=== PATIENT | female | born 1955 | race Caucasian/White ===

== ENCOUNTER → 2018-12-25 15:12 | Outpatient (CLI) | payer OTHER, SELFPAY ==
--- NOTE | 2018-12-25 15:15 | BI_ITS ---
MAMMOGRAPHY - BILATERAL SCREENING REASON FOR EXAM: Female, 63 years old. Routine annual screening examination. PERTINENT HISTORY: Non-contributory. Remote left excisional breast biopsy and left stereotactic breast biopsy. TECHNIQUE: Digital bilateral breast elton (3D mammographic acquisition) in the CC and MLO projections. 2-D mediolateral oblique (MLO) and craniocaudad (CC) views of both breasts were obtained. CAD: Full Field Digital Mammography with Computer Added Detection was performed. COMPARISON: Comparison is made with prior study dated November 23, 2017 and November 15, 2016. FINDINGS: Breast Composition: The breasts are almost entirely fatty. There are no dominant masses or suspicious calcifications. Stable benign-appearing bilateral axillary lymph nodes. No other significant abnormalities are identified. There has been no significant change since the prior study. BI/SCREENING MAMM (CAD), BILAT IMPRESSION: Stable bilateral screening mammogram. Yearly follow-up mammogram recommended. (A) ASSESSMENT CATEGORY: BIRADS Category 2: Benign. A letter regarding these results will be sent to the patient by the facility within 30 days. Approximately 10% of breast cancers are not detected by mammography. A normal mammogram should not delay biopsy of a clinically suspicious abnormality. [id number] Electronically Signed: Cal West MD at 8:51 EST , Service support ,
== END ==
PROVIDERS: Family Provider Family Medicine; PCP Family Medicine; Referring Provider Obstetrics & Gynecology; Visit Provider Obstetrics & Gynecology
DX: Z12.31 Encounter for screening mammogram for malignant neoplasm of breast (principal)
CPT/HCPCS: 77063; 77067

== ENCOUNTER → 2019-08-29 12:14 | Outpatient (CLI) | payer OTHER, SELFPAY ==
--- NOTE | 2019-08-29 12:18 | US_ITS ---
STUDY: SUPERFICIAL ULTRASOUND - RIGHT POSTERIOR THIGH REASON FOR EXAM: Female, 64 years old. Lump TECHNIQUE: A superficial ultrasound was performed with real-time and static rodriguez-scale imaging. COMPARISON: None. FINDINGS: Ultrasound evaluation of the right posterior thigh, in the area of concern, shows a complex mass measuring 1.6 x 2.3 x 1.1 cm with some vascularity suggesting this is likely inflammatory or post traumatic process. No organized abscess or adenopathy noted. Follow-up recommended to ensure resolution US/Ext Non Vasc Limited/Soft Tiss IMPRESSION: Likely post inflammatory or post traumatic collection in the posterior thigh corresponding to the palpable lump. Follow-up recommended to assure resolution Electronically Signed: Peterson Valdez MD at 17:34 EDT , Service support ,
== END ==
PROVIDERS: Family Provider Family Medicine; PCP Family Medicine; Referring Provider Family Medicine; Visit Provider Family Medicine
DX: R22.41 Localized swelling, mass and lump, right lower limb (principal)
CPT/HCPCS: 76882

== ENCOUNTER → 2020-01-06 07:47 | Outpatient (CLI) | payer OTHER, SELFPAY ==
[2017-04-17 14:23] VITALS: BMI 31.6
--- NOTE | 2020-01-06 07:49 | BI_ITS ---
MAMMOGRAPHY - BILATERAL SCREENING REASON FOR EXAM: Female, 64 years old. Routine annual screening examination. PERTINENT HISTORY: Current yesterday while since 2012 left breast biopsy in 2010 with diagnosis of intraductal hyperplasia BILATERAL DIGITAL MAMMOGRAM WITH TOMOSYNTHESIS: Mediolateraloblique and craniocaudal views demonstrate no evidence of dominant parenchymal masses. No cluster of microcalcifications or architectural distortion is seen. No evidence of skin thickening is identified. There has been no significant change since 12/25/2018. Breast Density: The breast tissue is almost entirely fatty. CAD was used to assist in final assessment. IMPRESSION: NORMAL MAMMOGRAM BILATERALLY. FINAL ASSESSMENT: BIRAD 1 (NEGATIVE) YEARLY MAMMOGRAM RECOMMENDED Electronically Signed: Yayo Schwarz, at 17:03 EST Tel , Service support , BI/SCREEN MAMM (CAD) W/DILIA SEE
== END ==
PROVIDERS: Family Provider Family Medicine; PCP Family Medicine; Referring Provider Obstetrics & Gynecology; Visit Provider Obstetrics & Gynecology
DX: Z12.31 Encounter for screening mammogram for malignant neoplasm of breast (principal)
CPT/HCPCS: 77063; 77067

== ENCOUNTER 2020-11-14 20:24 | Inpatient (IN) | payer OTHER, MEDICARE, SELFPAY ==
[2020-11-14 20:25] VITALS: BP 189/96; PULSE 79; RESP 16; TEMP 36.1; O2SAT 91; BMI 34.4
[2020-11-14 21:06] VITALS: O2SAT 90
--- NOTE | 2020-11-14 21:06 | EKG12_ITS ---
Test Reason : SOB Blood Pressure : / mmHG Vent. Rate : 074 BPM Atrial Rate : 074 BPM P-R Int : 186 ms QRS Dur : 090 ms QT Int : 424 ms P-R-T Axes : 037 -04 035 degrees QTc Int : 470 ms Normal sinus rhythm Minimal voltage criteria for LVH, may be normal variant Borderline ECG Confirmed by VELIA ROME, RADHA ([id number]), deputy editor in chief GREGORY PULIDO ([id number]) on 11/16/2020 8:49:06 AM Referred By: Carmencita Nunez Confirmed By:RADHA GUNN MD
--- NOTE | 2020-11-14 21:08 | ED.VIS.GEN ---
History of Present Illness Chief Complaint: Shortness of Breath Informant: Patient Narrative: 65-year-old female tested positive for Covid on November 09. She states her symptoms began on the . She states that she was doing reasonably well today she has been experience significant cough and now having blood streaks with her sputum. She states she feels more short of breath today. She called the nurses line I told her to come to emergency. Patient states she has a history of hypertension and takes atenolol. Other medications she tells me are in the computer for my perusal. Patient states she does not use an inhaler or has ever used one in the past. She states she cannot take a deep breath without having to cough. Her fevers have persisted though they come and go. Past Medical History - Allergies and Home Meds Allergies/Adverse Reactions: Allergies No Known Allergies Allergy (Verified 11/14/20 20:27) Primary Care Physician: Yayo Alaniz MD [Primary Care Provider] - Past Medical History: - - Hypertension, hypercholesterolemia, hypothyroidism. Surgical History: noncontributory Smoking Status: Former smoker Drugs: None Review of Systems General: Reports: Chills, Fever, Malaise. Denies: Sweats Eyes: Denies: Visual changes - bilaterally, Diplopia ENT: Denies: Rhinorrhea, Sore throat Cardiovascular: Denies: Chest pain, Palpitations Respiratory: Reports: Dyspnea, Cough, Sputum, Dyspnea on exertion, - - Hemoptysis Gastrointestinal: Reports: Nausea, Diarrhea. Denies: Abdominal pain, Vomiting, Melena, Hematochezia Genitourinary: Denies: Dysuria, Hematuria, Frequency Musculoskeletal: Reports: Myalgias. Denies: Back pain, Extremity Pain Skin: Denies: Rash, Wounds Neurological: Reports: Headache. Denies: Weakness, Numbness Physical Exam Vital Signs/Narrative: Vital Signs Temp Pulse Resp BP Pulse Ox 11/14/20 20:25 96.9 F L 79 16 189/96 H 91 Inital Vital Signs reviewed: Yes General: Well nourished, Well developed, Obese, No Acute Distress Head: Normocephalic, Atraumatic Eyes: Perrl, EOMI ENT: Moist mucous membranes, No rhinorrhea Neck: Supple, Nontender Cardiovascular: Regular rate, Regular rhythm, No murmurs Respiratory: No distress, Chest nontender, Diminished, - - And unable to take a deep breath without coughing which very much limits my lung auscultation skills. I do hear the occasional faint expiratory wheeze Abdomen: Soft, Nontender, Nondistended, Normal bowel sounds Back: Nontender, Normal Inspection Extremities: Nontender, No edema Skin: Normal color, No rash Neurological: Alert, Oriented x3, Cranial nerves II-XII grossly intact, Normal Strength, Normal Sensation Psychological: Normal affect, Normal Mood Diagnostic/Tx/Re-eval Laboratory Last Values WBC 4.0 K/mm3 (4.4-11.0) L 11/14/20 21:40 RBC 4.93 M/mm3 (4.2-5.4) 11/14/20 21:40 Hgb 14.8 g/dL (12.0-15.0) 11/14/20 21:40 Hct 43.7 % (37-47) 11/14/20 21:40 MCV 88.6 fL (81-99) 11/14/20 21:40 MCH 30.0 pg (27.0-32.0) 11/14/20 21:40 MCHC 33.9 g/dL (32-36) 11/14/20 21:40 RDW Std Deviation 41.7 fl (35.1-43.9) 11/14/20 21:40 RDW Coeff of Karyn 12.9 % (11.6-14.6) 11/14/20 21:40 Plt Count 200 K/mm3 (150-450) 11/14/20 21:40 MPV 10.9 fl (6.2-12.0) 11/14/20 21:40 Immature Gran % (Auto) 0.300 % (0.0-0.9) 11/14/20 21:40 Neut % (Auto) 44.4 % (47-70) L 11/14/20 21:40 Lymph % (Auto) 41.2 % (19-41) H 11/14/20 21:40 [place] % (Auto) 13.3 % (0-10) H 11/14/20 21:40 Eos % (Auto) 0.3 % (0-5) 11/14/20 21:40 Baso % (Auto) 0.5 % (0-1) 11/14/20 21:40 Absolute Neuts (auto) 1.8 X10^3/uL (2.0-7.7) L 11/14/20 21:40 Absolute Lymphs (auto) 1.64 X10^3/uL (0.83-4.51) 11/14/20 21:40 Nucleated RBC % 0 % (0-5) 11/14/20 21:40 Sodium 136 mmol/L (136-145) 11/14/20 21:40 Potassium 3.2 mmol/L (3.5-5.1) L 11/14/20 21:40 Chloride 97 mmol/L (98-107) L 11/14/20 21:40 Carbon Dioxide 32.0 mmol/L (21.0-32.0) 11/14/20 21:40 Anion Gap 7 (5-15) 11/14/20 21:40 BUN 14 mg/dL (7-18) 11/14/20 21:40 Creatinine 0.57 mg/dL (0.55-1.02) 11/14/20 21:40 Estim Creat Clear Calc 47.79 ml/min 11/14/20 21:40 Est GFR (MDRD) Af Amer 137 mL/min (>60) 11/14/20 21:40 Est GFR (MDRD) Non-Af 113 mL/min (>60) 11/14/20 21:40 BUN/Creatinine Ratio 24.6 RATIO (10-20) H 11/14/20 21:40 Glucose 138 mg/dL (74-106) H 11/14/20 21:40 Calcium 9.3 mg/dL (8.5-10.1) 11/14/20 21:40 Total Bilirubin 0.30 mg/dL (0.20-1.00) 11/14/20 21:40 AST 42 U/L (15-37) H 11/14/20 21:40 ALT 36 U/L (13-56) 11/14/20 21:40 Alkaline Phosphatase 114 U/L (45-117) 11/14/20 21:40 Troponin I < 0.015 ng/mL (<0.045) 11/14/20 21:40 Total Protein 7.8 g/dL (6.4-8.2) 11/14/20 21:40 Albumin 3.3 g/dL (3.2-5.0) 11/14/20 21:40 Globulin 4.5 g/dL (2.2-4.2) H 11/14/20 21:40 Albumin/Globulin Ratio 0.7 RATIO (0.9-2.4) L 11/14/20 21:40 - EKG Initial EKG Interpretation: Sinus Rhythm - EKG demonstrates a normal sinus rhythm at a rate of 74. No concerning features of ACS or ectopy. No significant changes compared to prior - Medical Decision Making She received dexamethasone Toradol and albuterol MDI. Her saturations have varied. I seen her down at 87% on room air. Slightly leukopenic. Potassium 3.2. Patient received 40 mg of potassium p.o. x1. Her CTA demonstrates no pulmonary embolism but diffuse groundglass infiltrates. Given that it is November 14Monday at 11:30 at night I am unable to get her home oxygen. Think is reasonable that we admit her for further care. ED Disposition - Plan for ED Patient: Diagnosis: COVID-19, Hypoxia, Hypokalemia Referrals: Yayo Alaniz MD [Primary Care Provider] -
[2020-11-14] MEDS: dexAMETHasone 4 MG Tablet 6 MG PO (21:31)
[2020-11-14] MEDS: Ketorolac 15 MG/ML Vial IV (21:33)
[2020-11-14] MEDS: 0.9% Normal Saline 1,000 ML 1000 ML IV (21:35)
[2020-11-14] MEDS: INHALER, ASSIST DEVICES 1 EACH SPACER INHALATION (21:36)
[2020-11-14 21:51] LABS: Absolute Lymphocyte Count 1.64 X10^3/uL (0.83-4.51); Absolute Neutrophil Count 1.8 X10^3/uL (2.0-7.7); Basophil# 0.02 X10^3/uL; Basophil% 0.5 % (0-1); Eosinophil# 0.01 X10^3/uL; Eosinophils% 0.3 % (0-5); Hematocrit 43.7 % (37-47); Hemoglobin 14.8 g/dL (12.0-15.0); Lymphocyte # 1.64 X10^3/ul (4.0); Lymphocyte % 41.2 % (19-41); Mean Corp Hgb Conc 33.9 g/dL (32-36); Mean Corpuscular Volume 88.6 fL (81-99); Mean Platelet Vol. 10.9 fl (6.2-12.0); Monocyte# 0.53 X10^3/uL; Monocyte% 13.3 % (0-10); NRBC Flagged by Analyzer 0 % (0-5); Neutrophil # 1.77 X10^3/uL (2.7-7.7); Neutrophil % 44.4 % (47-70); Platelet Count 200 K/mm3 (150-450); RBC Distribution Width CV 12.9 % (11.6-14.6); RBC Distribution Width SD 41.7 fl (35.1-43.9); Red Blood Count 4.93 M/mm3 (4.2-5.4)
[2020-11-14 22:20] LABS: ALB/GLOB Ratio 0.7 RATIO (0.9-2.4); AST(SGOT) 42 U/L (15-37); Alanine Aminotransfer ALT/SGPT 36 U/L (13-56); Albumin, Serum 3.3 g/dL (3.2-5.0); Alkaline Phosphatase 114 U/L (45-117); Anion Gap 7 (5-15); BUN 14 mg/dL (7-18); BUN/Creat Ratio 24.6 RATIO (10-20); Calcium,Total 9.3 mg/dL (8.5-10.1); Chloride 97 mmol/L (98-107); Creatinine, Serum 0.57 mg/dL (0.55-1.02); EST Glomerular Filtration Rate 113 mL/min (>60); Est Glom Filt Rate - Afr Amer 137 mL/min (>60); Estimated Creatinine Clearance 47.79 ml/min; Globulin 4.5 g/dL (2.2-4.2); Glucose 138 mg/dL (74-106); Potassium 3.2 mmol/L (3.5-5.1); Protein, Total 7.8 g/dL (6.4-8.2); Sodium Level 136 mmol/L (136-145)
[2020-11-14 22:24] VITALS: BP 153/80; PULSE 77; RESP 15; O2SAT 88
--- NOTE | 2020-11-14 22:35 | CT_ITS ---
HISTORY: +COVID. INCREASE SOB. HX OF THYROID AND LEFT BREAST CA. HTN TECHNIQUE: Helically acquired images were obtained of the chest following the intravenous administration of 100 ML of Isovue-370 Iodinated contrast. as per pulmonary angiogram protocol with 2D MIP reconstructions. A radiation dose optimization technique was used for this scan. COMPARISON: A CT scan of the abdomen and pelvis is from April 17, 2017. That study began at the level of the aortic valve FINDINGS: # of images incl. paperwork: 1221 Multifocal rounded groundglass opacities are present throughout all 5 lobes of lungs. These are peripheral greater than central. The basilar greater than apical. . No effusions. Within the thoracic spinebony alignment is normal. Vertebral body height is normal. Facets are well aligned. No rib lesions are perceived. Heart is not enlarged. Thoracic aorta is normal. No aneurysms, stenoses, dissections, nor occlusions. Mediastinal adenopathy is present No pulmonary emboli. Visualized portions of the upper abdomen are without identified acute pathology. CT/CTA Chest W/WO Contrast IMPRESSION: No pulmonary embolism, aortic aneurysm, or aortic dissection. Multifocal bilateral airspace disease consistent with Covid 19 pneumonia. Individualized dose optimization techniques were used for this CT. at 2307 Reported and signed by: Jasper Manzano MD Electronically Signed: Jasper Manzano MD at 23:06 EST Tel , Service support ,
[2020-11-14 22:59] VITALS: BP 146/82; PULSE 77; RESP 17; RESP 19; O2SAT 86; O2SAT 92
--- NOTE | 2020-11-14 23:21 | HP.PCM_ITS ---
Problem List (1) Pneumonia due to 2019 novel coronavirus Status: Acute (2) Hypoxia Status: Acute (3) Hypokalemia Status: Acute (4) HTN (hypertension) Status: Chronic Qualifiers: Hypertension type: essential hypertension Qualified Code(s): I10 - Essential (primary) hypertension (5) HLD (hyperlipidemia) Status: Chronic Qualifiers: Hyperlipidemia type: unspecified Qualified Code(s): E78.5 - Hyperlipidemia, unspecified (6) Hypothyroidism Status: Chronic Qualifiers: Hypothyroidism type: unspecified Qualified Code(s): E03.9 - Hypothyroidism, unspecified (7) History of left breast cancer Status: Chronic (8) History of thyroid cancer Status: Chronic (9) GERD (gastroesophageal reflux disease) Status: Chronic Qualifiers: Esophagitis presence: esophagitis presence not specified Qualified Code(s): K21.9 - Gastro-esophageal reflux disease without esophagitis History of Present Illness Date of Admission: 11/14/20 Chief Complaint: Increasing dyspnea, cough, worsening. The patient is a 65 y/o F w/ PMHx: HTN, HLD, GERD, Chronic back pain, Obesity, Hx L breast CA, Hx Thyroid CA who presents to the [facility] ED on 11/14/20 with history of being recently diagnosed 11/09/20 COVID positive status with history of fever, chills, severe body aches, headache, nausea gout emesis, alteration to sense of taste/smell with cough and dyspnea which primarily has worsened over the last several days prompting ED evaluation. Patient noted her dyspnea is significantly worse whenever she exerts herself. She denies any emesis or abdominal pain/diarrhea. Work-up in the ED included T 96.9, heart rate 79, BP 189/96, oxygenation per ED physician discussion decreased to as low as 87% on room air with improvement to 92% on 2 L nasal cannula, respiratory rate 16 CBC with WC four, hemoglobin 14.8, platelet 200 with leukopenia with ANC 1.8, CMP with potassium 3.2, chloride 97, glucose 138, AST/ALT 42/36, alk phos 114, troponin less than 0.015, CTPA with no evidence of pulmonary emboli, aortic aneurysm or dissection with noted multifocal bilateral L space disease consistent with Covid pneumonia, pending LDH, TCK, CRP, procalcitonin evaluation. Past Medical History Past Medical History (Chronic Problems): Chronic Problems HTN (hypertension) (Chronic) HLD (hyperlipidemia) (Chronic) Hypothyroidism (Chronic) History of left breast cancer (Chronic) History of thyroid cancer (Chronic) GERD (gastroesophageal reflux disease) (Chronic) Allergies No Known Allergies Allergy (Verified 11/14/20 20:27) Home Medications: Ambulatory Orders Medication Instructions Recorded Aspirin 81 mg PO DAILY 04/17/17 Atenolol 50 mg PO DAILY 04/17/17 Esomeprazole Mag Trihydrate 40 mg PO DAILY 04/17/17 [Nexium] Estradiol 1 mg PO DAILY 04/17/17 Hydrochlorothiazide [Hctz] 25 mg PO DAILY 04/17/17 Levothyroxine [Synthroid] 125 mcg PO DAILY 04/17/17 Simvastatin 40 mg PO DAILY 04/17/17 Surgical History: - - Left breast lumpectomy, total thyroidectomy, hysterectomy, left lower extremity vein surgery. Psychiatric History: No pertinent psych hx [employer] History: No pertinent [employer]SEM[employer]ER history Lives: Alone Smoking Status: Former smoker - Patient quit cigarette tobacco usage after smoking approximately 10 years in her 20s less than 1 pack/day. Tobacco Use: Non-smoker Alcohol: Occasional - Patient does state social drinking, sometimes up to 5 drinks was discussed and encouraged decreased consumption. Drugs: None - *Family History Maternal History Items: Cancer - Uterine cancer as well as lung cancer., Diabetes, Hypertension Paternal History Items: COPD, Diabetes, Hypertension Review of Systems Constitutional: Reports: Anorexia, Chills, Fever, Malaise, Weakness, Fatigue. Denies: Weight Change HEENT: Reports: Head Aches, - - Absent sense of taste and smell.. Denies: Sinus Congestion, Sinus Drainage Cardiovascular: Denies: Chest Pain, Chest Pressure, Chest Tightness, Palpitations Respiratory: Reports: Cough, Shortness of Breath, Shortness of breath at rest, Shortness of breath upon exertion. Denies: Sputum production Gastrointestinal: Reports: Nausea. Denies: Abdominal Pain, Diarrhea, Vomiting Genitourinary: Denies: Dysuria Musculoskeletal: Reports: Back Pain, Joint Pain, Muscle pain. Denies: Joint Tenderness Skin: Denies: Rash, Wounds Neurological: Denies: Numbness, Tingling, Focal weakness Psychiatric: Denies: Anxiety, Depression, Homicidal Ideations, Suicidal Ideations Hematologic/ Lymphatic: Denies: Easy Bruising, Easy Bleeding VTE Information - Inpt Only VTE Present on Admission: No VTE Mechan Device Prophylaxis: SCD's VTE Pharm Prophylaxis ordered?: Yes Patient Problems: Active and Suspected Problems COVID-19 (Acute) Hypoxia (Acute) Hypokalemia (Acute) Subjective: Laying in the ED bed, fatigued, notes feeling improved with oxygen supplementation, no obvious respiratory distress currently. Objective: Physical Examination: General: awake, alert, oriented x 3 and cooperative, seated upright in the ED bed, fatigued appearing otherwise no acute distress. Skin: normal color, turgor, no icterus, cyanosis. HEENT: AT/NC, EOMI, PERRLA, mildly dry MM, no carotid bruits or JVD noted. Lungs: Diminished breath sounds, greater bases, no evidence of distress, moderate effort, no rales, ronchi or wheezing. Heart: Regular rate and rhythm; no gallop, rub audible. Abdomen: soft, obese, NTTP, ND, normal BS, no HSM. Extremities: no cyanosis, clubbing, or edema. Neurological: patient awake, alert, oriented as noted; cognitive function intact; pupils equally reactive to light and accomodation; cranial nerves II-XII grossly normal, moving all 4 extremities, no focal deficits, strength moderately globally decreased secondary to acute presentation. Psychiatric: affect appears fatigued otherwise normal, no acute evidence of depressive or anxiety feelings. - Physical Exam Vitals/I&O's: Vital Signs Temp Pulse Resp BP Pulse Ox 96.9 F L 77 17 146/82 H 92 11/14/20 20:25 11/14/20 22:59 11/14/20 22:59 11/14/20 22:59 11/14/20 22:59 Oxygen Flow Rate (L/min) 2 Oxygen Delivery Method Nasal Cannula Weight: 201 lb 0.985 oz Body Mass Index (BMI) 34.4 Intake and Output for Last 24 Hours 11/12/20 11/13/20 11/14/20 23:59 23:59 23:59 Intake Total 1000 / 1000 Balance 1000 / 1000 Laboratory Results 11/14/20 21:40: WBC 4.0 L, RBC 4.93, Hgb 14.8, Hct 43.7, MCV 88.6, MCH 30.0, MCHC 33.9, RDW Std Deviation 41.7, RDW Coeff of Karyn 12.9, Plt Count 200, MPV 10.9, Immature Gran % (Auto) 0.300, Neut % (Auto) 44.4 L, Lymph % (Auto) 41.2 H, [place] % (Auto) 13.3 H, Eos % (Auto) 0.3, Baso % (Auto) 0.5, Absolute Neuts (auto) 1.8 L, Absolute Lymphs (auto) 1.64, Nucleated RBC % 0 11/14/20 21:40: Sodium 136, Potassium 3.2 L, Chloride 97 L, Carbon Dioxide 32.0, Anion Gap 7, BUN 14, Creatinine 0.57, Estim Creat Clear Calc 47.79, Est GFR (MDRD) Af Amer 137, Est GFR (MDRD) Non-Af 113, BUN/Creatinine Ratio 24.6 H, Glucose 138 H, Calcium 9.3, Total Bilirubin 0.30, AST 42 H, ALT 36, Alkaline Phosphatase 114, Troponin I < 0.015, Total Protein 7.8, Albumin 3.3, Globulin 4.5 H, Albumin/Globulin Ratio 0.7 L 11/14/20 21:40: Lactate Dehydrogenase Pending, Total Creatine Kinase Pending, C- React Prot Ext Range Pending 11/14/20 21:40: Procalcitonin Pending Assessment/Plan All Active Problems COVID-19 (Acute) Hypoxia (Acute) Hypokalemia (Acute) Pneumonia due to 2019 novel coronavirus (Acute) The patient is a 65 y/o F w/ PMHx: HTN, HLD, GERD, Chronic back pain, Obesity, Hx L breast CA, Hx Thyroid CA who presents to the [facility] ED on 11/14/20 with history of being recently diagnosed 11/09/20 COVID positive status with history of fever, chills, severe body aches, headache, nausea gout emesis, alteration to sense of taste/smell with cough and dyspnea which primarily has worsened over the last several days prompting ED evaluation. 1. Acute Hypoxia secondary to Acute Bilateral Pneumonia secondary to Acute Viral Syndrome, COVID-19: Will admit to the COVID unit, will maintain on oxygen with wean as tolerated to room air, PRN albuterol, HOB, IS parameters w/ pending sputum cultures, respiratory viral panel and urine antigens, pending procalcitonin, CRP, CPK, Ferritin, LDH, continue supportive care including q 2 hour turning including prone given no prone bed availability and judicious hydration, closely monitor for worsening status for ARDS and multiorgan failure, will initiate decadron therapy 6 mg IV daily, will initiate remdesivir and will consult Infectious disease for evaluation, T+S pending. 2. Hypokalemia: Admission K+ 3.2, magnesium level requested, supplementation given, repeat level in AM. 3. Hypertension: We will continue patient home hydrochlorothiazide and atenolol with hold parameters, as needed hydralazine. 4. Hyperlipidemia: Continue home statin regimen. 5. Hypothyroidism: Continue home synthroid regimen. 6. GERD: We will continue patient home PPI. 7. History of left breast cancer: Status post left breast lumpectomy, in remission, encourage continued outpatient follow-up with her oncologist as previously arranged. 8. History of thyroid cancer: History of total thyroidectomy, on supplementation with hypothyroidism as noted #5. 9. Obesity: Weight loss and lifestyle changes encouraged. 10. DVT prophylaxis: SCDs, Lovenox. 11. CODE status: Patient REMIGIO is her granddaughter Noemy Corley and living will is currently in place. Discussed CODE status at length including difference between FULL code, DNR-CCA and DNR-CC status. Following discussions about the differences in these status, requested Full Code. Advanced Care Planning Face to Face Time: 16 minutes. Inpatient E&M: 76205 Init Hosp L3 Procedures: 86827 Advncd Care Plan 30 Min
[2020-11-14 23:30] LABS: CPK Total, Creatine Kinase 70 U/L (26-192); LDH 301 U/L (84-246)
[2020-11-14 23:37] LABS: Procalcitonin 0.06 ng/mL (0.00-0.09)
[2020-11-14 23:59] LABS: Fibrinogen 520 mg/dl (203-444)
[2020-11-15] VITALS (9 sets, daily range): BP systolic 132–164; BP diastolic 60–91; PULSE 67–86; RESP 15–20; TEMP 36.1–38.3; O2SAT 93–97; BMI 34.6
[2020-11-15 00:02] LABS: D-Dimer Quantitative (DVT/PE) 0.51 FEU/ug/m (0.27-0.49)
--- NOTE | 2020-11-15 00:19 | PCS.PANDOC ---
PANDEMIC DOCUMENTATION INITIATED: Date: 11/15/20 Time: 0019
[2020-11-15 00:53] LABS: Magnesium 1.5 mg/dL (1.6-2.6)
[2020-11-15] MEDS: Acetaminophen 325 MG Tablet 650 MG PO ×2 (00:58→21:09)
[2020-11-15] MEDS: 0.9% Saline Lock 10 ML Syringe IV ×2 (01:04→22:25)
[2020-11-15 01:05] LABS: BNP,B-Type NATRIURETIC PEPTIDE 29.8 pg/mL (0-100)
[2020-11-15] MEDS: MELATONIN 3 MG TABLET PO ×2 (01:05→21:09)
[2020-11-15 07:47] LABS: Absolute Lymphocyte Count 0.91 X10^3/uL (0.83-4.51); Absolute Neutrophil Count 1.6 X10^3/uL (2.0-7.7); Basophil# 0.01 X10^3/uL; Basophil% 0.4 % (0-1); Hemoglobin 13.5 g/dL (12.0-15.0); Lymphocyte # 0.91 X10^3/ul (4.0); Lymphocyte % 33.6 % (19-41); Mean Corp Hgb Conc 32.9 g/dL (32-36); Mean Platelet Vol. 10.5 fl (6.2-12.0); Monocyte# 0.21 X10^3/uL; Monocyte% 7.7 % (0-10); NRBC Flagged by Analyzer 0 % (0-5); Neutrophil # 1.56 X10^3/uL (2.7-7.7); Neutrophil % 57.6 % (47-70); Platelet Count 201 K/mm3 (150-450); RBC Distribution Width CV 12.8 % (11.6-14.6); RBC Distribution Width SD 41.2 fl (35.1-43.9); Red Blood Count 4.66 M/mm3 (4.2-5.4); White Blood Count 2.7 K/mm3 (4.4-11.0)
[2020-11-15 08:09] LABS: ALB/GLOB Ratio 0.7 RATIO (0.9-2.4); AST(SGOT) 27 U/L (15-37); Alanine Aminotransfer ALT/SGPT 28 U/L (13-56); Albumin, Serum 2.9 g/dL (3.2-5.0); Alkaline Phosphatase 109 U/L (45-117); Anion Gap 7 (5-15); BUN 8 mg/dL (7-18); BUN/Creat Ratio 15.2 RATIO (10-20); Calcium,Total 8.7 mg/dL (8.5-10.1); Chloride 103 mmol/L (98-107); Creatinine, Serum 0.52 mg/dL (0.55-1.02); EST Glomerular Filtration Rate 124 mL/min (>60); Est Glom Filt Rate - Afr Amer 150 mL/min (>60); Estimated Creatinine Clearance 47.79 ml/min; Globulin 4.1 g/dL (2.2-4.2); Glucose 201 mg/dL (74-106); Magnesium 2.2 mg/dL (1.6-2.6); Potassium 3.7 mmol/L (3.5-5.1); Sodium Level 136 mmol/L (136-145)
[2020-11-15] MEDS: Pantoprazole Sodium 40 MG Tablet PO (08:51)
[2020-11-15] MEDS: Enoxaparin 30 MG/0.3 ML Syringe SC ×2 (08:51→21:10)
[2020-11-15] MEDS: Atenolol 50 MG Tablet PO (08:51)
[2020-11-15] MEDS: Aspirin E.C. 81 MG Tablet PO (08:52)
[2020-11-15] MEDS: hydroCHLOROthiazide 25 MG Tablet PO (08:52)
[2020-11-15] MEDS: dexAMETHasone 10 MG/ML Vial 6 MG IV (08:52)
--- NOTE | 2020-11-15 09:35 | PCM.PN.HOSP ---
Patient Problems: Active and Suspected Problems COVID-19 (Acute) Hypoxia (Acute) Hypokalemia (Acute) Pneumonia due to 2019 novel coronavirus (Acute) Subjective: Doing well, no issues. Still coughing, but maintaining sats at 2 L nasal cannula Vitals/I&O's: Vital Signs Temp Pulse Resp BP Pulse Ox 97.6 F L 71 18 144/86 H 95 11/15/20 08:44 11/15/20 08:44 11/15/20 08:44 11/15/20 08:44 11/15/20 08:44 Oxygen Flow Rate (L/min) 2 Oxygen Delivery Method Nasal Cannula Weight: 205 lb 4.8 oz Body Mass Index (BMI) 34.6 Intake and Output for Last 24 Hours 11/13/20 11/14/20 11/15/20 23:59 23:59 23:59 Intake Total 1000 / 1000 354 / 354 Balance 1000 / 1000 354 / 354 General: Alert, Oriented x3, Cooperative, No apparent distress HEENT: Atraumatic, PERRLA, EOMI, Normocephalic Oral: Moist Mucosa Neck: Supple, No JVD Lungs: Normal air movement, No rhonchi, No wheeze, No rales, Diminished Cardiovascular: Regular rate, Regular Rhythm, Normal S1, Normal S2, Murmur - 2/6 KADI Abdomen: Soft, Non Tender, Non-Distended, No Hepato-splenomegaly Extremities: No edema, Capillary Refill Less than 3 Seconds Skin: No rashes, No breakdown Neurological: Neuro grossly intact, Sensory exam intact to light touch and pain Psych/Mental Status: Normal Affect, Appropriate Microbiology Past 72 Hours 11/15/20 01:05 Mucosa - Nasopharyngeal Respiratory Panel (PCR) - Final 11/15/20 01:20 Urine, Clean Catch Legionella Antigen - Final 11/15/20 01:20 Urine, Clean Catch Streptococcus pneumoniae Antigen (M - Final Laboratory Results 11/14/20 21:40: WBC 4.0 L, RBC 4.93, Hgb 14.8, Hct 43.7, MCV 88.6, MCH 30.0, MCHC 33.9, RDW Std Deviation 41.7, RDW Coeff of Karyn 12.9, Plt Count 200, MPV 10.9, Immature Gran % (Auto) 0.300, Neut % (Auto) 44.4 L, Lymph % (Auto) 41.2 H, Maries % (Auto) 13.3 H, Eos % (Auto) 0.3, Baso % (Auto) 0.5, Absolute Neuts (auto) 1.8 L, Absolute Lymphs (auto) 1.64, Nucleated RBC % 0 11/14/20 21:40: Sodium 136, Potassium 3.2 L, Chloride 97 L, Carbon Dioxide 32.0, Anion Gap 7, BUN 14, Creatinine 0.57, Estim Creat Clear Calc 47.79, Est GFR (MDRD) Af Amer 137, Est GFR (MDRD) Non-Af 113, BUN/Creatinine Ratio 24.6 H, Glucose 138 H, Calcium 9.3, Total Bilirubin 0.30, AST 42 H, ALT 36, Alkaline Phosphatase 114, Troponin I < 0.015, Total Protein 7.8, Albumin 3.3, Globulin 4.5 H, Albumin/Globulin Ratio 0.7 L 11/14/20 21:40: Lactate Dehydrogenase 301 H, Total Creatine Kinase 70, C-React Prot Ext Range 92.90 H 11/14/20 21:40: Procalcitonin 0.06 11/14/20 21:40: Magnesium 1.5 L 11/14/20 21:40: B-Natriuretic Peptide 29.8 11/14/20 23:20: Fibrinogen 520 H, D-Dimer Quant (PE/DVT) 0.51 H* 11/15/20 06:50: Blood Type A POSITIVE, Antibody Screen NEGATIVE 11/15/20 06:50: WBC 2.7 L, RBC 4.66, Hgb 13.5, Hct 41.0, MCV 88.0, MCH 29.0, MCHC 32.9, RDW Std Deviation 41.2, RDW Coeff of Karyn 12.8, Plt Count 201, MPV 10.5, Immature Gran % (Auto) 0.700, Neut % (Auto) 57.6, Lymph % (Auto) 33.6, Maries % (Auto) 7.7, Eos % (Auto) 0.0, Baso % (Auto) 0.4, Absolute Neuts (auto) 1.6 L, Absolute Lymphs (auto) 0.91, Nucleated RBC % 0 11/15/20 06:50: Sodium 136, Potassium 3.7, Chloride 103, Carbon Dioxide 26.0, Anion Gap 7, BUN 8, Creatinine 0.52 L, Estim Creat Clear Calc 47.79, Est GFR (MDRD) Af Amer 150, Est GFR (MDRD) Non-Af 124, BUN/Creatinine Ratio 15.2, Glucose 201 H, Calcium 8.7, Magnesium 2.2, Total Bilirubin 0.30, AST 27, ALT 28, Alkaline Phosphatase 109, Total Protein 7.0, Albumin 2.9 L, Globulin 4.1, Albumin/Globulin Ratio 0.7 L Current Medications Acetaminophen (Acetaminophen 325 Mg Tablet) 650 mg PO Q6H PRN PRN PRN Reason: Pain Score 1-10/Temp > 100.7 F Last Admin: 11/15/20 00:58 Dose: 650 mg Documented by: Al Hydroxide/Mg Hydroxide (Mag Hydrox/Al Hydrox/Simeth 30 Ml Udc) 30 ml PO Q6H PRN PRN PRN Reason: Gastric Burning Albuterol Sulfate (Albuterol Ih 8.5 Gm (Proair) Inhaler (200 Puffs)) 4 - 8 puff INHALATION Q4H PRN PRN PRN Reason: Dyspnea, wheezing Aspirin (Aspirin E.C. 81 Mg Tablet) 81 mg PO DAILY [facility] Last Admin: 11/15/20 08:52 Dose: 81 mg Documented by: Atenolol (Atenolol 50 Mg Tablet) 50 mg PO DAILY [facility] Last Admin: 11/15/20 08:51 Dose: 50 mg Documented by: Atorvastatin Calcium (Atorvastatin Calcium 20 Mg Tablet) 20 mg PO QHS [facility] Dexamethasone Sodium Phosphate (Dexamethasone 10 Mg/Ml Vial) 6 mg IV DAILY [facility] Last Admin: 11/15/20 08:52 Dose: 6 mg Documented by: Enoxaparin Sodium (Enoxaparin 30 Mg/0.3 Ml Syringe) 30 mg SC BID [facility] Last Admin: 11/15/20 08:51 Dose: 30 mg Documented by: Guaifenesin (Guaifenesin 10 Ml Udc (200mg/10ml)) 20 ml PO Q4H PRN PRN PRN Reason: COUGH Hydralazine HCl (Hydralazine 20 Mg/Ml Vial) 10 mg IV Q4H PRN PRN PRN Reason: SBP > 160 Hydrochlorothiazide (Hydrochlorothiazide 25 Mg Tablet) 25 mg PO DAILY [facility] Last Admin: 11/15/20 08:52 Dose: 25 mg Documented by: Remdesivir 100 mg/ Sodium (Chloride) 250 mls @ 125 mls/hr IV Q24H [facility] Stop: 11/18/20 23:59 Sodium Chloride () 250 mls @ 15 mls/hr IV .[id number] PRN PRN Reason: Saline Flush Last Admin: 11/15/20 01:00 Dose: 15 mls/hr Documented by: Levothyroxine Sodium (Levothyroxine 125 Mcg Tablet) 125 mcg PO DAILY [facility] Last Admin: 11/15/20 08:51 Dose: Not Given Documented by: Magnesium Hydroxide (Magnesium Hydroxide 30 Ml Udc) 30 ml PO DAILY PRN PRN PRN Reason: Constipation Melatonin (Melatonin 3 Mg Tablet) 3 mg PO QHS PRN PRN PRN Reason: INSOMNIA Last Admin: 11/15/20 01:05 Dose: 3 mg Documented by: Ondansetron HCl (Ondansetron 4 Mg/2 Ml Vial) 4 mg IV Q8H PRN PRN PRN Reason: NAUSEA/VOMITING Oxycodone HCl (Oxycodone 5 Mg Tablet) 5 mg PO Q4H PRN PRN PRN Reason: Pain Score 4-5 Pantoprazole Sodium (Pantoprazole Sodium 40 Mg Tablet) 40 mg PO DAILY [facility] Last Admin: 11/15/20 08:51 Dose: 40 mg Documented by: Prochlorperazine Edisylate (Prochlorperazine 10 Mg/2 Ml Vial) 5 mg IV Q4H PRN PRN PRN Reason: Breakthrough nausea/vomiting Psyllium Hydrophilic Mucilloid (Psyllium 1 Packet) 1 packet PO DAILY PRN PRN PRN Reason: Constipation Senna/Docusate Sodium (Senna/Docusate Sodium 1 Tablet) 2 tablet PO BID PRN PRN PRN Reason: Constipation Sodium Chloride (0.9% Saline Lock 10 Ml Syringe) 10 - 40 ml IV UD PRN PRN Reason: SALINE FLUSH Last Admin: 11/15/20 01:04 Dose: 10 ml Documented by: Throat Lozenges (Benzocaine/Menthol 1 Lozenge) 1 lozenge MUCOUS MEM Q2H PRN PRN PRN Reason: SORE THROAT STROKE Vital Signs/Narrative: Vital Signs Temp Pulse Resp BP Pulse Ox 11/15/20 08:44 97.6 F L 71 18 144/86 H 95 Medical Necessity - Tobacco Use Smoking Status: Former smoker Tobacco Use: Non-smoker Assessment/Plan All Active Problems COVID-19 (Acute) Hypoxia (Acute) Hypokalemia (Acute) Pneumonia due to 2019 novel coronavirus (Acute) 1. Acute hypoxic respiratory insufficiency secondary to COVID-19 pneumonia -She tested positive for Covid on 11/09/2020, symptoms slowly got worse which is why she presented to the hospital -He with remdesivir and Decadron -Continue CBC and CMP monitor LFTs -Be very cautious with IV fluids cannot overload, will transition IV Decadron to p.o. Decadron 2. HTN/HLD -Blood pressure currently stable, will closely monitor given the Decadron -Continue with her home blood pressure medications -Continue with statins 3. Hypothyroidism -Stable -Continue with Synthroid 4. GERD -Stable -Continue PPI DVT: Lovenox Inpatient E&M: [id number] Subs Hosp L2
[2020-11-15] MEDS: Atorvastatin Calcium 20 MG Tablet PO (21:09)
[2020-11-15] MEDS: NYSTATIN 500,000 UNIT/5 ML UDC 500000 UNIT PO (21:09)
[2020-11-15] MEDS: Estradiol 0.5 MG Tablet PO (22:24)
[2020-11-15] MEDS: DiphenhydrAMINE 25 MG Capsule PO (22:24)
[2020-11-16] VITALS (8 sets, daily range): BP systolic 127–156; BP diastolic 68–93; PULSE 59–63; RESP 18–20; TEMP 35.9–36.5; O2SAT 86–97
[2020-11-16 06:17] LABS: Absolute Lymphocyte Count 1.53 X10^3/uL (0.83-4.51); Absolute Neutrophil Count 4.4 X10^3/uL (2.0-7.7); Basophil# 0.01 X10^3/uL; Basophil% 0.1 % (0-1); Eosinophil# 0.01 X10^3/uL; Eosinophils% 0.1 % (0-5); Hematocrit 40.9 % (37-47); Hemoglobin 13.4 g/dL (12.0-15.0); Lymphocyte # 1.53 X10^3/ul (4.0); Lymphocyte % 22.1 % (19-41); Mean Corp Hgb Conc 32.8 g/dL (32-36); Mean Corpuscular Hgb 28.9 pg (27.0-32.0); Mean Corpuscular Volume 88.3 fL (81-99); Mean Platelet Vol. 10.7 fl (6.2-12.0); Monocyte# 0.97 X10^3/uL; NRBC Flagged by Analyzer 0 % (0-5); Neutrophil # 4.38 X10^3/uL (2.7-7.7); Neutrophil % 63.3 % (47-70); Platelet Count 250 K/mm3 (150-450); RBC Distribution Width CV 12.8 % (11.6-14.6); RBC Distribution Width SD 41.6 fl (35.1-43.9); Red Blood Count 4.63 M/mm3 (4.2-5.4); White Blood Count 6.9 K/mm3 (4.4-11.0)
[2020-11-16 06:50] LABS: ALB/GLOB Ratio 0.8 RATIO (0.9-2.4); AST(SGOT) 23 U/L (15-37); Alanine Aminotransfer ALT/SGPT 27 U/L (13-56); Albumin, Serum 2.8 g/dL (3.2-5.0); Alkaline Phosphatase 98 U/L (45-117); Anion Gap 6 (5-15); BUN 15 mg/dL (7-18); BUN/Creat Ratio 29.6 RATIO (10-20); Calcium,Total 9.2 mg/dL (8.5-10.1); Chloride 103 mmol/L (98-107); Creatinine, Serum 0.51 mg/dL (0.55-1.02); EST Glomerular Filtration Rate 129 mL/min (>60); Est Glom Filt Rate - Afr Amer 157 mL/min (>60); Estimated Creatinine Clearance 47.79 ml/min; Globulin 3.4 g/dL (2.2-4.2); Glucose 148 mg/dL (74-106); Potassium 3.7 mmol/L (3.5-5.1); Protein, Total 6.2 g/dL (6.4-8.2); Sodium Level 138 mmol/L (136-145)
[2020-11-16] MEDS: NYSTATIN 500,000 UNIT/5 ML UDC 500000 UNIT PO ×4 (08:29→21:07)
[2020-11-16] MEDS: Enoxaparin 30 MG/0.3 ML Syringe SC ×2 (08:29→21:06)
[2020-11-16] MEDS: Aspirin E.C. 81 MG Tablet PO (08:30)
[2020-11-16] MEDS: hydroCHLOROthiazide 25 MG Tablet PO (08:30)
[2020-11-16] MEDS: Atenolol 50 MG Tablet PO (08:30)
[2020-11-16] MEDS: Pantoprazole Sodium 40 MG Tablet PO (08:30)
[2020-11-16] MEDS: dexAMETHasone 4 MG Tablet 6 MG PO (08:30)
[2020-11-16] MEDS: Levothyroxine 125 MCG Tablet PO (08:31)
--- NOTE | 2020-11-16 12:55 | CASEMGMT ---
RN CM called patient in room for initial transition planning/care coordination assessment. RN CATHY introduced self and role at [facility]. Patient lying in bed, alert and oriented. Patient willing to participate in assessment and is able to answer all questions appropriately. Care providers, pharmacy, and demographics verified. Patient wishes to discharge home, denies need for home health at this time. Patient states she has no further needs or concerns at this time. CM to follow for discharge planning needs that may arise. PCP: Katty Specialists: none Preferred Pharmacy: [facility] Insurance: JAN [employer]ch Prescription Benefit: yes Living Will/HPOA: yes, granddaughter Noemy Corley LNOK: granddaughter Living Arrangements: Patient lives alone in a 2nd floor apartment and is independent in the home. Patient is able to ambulate stairs. Transportation: self/ granddaughter DME/HHC: Patient denies DME or previous HHC. Will monitor for need for HHC. Disposition Plan: Patient to discharge home with family support and follow-up plans in place. Alyssa GARCIA, RN, CM
--- NOTE | 2020-11-16 14:35 | NURSING ---
po 93% at rest on ra
--- NOTE | 2020-11-16 15:17 | CON.PCM_ITS ---
Problem List (1) COVID-19 Status: Acute Reason for Consult: covid Consulted by: Dr. Locke History of Present Illness: The patient is a 65 year old F presented with sx since 11/07 with fever, chills, cough, SOB, nausea, headache, sore throat, myalgias. No change in taste/smell. Lives alone, works at [employer]. Came to ED 1/, given dex, remdesiivr, feeling better. Off O2 today. Full ROS performed and neg except as noted above. - Medical History Past Medical History (Chronic Problems): Chronic Problems HTN (hypertension) (Chronic) HLD (hyperlipidemia) (Chronic) Hypothyroidism (Chronic) History of left breast cancer (Chronic) History of thyroid cancer (Chronic) GERD (gastroesophageal reflux disease) (Chronic) Allergies/Adverse Reactions: Allergies No Known Allergies Allergy (Verified 11/14/20 20:27) Home Medications: Ambulatory Orders Medication Instructions Recorded Aspirin 81 mg PO DAILY 04/17/17 Atenolol 50 mg PO DAILY 04/17/17 Esomeprazole Mag Trihydrate 40 mg PO DAILY 04/17/17 [Nexium] Estradiol 0.5 mg PO QHS 04/17/17 Hydrochlorothiazide [Hctz] 25 mg PO DAILY 04/17/17 Levothyroxine [Synthroid] 125 mcg PO DAILY 04/17/17 Simvastatin 40 mg PO DAILY 04/17/17 DiphenhydrAMINE [Benadryl] 25 mg PO QHS PRN PRN 11/15/20 - Social History SMOKING STATUS:: Former smoker Vital Signs Temp Pulse Resp BP Pulse Ox 97.3 F L 59 L 20 H 127/68 H 86 11/16/20 14:20 11/16/20 14:20 11/16/20 14:20 11/16/20 14:20 11/16/20 14:32 Oxygen Flow Rate (L/min) 1 Oxygen Delivery Method Room Air Weight: 92.561 kg Body Mass Index (BMI) 34.6 Microbiology Past 72 Hours 11/15/20 22:03 Gram Stain - Final Interface Orders Respiratory Culture - Preliminary Appears to be normal respiratory david. Further studies to follow. 11/15/20 01:05 Respiratory Panel (PCR) - Final Mucosa - Nasopharyngeal 11/15/20 01:20 Legionella Antigen - Final Urine, Clean Catch Streptococcus pneumoniae Antigen (M - Final Laboratory Tests Past 24 Hrs 11/16/20 11/16/20 05:45 05:45 WBC 6.9 RBC 4.63 Hgb 13.4 Hct 40.9 MCV 88.3 MCH 28.9 MCHC 32.8 RDW Std Deviation 41.6 RDW Coeff of Karyn 12.8 Plt Count 250 MPV 10.7 Immature Gran % (Auto) 0.400 Neut % (Auto) 63.3 Lymph % (Auto) 22.1 [place] % (Auto) 14.0 H Eos % (Auto) 0.1 Baso % (Auto) 0.1 Absolute Neuts (auto) 4.4 Absolute Lymphs (auto) 1.53 Nucleated RBC % 0 Sodium 138 Potassium 3.7 Chloride 103 Carbon Dioxide 29.0 Anion Gap 6 BUN 15 Creatinine 0.51 L Estim Creat Clear Calc 47.79 Est GFR (MDRD) Af Amer 157 Est GFR (MDRD) Non-Af 129 BUN/Creatinine Ratio 29.6 H Glucose 148 H Calcium 9.2 Total Bilirubin 0.20 AST 23 ALT 27 Alkaline Phosphatase 98 Total Protein 6.2 L Albumin 2.8 L Globulin 3.4 Albumin/Globulin Ratio 0.8 L - Other Studies Radiology: [] reviewed Other Studies: [] Route of nutrition/ use of supplements: [] Nutritional Intake: [] IV Site: [] Noel Catheter: [] - Physical Exam General: Alert, Oriented x3, Cooperative, No apparent distress HEENT: Atraumatic, PERRLA, EOMI Neck: Supple, No Nodes Lungs: Clear to auscultation, Diminished Cardiovascular: Regular rate, Regular Rhythm Abdomen: Soft, Non Tender, Non-Distended Extremities: No edema Skin: No rashes IV Site: Peripheral, without redness Musculoskeletal: No Tenderness to Palpation of Joints or Extremities Neurological: Cranial nerves II-XII grossly intact - Assessment/Plan Antibiotics: [] Assessment/Plan: [] Active and Suspected Problems COVID-19 (Acute) Hypoxia (Acute) Hypokalemia (Acute) Pneumonia due to 2019 novel coronavirus (Acute) covid with hypoxia - feeling better, sx started 11/07, on dex, remdesivir, and lovenox 30mg bid. D-dimer just barely above normal range. Plan on quarantine for 20 days from start of symptoms. Complete 10 days total of dex. Ok for discharge home today or tomorrow, probably ok to not leave on any extra anticoagulation; is on ASA. will follow, thank you
--- NOTE | 2020-11-16 17:58 | PN_ITS ---
Patient Problems: Active and Suspected Problems COVID-19 (Acute) Hypoxia (Acute) Hypokalemia (Acute) Pneumonia due to 2019 novel coronavirus (Acute) Subjective: Patient was seen and examined today, I attempted to wean her oxygen down today but she still required oxygen on room air. Patient is getting remdesivir and dexamethasone presently, she does not complain of any fever or chills, she does not complain of any increased shortness of breath. - Physical Exam Vitals/I&O's: Vital Signs Temp Pulse Resp BP Pulse Ox 97.3 F L 59 L 20 H 127/68 H 86 11/16/20 14:20 11/16/20 14:20 11/16/20 14:20 11/16/20 14:20 11/16/20 14:32 Oxygen Flow Rate (L/min) 1 Oxygen Delivery Method Room Air Weight: 92.561 kg Body Mass Index (BMI) 34.6 Intake and Output for Last 24 Hours 11/14/20 11/15/20 11/16/20 23:59 23:59 23:59 Intake Total 1000 / 1000 1167.5 / 1167.5 550 / 550 Balance 1000 / 1000 1167.5 / 1167.5 550 / 550 General: Alert, Oriented x3, Cooperative, No apparent distress, Well developed HEENT: Atraumatic, PERRLA, EOMI, Normocephalic Oral: Moist Mucosa Neck: Supple, No JVD, Trachea Midline, Thyroid Normal Size and Texture Lungs: Clear to auscultation, Normal air movement, No rhonchi, No wheeze, No rales Cardiovascular: Regular rate, Regular Rhythm, Normal S1, Normal S2, No murmurs, PMI Normal, No rub noted, No Gallop Abdomen: Bowel Sounds Present, Soft, Non Tender, Non-Distended Extremities: No clubbing, No cyanosis, No edema, Capillary Refill Less than 3 Seconds Skin: No rashes, No breakdown Musculoskeletal: No Tenderness to Palpation of Joints or Extremities Neurological: Cranial nerves II-XII grossly intact, Neuro grossly intact, Sensory exam intact to light touch and pain Psych/Mental Status: Normal Affect, Appropriate, Alert and oriented to time, place, person, mood and affect Microbiology Past 72 Hours 11/15/20 22:03 Interface Orders Gram Stain - Final 11/15/20 22:03 Interface Orders Respiratory Culture - Preliminary Appears to be normal respiratory david. Further studies to follow. 11/15/20 01:05 Mucosa - Nasopharyngeal Respiratory Panel (PCR) - Final 11/15/20 01:20 Urine, Clean Catch Legionella Antigen - Final 11/15/20 01:20 Urine, Clean Catch Streptococcus pneumoniae Antigen (M - Final Laboratory Results 11/16/20 05:45: WBC 6.9, RBC 4.63, Hgb 13.4, Hct 40.9, MCV 88.3, MCH 28.9, MCHC 32.8, RDW Std Deviation 41.6, RDW Coeff of Karyn 12.8, Plt Count 250, MPV 10.7, Immature Gran % (Auto) 0.400, Neut % (Auto) 63.3, Lymph % (Auto) 22.1, [place] % (Auto) 14.0 H, Eos % (Auto) 0.1, Baso % (Auto) 0.1, Absolute Neuts (auto) 4.4, Absolute Lymphs (auto) 1.53, Nucleated RBC % 0 11/16/20 05:45: Sodium 138, Potassium 3.7, Chloride 103, Carbon Dioxide 29.0, Anion Gap 6, BUN 15, Creatinine 0.51 L, Estim Creat Clear Calc 47.79, Est GFR (MDRD) Af Amer 157, Est GFR (MDRD) Non-Af 129, BUN/Creatinine Ratio 29.6 H, Glucose 148 H, Calcium 9.2, Total Bilirubin 0.20, AST 23, ALT 27, Alkaline Phosphatase 98, Total Protein 6.2 L, Albumin 2.8 L, Globulin 3.4, Albumin/Globulin Ratio 0.8 L Current Medications Acetaminophen (Acetaminophen 325 Mg Tablet) 650 mg PO Q6H PRN PRN PRN Reason: Pain Score 1-10/Temp > 100.7 F Last Admin: 11/15/20 21:09 Dose: 650 mg Documented by: Al Hydroxide/Mg Hydroxide (Mag Hydrox/Al Hydrox/Simeth 30 Ml Udc) 30 ml PO Q6H PRN PRN PRN Reason: Gastric Burning Albuterol Sulfate (Albuterol Ih 8.5 Gm (Proair) Inhaler (200 Puffs)) 4 - 8 puff INHALATION Q4H PRN PRN PRN Reason: Dyspnea, wheezing Aspirin (Aspirin E.C. 81 Mg Tablet) 81 mg PO DAILY [facility] Last Admin: 11/16/20 08:30 Dose: 81 mg Documented by: Atenolol (Atenolol 50 Mg Tablet) 50 mg PO DAILY [facility] BEDS AT [facility] Last Admin: 11/16/20 08:30 Dose: 50 mg Documented by: Atorvastatin Calcium (Atorvastatin Calcium 20 Mg Tablet) 20 mg PO QHS [facility] 234 BEDS AT [facility] Last Admin: 11/15/20 21:09 Dose: 20 mg Documented by: Dexamethasone (Dexamethasone 4 Mg Tablet) 6 mg PO DAILY [facility] 234 BEDS AT THE [facility] Stop: 11/23/20 10:01 Last Admin: 11/16/20 08:30 Dose: 6 mg Documented by: Diphenhydramine HCl (Diphenhydramine 25 Mg Capsule) 25 mg PO QHS PRN PRN PRN Reason: SLEEP Last Admin: 11/15/20 22:24 Dose: 25 mg Documented by: Enoxaparin Sodium (Enoxaparin 30 Mg/0.3 Ml Syringe) 30 mg SC BID [facility]S [facility]CLUDE 234 BEDS AT [facility] Last Admin: 11/16/20 08:29 Dose: 30 mg Documented by: Estradiol (Estradiol 0.5 Mg Tablet) 0.5 mg PO QHS [facility]S [facility]CLUDE 234 BEDS AT [facility] Last Admin: 11/15/20 22:24 Dose: 0.5 mg Documented by: Guaifenesin (Guaifenesin 10 Ml Udc (200mg/10ml)) 20 ml PO Q4H PRN PRN PRN Reason: COUGH Hydralazine HCl (Hydralazine 20 Mg/Ml Vial) 10 mg IV Q4H PRN PRN PRN Reason: SBP > 160 Hydrochlorothiazide (Hydrochlorothiazide 25 Mg Tablet) 25 mg PO DAILY [facility] 234 BEDS AT [facility] Last Admin: 11/16/20 08:30 Dose: 25 mg Documented by: Remdesivir 100 mg/ Sodium (Chloride) 250 mls @ 125 mls/hr IV Q24H COUNTS INCLUDE 234 BEDS AT THE [facility] Stop: 11/18/20 23:59 Last Infusion: 11/16/20 00:24 Dose: Infused Documented by: Sodium Chloride () 250 mls @ 15 mls/hr IV .[id number] PRN PRN Reason: Saline Flush Last Infusion: 11/15/20 23:46 Dose: Infused Documented by: Levothyroxine Sodium (Levothyroxine 125 Mcg Tablet) 125 mcg PO DAILY [facility]CLUDE 234 BEDS AT [facility] Last Admin: 11/16/20 08:31 Dose: 125 mcg Documented by: Magnesium Hydroxide (Magnesium Hydroxide 30 Ml Udc) 30 ml PO DAILY PRN PRN PRN Reason: Constipation Melatonin (Melatonin 3 Mg Tablet) 3 mg PO QHS PRN PRN PRN Reason: INSOMNIA Last Admin: 11/15/20 21:09 Dose: 3 mg Documented by: Nystatin (Nystatin 500,000 Unit/5 Ml Udc) 500,000 unit PO 4X/DAY COUNTS INCLUDE 234 BEDS AT THE [facility] Last Admin: 11/16/20 17:49 Dose: 500,000 unit Documented by: Ondansetron HCl (Ondansetron 4 Mg/2 Ml Vial) 4 mg IV Q8H PRN PRN PRN Reason: NAUSEA/VOMITING Oxycodone HCl (Oxycodone 5 Mg Tablet) 5 mg PO Q4H PRN PRN PRN Reason: Pain Score 4-5 Pantoprazole Sodium (Pantoprazole Sodium 40 Mg Tablet) 40 mg PO DAILY [facility]S [facility]CLUDE 234 BEDS AT [facility] Last Admin: 11/16/20 08:30 Dose: 40 mg Documented by: Prochlorperazine Edisylate (Prochlorperazine 10 Mg/2 Ml Vial) 5 mg IV Q4H PRN PRN PRN Reason: Breakthrough nausea/vomiting Psyllium Hydrophilic Mucilloid (Psyllium 1 Packet) 1 packet PO DAILY PRN PRN PRN Reason: Constipation Senna/Docusate Sodium (Senna/Docusate Sodium 1 Tablet) 2 tablet PO BID PRN PRN PRN Reason: Constipation Sodium Chloride (0.9% Saline Lock 10 Ml Syringe) 10 - 40 ml IV UD PRN PRN Reason: SALINE FLUSH Last Admin: 11/15/20 22:25 Dose: 10 ml Documented by: Throat Lozenges (Benzocaine/Menthol 1 Lozenge) 1 lozenge MUCOUS MEM Q2H PRN PRN PRN Reason: SORE THROAT Medical Necessity - Tobacco Use Smoking Status: Former smoker Tobacco Use: Non-smoker Assessment/Plan All Active Problems COVID-19 (Acute) Hypoxia (Acute) Hypokalemia (Acute) Pneumonia due to 2019 novel coronavirus (Acute) #1 COVID-19 pneumonia-continue present treatment, ID is seeing patient #2 hypoxia secondary to #1-oxygen will be weaned if possible #3 essential hypertension #4 hypothyroidism #5 hypokalemia-corrected at this time Inpatient E&M: [id number] [facility] Hosp L2
[2020-11-16] MEDS: 0.9% Saline Lock 10 ML Syringe IV (21:01)
[2020-11-16] MEDS: Atorvastatin Calcium 20 MG Tablet PO (21:05)
[2020-11-16] MEDS: Estradiol 0.5 MG Tablet PO (21:05)
[2020-11-17 01:42] VITALS: BP 160/81; PULSE 56; RESP 16; TEMP 36.5; O2SAT 95
[2020-11-17 05:30] VITALS: BP 159/93; PULSE 57; RESP 18; TEMP 36.3; O2SAT 93
[2020-11-17 10:38] VITALS: O2SAT 92; O2SAT 95
[2020-11-17 10:39] VITALS: BP 150/96; PULSE 67; RESP 18; TEMP 36.2; O2SAT 95
[2020-11-17] MEDS: Pantoprazole Sodium 40 MG Tablet PO (10:50)
[2020-11-17] MEDS: NYSTATIN 500,000 UNIT/5 ML UDC 500000 UNIT PO (10:50)
[2020-11-17] MEDS: Atenolol 50 MG Tablet PO (10:50)
[2020-11-17] MEDS: Levothyroxine 125 MCG Tablet PO (10:50)
[2020-11-17] MEDS: Aspirin E.C. 81 MG Tablet PO (10:51)
[2020-11-17] MEDS: Enoxaparin 30 MG/0.3 ML Syringe SC (10:51)
[2020-11-17] MEDS: hydroCHLOROthiazide 25 MG Tablet PO (10:51)
[2020-11-17] MEDS: dexAMETHasone 4 MG Tablet 6 MG PO (10:51)
--- NOTE | 2020-11-17 12:14 | PCM.DC ---
- Discharge Diagnoses Current Active Problems: Current Active and Chronic Problems COVID-19 (Acute) Hypoxia (Acute) Hypokalemia (Acute) Pneumonia due to 2019 novel coronavirus (Acute) HTN (hypertension) (Chronic) HLD (hyperlipidemia) (Chronic) Hypothyroidism (Chronic) History of left breast cancer (Chronic) History of thyroid cancer (Chronic) GERD (gastroesophageal reflux disease) (Chronic) You will use the following diet at home:: No restrictions Your food should be the consistency of: Regular Your liquids should be the consistency of: Regular/Thin Discharge Activity: Return to Normal Activity Return to work on:: 11/27/20 Weight Bearing Status: Full weight bearing Additional Instructions: quarantine until 11/27/20 Allergies/Adverse Reactions: Allergies No Known Allergies Allergy (Verified 11/14/20 20:27) Medications to take at Discharge Aspirin 81 mg PO DAILY 04/17/17 Atenolol 50 mg PO DAILY 04/17/17 Esomeprazole Mag Trihydrate [Nexium] 40 mg PO DAILY 04/17/17 Estradiol 0.5 mg PO QHS 04/17/17 Hydrochlorothiazide [Hctz] 25 mg PO DAILY 04/17/17 Levothyroxine [Synthroid] 125 mcg PO DAILY 04/17/17 Simvastatin 40 mg PO DAILY 04/17/17 DiphenhydrAMINE [Benadryl] 25 mg PO QHS PRN PRN 11/15/20 dexAMETHasone [Dexamethasone] 6 mg PO DAILY #18 tab 11/17/20 The following prescriptions were given: dexAMETHasone [Dexamethasone] 6 mg PO DAILY #18 tab Transmission Status: Pending to [id number] Primary Care Physician: Yayo Alaniz MD [Primary Care Provider] - Please follow up with your Primary Care Physician in: in 3 weeks Test Results: Test results from this visit will be discussed in further detail at your follow-up appointment, if applicable.
--- NOTE | 2020-11-18 07:48 | PCM.DC.SUM ---
Discharge Date and Diagnosis - Problem List Patient Problems: Active and Suspected Problems COVID-19 (Acute) Hypoxia (Acute) Hypokalemia (Acute) Pneumonia due to 2019 novel coronavirus (Acute) Date of Admission: 11/14/20 Date of Discharge: 11/17/20 - Primary Discharge Diagnosis Acute Problems: Active Problems COVID-19 (Acute) Hypoxia (Acute) Hypokalemia (Acute) Pneumonia due to 2019 novel coronavirus (Acute) Essential hypertension Hypothyroidism - Secondary Discharge Diagnosis Chronic Problems: Chronic Problems HTN (hypertension) (Chronic) HLD (hyperlipidemia) (Chronic) Hypothyroidism (Chronic) History of left breast cancer (Chronic) History of thyroid cancer (Chronic) GERD (gastroesophageal reflux disease) (Chronic) Hospital Course and Treatment Operations: None Procedures: None Summary of Care Provided: The patient is a 65 year old F was seen in the emergency room at [facility] with a chief complaint shortness of breath. Patient tested positive for COVID-19 on November 09, 2020. Patient states her symptoms began on November 07, 2020. Work-up in the emergency room included a CTA of the chest with demonstrates no pulmonary embolism but diffuse groundglass infiltrates, her pulse ox on room air was 87%, her potassium was 3.2. Patient was admitted to [place] [address], she received potassium replacement, remdesivir, and dexamethasone and was seen by infectious diseases. Patient improved during her hospital stay. There were no complications. On 11/17/2020, patient was seen and examined: On examination she appeared in good health and spirits, she does not appear to be in any distress. Vital signs as documented. Skin warm and dry and without overt rashes. Neck without JVD, thyroid appears normal, trachea is midline, neck is supple. Lungs clear, normal air movement was noted. Heart exam notable for regular rhythm, normal sounds and absence of murmurs, rubs or gallops. Abdomen unremarkable and without evidence of organomegaly, masses, or abdominal aortic enlargement, bowel sounds are present in all 4 quadrants, no abdominal tenderness was noted. Extremities nonedematous, no cyanosis was noted, no clubbing was noted. Neuro: Cranial nerves II through XII are grossly intact, no focal motor deficits were noted, sensation to light touch and pinprick is intact, motor exam 5/5 throughout. Psych: Patient is alert and oriented x3, she does not appear anxious or depressed, she does not appear agitated. On 11/17/2020, patient was seen and examined and felt in stable condition for discharge home, she required no supplemental oxygen on discharge. Patient Problems: Active and Suspected Problems COVID-19 (Acute) Hypoxia (Acute) Hypokalemia (Acute) Pneumonia due to 2019 novel coronavirus (Acute) - Physical Exam Vitals/I&O's: Vital Signs Temp Pulse Resp BP Pulse Ox 97.1 F L 67 18 150/96 H 95 11/17/20 10:39 11/17/20 10:39 11/17/20 10:39 11/17/20 10:39 11/17/20 10:39 Oxygen Flow Rate (L/min) 95 Oxygen Delivery Method Room Air Weight: 92 kg Body Mass Index (BMI) 34.6 Intake and Output for Last 24 Hours 11/16/20 11/17/20 11/18/20 23:59 23:59 23:59 Intake Total 1000 / 1000 200 / 200 Balance 1000 / 1000 200 / 200 Microbiology Past 72 Hours 11/14/20 23:20 Blood Culture (Wb) - Anticubital Left Blood Culture - Preliminary No growth in 48 hours. 11/14/20 23:20 Blood Culture (Wb) - Left Hand Blood Culture - Preliminary No growth in 48 hours. 11/15/20 22:03 Interface Orders Gram Stain - Final 11/15/20 22:03 Interface Orders Respiratory Culture - Preliminary Appears to be normal respiratory david. Further studies to follow. 11/15/20 01:05 Mucosa - Nasopharyngeal Respiratory Panel (PCR) - Final Discharge Activity: Return to Normal Activity Return to work on:: 11/27/20 Weight Bearing Status: Full weight bearing Home Medications: Medications to take at Discharge Aspirin 81 mg PO DAILY 04/17/17 Atenolol 50 mg PO DAILY 04/17/17 Esomeprazole Mag Trihydrate [Nexium] 40 mg PO DAILY 04/17/17 Estradiol 0.5 mg PO QHS 04/17/17 Hydrochlorothiazide [Hctz] 25 mg PO DAILY 04/17/17 Levothyroxine [Synthroid] 125 mcg PO DAILY 04/17/17 Simvastatin 40 mg PO DAILY 04/17/17 DiphenhydrAMINE [Benadryl] 25 mg PO QHS PRN PRN 11/15/20 dexAMETHasone [Dexamethasone] 6 mg PO DAILY #18 tab 11/17/20 Following Prescriptions Were Given to Patient: dexAMETHasone [Dexamethasone] 6 mg PO DAILY #18 tab Transmission Status: Received by [id number] Primary Care Physician: Yayo Alaniz MD [Primary Care Provider] - Please follow up with your Primary Care Physician in: in 3 weeks Disposition: Home Minutes spent on discharge:: 31 Patient Condition:: Stable Medical Necessity - Tobacco Use Smoking Status: Former smoker Tobacco Use: Non-smoker Meaningful Use Info Meaningful Use Diagnoses (Choose all that apply): None applicable Inpatient E&M: 28158 Disch Hosp
--- NOTE | 2020-11-18 14:47 | CASEMGMT ---
MAU MORGAN Discharge Follow-Up Phone Call. Discharge Date: 11/17/20 Adm Dx: COVID PNA, Hypoxia Call to pt to inquire about how she has been doing since being discharged from the hospital. Pt states she is doing pretty good. She states she is still coughing a lot and has a little SOB, but she has been trying to rest a lot and has been using the I.S, which she feels is helping a lot. She states she was able to shrimp picker the new prescription, Decadron, via curb-side pick-up, and denies having any questions about that or her other prescriptions. She has not made an appt with her PCP yet, but plans to do so. She denies having any questions or needs. Mela GARCIA RN, CM
== END 2020-11-17 13:26 | disposition home or self-care (01) | DRG 177 ==
LOC: ED 22:14 → MS2 23:48
PROVIDERS: Family Medicine; Admitting Provider Family Medicine; Emergency Provider Emergency Medicine; PCP Family Medicine; Referring Provider Family Medicine; Visit Provider Internal Medicine
DX: U07.1 COVID-19 (principal); J12.82 Pneumonia due to coronavirus disease 2019; R06.89 Other abnormalities of breathing; R09.02 Hypoxemia; E78.5 Hyperlipidemia, unspecified; K21.9 Gastro-esophageal reflux disease without esophagitis; I10 Essential (primary) hypertension; E66.9 Obesity, unspecified; E78.00 Pure hypercholesterolemia, unspecified; E87.6 Hypokalemia; E89.0 Postprocedural hypothyroidism; M54.9 Dorsalgia, unspecified; G89.29 Other chronic pain; Z85.3 Personal history of malignant neoplasm of breast; Z68.34 Body mass index [BMI] 34.0-34.9, adult; Z85.850 Personal history of malignant neoplasm of thyroid; Z79.899 Other long term (current) drug therapy; Z87.891 Personal history of nicotine dependence; Z79.82 Long term (current) use of aspirin
CPT/HCPCS: 71275; 80053; 82550; 83615; 83735; 83880; 84145; 84484; 85025; 85379; 85384; 86140; 86850; 86900; 86901; 87040; 87070; 87205; 87449; 87633; 93005; 99251; 99283; J7030; J7050; Q9967; A4216; G0463

== ENCOUNTER → 2020-11-30 14:11 | Outpatient (CLI) | payer OTHER, SELFPAY ==
[2020-11-15 00:16] VITALS: BMI 34.6
--- NOTE | 2020-11-30 14:18 | RAD_ITS ---
STUDY: X-RAY - PELVIS AND RIGHT HIP REASON FOR EXAM: Female, 65 years old. right hip pain x 2 years. nki TECHNIQUE: 3 views of the pelvis and hip. COMPARISON: None. FINDINGS: No acute fracture, dislocation or osseous destruction. Mild joint space narrowing at the hips. Normal pubic symphysis arthrosis. Normal sacroiliac joints. Mild lumbar spine arthrosis. No significant soft tissue swelling. Pelvic phlebolith. RAD/HIP, UNI W/ Pelvis 2-3 Views IMPRESSION: Right hip and pelvis intact Mild osteoarthritic features, as above Electronically Signed: Enrrique Doshi DO at 8:06 EST Tel , Service support ,
== END ==
PROVIDERS: PCP Family Medicine; Referring Provider Family Medicine; Visit Provider Family Medicine
DX: M25.551 Pain in right hip (principal)
CPT/HCPCS: 73502

== ENCOUNTER → 2021-01-08 12:42 | Outpatient (CLI) | payer OTHER, SELFPAY ==
[2020-11-15 00:16] VITALS: BMI 34.6
--- NOTE | 2021-01-08 12:43 | BI_ITS ---
MAMMOGRAPHY - BILATERAL SCREENING REASON FOR EXAM: Female, 65 years old. Routine annual screening examination. PERTINENT HISTORY: Non-contributory. TECHNIQUE: Digital bilateral breast dilia (3D mammographic acquisition) in the CC and MLO projections. 2-D mediolateral oblique (MLO) and craniocaudad (CC) views of both breasts were obtained. CAD: Full Field Digital Mammography with Computer Added Detection was performed. COMPARISON: Comparison is made with prior examination dated 01/06/2020 and 12/25/2018. FINDINGS: Breast Composition: The breasts are almost entirely fatty. There are no dominant masses or suspicious calcifications. Stable small benign-appearing bilateral axillary No other significant abnormalities are identified. There has been no significant change since the prior study. BI/SCRN MAMM (CAD)W/DILIA BILAT IMPRESSION: Stable bilateral screening mammogram. Yearly follow-up mammogram recommended. (A) ASSESSMENT CATEGORY: BIRADS Category 2: Benign. A letter regarding these results will be sent to the patient by the facility within 30 days. Approximately 10% of breast cancers are not detected by mammography. A normal mammogram should not delay biopsy of a clinically suspicious abnormality. [id number] Electronically Signed: Cal West MD at 14:15 EST , Service support ,
== END ==
PROVIDERS: PCP Family Medicine; Referring Provider Obstetrics & Gynecology; Visit Provider Obstetrics & Gynecology
DX: Z12.31 Encounter for screening mammogram for malignant neoplasm of breast (principal)
CPT/HCPCS: 77063; 77067

== ENCOUNTER 2021-01-19 09:00 | Outpatient (RCR) | payer OTHER, SELFPAY ==
[2020-11-15 00:16] VITALS: BMI 34.6
--- NOTE | 2020-12-08 12:28 | HP.PTEVAL_ITS ---
Patient's Visit Information AILEEN NAVA is a 65 year old F referred to Physical Therapy by Dr. Yayo Alaniz MD with a diagnosis of RIGHT HIP PAIN. Date of Evaluation: 12/08/20 Physical Therapist: Kacie Garces PT, Cert MDT - Visit Plan Frequency: 2x /Week Duration: 4-6 Weeks Plan: US, E-STIM WITH , (CONSIDER AQUATIC THERAPY), POSTURE CORRECTION/STRENGTHENING, INSTRUCTION IN APPROPRIATE BODY MECHANICS AND ACTIVITY MODIFICATIONS. DLS STARTING WITH A NEUTRAL SPINE PROGRESSING ROM TOLERATED. KAYLA LE ROM, STRETCHING AND STRENGTHENING. HEP INSTRUCTION. 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 BACK TO WORK MonNOV 30 2020 BUT ONLY ABLE TO WORK 3 DAYS. WORKED YESTERDAY AND WORKING 2ND SHIFT TODAY. LIVES ALONE. Present symptoms: RIGHT LOW BACK PAIN. RIGHT LATERAL HIP PAIN AND INTO RIGHT LOWER ABDOMEN. RIGHT THIGH AND KNEE PAIN. Present since: ABOUT A YEAR AGO. Pain Scale: WORST 8/10, LEAST 5/10. Currently: 5/10. Commenced as a result of: NO APPARENT REASON. Symptoms at onset: RIGHT HIP PAIN. Worse: TRYING TO EXERCISE, WALKING, SITTING TOO LONG, GETTING IN AND OUT OF BED, GETTING DRESSED, GETTING IN AND OUT OF SHOWER, HOUSEWORK, GETTING IN AND OUT OF CAR, UP AND DOWN STEPS - KILLER (LIVES UP STAIRS IN [place]). Better: LYING ON A HEATING PAD, PILLOW BETWEEN KNEES. Disturbed sleep: YES. Previous history/Previous treatme nt: NO PRIOR RIGHT HIP HISTORY BEFORE THIS ONSET A YEAR AGO. PATIENT REPORTS SHE THINKS SHE TWEAKED HER BACK AT WORK ABOUT 5 YEARS AGO AND WENT TO THE CHIROPRACTOR A FEW VISITS AND THAT SEEMED TO TAKE CARE OF IT. NO BACK OR HIP SX. NO BACK OR HIP INJECTIONS. Treatment this episode: PIKE CHIROPRACTIC X ABOUT 5 TIMES - SELF REFERRED - NO EFFECT. PRESCRIPTION ANTI-INFLAMMATORY, ONE VISIT WITH DR. VERDUZCO. PT CONSULT. Coughing/sneezing/straining: NEGATIVE. Gait: PATIENT REPORTS IT IS PAINFREE WITH EVERY STEP. PATIENT REPROTS SHE HAS BEEN HAVING TROUBLE WALKING SINCE APRIL 2020 DUE TO DX OF PLANTAR FASCITIS DX'D BY DR. ELLER. DR. ELLER GAVE HER AN INJECTION IN THE FOOT - NO EFFECT. STATES DR. ELLER SENT HER TO THE [facility] FOR PHYSICAL THERAPY FOR HER PLANTAR FASCITIS ABOUT 8 VISITS FOR US, TOOL MASSAGE, EXERCISES AND IT HELPED SOMEWHAT. PATIENT REPORTS HER FOOT HURT FROM LAST SUMMER UNTIL NOV 07 2020 WHEN SHE WAS HOSPITALIZED FOR COVID. STATES HER FOOT PAIN WENT AWAY WHILE IN THE HOSPITAL ON STEROIDS FOR COVID AND HASN'T COME BACK. HAD HIP PAIN PRIOR TO HOSPITALIZATION FOR COVID BUT HIP PAIN GOT WORSE IN THE HOSPITAL AND HAS BEEN REALLY BAD EVER SINCE. Difficulty initiating urinatin: NO. Accidents: NO. Unexplained weight loss: NO. Imaging: RECENT PELVIC X-RAY [facility]: FINDINGS: No acute fracture, dislocation or osseous destruction. Mild joint space narrowing at the hips. Normal pubic symphysis arthrosis. Normal sacroiliac joints. Mild lumbar spine arthrosis. No significant soft tissue swelling. Pelvic phlebolith. RAD/HIP, UNI W/ Pelvis 2-3 Views. IMPRESSION: Right hip and pelvis intact. Mild osteoarthritic features, as above. PMH: H/O THYROID CA AND THYROID REMOVAL. HTN. - Objective Sitting/Standing Posture: POOR. Lordosis: NORMAL. Lateral shift: NO. Relevant shift: N/A. Active Correction of posture: Other Observations: THIS PATIENT AMBULATES INTO PT WITH GREATLY DECREASED CADANCE, VERY SHORT KAYLA STRIDE LENGTH AND LIMPING ON RIGHT LE. SHE IS NOT USING ANY ASSISTIVE DEVICES BUT WALKS VERY SLOW. Motor deficit: RIGHT LE: HIP 3-/5, KNEE EXT 4/5, KNEE FLEX 4/5, ANKLE DORSIFLEX 5/5. LEFT LE: HIP 3+/5 (PROVOKES RIGHT HIP PAIN, KNEE EXT 5/5, KNEE FLEX 5/5, ANKLE DORSIFLEX 5/5. Sensory deficit: KAYLA LE LIGHT TOUCH SENSATION INTACT AND SYMMETRICAL. ROM deficit: MILD KAYLA HS AND GASTROC SOLEUS TIGHTNESS. MODERATE RIGHT HIP IR AND ER TIGHTNESS AND INCREASED RIGHT LB/HIP PAIN WITH TESTING. Reflexes: 2/3 KAYLA LE'S. Dural Signs: POSITIVE RIGHT LE. Lumbar mvmt loss: flex - MOD - PRODUCES INCREASED RIGHT LOW BACK AND BUTTOCK PAIN. ext - MOD - C/O A LOT OF RIGHT LOW BACK INCRASED TIGHTNESS. R SG - MOD - INCREASE RIGHT LBP. L SG - MOD - INCREASES RIGHT LBP. Core strength: POOR. Palpation: TENDER WITH PALPATION OF THE RIGHT LOW BACK AND BUTTOCK REGIONS. OTHER: POSITIVE RIGHT LEONA TEST. TREATMENT: NEUROMUSCULAR REEDUCATION - RETRAINING OF MVMT AND POSTURE FOR SITTING, LYING AND STANDING ACTIVITIES. - Goals Goal 1:: DECREASE C/O LOW BACK AND RIGHT HIP/THIGH PAIN Goal Time Frame: 4-6 Weeks Goal 2:: IMPROVE PERSONAL CARE, LIFTING, WALKING, SITTING, STANDING, SLEEP, SOCIAL LIFE, TRAVEL AND WORK AND HOMEMAKING FUNCTION. Goal Time Frame: 4-6 Weeks Goal 3:: INSTRUCT IN PROPHYLAXIS Goal Time Frame: 4-6 Weeks - Anticipated Interventions Patient/Client Instruction: Educate patient on: Condition, Plan of Care, Risk Factors, Benefits of Fitness Program For the Purpose of:: To improve self management Therapeutic Exercise to Include: Strength training, Body mechanics, Postural training, Flexibilty training, Gait and locomotor training, Neuromotor development, In an aquatic setting, Dynamic Lumbar Stabilization For the Purpose of:: To decrease pain, To increase ROM, To improve muscle performance and motor function, To increase tolerance to activity/condition/position, To improve ability of physical actions for home/community/work/leisure, To improve gait and locomotor functions TENS: Yes IF ES: Yes Cryotherapy (ice pack, ice massage): Yes Thermo therapy (hot pack): Yes Ultrasound (thermal/non thermal): Yes For the Purpose of:: To decrease pain, To decrease swelling/inflammation, To improve nutrient delivery to tissue Thank you for the opportunity to evaluate your patient. For Medicare and Medicare HMO plans, please review the plan of care and approve it. It will need to be FAXED BACK to us at [phone] for Medicare purposes. For Medicare only, by signing this I certify the plan of care. Please let me know if there are questions or concerns regarding this plan of care. Physician Signature: Date:
--- NOTE | 2021-01-19 09:34 | HP.PTDCSUM ---
It has been my pleasure to treat AILEEN NAVA referred by Dr. Yayo Alaniz MD, with the diagnosis of RIGHT HIP PAIN for a total of 12 visit(s). Discharge Date: Please see the following information for a summary of their discharge status. Subjective: PATIENT REPORTS SHE IS 98% BETTER. STILL HAS SOME PAIN IN THE R FOOT IN THE MORNINGS THAT LASTS FOR ABOUT 10 MINUTES AND THEN IS GONE THE REST OF THE DAY. LOW BACK Pain Intensity (Out of 10): 2 R HIP/THIGH Pain Intensity (Out of 10): 2 R LEG Pain Intensity (Out of 10): 0 R FOOT Pain Intensity (Out of 10): 5 % Improvement: 98 Objective/Function: PATIENT WAS SEEN TODAY FOR RE-ASSESSMENT OF PROGRESS TOWARD THE SET PT GOALS AND THE NEED FOR FURTHER PHYSICAL THERAPY VS READINESS FOR DISCHARGE. UPON EXAM TODAY: ALL PT GOALS HAVE BEEN MET. SHE IS INDEP WITH A HEP AND HAPPY WITH HER PROGRESS. GAIT IS NOW WFL. TRUNK AND KAYLA LE ROM AND STRNGTH IS WFL BUT SHE STILL HAS SOME CORE WEAKNESS AND RIGHT HIP ER TIGHTNESS AND WEAKNESS BUT THESE ARE BEING ADDRESSED IN HER HEP. REPETATIVE CALF STRETCHING ADDED TO HEP TODAY. CORRECTED PIRIFORMIS STRETCHING TECHNIQUE. Goal 1:: DECREASE C/O LOW BACK AND RIGHT HIP/THIGH PAIN Goal Progress: Goal Met Goal 2:: IMPROVE PERSONAL CARE, LIFTING, WALKING, SITTING, STANDING, SLEEP, SOCIAL LIFE, TRAVEL AND WORK AND HOMEMAKING FUNCTION. Goal Progress: Goal Met Goal 3:: INSTRUCT IN PROPHYLAXIS Goal Progress: Goal Met Plan: D/C TO HEP. PATIENT AGREEABLE. If there are questions or concerns regarding this patient's physical therapy, please feel free to call me at [phone]. Thank you for the referral of this patient. Sincerely, Kacie Garces, PT, Cert MDT
== END 2021-01-19 19:00 | disposition home or self-care (01) ==
LOC: PT 09:00
PROVIDERS: PCP Family Medicine; Referring Provider Family Medicine; Visit Provider Family Medicine
DX: M25.551 Pain in right hip (principal)
CPT/HCPCS: 97014; 97035; 97110; 97112; 97162; 97164; 97530; G0283

== ENCOUNTER → 2021-04-06 11:04 | Outpatient (CLI) | payer OTHER, SELFPAY ==
[2020-11-15 00:16] VITALS: BMI 34.6
--- NOTE | 2021-04-06 11:05 | RAD_ITS ---
STUDY: X-RAY - LUMBAR SPINE REASON FOR EXAM: Female, 65 years old. Lower back pain with right leg pain. TECHNIQUE: 5 view(s) of the lumbar spine were obtained. COMPARISON: None FINDINGS: Normal lumbar lordosis. There is no substantial scoliosis. There is a normal alignment of the vertebrae. There is multilevel endplate spondylosis of the lumbar vertebrae. There is multi-level degenerative disc disease with multi-level disc space narrowing. There is no evidence of acute fracture or loss of vertebral axial height. There is no demonstrated spondylolysis of the pars interarticulares. There is atherosclerotic calcification of the abdominal aorta without a demonstrated aneurysm. RAD/L/S Spine Min 4 Views IMPRESSION: Degenerative changes of the spine, as detailed above. Electronically Signed: Adi Ferrer DO at 17:00 EDT Tel [phone], Service support ,
== END ==
PROVIDERS: PCP Family Medicine; Referring Provider Family Medicine; Visit Provider Family Medicine
DX: M54.5 Low back pain (principal)
CPT/HCPCS: 72110

== ENCOUNTER → 2021-04-08 08:18 | Outpatient (CLI) | payer OTHER, SELFPAY ==
[2020-11-15 00:16] VITALS: BMI 34.6
[2021-04-08 10:50] LABS: ALB/GLOB Ratio 1.1 RATIO (0.9-2.4); AST(SGOT) 16 U/L (15-37); Alanine Aminotransfer ALT/SGPT 20 U/L (13-56); Albumin, Serum 3.6 g/dL (3.2-5.0); Alkaline Phosphatase 61 U/L (45-117); Anion Gap 6 (5-15); BUN 17 mg/dL (7-18); BUN/Creat Ratio 30.7 RATIO (10-20); Calcium,Total 9.7 mg/dL (8.5-10.1); Chloride 108 mmol/L (98-107); Cholesterol 181 mg/dL (200); Creatinine, Serum 0.55 mg/dL (0.55-1.02); EST Glomerular Filtration Rate 116 mL/min (>60); Est Glom Filt Rate - Afr Amer 141 mL/min (>60); Globulin 3.4 g/dL (2.2-4.2); Glucose 108 mg/dL (74-106); High Density Lipoprotein 36 mg/dL; Potassium 3.7 mmol/L (3.5-5.1); Sodium Level 141 mmol/L (136-145); Triglycerides 219 mg/dL; Very Low Density Lipoprotein 44 mg/dL (5-40)
== END ==
PROVIDERS: PCP Family Medicine; Referring Provider Family Medicine; Visit Provider Family Medicine
DX: E78.00 Pure hypercholesterolemia, unspecified (principal)
CPT/HCPCS: 36415; 80053; 80061

== ENCOUNTER → 2021-04-15 12:39 | Outpatient (CLI) | payer OTHER, SELFPAY ==
[2020-11-15 00:16] VITALS: BMI 34.6
--- NOTE | 2021-04-15 12:41 | ECHOD_ITS ---
Reason For Study: Murmur Procedure This was a 2D Doppler, Color Flow transthoracic echocardiogram. Exam performed in department. Left Ventricle Normal LV size. The estimated ejection fraction is 65 %. No evidence for diastolic dysfunction. No regional wall motion abnormalities noted. Right Ventricle Normal RV size. Normal systolic function. Atria Normal left atrium. Normal right atrium. No doppler evidence for ASD. Mitral Valve There is no mitral valve stenosis. Trivial mitral valve insufficiency. Tricuspid Valve There is no tricuspid stenosis. Unable to estimate RV systolic pressure due to inadequate jet, pulmonary artery pressure probably normal. Aortic Valve possible bicuspid aortic valve. Mild aortic stenosis. No aortic valve insufficiency. Pulmonic Valve There is no pulmonic valvular stenosis. No pulmonic valve insufficiency. Great Vessels Normal aortic root. Pericardium/Pleural No pericardial effusion. MMode/2D Measurements & Calculations LVIDd: 5.0 cm IVSd: 1.1 cm LVOT diam: 2.0 cm LVIDs: 3.0 cm LVPWd: 0.97 cm LVOT area: 3.1 cm2 RVDd: 3.2 cm FS: 39.7 % Ao root diam: 3.7 cm LAV(MOD-bp): 54.5 ml LVAd ap4: 29.6 cm2 LAV(MOD-bp) Indexed: 28.5 ml/m2 LVLd ap4: 7.9 cm LAV(MOD-sp2): 57.4 ml EDV(MOD-sp4): 89.8 ml LAV(MOD-sp4): 50.5 ml EDV(sp4-el): 94.7 ml LVAs ap4: 16.2 cm2 LVLs ap4: 6.9 cm ESV(MOD-sp4): 31.8 ml ESV(sp4-el): 32.5 ml EF(MOD-sp4): 64.6 % EF(sp4-el): 65.7 % SV(MOD-sp4): 58.0 ml SV(sp4-el): 62.2 ml LA A4 area: 17.9 cm2 LA dimension(2D): 3.9 cm RA A4 area: 14.6 cm2 Doppler Measurements & Calculations MV E max bernard: 59.7 cm/sec Lat Peak E' Bernard: 6.7 cm/sec Med Peak E' Bernard: 5.0 cm/sec MV A max bernard: 89.2 cm/sec E/E' lat: 9.0 E/E' med: 12.0 MV E/A: 0.67 Ao V2 max: 239.7 cm/sec LV V1 max: 114.6 cm/sec SV(LVOT): 80.2 ml Ao max P.1 mmHg LV V1 max P.3 mmHg Ao V2 mean: 167.2 cm/sec LV V1 mean P.8 mmHg Ao mean P.6 mmHg LV V1 mean: 78.6 cm/sec Ao V2 VTI: 52.2 cm LV V1 VTI: 25.6 cm CHRISTIAN(I,D): 1.5 cm2 CHRISTIAN(V,D): 1.5 cm2 PA V2 max: 84.4 cm/sec ECHO/Echo Complete Interpretation Summary The estimated ejection fraction is 65 %. No evidence for diastolic dysfunction. Trivial mitral valve insufficiency. possible bicuspid aortic valve Mild aortic stenosis. Ordering Physician: Yayo Alaniz Referring Physician: Yayo Alaniz Performed By: Hailey Gil RDCS
== END ==
PROVIDERS: PCP Family Medicine; Referring Provider Family Medicine; Visit Provider Family Medicine
DX: R01.1 Cardiac murmur, unspecified (principal)
CPT/HCPCS: 93306

== ENCOUNTER → 2021-04-23 17:17 | Outpatient (CLI) | payer OTHER, SELFPAY ==
[2020-11-15 00:16] VITALS: BMI 34.6
--- NOTE | 2021-04-23 17:20 | MRI_ITS ---
STUDY: MRI LUMBAR SPINE WITHOUT CONTRAST REASON FOR EXAM: Female, 65 years old. DDD TECHNIQUE: Standardized fat and water weighted pulse sequences were obtained in the sagittal and axial planes. COMPARISON: X-ray 04/06/2021 FINDINGS: T12-L1: Normal endplates. Normal disc height, hydration and morphology. Normal bilateral facet joints. Normal central canal and bilateral lateral recesses. Normal bilateral intervertebral neural foramina. There is straightening of the normal lumbar lordosis. There is no substantial scoliosis. Normal conus medullaris that terminates at the L1. L1-2: Normal endplates. Normal disc height, hydration and morphology. Normal bilateral facet joints. Normal central canal and bilateral lateral recesses. Normal bilateral intervertebral neural foramina. L2-3: Disc desiccation but no disc protrusion, spinal stenosis, or neural foraminal stenosis per L3-4: Disc desiccation but no disc protrusion, spinal stenosis, or neural foraminal stenosis. L4-5: Mild bilateral facet hypertrophy and moderate ligament flavum hypertrophy. Mild broad disc protrusion and right foraminal protrusion produces mild spinal stenosis and moderate right neural foraminal stenosis with abutment of the right L4 nerve root laterally. L5-S1: Normal endplates. Normal disc height, hydration and morphology. Normal bilateral facet joints. Normal central canal and bilateral lateral recesses. Normal bilateral intervertebral neural foramina. Normal visualized sacral ala. Mild friction related edema of the posterior subcutaneous fat. MRI/Spine Lumbar (Routine) IMPRESSION: Focal degenerative disc disease at L4/L5 as described above. Electronically Signed: Zaki Calvin MD at 13:32 EDT Tel , Service support ,
== END ==
PROVIDERS: PCP Family Medicine; Referring Provider Family Medicine; Visit Provider Family Medicine
DX: M51.36 Other intervertebral disc degeneration, lumbar region (principal)
CPT/HCPCS: 72148

== ENCOUNTER → 2021-05-03 07:21 | Outpatient (CLI) | payer OTHER, SELFPAY ==
[2020-11-15 00:16] VITALS: BMI 34.6
[2021-05-03 10:48] LABS: Creatinine, Serum 0.65 mg/dL (0.55-1.02); EST Glomerular Filtration Rate 96 mL/min (>60); Est Glom Filt Rate - Afr Amer 116 mL/min (>60)
== END ==
PROVIDERS: PCP Family Medicine; Referring Provider Orthopaedic Surgery; Visit Provider Orthopaedic Surgery
DX: M48.061 Spinal stenosis, lumbar region without neurogenic claudication (principal); R22.2 Localized swelling, mass and lump, trunk
CPT/HCPCS: 36415; 82565

== ENCOUNTER 2021-07-11 18:53 | Emergency (ER) | payer OTHER, SELFPAY ==
[2021-07-11 18:54] VITALS: BP 100/68; PULSE 111; RESP 16; TEMP 37.3; O2SAT 95; BMI 32.5
--- NOTE | 2021-07-11 19:34 | EDS_ITS ---
HPI History of Present Illness Chief Complaint: Other, Pain/Inj Narrative Narrative: 65-year-old female presenting with several hours of chills and body aches. She states it started earlier today. She denies a fever. She does not have a cough or shortness of breath. She denies chest pain. Patient states she gets waves of body aches since earlier today. She is previously had COVID-19 in October and also had a Covid vaccine as well. Patient does admit to some nausea and diarrhea earlier today. She has no known sick contacts but does work at the [employer]. [facility] Medical History Breast cancer Former smoker Hyperlipidemia Hypothyroidism Thyroid cancer Home Medications aspirin 81 mg PO DAILY 04/17/17 [History Last Taken Unknown] atenolol 50 mg PO DAILY 04/17/17 [History Last Taken Unknown] esomeprazole magnesium [Nexium] 40 mg PO DAILY 04/17/17 [History Last Taken Unknown] estradiol 0.5 mg PO QHS 04/17/17 [History Last Taken Unknown] hydrochlorothiazide 25 mg PO DAILY 04/17/17 [History Last Taken Unknown] levothyroxine 125 mcg PO DAILY 04/17/17 [History Last Taken Unknown] simvastatin 40 mg PO DAILY 04/17/17 [History Last Taken Unknown] diphenhydramine HCl 25 mg PO QHS PRN PRN 11/15/20 [History Last Taken Unknown] dexamethasone 6 mg PO DAILY #18 tab 11/17/20 [Rx Last Taken Unknown] Allergy/AdvReac Type Severity Reaction Status Date / Time No Known Allergies Allergy Verified 11/14/20 20:27 Surgical History History of appendectomy History of hysterectomy Social History Smoking Status: Former smoker ROS ROS ED Constitutional Constitutional ED: Reports chills and sweats Eyes Eyes: Denies blurry vision or diplopia ENT ENT ED: Denies rhinorrhea or sore throat Cardiovascular Cardiovascular: Denies chest pain, palpitations or racing heartbeat Respiratory/Chest Respiratory/Chest: Denies cough, dyspnea or sputum Gastrointestinal Gastrointestinal: Reports diarrhea and nausea; Denies abdominal pain, con stipation or vomiting Genitourinary Genitourinary ED: Denies dysuria, hematuria or urinary frequency Musculoskeletal Musculoskeletal: Reports myalgias; Denies arthralgias or neck pain Integumentary Denies Abrasions or rash Neurologic Neurologic: Denies headache(s) or paresthesias EXAM Physical Exam Const Vital Signs: 07/11/21 18:54 07/11/21 19:02 07/11/21 20:49 Temperature 99.2 F H Temperature Source Oral Pulse Rate 111 H 105 H Respiratory Rate 16 16 Respiratory Pattern Normal Blood Pressure 100/68 112/62 Blood Pressure Mean 78 78 Pulse Ox 95 98 Oxygen Delivery Method Room Air Room Air Positive well nourished General Appearance ED: NAD HEENT Reports moist mucous membranes Negative for trauma Eyes PERRL and EOMs intact bilaterally Neck no lymphadenopathy and supple Resp normal respiratory effort and clear to auscultation bilaterally Cardio regular rhythm Rate: tachycardic GI normal to inspection, nondistended, normoactive bowel sounds Extremity normal to inspection General Extremety ED: Negative for edema or tenderness General Extremity: Negative for edema Neuro oriented x3 and CN's II-XII intact bilaterally Sensorium / Orientation: alert Psych mental status grossly normal Skin no rashes or lesions noted and no wounds MDM MDM MDM Narrative Medical decision making narrative: Patient presenting with chills and myalgias. She is already had COVID-19 and been vaccinated. She wishes to be tested again and testing today is negative. I did check lab work and she has a slight leukocytosis of 15.2. H&H are stable. Platelets are normal. Renal function is also normal. Potassium slightly low at 3.2 but I do not think this is the cause of her symptoms and given her nausea I will hold off on treating her and she is counseled to eat potassium rich foods at home. Chest x-ray on my interpretation shows no acute cardiopulmonary process and the radiologist does agree. Given patient's slight white blood cell count I did attempt to check a urine however this inadvertently was spilled. On reevaluation I did asked the patient if she wanted to wait check urinalysis and she states she has no urinary symptoms and did not want to wait. She feels better after IV fluids, Zofran, Toradol. She feels comfortable to be discharged home at this time. She can return precautions. Impression: 1. Myalgias 2. Leukocytosis Lab Data Labs: Laboratory Results - last 24 hr 07/11/21 07/11/21 19:48 19:48 WBC 15.2 H RBC 4.63 Hgb 14.2 Hct 42.5 MCV 91.8 MCH 30.7 MCHC 33.4 RDW Std Deviation 47.8 H RDW Coeff of Karyn 14.0 Plt Count 232 MPV 10.7 Immature Gran % (Auto) 0.500 Neut % (Auto) 84.3 H Lymph % (Auto) 6.4 L Richardson % (Auto) 8.5 Eos % (Auto) 0.1 Baso % (Auto) 0.2 Absolute Neuts (auto) 12.8 H Absolute Lymphs (auto) 0.98 Nucleated RBC % 0 Sodium 137 Potassium 3.2 L Chloride 104 Carbon Dioxide 26.0 Anion Gap 7 BUN 19 H Creatinine 0.86 Estim Creat Clear Calc 55.57 Est GFR (MDRD) Af Amer 84 Est GFR (MDRD) Non-Af 70 BUN/Creatinine Ratio 22.0 H Glucose 121 H Calcium 9.8 Total Bilirubin 0.90 AST 16 ALT 22 Alkaline Phosphatase 63 Total Protein 7.2 Albumin 3.8 Globulin 3.4 Albumin/Globulin Ratio 1.1 Radiography Diagnostic Testing: Radiology Impression Chest X-Ray 07/11/21 20:20 IMPRESSION: No radiographic evidence of acute cardiopulmonary disease. Electronically Signed: Jorge Bates DO at 21:33 EDT Tel , Service support , Discharge Plan Triage Chief Complaint: Other, Pain/Inj ED Provider: Ernie Fisher Dx/Rx/DC Orders Instructions: ED Myalgias Prescriptions: No Action atenolol 50 MG tablet 50 mg PO DAILY RF: 0 simvastatin 40 MG tablet 40 mg PO DAILY RF: 0 esomeprazole magnesium [Nexium] 40 MG capsule 40 mg PO DAILY RF: 0 levothyroxine 137 MCG tablet 125 mcg PO DAILY RF: 0 estradiol 1 MG tablet 0.5 mg PO QHS RF: 0 aspirin 81 MG Tab.Chew 81 mg PO DAILY RF: 0 hydrochlorothiazide 25 MG tablet 25 mg PO DAILY RF: 0 diphenhydramine HCl 25 MG capsule 25 mg PO QHS PRN PRN (Reason: Sleep) RF: 0 dexamethasone 2 MG tablet 6 mg PO DAILY Qty: 18 RF: 0 Primary Care Provider: Yayo Alaniz Referrals: aYyo Alaniz MD [Primary Care Provider] - Disposition Disposition: Home, Self Care
[2021-07-11] MEDS: Ketorolac 15 MG/ML Vial IV (19:45)
[2021-07-11] MEDS: Ondansetron 4 MG/2 ML Vial IV (19:45)
[2021-07-11 20:13] LABS: Absolute Lymphocyte Count 0.98 X10^3/uL (0.83-4.51); Absolute Neutrophil Count 12.8 X10^3/uL (2.0-7.7); Basophil# 0.03 X10^3/uL; Basophil% 0.2 % (0-1); Eosinophil# 0.01 X10^3/uL; Eosinophils% 0.1 % (0-5); Hematocrit 42.5 % (37-47); Hemoglobin 14.2 g/dL (12.0-15.0); Lymphocyte # 0.98 X10^3/ul (0.83-4.51); Lymphocyte % 6.4 % (19-41); Mean Corp Hgb Conc 33.4 g/dL (32-36); Mean Corpuscular Hgb 30.7 pg (27.0-32.0); Mean Corpuscular Volume 91.8 fL (81-99); Mean Platelet Vol. 10.7 fl (6.2-12.0); Monocyte% 8.5 % (0-10); NRBC Flagged by Analyzer 0 % (0-5); Neutrophil # 12.82 X10^3/uL (2.7-7.7); Neutrophil % 84.3 % (47-70); Platelet Count 232 K/mm3 (150-450); RBC Distribution Width SD 47.8 fl (35.1-43.9); Red Blood Count 4.63 M/mm3 (4.2-5.4); White Blood Count 15.2 K/mm3 (4.4-11.0)
--- NOTE | 2021-07-11 20:20 | RAD_ITS ---
INDICATION: weakness EXAMINATION/TECHNIQUE: X-RAY - XR Chest 1 View COMPARISON: No prior chest imaging. FINDINGS: LINES/DEVICES: None. LUNGS: No consolidation, edema or effusion. No pneumothorax. MEDIASTINUM AND CARDIOVASCULAR STRUCTURES: Cardiac silhouette not enlarged. Central airways and mediastinal contour are unremarkable. BONES AND SOFT TISSUES: Degenerative facet arthropathy visualized cervical spine. RAD/Chest 1 View (Portable) IMPRESSION: No radiographic evidence of acute cardiopulmonary disease. Electronically Signed: Jorge Bates DO at 21:33 EDT Tel , Service support ,
[2021-07-11 20:40] LABS: ALB/GLOB Ratio 1.1 RATIO (0.9-2.4); AST(SGOT) 16 U/L (15-37); Alanine Aminotransfer ALT/SGPT 22 U/L (13-56); Albumin, Serum 3.8 g/dL (3.2-5.0); Alkaline Phosphatase 63 U/L (45-117); Anion Gap 7 (5-15); BUN 19 mg/dL (7-18); Calcium,Total 9.8 mg/dL (8.5-10.1); Chloride 104 mmol/L (98-107); Creatinine, Serum 0.86 mg/dL (0.55-1.02); EST Glomerular Filtration Rate 70 mL/min (>60); Est Glom Filt Rate - Afr Amer 84 mL/min (>60); Estimated Creatinine Clearance 55.57 ml/min; Globulin 3.4 g/dL (2.2-4.2); Glucose 121 mg/dL (74-106); Potassium 3.2 mmol/L (3.5-5.1); Protein, Total 7.2 g/dL (6.4-8.2); Sodium Level 137 mmol/L (136-145)
[2021-07-11 20:49] VITALS: BP 112/62; PULSE 105; RESP 16; O2SAT 98
[2021-07-11 22:16] VITALS: BP 136/64; PULSE 101; RESP 15; O2SAT 99
== END 2021-07-11 22:23 | disposition home or self-care (01) ==
PROVIDERS: Emergency Provider Student in an Organized Health Care Education/Training Program; PCP Family Medicine
DX: D72.829 Elevated white blood cell count, unspecified (principal); M79.10 Myalgia, unspecified site; R11.0 Nausea; R19.7 Diarrhea, unspecified; R68.83 Chills (without fever); E03.9 Hypothyroidism, unspecified; E78.5 Hyperlipidemia, unspecified; Z85.3 Personal history of malignant neoplasm of breast; Z85.850 Personal history of malignant neoplasm of thyroid; Z86.16 Personal history of COVID-19; Z79.82 Long term (current) use of aspirin; Z79.899 Other long term (current) drug therapy; Z87.891 Personal history of nicotine dependence
CPT/HCPCS: 71045; 80053; 85025; 87426; 96361; 96374; 96375; 99283; J7040; J2405

== ENCOUNTER → 2021-07-14 | Outpatient (CLI) | payer OTHER, SELFPAY | END | disposition home or self-care (01) | LOC: LABSPEC 15:24 | PROVIDERS: PCP Family Medicine; Visit Provider Family Medicine | DX: L02.419 Cutaneous abscess of limb, unspecified (principal) | CPT/HCPCS: 87070; 87075; 87077; 87186; 87205 ==

== ENCOUNTER 2021-08-08 03:40 | Emergency (ER) | payer OTHER, SELFPAY ==
[2021-08-08 03:41] VITALS: BP 141/70; PULSE 105; RESP 17; TEMP 36.3; O2SAT 96; BMI 34.0
[2021-08-08 03:44] VITALS: BP 141/70; PULSE 105; RESP 17; TEMP 36.3; O2SAT 96
--- NOTE | 2021-08-08 03:57 | EX.ED.DYSGE1 ---
HPI History of Present Illness Chief Complaint: Abscess Informant: patient Narrative Narrative: 66-year-old female states that she had a cancer removed from her posterior right thigh in June by Dr. Jayro Hwang in [place]. She states that she developed an infection and had surgery again to clean it out and was on antibiotics (Augmentin) until last week. She states now the site is swollen red and painful and is starting to drain fluid. She has an appointment Monday in [place]. She denies any fevers. She states her whole body hurts. 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 She was taken back to the operating room on 07/21/2021. At that time she had 2 sinus tracts removed as well as some tissue. [facility] Medical History Breast cancer Former smoker Hyperlipidemia Hypothyroidism Thyroid cancer Home Medications aspirin 81 mg PO DAILY 04/17/17 [History Last Taken Unknown] atenolol 50 mg PO DAILY 04/17/17 [History Last Taken Unknown] esomeprazole magnesium [Nexium] 40 mg PO DAILY 04/17/17 [History Last Taken Unknown] estradiol 0.5 mg PO QHS 04/17/17 [History Last Taken Unknown] hydrochlorothiazide 25 mg PO DAILY 04/17/17 [History Last Taken Unknown] levothyroxine 125 mcg PO DAILY 04/17/17 [History Last Taken Unknown] simvastatin 40 mg PO DAILY 04/17/17 [History Last Taken Unknown] meloxicam 15 mg PO DAILY 08/08/21 [History Last Taken Unknown] Allergy/AdvReac Type Severity Reaction Status Date / Time No Known Allergies Allergy Verified 11/14/20 20:27 Surgical History History of appendectomy History of hysterectomy Social History (Updated 08/08/21 @ 03:[address] Terrence Clements DO) Smoking Status: Former smoker substance use type: does not use ROS ROS ED Constitutional Constitutional ED: Denies chills or weight loss Eyes Eyes: Denies change in vision or diplopia ENT ENT ED: Denies ear pain, rhinorrhea or sore throat Cardiovascular Cardiovascular: Denies chest pain, orthopnea, palpitations or racing heartbeat Respiratory/Chest Respiratory/Chest: Denies cough, dyspnea or orthopnea Gastrointestinal Gastrointestinal: Denies abdominal pain, diarrhea, nausea or vomiting Genitourinary Genitourinary ED: Denies dysuria, hematuria or urinary frequency Musculoskeletal Musculoskeletal: Reports myalgias and other Details: See HPI ; Denies arthralgias Integumentary Denies abscess or rash Neurologic Neurologic: Denies headache(s) or weakness Psychiatric Psychiatric: Denies anxiety, depression, suicidal ideation or suicidal thoughts Endocrine Endocrinology: Denies polydipsia, polyphagia or polyuria Allergic/Immunologic Allergic/Immunologic ED: Denies mouth swelling, tongue swelling or urticaria EXAM Physical Exam Const Vital Signs: 08/08/21 03:41 08/08/21 03:44 08/08/21 06:21 Temperature 97.3 F L 97.3 F L 98.4 F Temperature Source Temporal Temporal Oral Pulse Rate 105 H 105 H 92 Respiratory Rate 17 17 19 H Blood Pressure 141/70 H 141/70 H 128/74 H Blood Pressure Mean 93 93 92 Pulse Ox 96 96 95 Oxygen Delivery Method Room Air Room Air Room Air Positive well nourished and well developed General Appearance ED: well developed HEENT Reports normocephalic, head/scalp atraumatic and moist mucous membranes Eyes PERRL and EOMs intact bilaterally Neck no lymphadenopathy, supple and no JVD Resp normal respiratory effort and clear to auscultation bilaterally Cardio regular rate, regular rhythm and no murmurs GI normal to inspection, nondistended, normoactive bowel sounds and non-tender Palpation: soft Back/Spine no CVA tenderness and normal ROM Extremity Extremity Narrative: Posterior right thigh demonstrates a surgical incision with some mild surrounding erythema. The dressing that is in place has minimal drainage on it. Not able to express any drainage. There is no fluctuance. General Extremety ED: Negative for edema General Extremity: Negative for edema Neuro oriented x3 and CN's II-XII intact bilaterally Sensorium / Orientation: alert Motor Exam: strength 5/5 throughout Psych mental status grossly normal Mood & Affect: Negative for depressed or tearful Skin no rashes or lesions noted and no wounds MDM MDM MDM Narrative Medical decision making narrative: Patient's white count 12.5. Lactic acid normal. Coags normal. CT of the thigh with contrast was obtained. This demonstrates a approximately 4 x 4 x 5 cm abscess. Patient had blood cultures obtained and I gave her Zosyn. I contacted [facility] as this is where she had her surgery. I did speak with orthopedics and they have accepted the patient as an ED to ED transfer. Lab Data Attestation: I reviewed the patient's lab results. Labs: Laboratory Results - last 24 hr 08/08/21 08/08/21 08/08/21 04:05 04:05 04:05 WBC 12.5 H RBC 4.35 Hgb 13.4 Hct 39.6 MCV 91.0 MCH 30.8 MCHC 33.8 RDW Std Deviation 46.5 H RDW Coeff of Karyn 13.7 Plt Count 294 MPV 10.8 Immature Gran % (Auto) 0.200 Neut % (Auto) 66.9 Lymph % (Auto) 20.6 Graves % (Auto) 11.6 H Eos % (Auto) 0.4 Baso % (Auto) 0.3 Absolute Neuts (auto) 8.3 H Absolute Lymphs (auto) 2.56 Nucleated RBC % 0 PT 13.5 INR 1.1 APTT 33.9 Sodium 139 Potassium 3.5 Chloride 105 Carbon Dioxide 26.0 Anion Gap 8 BUN 17 Creatinine 0.58 Estim Creat Clear Calc 47.14 Est GFR (MDRD) Af Amer 133 Est GFR (MDRD) Non-Af 110 BUN/Creatinine Ratio 29.2 H Glucose 135 H Lactic Acid Calcium 9.5 Total Bilirubin 0.40 AST 11 L ALT 17 Alkaline Phosphatase 69 Total Protein 6.8 Albumin 3.2 Globulin 3.6 Albumin/Globulin Ratio 0.9 08/08/21 04:05 WBC RBC Hgb Hct MCV MCH MCHC RDW Std Deviation RDW Coeff of Krayn Plt Count MPV Immature Gran % (Auto) Neut % (Auto) Lymph % (Auto) Graves % (Auto) Eos % (Auto) Baso % (Auto) Absolute Neuts (auto) Absolute Lymphs (auto) Nucleated RBC % PT INR APTT Sodium Potassium Chloride Carbon Dioxide Anion Gap BUN Creatinine Estim Creat Clear Calc Est GFR (MDRD) Af Amer Est GFR (MDRD) Non-Af BUN/Creatinine Ratio Glucose Lactic Acid 1.5 Calcium Total Bilirubin AST ALT Alkaline Phosphatase Total Protein Albumin Globulin Albumin/Globulin Ratio Radiography Diagnostic Testing: Radiology Impression Lower Extremity CT 08/08/21 04:55 IMPRESSION: 4.8 cm subcutaneous abscess of the posterior thigh, contiguous with the skin surface. Electronically Signed: Bayron Franklin MD at 6:04 EDT , Service support , Discharge Plan Triage Chief Complaint: Abscess ED Provider: Terrence Clements Dx/Rx/DC Orders Clinical Impression: Postoperative abscess Prescriptions: No Action atenolol 50 MG tablet 50 mg PO DAILY RF: 0 simvastatin 40 MG tablet 40 mg PO DAILY RF: 0 esomeprazole magnesium [Nexium] 40 MG capsule 40 mg PO DAILY RF: 0 levothyroxine 137 MCG tablet 125 mcg PO DAILY RF: 0 estradiol 1 MG tablet 0.5 mg PO QHS RF: 0 aspirin 81 MG tablet,chewable 81 mg PO DAILY RF: 0 hydrochlorothiazide 25 MG tablet 25 mg PO DAILY RF: 0 meloxicam 15 mg Tablet 15 mg PO DAILY RF: 0 Primary Care Provider: Brandy Corado Referrals: Brandy Corado MD [Primary Care Provider] - Disposition Disposition: Acute Care Hospital Discharge Location: [facility]
[2021-08-08 04:39] LABS: International Normalized Ratio 1.1; Prothrombin Time (Protime)PT. 13.5 SECONDS (11.7-14.9)
[2021-08-08 04:41] LABS: Partial Thromboplast Time 33.9 Seconds (24.1-36.2)
[2021-08-08 04:42] LABS: Lactic Acid 1.5 mmol/L (0.4-1.9)
[2021-08-08 04:45] LABS: Absolute Lymphocyte Count 2.56 X10^3/uL (0.83-4.51); Absolute Neutrophil Count 8.3 X10^3/uL (2.0-7.7); Basophil# 0.04 X10^3/uL; Basophil% 0.3 % (0-1); Eosinophil# 0.05 X10^3/uL; Eosinophils% 0.4 % (0-5); Hematocrit 39.6 % (37-47); Hemoglobin 13.4 g/dL (12.0-15.0); Lymphocyte # 2.56 X10^3/ul (0.83-4.51); Lymphocyte % 20.6 % (19-41); Mean Corp Hgb Conc 33.8 g/dL (32-36); Mean Corpuscular Hgb 30.8 pg (27.0-32.0); Mean Platelet Vol. 10.8 fl (6.2-12.0); Monocyte# 1.45 X10^3/uL; Monocyte% 11.6 % (0-10); NRBC Flagged by Analyzer 0 % (0-5); Neutrophil # 8.32 X10^3/uL (2.7-7.7); Neutrophil % 66.9 % (47-70); Platelet Count 294 K/mm3 (150-450); RBC Distribution Width CV 13.7 % (11.6-14.6); RBC Distribution Width SD 46.5 fl (35.1-43.9); Red Blood Count 4.35 M/mm3 (4.2-5.4); White Blood Count 12.5 K/mm3 (4.4-11.0)
--- NOTE | 2021-08-08 04:55 | CT_ITS ---
STUDY: CT RIGHT FEMUR WITH CONTRAST REASON FOR EXAM: Female, 66 years old. post operative infection RADIATION DOSAGE (If Supplied By Facility): CTDIvol = ( 16.66 ) mGy, DLP = ( 1070.89 ) mGycm TECHNIQUE: Transaxial CT imaging of the femur was performed post contrast administration. The examination was performed with intravenous administration of IV 100mL Isovue-370. Sagittal and coronal images were reconstructed. Individualized dose optimization techniques were used for this CT. COMPARISON: None. FINDINGS: Normal visualized femur. There is a 3.9 x 4.2 x 4.8 cm fluid collection in subcutaneous fat of the posterior thigh, consistent with an abscess, comprising approximately 40 mL of material.. Superficial portion of the abscess is contiguous with the skin. The posterolateral portion of the abscess is contiguous with the lateral portion of the biceps femoris muscle but does not appear to extend into the muscle sheath. CT/Extremity Lower WITH Contrast IMPRESSION: 4.8 cm subcutaneous abscess of the posterior thigh, contiguous with the skin surface. Electronically Signed: Bayron Franklin MD at 6:04 EDT , Service support ,
[2021-08-08 05:00] LABS: ALB/GLOB Ratio 0.9 RATIO (0.9-2.4); AST(SGOT) 11 U/L (15-37); Alanine Aminotransfer ALT/SGPT 17 U/L (13-56); Albumin, Serum 3.2 g/dL (3.2-5.0); Alkaline Phosphatase 69 U/L (45-117); Anion Gap 8 (5-15); BUN 17 mg/dL (7-18); BUN/Creat Ratio 29.2 RATIO (10-20); Calcium,Total 9.5 mg/dL (8.5-10.1); Chloride 105 mmol/L (98-107); Creatinine, Serum 0.58 mg/dL (0.55-1.02); EST Glomerular Filtration Rate 110 mL/min (>60); Est Glom Filt Rate - Afr Amer 133 mL/min (>60); Estimated Creatinine Clearance 47.14 ml/min; Globulin 3.6 g/dL (2.2-4.2); Glucose 135 mg/dL (74-106); Potassium 3.5 mmol/L (3.5-5.1); Protein, Total 6.8 g/dL (6.4-8.2); Sodium Level 139 mmol/L (136-145)
[2021-08-08 06:21] VITALS: BP 128/74; PULSE 92; RESP 19; TEMP 36.9; O2SAT 95
[2021-08-08 07:41] VITALS: BP 129/76; PULSE 80; RESP 16; TEMP 37.1; O2SAT 95
[2021-08-08 08:32] VITALS: BP 129/76; PULSE 80; RESP 16; TEMP 37.1; O2SAT 95
[2021-08-08] MEDS: Ondansetron 4 MG/2 ML Vial IV (08:32)
[2021-08-08] MEDS: Morphine 4 MG/ML Syringe IV (08:32)
== END 2021-08-08 08:37 | disposition short-term general hospital (02) ==
PROVIDERS: Emergency Provider Emergency Medicine; PCP Family Medicine
DX: T81.41XA Infection following a procedure, superficial incisional surgical site, initial encounter (principal); E03.9 Hypothyroidism, unspecified; E78.5 Hyperlipidemia, unspecified; Z85.3 Personal history of malignant neoplasm of breast; Z85.850 Personal history of malignant neoplasm of thyroid; Z79.82 Long term (current) use of aspirin; Z79.899 Other long term (current) drug therapy; Z87.891 Personal history of nicotine dependence
CPT/HCPCS: 73701; 80053; 83605; 85025; 85610; 85730; 87040; 96365; 96374; 96375; 99285; J7050; Q9967; J2405

== ENCOUNTER 2022-01-10 10:15 | Outpatient (CLI) | payer BC, SELFPAY ==
--- NOTE | 2022-01-10 10:17 | BI_ITS ---
MAMMOGRAPHY - BILATERAL SCREENING REASON FOR EXAM: Female, 66 years old. Routine annual screening examination. PERTINENT HISTORY: Non-contributory. TECHNIQUE: Digital bilateral breast dilia (3D mammographic acquisition) in the CC and MLO projections. 2-D mediolateral oblique (MLO) and craniocaudad (CC) views of both breasts were obtained. CAD: Full Field Digital Mammography with Computer Added Detection was performed. COMPARISON: Comparison is made with prior study of 01/08/2021 and 01/06/2020. FINDINGS: Breast Composition: The breasts are almost entirely fatty. There are no dominant masses or suspicious calcifications. Stable small benign-appearing bilateral axillary lymph nodes. No other significant abnormalities are identified. There has been no significant change since the prior study. BI/SCRN MAMM (CAD)W/DILIA BILAT IMPRESSION: Stable bilateral screening mammogram. Yearly follow-up mammogram recommended. (A) ASSESSMENT CATEGORY: BIRADS Category 2: Benign. A letter regarding these results will be sent to the patient by the facility within 30 days. Approximately 10% of breast cancers are not detected by mammography. A normal mammogram should not delay biopsy of a clinically suspicious abnormality. [id number] Electronically Signed: Cal West MD at 13:27 EST ,
== END 2022-01-10 23:59 | disposition home or self-care (01) ==
LOC: OPBI 10:16
PROVIDERS: PCP Family Medicine; Visit Provider Obstetrics & Gynecology
DX: Z12.31 Encounter for screening mammogram for malignant neoplasm of breast (principal)
CPT/HCPCS: 77063; 77067

== ENCOUNTER → 2023-06-09 | Outpatient (CLI) | payer OTHER, SELFPAY | END | disposition home or self-care (01) | LOC: MFPLAB 16:44 | PROVIDERS: PCP Family Medicine; Visit Provider Family Medicine | DX: Z00.00 Encounter for general adult medical examination without abnormal findings (principal) ==

== ENCOUNTER → 2023-06-10 | Outpatient (CLI) | payer OTHER, SELFPAY ==
[2023-06-10 07:26] LABS: Bacteria 0 SEEN /hpf (None Seen); Mucous, Urine 0 SEEN /hpf (<or=2+); Red Blood Cells-Urine 0 SEEN /hpf (0-5)
[2023-06-10 07:56] LABS: Color, Urine Yellow (Yellow); Glucose, Dipstick Normal (Normal); Ketone-Dipstick 5 mg/dl (Negative); Leukocyte Esterase-Dipstick 25 /ul (Negative); Nitrite-Dipstick Negative (Negative); Occult Blood-Urine 10 /ul (Negative); Protein-Dipstick 15 mg/dl (Negative); Specific Gravity, Urine 1.025 (1.002-1.030); Urine Bilirubin Dipstick Negative (Negative); Urine Clarity Sl. Cloudy (Clear); Urine Urobilinogen 1 mg/dl (Normal)
[2023-06-10 07:56] LABS: Basophil# 0.04 X10^3/uL; Basophil% 0.7 % (0-1); Eosinophils% 1.7 % (0-5); Hematocrit 40.5 % (37-47); Hemoglobin 13.9 g/dL (12.0-15.0); Lymphocyte % 38.7 % (19-41); Mean Corp Hgb Conc 34.3 g/dL (32-36); Mean Corpuscular Hgb 30.8 pg (27.0-32.0); Mean Corpuscular Volume 89.6 fL (81-99); Mean Platelet Vol. 10.8 fl (6.2-12.0); Monocyte# 0.51 X10^3/uL; Monocyte% 8.6 % (0-10); NRBC Flagged by Analyzer 0 % (0-5); Neutrophil # 2.99 X10^3/uL (2.7-7.7); Neutrophil % 50.1 % (47-70); Platelet Count 233 K/mm3 (150-450); RBC Distribution Width CV 13.2 % (11.6-14.6); RBC Distribution Width SD 43.6 fl (35.1-43.9); Red Blood Count 4.52 M/mm3 (4.2-5.4)
[2023-06-10 08:01] LABS: Squamous Epithelial Cells - UA 5-10 SEEN /hpf (5-10)
[2023-06-10 08:02] LABS: White Blood Cells 0-5 SEEN /hpf (0-5)
[2023-06-10 08:22] LABS: ALB/GLOB Ratio 1.1 RATIO (0.9-2.4); AST(SGOT) 15 U/L (15-37); Alanine Aminotransfer ALT/SGPT 17 U/L (13-56); Albumin, Serum 3.5 g/dL (3.2-5.0); Alkaline Phosphatase 65 U/L (45-117); Anion Gap 5 (5-15); BUN 18 mg/dL (7-18); BUN/Creat Ratio 32.3 RATIO (10-20); Calcium,Total 9.3 mg/dL (8.5-10.1); Chloride 111 mmol/L (98-107); Cholesterol 183 mg/dL (200); Creatinine, Serum 0.56 mg/dL (0.55-1.02); EST Glomerular Filtration Rate 115 mL/min (>60); Est Glom Filt Rate - Afr Amer 139 mL/min (>60); Globulin 3.3 g/dL (2.2-4.2); Glucose 104 mg/dL (74-106); High Density Lipoprotein 43 mg/dL; Phosphorus 2.6 mg/dL (2.5-4.9); Potassium 3.6 mmol/L (3.5-5.1); Protein, Total 6.8 g/dL (6.4-8.2); Sodium Level 141 mmol/L (136-145); T4 Free Direct 1.02 ng/dL (0.76-1.46); Thyroid Stim Hormone (TSH) 2.33 uIU/mL (0.358-3.74); Triglycerides 123 mg/dL; Very Low Density Lipoprotein 25 mg/dL (5-40)
[2023-06-12 08:36] LABS: Vitamin B12 1049 pg/mL (211-911); Vitamin D,25 Hydroxy 42.8 ng/mL
== END | disposition home or self-care (01) ==
LOC: LAB 07:17
PROVIDERS: PCP Family Medicine; Referring Provider Family Medicine; Visit Provider Family Medicine
DX: E55.9 Vitamin D deficiency, unspecified (principal); E53.9 Vitamin B deficiency, unspecified; I10 Essential (primary) hypertension; E03.9 Hypothyroidism, unspecified; Z85.850 Personal history of malignant neoplasm of thyroid
CPT/HCPCS: 36415; 80053; 80061; 81001; 82306; 82607; 83036; 84100; 84425; 84432; 84439; 84443; 85025; 86800

== ENCOUNTER → 2023-06-15 | Outpatient (CLI) | payer OTHER, SELFPAY ==
--- NOTE | 2023-06-15 14:41 | ECHOD_ITS ---
Reason For Study: Murmur Procedure This was a 2D Doppler, Color Flow transthoracic echocardiogram. The study was technically difficult. Exam performed in department. Left Ventricle Normal LV size. Left ventricular systolic function is normal. The estimated ejection fraction is 55 %. Stage 1 diastolic dysfunction. No regional wall motion abnormalities noted. Right Ventricle Normal RV size. Normal systolic function. Atria Normal left atrium. Normal right atrium. Mitral Valve Normal mitral valve. Tricuspid Valve Normal tricuspid valve. Aortic Valve Peak aortic valve gradient 23 mmHg. Mean aortic valve gradient 12 mmHg. Mild aortic stenosis. Pulmonic Valve Normal pulmonic valve. Great Vessels Normal aortic root. The pulmonary artery is normal size. Normal inferior vena cava. Pericardium/Pleural No pericardial effusion. MMode/2D Measurements & Calculations LVIDd: 4.7 cm IVSd: 1.3 cm LVOT diam: 2.0 cm LVIDs: 3.2 cm LVPWd: 0.97 cm LVOT area: 3.3 cm2 RVDd: 3.6 cm FS: 32.1 % Ao root diam: 3.4 cm LAV(MOD-bp): 69.2 ml LA A4 area: 21.1 cm2 LA dimension: 3.9 cm LAV(MOD-bp) Indexed: 35.9 ml/m2 LAV(MOD-sp2): 79.6 ml LAV(MOD-sp4): 61.0 ml RA A4 area: 16.3 cm2 Time Measurements MV dec time: 0.18 sec Doppler Measurements & Calculations MV E max bernard: 66.7 cm/sec Lat Peak E' Bernard: 8.9 cm/sec Med Peak E' Bernard: 7.8 cm/sec MV A max bernard: 90.2 cm/sec E/E' lat: 7.5 E/E' med: 8.6 MV E/A: 0.74 MV V2 max: 91.8 cm/sec MV P1/2t max bernard: 84.2 cm/sec Ao V2 max: 239.5 cm/sec MV max P.4 mmHg MV P1/2t: 68.1 msec Ao max P.0 mmHg MV V2 mean: 49.3 cm/sec MV dec slope: 362.0 cm/sec2 Ao V2 mean: 156.0 cm/sec MV mean P.2 mmHg Ao mean P.5 mmHg MV V2 VTI: 29.7 cm MVA(P1/2t): 3.2 cm2 Ao V2 VTI: 57.9 cm MVA(VTI): 3.2 cm2 AV (velocity ratio): 0.49 CHRISTIAN(I,D): 1.6 cm2 CHRISTIAN(V,D): 1.5 cm2 LV V1 max: 108.9 cm/sec MR max bernard: 492.8 cm/sec SV(LVOT): 93.6 ml LV V1 max P.8 mmHg MR max P.1 mmHg LV V1 mean P.9 mmHg LV V1 mean: 80.7 cm/sec LV V1 VTI: 28.4 cm PA V2 max: 69.8 cm/sec PA V2 mean: 52.2 cm/sec ECHO/Echo Complete Interpretation Summary Normal LV size. Left ventricular systolic function is normal. The estimated ejection fraction is 55 %. Stage 1 diastolic dysfunction. Mean aortic valve gradient 12 mmHg. Mild aortic stenosis. Ordering Physician: Yayo Soria Referring Physician: Yayo Soria Performed By: Jah Wasserman RCS
== END | disposition home or self-care (01) ==
LOC: CVS 14:40
PROVIDERS: PCP Family Medicine; Referring Provider Family Medicine; Visit Provider Family Medicine
DX: R01.1 Cardiac murmur, unspecified (principal)
CPT/HCPCS: 93306

== ENCOUNTER 2023-10-06 12:04 | Emergency (ER) | payer OTHER, SELFPAY ==
[2023-10-06 12:05] VITALS: BP 168/88; PULSE 70; RESP 18; TEMP 36.6; O2SAT 98; BMI 33.6
--- NOTE | 2023-10-06 12:32 | RAD_ITS ---
STUDY: X-RAY - LEFT KNEE REASON FOR EXAM: Female, 68 years old. Injury. Pain. TECHNIQUE: 4 view(s) of the knee. COMPARISON: None. FINDINGS: Normal visualized distal femur. Normal visualized proximal tibia and fibula. Normal proximal tibiofibular articulation. Normal medial femorotibial compartment. Normal lateral femorotibial compartment. Normal patellofemoral articulation. Small joint effusion with diffuse soft tissue swelling. RAD/Knee 4 or More Views IMPRESSION: Small joint effusion with diffuse soft tissue swelling. No acute osseous abnormality. Electronically Signed: Ronal Mcclain MD at 13:03 EST ,
--- NOTE | 2023-10-06 12:33 | EX.ED.GENINJ ---
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 Able to walk afterwards without difficulty, she states the pain is not severe but it is swollen a little and her employer wanted her to have it reevaluated. She states she also fell onto her left outstretched hand, she states her palm is a little sore at the base of it, but she has no pain in her wrist, elbow, shoulder. [facility] Medical History Breast cancer Former smoker Hyperlipidemia Hypothyroidism Physical exam, pre-employment Thyroid cancer Home Medications aspirin 81 mg chewable tablet 81 mg PO DAILY 04/17/17 [History Last Taken Unknown] atenolol 50 mg tablet 50 mg PO DAILY 04/17/17 [History Last Taken Unknown] esomeprazole magnesium 40 mg capsule,delayed release (Nexium) 40 mg PO DAILY 04/17/17 [History Last Taken Unknown] estradiol 1 mg tablet 0.5 mg PO QHS SWEATS 04/17/17 [History Last Taken Unknown] hydrochlorothiazide 25 mg tablet 25 mg PO DAILY 04/17/17 [History Last Taken Unknown] levothyroxine 137 mcg tablet 125 mcg PO DAILY 04/17/17 [History Last Taken Unknown] simvastatin 40 mg tablet 40 mg PO DAILY 04/17/17 [History Last Taken Unknown] meloxicam 15 mg tablet 15 mg PO DAILY 08/08/21 [History Last Taken Unknown] Allergy/AdvReac Type Severity Reaction Status Date / Time No Known Allergies Allergy Verified 10/06/23 12:06 Surgical History History of appendectomy History of hysterectomy Social History Smoking Status: Former smoker substance use type: does not use ROS ROS ED Constitutional Constitutional ED: Denies chills or fever(s) Musculoskeletal Musculoskeletal: Reports extremity pain; Denies neck pain Integumentary Denies Abrasions, rash or wounds Neurologic Neurologic: Denies paresthesias or weakness EXAM Physical Exam Const Vital Signs: 10/06/23 12:05 10/06/23 12:13 Temperature 97.8 F Temperature Source Temporal Pulse Rate 70 Respiratory Rate 18 Respiratory Effort Normal Respiratory Depth Normal Respiratory Pattern Normal Blood Pressure 168/88 H Blood Pressure Mean 114 Pulse Ox 98 Oxygen Delivery Method Room Air Room Air Positive well nourished and well developed General Appearance ED: well developed and NAD Neck full ROM and supple Back/Spine normal ROM and normal to inspection Extremity normal to inspection and full ROM Extremity Narrative: Abrasion with some localized swelling and tenderness left anterior patella, no other bony prominence tenderness with regards to the left knee. All ligaments stable without pain on stressing, short endpoints including negative anterior and posterior drawer signs. Extensor mechanism intact. With regards to the left upper extremity there is no bony tenderness about the hand, wrist, elbow, shoulder and her range of motion is equal. The area where she is having pain is in the thenar and hyperthenar eminences without any swelling or purpura/ecchymosis. Neuro oriented x3, no focal motor deficits and no sensory deficits noted Sensorium / Orientation: alert Psych mental status grossly normal and thought process normal Skin no wounds Rashes: no rashes MDM MDM MDM Narrative Medical decision making narrative: 4 view x-ray series of the left knee were obtained and are negative for fracture or dislocation on my interpretation. Patient is reassured. She likely has a prepatellar traumatic bursitis/contusion. Given an Ishmael wrap, ibuprofen, instructions for supportive care, she agrees that she does not require any work restrictions for this injury at this time. Follow-up as needed. Radiography Diagnostic Testing: Clinical Impression(s) from Imaging Studies Knee X-Ray 10/06/23 12:32 IMPRESSION: Small joint effusion with diffuse soft tissue swelling. No acute osseous abnormality. Electronically Signed: Ronal Mcclain MD at 13:03 EST , Discharge Plan Triage Chief Complaint: Fall ED Provider: Karl Mccann Dx/Rx/DC Orders Clinical Impression: Contusion of knee, left Instructions: ED Contusion, Lower Extremity Prescriptions: No Action atenolol 50 MG tablet 50 mg PO DAILY simvastatin 40 MG tablet 40 mg PO DAILY esomeprazole magnesium [Nexium] 40 MG capsule 40 mg PO DAILY levothyroxine 137 MCG tablet 125 mcg PO DAILY estradiol 1 MG tablet 0.5 mg PO QHS aspirin 81 MG tablet,chewable 81 mg PO DAILY hydrochlorothiazide 25 MG tablet 25 mg PO DAILY meloxicam 15 mg Tablet 15 mg PO DAILY Stand Alone Forms: Work Status Form Primary Care Provider: Yayo Soria Referrals: [facility] [Group of Physicians] - As Needed Yayo Soria MD [Primary Care Provider] - Disposition Disposition: Home, Self Care
[2023-10-06] MEDS: Ibuprofen 200 MG Tablet 400 MG PO (12:45)
== END 2023-10-06 13:57 | disposition home or self-care (01) ==
PROVIDERS: Emergency Provider Emergency Medicine; PCP Family Medicine; Visit Provider Emergency Medicine
DX: S80.02XA Contusion of left knee, initial encounter (principal); Z87.891 Personal history of nicotine dependence; E78.5 Hyperlipidemia, unspecified; W01.10XA Fall on same level from slipping, tripping and stumbling with subsequent striking against unspecified object, initial encounter; Y93.89 Activity, other specified; Y99.0 Civilian activity done for income or pay; Y92.89 Other specified places as the place of occurrence of the external cause; Z85.3 Personal history of malignant neoplasm of breast; Z85.850 Personal history of malignant neoplasm of thyroid; Z79.899 Other long term (current) drug therapy; Z79.82 Long term (current) use of aspirin; E03.9 Hypothyroidism, unspecified; Z90.49 Acquired absence of other specified parts of digestive tract; Z90.710 Acquired absence of both cervix and uterus
CPT/HCPCS: 73564; 99282

== ENCOUNTER → 2023-11-08 | Outpatient (CLI) | payer OTHER, SELFPAY ==
[2023-11-08 12:32] LABS: Absolute Lymphocyte Count 2.82 X10^3/uL (0.83-4.51); Absolute Neutrophil Count 3.4 X10^3/uL (2.0-7.7); Basophil# 0.04 X10^3/uL; Basophil% 0.6 % (0-1); Eosinophil# 0.08 X10^3/uL; Eosinophils% 1.2 % (0-5); Hematocrit 41.4 % (37-47); Hemoglobin 13.7 g/dL (12.0-15.0); Lymphocyte # 2.82 X10^3/ul (0.83-4.51); Lymphocyte % 41.3 % (19-41); Mean Corp Hgb Conc 33.1 g/dL (32-36); Mean Corpuscular Hgb 30.1 pg (27.0-32.0); Monocyte# 0.46 X10^3/uL; Monocyte% 6.7 % (0-10); NRBC Flagged by Analyzer 0 % (0-5); Neutrophil # 3.41 X10^3/uL (2.7-7.7); Neutrophil % 49.9 % (47-70); Platelet Count 281 K/mm3 (150-450); RBC Distribution Width CV 13.3 % (11.6-14.6); RBC Distribution Width SD 44.7 fl (35.1-43.9); Red Blood Count 4.55 M/mm3 (4.2-5.4); White Blood Count 6.8 K/mm3 (4.4-11.0)
[2023-11-08 12:41] LABS: Vitamin B12 882 pg/mL (211-911); Vitamin D,25 Hydroxy 45.4 ng/mL
[2023-11-08 12:46] LABS: ALB/GLOB Ratio 1.2 RATIO (0.9-2.4); AST(SGOT) 17 U/L (15-37); Alanine Aminotransfer ALT/SGPT 27 U/L (13-56); Albumin, Serum 3.7 g/dL (3.2-5.0); Alkaline Phosphatase 71 U/L (45-117); Anion Gap 5 (5-15); BUN 23 mg/dL (7-18); BUN/Creat Ratio 37.1 RATIO (10-20); Calcium,Total 10.6 mg/dL (8.5-10.1); Chloride 108 mmol/L (98-107); Cholesterol 207 mg/dL (200); Creatinine, Serum 0.62 mg/dL (0.55-1.02); EST Glomerular Filtration Rate 101 mL/min (>60); Est Glom Filt Rate - Afr Amer 123 mL/min (>60); Globulin 3.2 g/dL (2.2-4.2); Glucose 107 mg/dL (74-106); High Density Lipoprotein 50 mg/dL; Potassium 3.6 mmol/L (3.5-5.1); Protein, Total 6.9 g/dL (6.4-8.2); Sodium Level 140 mmol/L (136-145); T4 Free Direct 1.12 ng/dL (0.76-1.46); Thyroid Stim Hormone (TSH) 0.65 uIU/mL (0.358-3.74); Triglycerides 172 mg/dL; Very Low Density Lipoprotein 34 mg/dL (5-40)
[2023-11-08 12:47] LABS: Color, Urine Yellow (Yellow); Glucose, Dipstick Normal (Normal); Ketone-Dipstick Negative (Negative); Leukocyte Esterase-Dipstick Negative /ul (Negative); Nitrite-Dipstick Negative (Negative); Occult Blood-Urine Negative /ul (Negative); Protein-Dipstick Negative (Negative); Urine Bilirubin Dipstick Negative (Negative); Urine Clarity Sl. Cloudy (Clear); Urine Urobilinogen Normal (Normal)
[2023-11-08 13:18] LABS: Bacteria 1+ /hpf (None Seen); Mucous, Urine RARE /hpf (<or=2+); Red Blood Cells-Urine 0-5 SEEN /hpf (0-5); Squamous Epithelial Cells - UA 5-10 SEEN /hpf (5-10); White Blood Cells 0-5 SEEN /hpf (0-5)
== END | disposition home or self-care (01) ==
LOC: MFPLAB 10:01
PROVIDERS: PCP Family Medicine; Visit Provider Family Medicine
DX: R73.09 Other abnormal glucose (principal); I10 Essential (primary) hypertension; E03.9 Hypothyroidism, unspecified; E53.9 Vitamin B deficiency, unspecified; E55.9 Vitamin D deficiency, unspecified
CPT/HCPCS: 36415; 80053; 80061; 81001; 82306; 82607; 83036; 84439; 84443; 85025

== ENCOUNTER → 2023-12-21 | Outpatient (CLI) | payer MEDICARE, SELFPAY ==
--- NOTE | 2023-12-21 15:20 | RAD_ITS ---
INDICATION: pain EXAMINATION/TECHNIQUE: X-RAY - XR Hips Bilateral with Pelvis when performed; 2 Views COMPARISON: Prior study dated: 11/30/2020 FINDINGS: PELVIC BONES: No displaced fracture, destructive or sclerotic lesions. Note that overlapping bowel shadows may however obscure fine detail. Sacroiliac joints are unremarkable. No widening of the pubic symphysis. Degenerative changes of the visualized lower lumbar spine. HIPS: The articular structures are unremarkable. No displaced fracture seen in this frontal view. SOFT TISSUES: No soft tissue swelling or gas. RAD/Hips B/L min 2 views w/ Pelvis IMPRESSION: No evidence of displaced pelvic or hip fracture. Electronically Signed: Marques Larsen MD at 8:59 EST ,
--- OUTSIDE RECORDS SUMMARY | 2023-12-21 17:43 | XMS RPT_ITS | CCD ---
Author Name Unknown Address [address] [place] [address] Organization [facility] Care Team Providers Care Manager Spring Name Role Phone Unavailable Primary Care Provider Yayo Elaine DO Primary Care Provider Yayo Alaniz DO Primary Care Provider Allergies Allergy Classification Reported Allergen(s) Allergy Type Date of Onset Reaction(s) Facility (4 sources) Amoxicillin Drug Allergy 09-23-2014 Other (See Comments), Other: See Comments [facility] (4 sources) lansoprazole Drug Allergy 02-21-2007 Diarrhea [facility] Medications Current Medications Medication Drug Class(es) Dates Sig (Normalized) Sig (Original) acetaminophen 325 mg / HYDROcodone bitartrate 5 mg oral tablet (1 source) Opioid Agonist Start: 07-21-2021 End: 07-24-2021 HYDROcodone-acet aminophen (NORCO) 5-325 MG per tablet Indications: Wound dehiscence Take 1 tablet by mouth every 6 hours as needed for Pain for up to 3 days. Intended supply: 3 days. Take lowest dose possible to manage pain 12 tablet 0 07/21/2021 07/24/2021 Active acetaminophen 325 mg / oxyCODONE hydrochloride 5 mg oral tablet (1 source) Opioid Agonist Start: 09-10-2021 End: 09-17-2021 oxyCODONE-acetam inophen (PERCOCET) 5-325 MG per tablet Indications: Wound dehiscence Take 1 tablet by mouth every 6 hours as needed for Pain for up to 7 days. Intended supply: 3 days. Take lowest dose possible to manage pain 28 tablet 0 09/10/2021 09/17/2021 Active ALPRAZolam 0.25 mg disintegrating oral tablet (1 source) Benzodiazepine Start: 07-21-2021 ALPRAZolam (NIRAVAM) dissolvable tablet 0.25 mg amoxicillin 875 mg / clavulanate 125 mg oral tablet (1 source) Penicillin-class Antibacterial Start: 07-21-2021 End: 07-26-2021 take 1 tablet by mouth twice daily amoxicillin-clav ulanate (AUGMENTIN) 875-125 MG per tablet Take 1 tablet by mouth 2 times daily for 5 days 20 tablet 0 07/21/2021 07/26/2021 Active Ascorbic Acid (1 source) Vitamin C Ascorbic Acid (VITAMIN C PO) Take by mouth daily 0 Active biotin 10 mg oral capsule (5 sources) Biotin 10 MG CAPS Take by mouth daily 0 Active bisacodyl 10 mg rectal suppository (1 source) Stimulant Laxative Start: 08-11-2021 bisacodyl (DULCOLAX) suppository 10 mg calcium chloride 0.0014 meq/ml / potassium chloride 0.004 meq/ml / sodium chloride 0.103 meq/ml / sodium lactate 0.028 meq/ml injectable solution (2 sources) Start: 09-10-2021 lactated ringers infusion Completed/Discontinued Medications Medication Drug Class(es) Dates Sig (Normalized) Sig (Original) acetaminophen 500 mg oral tablet (3 sources) Start: 09-10-2021 End: 09-10-2021 acetaminophen (TYLENOL) tablet 1,000 mg Problems Active Problems Problem Classification Problem Date Documented Date Episodic/Chronic Cancer of thyroid (11 sources) Follicular thyroid carcinoma; Translations: [Malignant neoplasm of thyroid gland] Onset: 06-10-2010 Chronic Complications of surgical procedures or medical care (5 sources) Postoperative hypothyroidism; Translations: [Postprocedural hypothyroidism] Onset: 05-13-2016 Chronic Complications of surgical procedures or medical care (6 sources) Wound dehiscence; Translations: [Disruption of wound, unspecified, initial encounter] Episodic Disorders of lipid metabolism (3 sources) Mixed hyperlipidemia; Translations: [Mixed hyperlipidemia] Onset: 08-11-2016 08-11-2016 Chronic Essential hypertension (4 sources) Essential hypertension; Translations: [Essential (primary) hypertension] Onset: 08-11-2016 08-11-2016 Chronic Malaise and fatigue (1 source) Fatigue; Translations: [Other fatigue] Episodic Nutritional deficiencies (3 sources) Vitamin D deficiency; Translations: [Vitamin D deficiency, unspecified] Onset: 05-13-2016 05-13-2016 Chronic Other aftercare (4 sources) Long-term current use of antibiotic; Translations: [[facility] (current) use of antibiotics] Episodic Other nutritional; endocrine; and metabolic disorders (3 sources) Hypocalcemia; Translations: [Hypocalcemia] Onset: 06-24-2010 06-24-2010 Chronic Other skin disorders (4 sources) Mass of lower limb; Translations: [Localized swelling, mass and lump, right lower limb] 06-07-2021 Episodic Residual codes; unclassified (1 source) Intolerant of cold; Translations: [Other general symptoms and signs] Episodic Skin and subcutaneous tissue infections (4 sources) Abscess; Translations: [Cutaneous abscess, unspecified] Onset: 2021 Episodic Past or Other Problems Problem Classification Problem Date Documented Da te Episodic/Chronic Esophageal disorders (3 sources) Esophagitis; Translations: [Esophagitis, unspecified] Onset: 04-16-2007 04-16-2007 Episodic Gastritis and duodenitis (3 sources) Duodenitis; Translations: [Duodenitis without bleeding] Onset: 04-16-2007 04-16-2007 Episodic Other connective tissue disease (3 sources) Plantar fasciitis; Translations: [Plantar fascial fibromatosis] Onset: 04-29-2020 04-29-2020 Episodic Residual codes; unclassified (3 sources) Menopause present; Translations: [Asymptomatic menopausal state] Onset: 08-11-2016 08-11-2016 Episodic Results Test Name Value Interpretation Reference Range Facil ity Vital Signs Date Time Vital Sign Value Performing Clinician Facility 02-24-2022 10:58-0400 Diastolic blood pressure 83 mm[Hg] Beatriz Hickman MD Work Phone: [facility] 02-24-2022 10:58-0400 Systolic blood pressure 134 mm[Hg] Beatriz Hickman MD Work Phone: [facility] 02-24-2022 10:30-0400 Body weight 89.36 kg Beatriz Hickman MD Work Phone: [facility] 02-24-2022 10:30-0400 Heart rate 62 /min Beatriz Hickman MD Work Phone: [facility] 02-24-2022 10:30-0400 Respiratory rate 18 /min Beatriz Hickman MD Work Phone: [facility] 02-24-2022 10:30-0400 SaO2% (BldA) [Mass fraction] 98 % Beatriz Hickman MD Work Phone: [facility] 09-10-2021 13:15-0400 Body temperature 97.39 [degF] Luis Felipe Barnard MD Work Phone: [facility] Work Phone: 09-10-2021 13:15-0400 Diastolic blood pressure 60 mm[Hg] Luis Felipe Barnard MD Work Phone: [facility] Work Phone: 09-10-2021 13:15-0400 Heart rate 65 /min Luis Felipe Barnard MD Work Phone: [facility] Work Phone: 09-10-2021 13:15-0400 Respiratory rate 13 /min Luis Felipe Barnard MD Work Phone: [facility] Work Phone: 09-10-2021 13:15-0400 SaO2% (BldA) [Mass fraction] 94 % Luis Felipe Barnard MD Work Phone: [facility] Work Phone: 09-10-2021 13:15-0400 Systolic blood pressure 112 mm[Hg] Luis Felipe Barnard MD Work Phone: [facility] Work Phone: 09-10-2021 07:43-0400 Body height 162.6 cm Luis Felipe Barnard MD Work Phone: [facility] Work Phone: 09-10-2021 07:43-0400 Body mass index (BMI) [Ratio] 32.61 kg/m2 Luis Felipe Barnard MD Work Phone: [facility] Work Phone: 09-10-2021 07:43-0400 Body weight 86.18 kg Luis Felipe Barnard MD Work Phone: [facility] Work Phone: 08-31-2021 08:16-0400 Diastolic blood pressure 96 mm[Hg] Luis Felipe Barnard MD Work Phone: [facility] Work Phone: 08-31-2021 08:16-0400 Heart rate 73 /min Luis Felipe Barnard MD Work Phone: [facility] Work Phone: 08-31-2021 08:16-0400 Systolic blood pressure 163 mm[Hg] Luis Felipe Barnard MD Work Phone: [facility] Work Phone: 08-31-2021 08:13-0400 SaO2% (BldA) [Mass fraction] 96 % Luis Felipe Barnard MD Work Phone: [facility] Work Phone: 08-31-2021 08:01-0400 Body temperature 98.1 [degF] Luis Felipe Barnard MD Work Phone: [facility] Work Phone: 08-31-2021 07:53-0400 Body height 162.6 cm Luis Felipe Barnard MD Work Phone: [facility] Work Phone: 08-31-2021 07:53-0400 Body mass index (BMI) [Ratio] 33.13 kg/m2 Luis Felpie Barnard MD Work Phone: [facility] Work Phone: 08-31-2021 07:53-0400 Body weight 87.54 kg Luis Felipe Barnard MD Work Phone: [facility] Work Phone: 08-31-2021 07:53-0400 Respiratory rate 16 /min [facility] 08-12-2021 05:24-0400 Body temperature 98.01 [degF] Julio César Shankar DO Work Phone: [facility] Work Phone: 08-12-2021 05:24-0400 Diastolic blood pressure 66 mm[Hg] Julio César Shankar DO Work Phone: [facility] Work Phone: 08-12-2021 05:24-0400 Heart rate 61 /min Julio César Shankar DO Work Phone: [facility] Work Phone: 08-12-2021 05:24-0400 Respiratory rate 16 /min Julio César Shankar DO Work Phone: [facility] Work Phone: 08-12-2021 05:24-0400 SaO2% (BldA) [Mass fraction] 95 % Julio César Shankar DO Work Phone: [facility] Work Phone: 08-12-2021 05:24-0400 Systolic blood pressure 117 mm[Hg] Julio César Shankar DO Work Phone: [facility] Work Phone: 08-11-2021 09:16-0400 Body height 162.6 cm Julio César Shankar DO Work Phone: [facility] Work Phone: 2021 09:48-0400 Body mass index (BMI) [Ratio] 32.6 kg/m2 Julio César Shankar DO Work Phone: [facility] Work Phone: 2021 09:48-0400 Body weight 86.18 kg Julio César Shankar DO Work Phone: [facility] Work Phone: 07-21-2021 09:45-0400 Diastolic blood pressure 78 mm[Hg] Jayro Hwang MD Work Phone: [facility] Work Phone: 07-21-2021 09:45-0400 Heart rate 60 /min Jayro Hwang MD Work Phone: [facility] Work Phone: 07-21-2021 09:45-0400 Respiratory rate 16 /min Jayro Hwang MD Work Phone: [facility] Work Phone: 07-21-2021 09:45-0400 SaO2% (BldA) [Mass fraction] 96 % Jayro Hwang MD Work Phone: [facility] Work Phone: 07-21-2021 09:45-0400 Systolic blood pressure 138 mm[Hg] Jayro Hwang MD Work Phone: [facility] Work Phone: 07-21-2021 09:16-0400 Body temperature 97 [degF] [facility] Hwang [facility] Work Phone: 07-21-2021 06:16-0400 Body height 162.6 cm Jayro Hwang MD Work Phone: [facility] Work Phone: 07-21-2021 06:16-0400 Body mass index (BMI) [Ratio] 32.61 kg/m2 Jayro Hwang MD Work Phone: [facility] Work Phone: 07-21-2021 06:16-0400 Body weight 86.18 kg Jayro Hwang MD Work Phone: [facility] Work Phone: 06-03-2021 13:09-0400 Body height 162.6 cm Jayro Hwang MD [facility] Work Phone: 06-03-2021 13:09-0400 Body mass index (BMI) [Ratio] 32.61 kg/m2 Jayro Hwang MD [facility] Phone[facility] Work Phone: 06-03-2021 13:09-0400 Body temperature 97 [degF] Jayro Hwang MD [facility] Phone[facility] Work Phone: 06-03-2021 13:09-0400 Body weight 86.18 kg Jayro Hwang MD [facility] Phone[facility] Work Phone: 06-03-2021 13:09-0400 Diastolic blood pressure 88 mm[Hg] Jayro Hwang MD Work Phone: [facility] Work Phone: 06-03-2021 13:09-0400 Heart rate 66 /min Jayro Hwang MD Work Phone: [facility] Work Phone: 06-03-2021 13:09-0400 Respiratory rate 16 /min Jayro Hwang MD [facility] Work Phone: 06-03-2021 13:09-0400 SaO2% (BldA) [Mass fraction] 97 % Jayro Hwang MD [facility] Phone[facility] Work Phone: 06-03-2021 13:09-0400 Systolic blood pressure 162 mm[Hg] Jayro Hwang MD [facility] Phone: [facility] Work Phone: Encounters Encounter Date Encounter Type Care Provider Facility Start: 04-02-2022 Refill Beatriz Hickman MD Work Phone: Endocrinology Procedures Date Procedure Procedure Detail Performing Clinician Start: 09-10-2021 OPERATIVE REPORT 3m Sca nning Start: 08-12-2021 Basic metabolic pane l calcium total Yazid R Bg DO Start: 08-11-2021 Radiologic exam ches t single view Mari Bashir MD Work Phone: Start: 08-11-2021 Drug screen quantita tive vancomycin Mag Candelaria MD Work Phone: Start: 08-11-2021 Basic metabolic pane l calcium total Yazid R Bg DO Start: 08-10-2021 Basic metabolic pane l calcium total Yazid R Bg DO Start: 08-10-2021 Drug screen quantita tive vancomycin Jacques Nicolás Storm MD Work Phone: Start: 08-09-2021 OPERATIVE REPORT 3m Sca nning Start: 08-09-2021 Assay of magnesium Milan Duggan MD Work Phone: Start: 08-09-2021 BASIC METABOLIC PANE L W/ REFLEX TO MG FOR LOW K Jerman Duggan MD Work Phone: Start: 2021 Antibody screen Julio César Shankar DO Work Phone: Start: 2021 Chest x-ray 1 view frontal Fritz Mazariegos MD Work Phone: Start: 2021 Radex hip unilateral with pelvis 2-3 views Fritz Mazariegos MD Work Phone: Start: 2021 Ecg routine ecg w/le ast 12 lds w/i&r Fritz Mazariegos MD Work Phone: Start: 2021 Basic metabolic pane l calcium total Julio César Shankar DO Work Phone: Start: 2021 End: 2021 C-reactive protein Julio César Shankar DO Work Phone: Start: 2021 PROTIME/INR & PTT Thero n Shankar DO Work Phone: Start: 07-21-2021 OPERATIVE REPORT 3m Sca nning Start: 06-03-2021 Basic metabolic pane l calcium total Alyssajovanny Jason MICROBIOLOGY TEACHER - SERVICE TECH/WELDER Work Phone: Start: 06-03-2021 Ecg routine ecg w/le ast 12 lds w/i&r Alyssa Jason APRN - SERVICE TECH/WELDER Work Phone: Start: 04-13-2015 Colonoscopy Beatriz Hickman MD Work Phone: Start: 06-01-2012 Mammography Beatriz Hickman MD Work Phone: Plan of Treatment Date Care Activity Detail Author Start: 04-13-2025 Colonoscopy COLONOSCOPY [facility] Start: 04-13-2025 COLORECTAL CANCER SCREENING COLORECTAL CANCER SCREENING [facility] Start: 08-12-2022 Creatinine measurement Creatinine mo nitoring [facility] Work Phone: Start: 08-12-2022 Potassium monitoring Potassium monit oring [facility] Work Phone: Start: 07-14-2022 Influenza vaccination INFLUENZ A (Season Ended) [facility] Start: 06-03-2022 Creatinine measurement Creatinine mo nitoring [facility] Work Phone: Start: 06-03-2022 Potassium monitoring Potassium monit oring [facility] Work Phone: Start: 02-24-2022 End: 04-26-2022 IRON + TIBC [facility] Work Phone: Payers Date Payer Category Payer Medicare MMO MEDICARE MMO [employer] O [id number] 2022-Present [phone] [address] [place] [address] [facility] [id number] 2020 Private Health Insurance ALISON SERNA [id number] 2020-Present [phone] [address] [place] [address] [id number] Social History Date Type Detail Facility Start: 06-03-2021 End: 09-10-2021 Tobacco smoking status NHIS Former smoker [facility] End: 11-13-2000 History of tobacco use Current smoker [facility] End: 11-13-2000 History of tobacco use Cigarette Smoker [facility] Start: 06-03-2021 End: 09-10-2021 Cigarettes smoked current (pack per day) - Reported [facility] Work Phone: Start: 06-03-2021 End: 09-10-2021 Tobacco use and exposure Never used [facility] Start: 06-03-2021 End: 02-24-2022 Alcohol intake Current drinker of alcohol (finding) [facility] Work Phone: Start: 06-01-2021 Tobacco Comment quit 20 years ago [facility] Work Phone: Start: 06-03-2021 Alcohol Comment approx once / week [facility] Work Phone: Start: 1955 Sex Assigned At Female S [facility] Work Phone: Exposure to SARS-CoV -2 (event) Not sure [facility] Start: 06-24-2010 History SDOH Alcohol Comment socially [facility] Start: 1955 Sex Assigned At Not on file [facility] Clinical Notes 04-08-2010 to 04-04-2022 Telephone Encounter - Thelma Paz LPN - 04/04/2022 8:46 AM EDTTelephone Encounter - Melody Velazco RN - 03/01/2022 8:13 AM EDTPatient Anita Hickman MD - 02/24/2022 10:40 AM EDTInstructions Note Date & Type Note Facility 04-04-2022 Miscellaneous Notes Requester: Patient Last Visit in Endocrinology: Provider name: Beatriz Hickman DO , Date 02/24/2022 Next Scheduled Appt in Endo: Visit date not found Last Refill: 01/03/22 Number of Refills given: 3 Pending Prescriptions Disp Refills LEVOTHYROXINE 125 MCG TABLET 90 tablet 3 Sig: Take 1 tablet by mouth six times a week. [facility]: No HYDROCHLOROTHIAZIDE 25 MG TABLET 90 tablet 3 Sig: Take 1 tablet by mouth once daily. [facility]: No Please review and advise. Thelma Paz LPN documented in this encounter [facility] 03-01-2022 Miscellaneous Notes Please review. Patient will need to contact her insurance to discuss the possible providers that she can see in that area. documented in this encounter [facility] 02-24-2022 Note HNO ID: [id number] Author: Beatriz Hickman MD Service: ? Author Type: Physician Type: Progress Notes Filed: 02/24/2022 11:31 AM Note Text: SUBJECTIVE: Xiao Nava is a 66 year old female who returns today for follow up of thyroid cancer and post-surgical hypothyroidism. 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 Thyroid cancer history: * Surgery (06/03/10): total thyroidectomy. Surgery was done by Dr. Omega Woods at [facility] * Path (06/03/10): follicular CA, 2.5cm down to 0.15cm, multifocal (L AND R lobe and isthmus), capsular and vascular invasion present, margins free of CA. One node resected, negative for CA. T2 N0 Mx * [facility] (08/18/10): treatment with 101.2 mCi 131-Iodine, Thyrogen stim * Scan (08/27/10): post treatment scan, uptake in neck only, no evidence of distant mets, Thyrogen stim (10/12/11): negative 123-I scan, Thyrogen stim * mRNA (04/08/10): TSH-R mRNA=1.0 ng/ug * Thyroglobulin (06/24/10): TG=2.3 ng/ml, Ab <1.0 IU/ml (08/18/10): TG=4.1 ng/ml, Ab <1.0 IU/ml, Thyrogen stim (12/20/10): TG <0.2 ngml, Ab <1.0 IU/ml (10/14/11): TG <0.5 ng/ml, Ab <20 IU/ml, Thyrogen stim (04/16/13): TG <0.5 ng/ml, Ab <20 IU/ml Post surgical hypothyroidism Currently on levothyroxine 125 mcg 6 days a week Previous treatment: Levothyroxine 125 mcg 6 days a week and half tablet on sundays Current Symptoms: Increased fatigue She only sleeps for 4-5 years She has trouble falling asleep and staying asleep Currently on mediterranean diet Also doing intermittent fasting She reports constipation + cold Intolerance She also reports intermittent palpitation This occurs when she is laying down REVIEW OF SYSTEMS: GENERAL:No weight loss, malaise or fevers NECK:Negative for lumps, goiter, pain and significant neck swelling RESPIRATORY: Negative for cough, hemoptysis, wheezing or shortness of breath CARDIOVASCULAR: Negative for chest pain, leg swelling or palpitations GASTROINTESTINAL: No nausea, vomiting, or persistent diarrhea GENITOURINARY: no dysuria, Polyuria, no changes in urinary frequency NEUROLOGIC: no numbness, tingling, no Paresthesias, no headaches SKIN:Negative for lesions, rash, and itching ENDOCRINE: Negative for heat intolerance or goiter Current Outpatient Medications on File Prior to Visit Medication Sig - levothyroxine (SYNTHROID) 125 mcg tablet TAKE ONE-HALF TABLET BY MOUTH ON SUNDAYS AND ONE TABLET ONCE DAILY ON ALL OTHER DAYS - hydroCHLOROthiazide (HYDRODIURIL, ESIDRIX) 25 mg tablet Take 1 tablet by mouth once daily. - cholecalciferol (VITAMIN D-3) 5,000 unit tab Take 5,000 Units by mouth once daily. - TURMERIC ORAL Take 1 tablet by mouth once daily. - cholecalciferol (VITAMIN D-3) 2,000 unit tablet Take 2,000 Units by mouth once daily. - simvastatin (ZOCOR) 40 mg tablet Take 40 mg by mouth daily at bedtime. - aspirin, enteric coated (ECOTRIN LOW STRENGTH) 81 mg EC tablet Take 1 tablet by mouth once daily. - omega-3 fatty acids(FISH OIL 500 MG CAP) Take one(1) tablet two(2) times daily. - estradiol(ESTRACE 1 MG TAB) Take 0.5 mg by mouth once daily. - Multivitamin (DAILY MULTIPLE) ORAL Tab Take 1 tablet by mouth once daily. Without Calcium. - Calcium-Cholecalciferol (D3) (CALCIUM 600 + D) 600-400 mg-unit ORAL Tab Take one(1) tablet two(2) times daily. - atenolol 50 mg ORAL Tab Take one(1) tablet daily. - esomeprazole (NEXIUM) 40 mg ORAL CpDR Take one(1) tablet daily. No current facility-administered medications on file prior to visit. 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 General:alert and oriented X 3, no acute distress Eyes: anicteric sclera, Extraocular motions intact Neck exam - supple, no significant adenopathy. No palpable thyroid tissue appreciated, well healed thyroidectomy scar, nontender to palpation Chest: Breathing unlabored, Lungs clear to auscultation. No wheezing CV:normal, Regular rate and rhythm, no murmurs, clicks, or gallops. Abdomen: Normal abdominal sounds, non tender to palpation Neuro: Gait normal. Sensation grossly intact. No focal findings Musculoskeletal: Muscular strength intact, No joint swelling Extremities without edema, no deformities Skin: no rashes/ erythema LABORATORY (more content not included)... [facility] 02-24-2022 Instructions Beatriz Hickman MD - 02/24/2022 10:53 AM EDT Get labs drawn I will send you a message in my chart once the lab results become available documented in this encounter [facility] 02-24-2022 History of Present illness Narrative SUBJECTIVE: Xiao Nava is a 66 year old female who returns today for follow up of thyroid cancer and post-surgical hypothyroidism. 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 Thyroid cancer history: * Surgery (06/03/10): total thyroidectomy. Surgery was done by Dr. Omega Woods at [facility] * Path (06/03/10): follicular CA, 2.5cm down to 0.15cm, multifocal (L & R lobe and isthmus), capsular and vascular invasion present, margins free of CA. One node resected, negative for CA. T2 N0 Mx * [facility] (08/18/10): treatment with 101.2 mCi 131-Iodine, Thyrogen stim * Scan (08/27/10): post treatment scan, uptake in neck only, no evidence of distant mets, Thyrogen stim (10/12/11): negative 123-I scan, Thyrogen stim * mRNA (04/08/10): TSH-R mRNA=1.0 ng/ug * Thyroglobulin (06/24/10): TG=2.3 ng/ml, Ab <1.0 IU/ml (08/18/10): TG=4.1 ng/ml, Ab <1.0 IU/ml, Thyrogen stim (12/20/10): TG <0.2 ngml, Ab <1.0 IU/ml (10/14/11): TG <0.5 ng/ml, Ab <20 IU/ml, Thyrogen stim (04/16/13): TG <0.5 ng/ml, Ab <20 IU/ml Post surgical hypothyroidism Currently on levothyroxine 125 mcg 6 days a week Previous treatment: Levothyroxine 125 mcg 6 days a week and half tablet on sundays Current Symptoms: Increased fatigue She only sleeps for 4-5 years She has trouble falling asleep and staying asleep Currently on mediterranean diet Also doing intermittent fasting She reports constipation + cold Intolerance She also reports intermittent palpitation This occurs when she is laying down REVIEW OF SYSTEMS: GENERAL:No weight loss, malaise or fevers NECK:Negative for lumps, goiter, pain and significant neck swelling RESPIRATORY: Negative for cough, hemoptysis, wheezing or shortness of breath CARDIOVASCULAR: Negative for chest pain, leg swelling or palpitations GASTROINTESTINAL: No nausea, vomiting, or persistent diarrhea GENITOURINARY: no dysuria, Polyuria, no changes in urinary frequency NEUROLOGIC: no numbness, tingling, no Paresthesias, no headaches SKIN:Negative for lesions, rash, and itching ENDOCRINE: Negative for heat intolerance or goiter Current Outpatient Medications on File Prior to Visit Medication Sig levothyroxine (SYNTHROID) 125 mcg tablet TAKE ONE-HALF TABLET BY MOUTH ON SUNDAYS AND ONE TABLET ONCE DAILY ON ALL OTHER DAYS hydroCHLOROthiazide (HYDRODIURIL, ESIDRIX) 25 mg tablet Take 1 tablet by mouth once daily. cholecalciferol (VITAMIN D-3) 5,000 unit tab Take 5,000 Units by mouth once daily. TURMERIC ORAL Take 1 tablet by mouth once daily. cholecalciferol (VITAMIN D-3) 2,000 unit tablet Take 2,000 Units by mouth once daily. simvastatin (ZOCOR) 40 mg tablet Take 40 mg by mouth daily at bedtime. aspirin, enteric coated (ECOTRIN LOW STRENGTH) 81 mg EC tablet Take 1 tablet by mouth once daily. omega-3 fatty acids(FISH OIL 500 MG CAP) Take one(1) tablet two(2) times daily. estradiol(ESTRACE 1 MG TAB) Take 0.5 mg by mouth once daily. Multivitamin (DAILY MULTIPLE) ORAL Tab Take 1 tablet by mouth once daily. Without Calcium. Calcium-Cholecalciferol (D3) (CALCIUM 600 + D) 600-400 mg-unit ORAL Tab Take one(1) tablet two(2) times daily. atenolol 50 mg ORAL Tab Take one(1) tablet daily. esomeprazole (NEXIUM) 40 mg ORAL CpDR Take one(1) tablet daily. No current facility-administered medications on file prior to visit. 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 No palpable thyroid tissue appreciated, well healed thyroidectomy scar, nontender to palpation Chest: Breathing unlabored, Lungs clear to auscultation. No wheezing CV:normal, Regular rate and rhythm, no murmurs, clicks, or gallops. Abdomen: Normal abdominal sounds, non tender to palpation Neuro: Gait normal. Sensation grossly intact. No focal findings Musculoskeletal: Muscular strength intact, No joint swelling Extremities without edema, no deformities Skin: no rashes/ erythema LABORATORY INVESTIGATION: Ref. Range 06/12/2020 09:08 11/10/2021 09:05 Thyroglobulin Latest Ref Range: 1.6 - 59.9 ng/mL <0.2 (L) <0.2 (L) TG Antibody Screen Latest Ref Range: <14.4 IU/mL <1.0 <1.0 Free T4 Latest Ref Range: 0.9 - 1.7 ng/dL 1.8 (H) 1.4 TSH Latest Ref Range: 0.270 - 4.200 uU/mL 0.251 (L) 3.200 Thyroglobulin Ab Latest Ref Range: <14.4 IU/mL <1.0 <1.0 ASSESSMENT AND PLAN: 1. Follicular Thyroid Cancer 2. Post-surgical Hypothyroidism 3. Fatigue 4. Cold intolerance S/p total thyroidectomy and GARCIA remnant ablation in 2009 No evidence of disease recurrence, last Tg level was undetectable Recent Tg level was undetectable Clinically she appears hypothyroid Update thyroid function test Then will adjust levothyroxine dose if needed Check an iron panel I will send patient a message in my chart once the lab results become available. She is moving to [place] in April 2022, I suggested her to get established with endocrinology there. Beatriz Hickman MD 02/24/22 documented in this encounter [facility] 09-10-2021 Hospital Discharge instructions Luis Felipe Barnard MD - 09/10/[address] and monitor daily outputs Ok to take down gauze in 24 hours for hygiene but need to replace and keep compression Encourage ambulation Take pain meds as prescribed Take Anitbiotics as prescribed F/u on Call with any questions or concerns documented in this encounter [facility] Work Phone: 09-10-2021 History of Present illness Narrative Phase II indicated, pt awake and talking, VS stable, pt dressed and ambulated to wheelchair without difficulty, home going instructions reviewed with patient, verbal understanding demonstrated and opportunity given for questions documented in this encounter [facility] Work Phone: 08-31-2021 Hospital Discharge instructions Nereida Pack RN - 08/31/2021 HOLD FISH OIL (OMEGA 3) FOR 5 DAYS BEFORE SURGERY HOLD HYDROCHLOROTHIAZIDE THE MORNING OF SURGERY MAY TAKE ALL OTHER MEDICATIONS PRESCRIBED ARRIVE 2 HOURS PRIOR TO SURGERY BE AT THE HOSPITAL AT 7:15 am Use door number 2 Check in at registration using photo ID and insurance card Have a responsible adult that will be able to take you home and will be able to stay with you when you are home. NO FOOD AFTER MIDNIGHT THE NIGHT BEFORE SURGERY This includes candy, gum, and mints MAY have CLEAR LIQUIDS (WATER, APPLE JUICE, CRANBERRY JUICE, BLACK COFFEE, TEA, CARBONATED POP GATORADE) To drink until arrival time for surgery *(NOTE: IF YOU ARE A DIABETIC AVOID HIGH SUGAR BEVERAGES)* Wear loose comfortable clean clothing that you can go home in Leave all jewelry, contact lenses and valuables at home ONLY ONE visitor is permitted at this time Bring printed medication list with you Write the date and times of last dose DO NOT USE alcohol, recreational drugs or tobacco products for 24 hours before surgery Please write down any questions that you may have for your surgeon, anesthesiologist, Etc. documented in this encounter [facility] Work Phone: 08-12-2021 History of Present illness Narrative Discharge instructions reviewed with the patient, picc line educations done. 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 [facility] to do home infusion of IV ATB Images from the original note were not included. . [facility] - Infectious Diseases Attending Progress Note Patient seen and examined Chart reviewed Following for right buttock abscess s/p I and D Patient overall doing ok No cultures were sent Ready to go home today Vitals: Patient Vitals for the past 24 hrs: BP Temp Temp src Pulse Resp SpO2 08/12/21 0524 117/66 98 F (36.7 C) Temporal 61 16 95 % 08/11/21 1700 (!) 157/89 99 F (37.2 C) Temporal 73 16 94 % Physical Exam: Patient lying in bed NAD, EOMI PERRLA CV - RRR Lungs clear Right buttock wound: Labs: Component Value Date/Time NA 137 08/12/2021 0516 K 3.5 08/12/2021 0516 CL 103 08/12/2021 0516 CO2 30 08/12/2021 0516 BUN 11 08/12/2021 0516 CREATININE 0.46 (L) 08/12/2021 0516 GLUCOSE 104 (H) 08/12/2021 0516 CALCIUM 9.3 08/12/2021 0516 Component Value Date/Time WBC 6.1 08/12/2021 0516 HGB 12.0 08/12/2021 0516 HCT 35.3 08/12/2021 0516 PLT 271 08/12/2021 0516 GRANULOCYTES 51.0 08/12/2021 0516 LYMPHOPCT 34.0 08/12/2021 0516 MONOPCT 10.9 (H) 08/12/2021 0516 LABEOS 3.5 08/12/2021 0516 BASOPCT 0.6 08/12/2021 0516 NEUTROABS 3.1 08/12/2021 0516 Micro: None Lines: Peripheral line Radiography/Echo/Other: Chest xray negative Antimicrobials,Start/End Dates: Zosyn IV Oral linezolid Impression: 1. Right gluteal abscess POD #0 I and D 2. Previous Irrigation and Debridement of right gluteal area 3. 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 Once home antibiotics and home care are set up, pt can be discharged home. Tomas Pederson DO [facility] Medicine IMS Comprehensive Nutrition Assessment Type and Reason for Visit: Initial (referral from DT for wound infection) Nutrition Recommendations/Plan: 1. Continue Regular diet. At this time, declined ONS. Encourage patient to participate in room-service and select HBV protein sources (eggs, meat, poultry, fish) with meals daily. 2. Please record % meals consumed in flow-sheet for most accurate assessment of intakes 3. Obtain standing scale weight when able for most accurate anthropometric data 4. RD to continue to monitor weekly- changes in fluid accumulation, weight, skin integrity, lab values, intakes and changes in clinical status and/or goals of care Nutrition Assessment: 66 year old female admitted with right gluteal wound pain. Per H+P: originally had open Bx, marginal excision of right posterior thigh mass 06/07. Subsequently I&D right gluteal surgical wound with excision of the sinus tracts and primary closure 07/[address] Hwang. She was treated with PO augmentin and completed course last week . PMHx: HTN, Hypercholesterolemia, COVID-19 (10/2020), breast and thyroid cancer. Patient to OR with orthopedics on 08/09: Excisional debridement down to fascia 5x4cm. ID following for antibiotic management. Patient walking around room at time of visit, did not eat breakfast this morning as she is severely constipated and very uncomfortable. Endorses passing flatus, but has not moved bowels in four days. +Bowel regimen and it feels like I m impacted . Prior to admission, eating 1-2 meals daily at home. Denies weight loss or changes in appetite or weight prior to admit. No food allergies or intolerances. Estimates usual body weight to be around 190#. Declined oral nutrition supplements at this time, discussed importance of HBV protein sources with meals and snacks and increased protein and caloric needs during post-op period. Patient verbalized understanding. Deferred NFPE, no changes in intake or weight prior to admission, appears to be well-nourished Malnutrition Assessment: Malnutrition Status: At risk for malnutrition (Comment) (d/t increased nutrient needs during acute post-op period) Context: Acute Illness Findings of the 6 clinical characteristics of malnutrition: Energy Intake: No significant decrease in energy intake Weight Loss: No significant weight loss Body Fat Loss: Unable to assess Muscle Mass Loss: Unable to assess Fluid Accumulation: No significant fluid accumulation Undertaker Helper Strength: Not Performed Estimated Daily Nutrient Needs: Energy (kcal): 1183-0325 (27-32 kcal/kg IBW); Weight Used for Energy Requirements: [place] (54.45 kg) Protein (g): 65-82 (1.2-1.5 g protein/kg IBW); Weight Used for Protein Requirements: [place] (54.45 kg) Fluid (ml/day): per MD; Method Used for Fluid Requirements: Other (Comment) Nutrition Related Findings: + surgical I+D on right gluteal area. jose score=20. +I/O balance. Medications reviewed: +zosyn and vancocin, and synthroid. Elevated CRP on admit (78.4), low creatinine (0.44) Wounds: Surgical Incision Current Nutrition Therapies: ADULT DIET; Regular Anthropometric Measures: Height: 5' 4.02 (162.6 cm) Current Body Weight: 190 lb (86.2 kg) (08/08/21) Admission Body Weight: 190 lb (86.2 kg) (stated 08/08/21) Usual Body Weight: 190 lb 0.6 oz (86.2 kg) (06/01/21 office visit) [place] Body Weight: 120 lbs; % [place] Body Weight 158.3 % BMI: 32.6 BMI Categories: Obese Class 1 (BMI 30.0-34.9) Nutrition Diagnosis: Increased nutrient needs related to acute injury/trauma as evidenced by wounds (+infection) Nutrition Interventions: Food and/or Nutrient Delivery: Continue Current Diet Nutrition Education/Counseling: Education not indicated Coordination of Nutrition Care: Continue to monitor while inpatient Goals: Patient to meet > 75% estimated needs during admission Nutrition Monitoring and Evaluation: Behavioral-Environmental Outcomes: None Identified Food/Nutrient Intake Outcomes: Food and Nutrient Intake, Diet Advancement/Tolerance, Supplement Intake Physical Signs/Symptoms Outcomes: Biochemical Data, Constipation, GI Status, Nausea or Vomiting, Weight, Skin, Chewing or Swallowing, Meal Time Behavior, Hemodynamic Status, Fluid Status or Edema, Nutrition Focused Physical Findings Discharge Planning: No discharge needs at this time Contact: [phone] [facility] hospitalist Physician Progress Note 08/11/2021 1:45 PM Name: Xiao Nava IP Day: 3 Admit Date: 2021 9:25 AM PCP: Yayo Alaniz, Code Status: Full Code Assessment and Plan: Active Problems/ diagnosis: Recurrent right gluteal surgical wound infection abscess---failed outpatient abx. xray no bone involvement. resume antibiotic as per infectious disease. Status post I&D by orthopedics 08/09/2021. Doing well. Plan for PICC line and home antibiotic infusion. GERD ---PPI Hypothyroid ---synthroid Hypertension---continue atenolol and HCTZ with parameter -PT/OT eval/increase activity -Protonix/Lovenox SQ/SCDs while in bed -am labs, -vitals per routine -home meds reconciled Dispo-DC home today if home antibiotics and wound care are arranged and okay by Ortho. ID is okay with discharge. Communicated with Dr. Candelaria. After 7 PM, please contact [facility] hospitalist guest relations executive if needed Subjective: No new symptoms. Pain is controlled. Physical Examination: Vitals: BP (!) 141/78 Pulse 55 Temp 97.4 F (36.3 C) (Temporal) Resp 19 Ht 5' 4.02 (1.626 m) Wt 190 lb (86.2 kg) SpO2 96% BMI 32.60 kg/m Temp (24hrs), Av.3 F (36.3 C), Min:97.2 F (36.2 C), Max:97.4 F (36.3 C) General appearance: alert, cooperative and no distress Mental Status: oriented to person, place and time and normal affect Lungs: clear to auscultation bilaterally, normal effort Heart: regular rate and rhythm, no murmur Abdomen: soft, nontender, nondistended, bowel sounds present, no masses Extremities: no edema, redness, tenderness in the calves Skin: No new skin rashes. Data: Labs: Recent Labs 08/10/21 0851 08/11/21 0144 WBC 12.1* 7.2 HGB 12.2 11.2* PLT 268 245 Recent Labs 08/10/21 0851 08/11/21 0144 NA 135 139 K 3.9 3.8 CL 107 109* CO2 23 26 BUN 13 16 CREATININE 0.40* 0.44* GLUCOSE 109* 119* No results for input(s): AST, ALT, ALB, BILITOT, ALKPHOS in the last 72 hours. Current Facility-Administered Medications Medication Dose Route Frequency Provider Last Rate Last Admin bisacodyl (DULCOLAX) suppository 10 mg 10 mg Rectal Daily PRN [facility] R Bg, DO 10 mg at 08/11/21 1215 linezolid (ZYVOX) tablet 600 mg 600 mg Oral 2 times per day Mag Candelaria MD lidocaine 1 % injection 5 mL 5 mL IntraDERmal Once Yazid R Bg, DO sodium chloride flush 0.9 % injection 10 mL 10 mL IntraVENous 2 times per day Yazid R Bg, DO sodium chloride flush 0.9 % injection 10 mL 10 mL IntraVENous 2 times per day Yazid R Bg, DO sodium chloride flush 0.9 % injection 10 mL 10 mL IntraVENous PRN Yazid R Bg, DO heparin flush 100 UNIT/ML injection 250 Units 250 Units IntraVENous 2 times per day Yazid R Bg, DO heparin flush 100 UNIT/ML injection 250 Units 250 Units IntraVENous PRN Yazid R Bg, DO docusate sodium (COLACE) capsule 100 mg 100 mg Oral Daily Yazid R Bg, DO 100 mg at 08/11/21 0751 atenolol (TENORMIN) tablet 50 mg 50 mg Oral Daily Jerman Duggan MD 50 mg at 08/11/21 0751 pantoprazole (PROTONIX) tablet 40 mg 40 mg Oral QAM AC Jacques Storm JD, MD 40 mg at 08/11/21 0543 hydroCHLOROthiazide (HYDRODIURIL) tablet 25 mg 25 mg Oral Daily Jacques Storm JD, MD 25 mg at 08/11/21 0751 levothyroxine (SYNTHROID) tablet 125 mcg 125 mcg Oral Daily Jacques Storm JD, MD 125 mcg at 08/11/21 0543 sodium chloride flush 0.9 % injection 5-40 mL 5-40 mL IntraVENous 2 times per day Jacques Storm JD, MD 5 mL at 08/11/21 1035 sodium chloride flush 0.9 % injection 5-40 mL 5-40 mL IntraVENous PRN Jacques Storm JD, MD 0.9 % sodium chloride infusion 25 mL IntraVENous PRN Jacques Storm JD, MD ondansetron (ZOFRAN-ODT) disintegrating tablet 4 mg 4 mg Oral Q8H PRN Jacques Storm JD, MD Or ondansetron (ZOFRAN) injection 4 mg 4 mg IntraVENous Q6H PRN Jacques Storm JD, MD polyethylene glycol (GLYCOLAX) packet 17 g 17 g Oral Daily PRN Jacques Storm JD, MD 17 g at 08/11/21 0751 acetaminophen (TYLENOL) tablet 650 mg 650 mg Oral Q6H PRN Jacques Storm JD, MD Or acetaminophen (TYLENOL) suppository 650 mg 650 mg Rectal Q6H PRN Jacques Storm JD, MD oxyCODONE (ROXICODONE) immediate release tablet 5 mg 5 mg Oral Q4H PRN Jacques Storm JD, MD 5 mg at 08/11/21 0953 morphine sulfate (PF) injection 2 mg 2 mg IntraVENous Q4H PRN Jacques Storm JD, MD 2 mg at 08/11/21 0137 piperacillin-tazobactam (ZOSYN) 3375 mg in dextrose 50 mL IVPB extended infusion (premix) 3,375 mg IntraVENous Q8H Jacques Storm JD, MD Stopped at 08/11/21 0943 Additional work up or/and treatment plan may be added today or then after based on clinical progression. I am managing a portion of pt care. Some medical issues are handled by other specialists. Additional work up and treatment should be done in out pt setting by pt PCP and other out pt providers. In addition to examining and evaluating pt, I spent additional time explaining care, normaland abnormal findings, and treatment plan. All of pt questions were answered. Counseling, diet and education were provided. Case will be discussed with nursing staff when appropriate. Family will be updated if and when appropriate. Images from the original note were not included. . [facility] - Infectious Diseases Attending Progress Note Patient seen and examined Chart reviewed Following for right buttock abscess s/p I and D Patient overall doing ok No cultures were sent Vitals: Patient Vitals for the past 24 hrs: BP Temp Temp src Pulse Resp SpO2 Height 08/11/21 1022 (!) 141/78 97.4 F (36.3 C) Temporal 55 19 96 % 08/11/21 0916 5' 4.02 (1.626 m) 08/11/21 0555 138/85 97.4 F (36.3 C) Temporal 63 20 95 % 08/10/21 1719 124/78 97.2 F (36.2 C) Temporal 78 16 96 % Physical Exam: Deferred Labs: Component Value Date/Time NA 139 08/11/2021 0144 K 3.8 08/11/2021 0144 CL 109 (H) 08/11/2021 0144 CO2 26 08/11/2021 0144 BUN 16 08/11/2021 0144 CREATININE 0.44 (L) 08/11/2021 0144 GLUCOSE 119 (H) 08/11/2021 0144 CALCIUM 9.4 08/11/2021 0144 Component Value Date/Time WBC 7.2 08/11/2021 0144 HGB 11.2 (L) 08/11/2021 0144 HCT 34.1 (L) 08/11/2021 0144 PLT 245 08/11/2021 0144 GRANULOCYTES 49.9 08/11/2021 0144 LYMPHOPCT 39.6 08/11/2021 0144 MONOPCT 8.3 08/11/2021 0144 LABEOS 1.4 08/11/2021 0144 BASOPCT 0.8 08/11/2021 0144 NEUTROABS 3.6 08/11/2021 0144 Micro: None Lines: Peripheral line Radiography/Echo/Other: Chest xray negative Antimicrobials,Start/End Dates: Zosyn IV Vancomycin IV Impression: 1. Right gluteal abscess POD #0 I and D 2. Previous Irrigation and Debridement of right gluteal area 3. 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 Hwang More that 51% total time 25 Minutes counseling (or coordinating care) and providing discussion regarding plan of care. [facility] hospitalist Physician Progress Note 08/10/2021 2:08 PM Name: Xiao Nava IP Day: 2 Admit Date: 2021 9:25 AM PCP: Yayo Alaniz DO Code Status: Full Code Assessment and Plan: Active Problems/ diagnosis: Recurrent right gluteal surgical wound infection abscess---failed outpatient abx. xray no bone involvement. resume antibiotic as per infectious disease. Status post I&D by orthopedics 08/09/2021. Doing well. GERD ---PPI Hypothyroid ---synthroid Hypertension---continue atenolol and HCTZ with parameter -PT/OT eval/increase activity -Protonix/Lovenox SQ/SCDs while in bed -am labs, -vitals per routine -home meds reconciled Dispo-TBD After 7 PM, please contact [place] hospitalist guest relations executive if needed Subjective: No new symptoms. Pain is controlled. Physical Examination: Vitals: BP 128/86 Pulse 73 Temp 97.5 F (36.4 C) (Temporal) Resp 16 Ht 5' 4 (1.626 m) Wt 190 lb (86.2 kg) SpO2 96% BMI 32.61 kg/m Temp (24hrs), Av.3 F (36.3 C), Min:97.1 F (36.2 C), Max:97.5 F (36.4 C) General appearance: alert, cooperative and no distress Mental Status: oriented to person, place and time and normal affect Lungs: clear to auscultation bilaterally, normal effort Heart: regular rate and rhythm, no murmur Abdomen: soft, nontender, nondistended, bowel sounds present, no masses Extremities: no edema, redness, tenderness in the calves Skin: No new skin rashes. Data: Labs: Recent Labs 08/09/21 0011 08/10/21 0851 WBC 9.0 12.1* HGB 12.2 12.2 PLT 236 268 Recent Labs 08/09/21 0011 08/10/21 0851 NA 136 135 K 3.5 3.9 CL 104 107 CO2 29 23 BUN 13 13 CREATININE 0.43* 0.40* GLUCOSE 98 109* No results for input(s): AST, ALT, ALB, BILITOT, ALKPHOS in the last 72 hours. Current Facility-Administered Medications Medication Dose Route Frequency Provider Last Rate Last Admin docusate sodium (COLACE) capsule 100 mg 100 mg Oral Daily Tomas Higuerasein, DO 100 mg at 08/10/21 0849 vancomycin (VANCOCIN) 1,250 mg in dextrose 5 % 250 mL IVPB 1,250 mg IntraVENous Q12H Jacques Storm JD, MD 125 mL/hr at 08/10/21 1147 1,250 mg at 08/10/21 1147 atenolol (TENORMIN) tablet 50 mg 50 mg Oral Daily Jerman Duggan MD 50 mg at 08/10/21 0848 pantoprazole (PROTONIX) tablet 40 mg 40 mg Oral QAM AC Jacques Storm JD, MD 40 mg at 08/10/21 0534 hydroCHLOROthiazide (HYDRODIURIL) tablet 25 mg 25 mg Oral Daily Jacques Storm JD, MD 25 mg at 08/10/21 0849 levothyroxine (SYNTHROID) tablet 125 mcg 125 mcg Oral Daily Jacques Storm JD, MD 125 mcg at 08/10/21 0534 sodium chloride flush 0.9 % injection 5-40 mL 5-40 mL IntraVENous 2 times per day Jacques Storm JD, MD 5 mL at 08/10/21 0834 sodium chloride flush 0.9 % injection 5-40 mL 5-40 mL IntraVENous PRN Jacques Storm JD, MD 0.9 % sodium chloride infusion 25 mL IntraVENous PRN Jacques Storm JD, MD ondansetron (ZOFRAN-ODT) disintegrating tablet 4 mg 4 mg Oral Q8H PRN Jacques Storm JD, MD Or ondansetron (ZOFRAN) injection 4 mg 4 mg IntraVENous Q6H PRN Jacques Storm JD, MD polyethylene glycol (GLYCOLAX) packet 17 g 17 g Oral Daily PRN Jacques Storm JD, MD acetaminophen (TYLENOL) tablet 650 mg 650 mg Oral Q6H PRN Jacques Storm JD, MD Or acetaminophen (TYLENOL) suppository 650 mg 650 mg Rectal Q6H PRN Jacques Storm JD, MD oxyCODONE (ROXICODONE) immediate release tablet 5 mg 5 mg Oral Q4H PRN Jacques Storm JD, MD 5 mg at 08/10/21 0031 morphine sulfate (PF) injection 2 mg 2 mg IntraVENous Q4H PRN Jacques Storm JD, MD 2 mg at 08/10/21 0608 piperacillin-tazobactam (ZOSYN) 3375 mg in dextrose 50 mL IVPB extended infusion (premix) 3,375 mg IntraVENous Q8H Jacques Storm JD, MD Stopped at 08/10/21 0934 Additional work up or/and treatment plan may be added today or then after based on clinical progression. I am managing a portion of pt care. Some medical issues are handled by other specialists. Additional work up and treatment should be done in out pt setting by pt PCP and other out pt providers. In addition to examining and evaluating pt, I spent additional time explaining care, normaland abnormal findings, and treatment plan. All of pt questions were answered. Counseling, diet and education were provided. Case will be discussed with nursing staff when appropriate. Family will be updated if and when appropriate. Nutrition rescreen completed. Patient referred to the Dietitian. Physical Therapy Facility/Department: [facility] Initial Assessment NAME: Xiao Nava : 1955 Date of Service: 08/10/2021 Discharge Recommendations: Home with assist PRN PT Equipment Recommendations Equipment Needed: No Assessment Assessment: PT eval completed and the pt is at her functional baseline for transfers, ambulation, balance, and bed mobility. No skilled therapy needs at this time. Recommended home with assist and PT is also disch Prognosis: Good Decision Making: Low Complexity REQUIRES PT FOLLOW UP: No Activity Tolerance Activity Tolerance: Patient Tolerated treatment well Patient Diagnosis(es): The encounter diagnosis was Abscess. has a past medical history of Acid reflux, Cancer (HCC), COVID-19, Heart murmur, Heartburn, History of hormone therapy, Hypercholesterolemia, Hypertension, and Thyroid disease. has a past surgical history that includes Hysterectomy, total abdominal; Thyroidectomy (2013); Varicose vein surgery; Breast lumpectomy (Right); Leg Mass Excision (06/07/2021); other surgical history (07/21/2021); and other surgical history (Right, 08/09/2021). Restrictions Restrictions/Precautions Restrictions/Precautions: Weight Bearing, Up as Tolerated (general diet) Required Braces or Orthoses?: No Lower Extremity Weight Bearing Restrictions Right Lower Extremity Weight Bearing: Weight Bearing As Tolerated Left Lower Extremity Weight Bearing: Weight Bearing As Tolerated Position Activity Restriction Other position/activity restrictions: offload R buttock while seated Vision/Hearing Vision: Impaired Vision Exceptions: Wears glasses at all times Hearing: Within functional limits Subjective General Chart Reviewed: Yes Patient assessed for rehabilitation services?: Yes Family / Caregiver Present: No Diagnosis: POD #1 R gluteal infection with I&D 08/09 Follows Commands: Within Functional Limits Subjective Subjective: Pt observed standing in doorway of room. Pleasant and agreeable to therapy Pain Screening Patient Currently in Pain: Yes Vital Signs Patient Currently in Pain: Yes Pre Treatment Pain Screening Comments / Details: c/o RLE and gluteal pain, but did not provide number Orientation Orientation Overall Orientation Status: Within Normal Limits Social/Functional History Social/Functional History Lives With: Alone Type of Home: Apartment (2nd floor) Home Layout: One level Home Access: Stairs to enter with rails Entrance Stairs - Number of Steps: 12 Entrance Stairs - Rails: Right Bathroom Accessibility: Accessible Home Equipment: (no DME at home) Receives Help From: Friend(s) ADL Assistance: Independent Homemaking Assistance: Independent Homemaking Responsibilities: Yes Ambulation Assistance: Independent Transfer Assistance: Independent Active Senior Medical Transcriptionist: Yes Mode of Transportation: Car 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 in May, which later became infected, prompting current I&D Objective Observation/Palpation Posture: Fair Observation: on RA upon arrival, +IV AROM RLE (degrees) RLE AROM: WFL AROM LLE (degrees) LLE AROM : WFL Strength RLE Strength RLE: (grossly 4/5 throughout) Strength LLE Strength LLE: (grossly 4/5 throughout) Tone RLE RLE Tone: Normotonic Tone LLE LLE Tone: Normotonic Sensation Overall Sensation Status: WNL Bed mobility Supine to Sit: Modified independent Sit to Supine: Modified independent Transfers Sit to Stand: Independent Stand to sit: Independent Ambulation Ambulation?: Yes WB Status: WBAT More Ambulation?: No Ambulation 1 Surface: level tile Device: (pushing IV pole) Assistance: Modified Independent Gait Deviations: Slow Rose Distance: 400' Comments: able to walk and hold conversation without issue Stairs/Curb Stairs?: No Balance Posture: Fair Sitting - Static: Good Sitting - Dynamic: Good Standing - Static: Good Standing - Dynamic: Fair;+ Plan Plan Plan Comment: PT Disch Safety Devices Type of devices: All fall risk precautions in place, Call light within reach, Left in bed, Nurse notified Restraints Initially in place: No AM-PAC Score AM-PAC Inpatient Mobility Raw Score : 22 (08/10/211003) AM-PAC Inpatient T-Scale Score : 53.28 (08/10/211003) Mobility Inpatient CMS 0-100% Score: 20.91 (08/10/211003) Mobility Inpatient CMS G-Code Modifier : CJ (08/10/211003) Goals Patient Goals Patient goals : go home Therapy Time Individual Concurrent Group Co-treatment Time In 0920 Time Out 0930 Minutes 10 Patient s Physical Therapy Plan of Care supervision is transferred to [facility] Rehab Department Physical Therapist. Jacquie Childress, PT N-95, goggles, and gloves worn Images from the original note were not included. Department of Orthopedic Surgery Progress Note SUBJECTIVE: No acute events overnight, starting sitz bath this morning. Some paresthesias over lateral aspect of thigh OBJECTIVE: General: alert and oriented to person, place and time, well-developed and well-nourished, in no acute distress VITALS: BP 128/86 Pulse 73 Temp 97.5 F (36.4 C) (Temporal) Resp 16 Ht 5' 4 (1.626 m) Wt 190 lb (86.2 kg) SpO2 96% BMI 32.61 kg/m MSK exam: RLE: Gluteal wound c/d/i, minimal erythema about the edges of the wound No expressible purulence, packing pulled SILT s/s/sp/dp/t +motor KE/DF/PF/EHL. Palp DP pulse Labs: CBC: Lab Results Component Value Date WBC 9.0 08/09/2021 RBC 3.99 08/09/2021 HGB 12.2 08/09/2021 HCT 36.1 08/09/2021 MCV 90.4 08/09/2021 MCH 30.6 08/09/2021 MCHC 33.8 08/09/2021 RDW 13.7 08/09/2021 PLT 236 08/09/2021 MPV 9.1 08/09/2021 Type and Screen: Lab Results Component Value Date LABABO A 2021 RH POS 2021 LABANTI NEG 2021 INR: Lab Results Component Value Date INR 1.0 2021 CRP: Lab Results Component Value Date CRP 78.4 2021 ESR: Lab Results Component Value Date SEDRATE 22 2021 ASSESSMENT AND PLAN: This is a 66 y.o. female with right gluteal surgical site infection s/p I+D 08/09 WBAT Off load right buttock with bump in bed No plans to return to OR Packing pulled this AM, no need to repack wounds Activity as tolerated PT/OT Antibiotics per ID/primary team HgB 12.1 this AM Dressing: dry dressing, change PRN for saturation Neurovascular and skin checks DVT ppx per primary Pain, medical management per primary F/u with Dr. Barnard in 2 weeks, d/w Dr. Barnard Ok for d/c from ortho standpoint Ortho to sign off, please page guest relations executive resident with questions/concerns Kisha Garza MD PGY-2, Orthopaedic Surgery [phone] 08/10/2021 .6:18 AM [facility] hospitalist Physician Progress Note 08/09/2021 11:52 AM Name: Xiao Nava IP Day: 1 Admit Date: 2021 9:25 AM PCP: Yayo Alaniz DO Code Status: Full Code Assessment and Plan: Active Problems/ diagnosis: Recurrent right gluteal surgical wound infection abscess---failed outpatient abx. xray no bone involvement. Admit to F, start IV zosyn and vancomycin. Consult ID. Ortho evaluated in ED, status post I&D this morning, hold lovenox and asa until okay by orthopedic surgery. GERD ---PPI Hypothyroid ---synthroid Hypertension---continue atenolol and HCTZ with parameter -PT/OT eval/increase activity -Protonix/Lovenox SQ/SCDs while in bed -am labs, -vitals per routine -home meds reconciled Dispo-TBD After 7 PM, please contact [place] hospitalist guest relations executive if needed Subjective: No new symptoms. Pain is controlled. Physical Examination: Vitals: BP 118/77 Pulse 70 Temp 97.8 F (36.6 C) (Temporal) Resp 14 Ht 5' 4 (1.626 m) Wt 190 lb (86.2 kg) SpO2 96% BMI 32.61 kg/m Temp (24hrs), Av.2 F (36.2 C), Min:96.8 F (36 C), Max:97.8 F (36.6 C) General appearance: alert, cooperative and no distress Mental Status: oriented to person, place and time and normal affect Lungs: clear to auscultation bilaterally, normal effort Heart: regular rate and rhythm, no murmur Abdomen: soft, nontender, nondistended, bowel sounds present, no masses Extremities: no edema, redness, tenderness in the calves Skin: no gross lesions, rashes Data: Labs: Recent Labs 08/08/21 1001 08/09/21 0011 WBC 11.9* 9.0 HGB 13.0 12.2 PLT 249 236 Recent Labs 08/08/21 1001 08/09/21 0011 NA 136 136 K 3.6 3.5 CL 105 104 CO2 23 29 BUN 15 13 CREATININE 0.42* 0.43* GLUCOSE 115* 98 No results for input(s): AST, ALT, ALB, BILITOT, ALKPHOS in the last 72 hours. Current Facility-Administered Medications Medication Dose Route Frequency Provider Last Rate Last Admin atenolol (TENORMIN) tablet 50 mg 50 mg Oral Daily Jacques Storm JD, MD pantoprazole (PROTONIX) tablet 40 mg 40 mg Oral QAM AC Jacques Storm JD, MD 40 mg at 08/09/21 0457 hydroCHLOROthiazide (HYDRODIURIL) tablet 25 mg 25 mg Oral Daily Jacques Storm JD, MD levothyroxine (SYNTHROID) tablet 125 mcg 125 mcg Oral Daily Jacques Storm JD, MD 125 mcg at 08/09/21 0457 sodium chloride flush 0.9 % injection 5-40 mL 5-40 mL IntraVENous 2 times per day Jacques Storm JD, MD 5 mL at 08/08/21 204 sodium chloride flush 0.9 % injection 5-40 mL 5-40 mL IntraVENous PRN Jacques Storm JD, MD 0.9 % sodium chloride infusion 25 mL IntraVENous PRN Jacques Storm JD, MD ondansetron (ZOFRAN-ODT) disintegrating tablet 4 mg 4 mg Oral Q8H PRN Jacques Storm JD, MD Or ondansetron (ZOFRAN) injection 4 mg 4 mg IntraVENous Q6H PRN Jacques Storm JD, MD polyethylene glycol (GLYCOLAX) packet 17 g 17 g Oral Daily PRN Jacques Storm JD, MD acetaminophen (TYLENOL) tablet 650 mg 650 mg Oral Q6H PRN Jacques Storm JD, MD Or acetaminophen (TYLENOL) suppository 650 mg 650 mg Rectal Q6H PRN Jacques Storm JD, MD oxyCODONE (ROXICODONE) immediate release tablet 5 mg 5 mg Oral Q4H PRN Jacques Storm JD, MD 5 mg at 08/09/21 1030 morphine sulfate (PF) injection 2 mg 2 mg IntraVENous Q4H PRN Jacques Storm JD, MD 2 mg at 08/09/21 1142 vancomycin (VANCOCIN) 1,250 mg in dextrose 5 % 250 mL IVPB 1,250 mg IntraVENous Q12H Jacques Storm JD, MD Stopped at 08/08/21 2327 piperacillin-tazobactam (ZOSYN) 3375 mg in dextrose 50 mL IVPB extended infusion (premix) 3,375 mg IntraVENous Q8H Jacques Storm JD, MD Stopped at 08/09/21 0856 Additional work up or/and treatment plan may be added today or then after based on clinical progression. I am managing a portion of pt care. Some medical issues are handled by other specialists. Additional work up and treatment should be done in out pt setting by pt PCP and other out pt providers. In addition to examining and evaluating pt, I spent additional time explaining care, normaland abnormal findings, and treatment plan. All of pt questions were answered. Counseling, diet and education were provided. Case will be discussed with nursing staff when appropriate. Family will be updated if and when appropriate. Pt pain tolerable, free from nausea. Report called to MAU Salguero Images from the original note were not included. [facility] TELEMET[facility] [address] [facility] [address] Dept: [phone] Loc: [phone] Orthopedic Progress Note Name: Xiao Nava Date:08/09/2021 Attending:Jerman Duggan MD Subjective No events o/n. Pain improving on antibiotics Objective Vitals: Vitals: 08/08/21 1223 08/08/21 1315 08/08/21 1728 08/09/21 0437 BP: 108/60 110/62 111/63 (!) 114/59 Pulse: 67 67 73 71 Resp: 18 18 15 16 Temp: 97.3 F (36.3 C) 96.9 F (36.1 C) 96.8 F (36 C) TempSrc: Temporal Temporal Temporal SpO2: 97% 95% 94% 96% Weight: Height: Physical Exam: General: NAD RLE Skin: Purulent drainage from gluteal incision site. TTP with erythema around surgical site SILT: Saphenous/Superficial Peroneal/Deep Peroneal/Tibial/Sural distributions Motor: +Dorsiflexion/Plantarflexion/Great toe extension Pulses: Palpable DP LABS: Recent Labs 08/08/21 1001 08/09/21 0011 WBC 11.9* 9.0 HGB 13.0 12.2 HCT 39.5 36.1 PLT 249 236 Recent Labs 08/08/21 1001 08/09/21 0011 NA 136 136 K 3.6 3.5 CL 105 104 CO2 23 29 BUN 15 13 CREATININE 0.42* 0.43* CALCIUM 9.8 9.1 Recent Labs 08/08/21 1001 INR 1.0 Recent Labs 08/08/21 1001 SEDRATE 22* CRP 78.4* No results for input(s): HCG in the last 72 hours. Assessment Xaio is a 66 y.o.female with right gluteal SSI Plan -Plan for OR 08/09 for R gluteal I&D with wound vac placement -NPO at midnight - ABx per primary/ID; currently on vanc and zosyn - change dressings PRN when soaked. -Cleared per medicine -Consented -added -Labs ordered -Ice to the affected region -WBAT in right lower -Admit to medicine -Pain control and medical management per medicine -Please hold DVT prophylaxis in anticipation of OR documented in this encounter [facility] Work Phone: 08-12-2021 Note [facility] Summary Xiao Nava : 1955 Admit date: 2021 Discharge date: 08/11/2021 Admitting Physician: Jerman Duggan MD Primary Care Physician: Yayo Alaniz, DO Discharge Diagnoses: Recurrent right gluteal surgical wound infection abscess---failed outpatient disease. Status post I&D by orthopedics 08/09/2021. GERD Hypothyroid Hypertension Chief Complaint Patient presents with ? Abscess pt arrived by car. pt had a tumor removed on the back of her R leg about a month ago. incision ended up getting infected. pt is now here for pain. Hospital Course: Recurrent right gluteal surgical wound infection abscess---failed outpatient abx. xray no bone involvement. resume antibiotic as per infectious disease. Status post I&D by orthopedics 08/09/2021. Improved with IV antibiotic.. Plan for PICC line and home antibiotic infusion. Discharge on antibiotic as per infectious disease. See medication list below. Will follow up with orthopedic and PCP as outpatient. Home care was ordered on discharge for IV infusion. Exam on discharge: BP (!) 141/78 Pulse 55 Temp 97.4 ?F (36.3 ?C) (Temporal) Resp 19 Ht 5' 4.02 (1.626 m) Wt 190 lb (86.2 kg) SpO2 96% BMI 32.60 kg/m? General appearance: No apparent distress, appears stated age and cooperative. HEENT: Pupils equal, round, and reactive to light. Conjunctivae/corneas clear. Neck: Supple, with full range of motion. No jugular venous distention. Trachea midline. Respiratory: Normal respiratory effort. Clear to auscultation, bilaterally without Rales/Wheezes/Rhonchi. Cardiovascular: Regular rate and rhythm with normal S1/S2 without murmurs, rubs or gallops. Abdomen: Soft, non-tender, non-distended with normal bowel sounds. Musculoskeletal: No clubbing, cyanosis or edema bilaterally. Full range of motion without deformity. Skin: Right gluteal wound covered with dry clean and intact dressing Neuro: Non Focal. Symetrical motor and tone. Nl Comprehension, Alert,awake and oriented. NL CN. Symetrical tone and reflexes. Psychiatric: Alert and oriented, thought content appropriate, normal insight Capillary Refill: Brisk,< 3 seconds Peripheral Pulses: +2 palpable, equal bilaterally Patient was seen by the following consultants while admitted Consults: IP CONSULT TO ORTHOPEDIC SURGERY IP CONSULT TO INFECTIOUS DISEASES IP CONSULT TO INFECTIOUS DISEASES IP CONSULT TO INFECTIOUS DISEASES IP WOUND CARE NURSE CONSULT TO EVAL IP CONSULT TO PROCEDURAL TEAM IP CONSULT TO HOME CARE NEEDS Significant Diagnostic Studies: Refer to chart Please refer to chart if no studies are shown here XR HIP RIGHT (2-3 VIEWS) Result Date: 2021 Patient Name: XIAO NAVA Diagnostic Radiology ACCESSION EXAM DATE/TIME PROCEDURE ORDERING PROVIDER [id number] 2021 11:23 EDT CR Hip w/ Pelvis 2 or 3 [id number] FRITZ BIRD Views Right n CPT code 04631 Reason For Exam (CR Hip w/ Pelvis 2 or 3 Views Right n) R gluteal wound Report PELVIS AND RIGHT HIP: CLINICAL INDICATION: Right gluteal wound. TECHNIQUE: AP pelvis plus AP and lateral views of the right hip COMPARISON: None. FINDINGS: There is no evidence for fracture or dislocation. The hips joints are unremarkable. The sacroiliac joints are normal. No bone lesion is identified. There is no soft tissue abnormality. No radiopaque foreign body. Contrast noted within the urinary bladder. IMPRESSION: No fracture or dislocation. No radiopaque foreign body. Report Dictated on --- Final --- Dictated: 2021 11:32 am Dictating Physician: MD SENA KEVIN Signed Date and Time: 2021 11:32 am Signed by: MD SENA KEVIN Transcribed Date and Time: 2021 11:32 XR Chest 1 VW Result Date: 2021 Patient Name: XIAO NAVA Diagnostic Radiology ACCESSION EXAM DATE/TIME PROCEDURE ORDERING PROVIDER [id number] 2021 11:23 EDT CR Chest 1 View Frontal [id number] FRITZ BIRD CPT code 16872 Reason For Exam (CR Chest 1 View Frontal) pre-op Report PORTABLE CHEST CLINICAL INDICATION: Preoperative evaluation TECHNIQUE: Portable AP COMPARISON: None FINDINGS: No focal consolidation or pulmonary edema. No pleural effusions or pneumothorax. Top normal heart size. The osseous structures are unremarkable. IMPRESSION: No focal consolidation or pulmonary edema. Report Dictated on --- Final --- Dictated: 2021 11:31 am Dictating Physician: MD SENA KEVIN Signed Date and Time: 2021 11:31 am Signed by: MD SENA KEVIN Transcribed Date and Time: 2021 11:31 Discharge Medications: Xiao Nava E Home Medication Instructions BINTA:[id number] Printed on:08/11/21 1641 Medication Information aspirin 81 MG EC tablet Take 81 mg by mouth daily atenolol (TENORMIN) 50 MG tablet Take 50 mg by (more content not included)... [facility] 08-12-2021 Hospital Discharge instructions Sanjuana Pardo RN - 08/12/2021 10:59 AM EDT Your physician has ordered skilled home care services for you. Your home care will be provided by: [facility] [phone] [facility] [employer] [phone] Merline Duff RN - 08/09/2021 General Orthopedic Discharge Instructions The following instructions have been prepared to help you when you leave the hospital. These guidelines are for the post-surgery period. Activity: Ease into normal activity as tolerated. Weightbearing status: as tolerated Medications: see medication instructions. Please be sure to read and understand the information provided by your pharmacy. Ask your Pharmacist if any questions. Wound Care and Hygiene: -Wash hands before touching or changing dressings -Do Not touch incision -Continue sitz baths as instructed in the hospital -Keep your wound covered as it has been left open to heal over time -Avoid putting pressure on your right gluteal region near the incision Call Your Doctor for: -Excessive bleeding/swelling of incision -Fever with temperature above 101 F Anesthesia Precautions: -Do Not operate any vehicle (automobile, bicycle, motorcycle) or power tools for 24 hours -Do Not drink alcoholic beverages for 24 hours -As precaution to prevent post-operative nausea and vomiting, start your diet with liquids, then progress to light foods. If tolerated, resume normal diet. Additional Instructions: Follow up with Dr. Barnard in 1-2 weeks for wound check. Call to schedule your appointment as soon as possible. WOUND CARE- Right gluteal- abscess s/p I&D. Cleanse wound with NS, pack wet to dry Dakin's soaked gauze, cover with foam dressing daily and PRN. documented in this encounter [facility] Phone: 06-03-2021 Hospital Discharge instructions Makayla Sheppard RN - 06/03/2021 Please bring your Group Therapy Records Surgical Information folder on the day of surgery. Please ralf the last dose taken (date and time ) on your Daily Medications List provided in your After Visit Summary. Please bring a photo ID and insurance information TAKE the following medications the morning of your surgery ATENOLOL, NEXIUM, LEVOTHYROXINE You may take your prescription pain medications. You may take Tylenol (Acetaminophen) if needed for pain. No Motrin, Ibuprofen, or Advil 24 hours prior to surgery, or longer if instructed by your surgeon. No Aleve or Naprosyn 3 days prior to surgery, or longer if instructed by your surgeon. STOP MOBIC 3 DAYS PRIOR TO SURGERY If you are on BLOOD THINNERS or ASPIRIN, STOP LOW DOSE ASPIRIN FOR 5 DAYS PRIOR TO SURGERY ( STOP NOW)* Additional instructions HIbiclens shower kit and instructions given to patient. Please remember to use Hibiclens the night before surgery and the day of surgery. Clean sheets and clothes should be used after each use. MAY DRINK CLEAR LIQUIDS UP UNTIL ARRIVAL TIME ( 2 HRS PREOP) You will receive a reminder call the day before surgery with your Same Day Surgery arrival time. If you have specific questions, please call your surgeon. documented in this encounter [facility] Work Phone: documented as of this encounter (statuses as of 02/24/2022) [facility]05-27-2010 History of Past illness Narrative* Problem Noted Date Resolved Date Nontoxic multinodular goiter 04/08/2010 documented as of this encounter (statuses as of 03/02/2022) [facility]05-27-2010 History of Past illness Narrative* Problem Noted Date Resolved Date Nontoxic multinodular goiter 04/08/2010 documented as of this encounter (statuses as of 04/04/2022) [facility] Wound dehiscence- Primary Disruption of external operation (surgical) wound documented in this encounter [employer] Work Phone: Evaluation note* Diagnosis Abscess- Primary Cellulitis and abscess of unspecified site superintendent container terminal (current) use of antibiotics documented in this encounter [employer] Work Phone: Evaluation note* Diagnosis Wound dehiscence- Primary Disruption of external operation (surgical) wound documented in this encounter [employer] Work Phone: Evaluation note* Diagnosis Follicular thyroid cancer (HCC)- Primary Malignant neoplasm of thyroid gland Post-surgical hypothyroidism Postsurgical hypothyroidism Fatigue, unspecified type Cold intolerance Other general symptoms [facility] Diagnosis Malignant neoplasm of thyroid gland (HCC) Malignant neoplasm of thyroid gland Postablative hypothyroidism Other postablative hypothyroidism Essential hypertension Unspecified essential hypertension documented in this encounter [facility] Discharge instructions* Instructions* Jacques Storm JD, MD - 07/21/2021 General Orthopedic Discharge Instructions The following instructions have been prepared to help you when you leave the hospital. These guidelines are for the post-surgery period. Activity: Ease into normal activity as tolerated. Weightbearing status: as tolerated Medications: see medication instructions. Please be sure to read and understand the information provided by your pharmacy. Ask your Pharmacist if any questions. Wound Care and Hygiene: -Wash hands before touching or changing dressings -Do Not touch incision -Leave dressing till post-op day 10, then ok to remove dressing yourself -Ok to shower with dressing on as it is waterproof Call Your Doctor for: -Excessive bleeding/swelling of incision -Fever with temperature above 101 F Anesthesia Precautions: -Do Not operate any vehicle (automobile, bicycle, motorcycle) or power tools for 24 hours -Do Not drink alcoholic beverages for 24 hours -As precaution to prevent post-operative nausea and vomiting, start your diet with liquids, then progress to light foods. If tolerated, resume normal diet. Additional Instructions: Follow up with Dr. Hwang in 3 weeks. Call to schedule your appointment as soon as possible. 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 ACP-Advance Directive 06/03/2021 12:00 AM Latest Code Status on File Code Status Date Activated Date Inactivated Comments Full Code 07/21/2021 6:16 AM Full Code 06/07/2021 6:13 AM 06/07/2021 2:28 PM Latest Code Status on File Code Status Date Activated Date Inactivated Comments Full Code 2021 1:26 PM Full Code 07/21/2021 6:16 AM 07/21/2021 12:13 PM Latest Code Status on File Code Status Date Activated Date Inactivated Comments Full Code 2021 1:26 PM 08/12/2021 7:02 PM Latest Code Status on File Code Status Date Activated Date Inactivated Comments Full Code 09/10/2021 7:36 AM Full Code 09/01/2021 7:13 AM 09/01/2021 1:51 PM Full Code 2021 1:26 PM 08/12/2021 7:02 PM Summary Purpose Family History No Family History Records FoundNo Family History Records FoundNo Family History Records Found Additional Source Comments Ordered Prescriptions (unrec ognized section and content) Prescription Sig Dispensed Refills Start Date End Da te linezolid (ZYVOX) 600 MG tablet Take 1 tablet by mouth every 12 hours for 11 days 22 tablet 0 08/12/2021 08/23/2021 oxyCODONE (ROXICODONE) 5 MG immediate release tabletIndications:Abscess Take 1 tablet by mouth every 4 hours as needed for Pain for up to 5 days. 20 tablet 0 08/11/2021 08/16/2021 linezolid (ZYVOX) 600 MG tablet Take 1 tablet by mouth every 12 hours for 11 days 22 tablet 0 08/12/2021 08/12/2021 Prescription Sig Dispensed Refills Start Date End Da te sulfamethoxazole-trimeth oprim (BACTRIM DS) 800-160 MG per tablet Take 1 tablet by mouth 2 times daily for 5 days 10 tablet 0 09/10/2021 09/15/2021 oxyCODONE-acetaminophen (PERCOCET) 5-325 MG per tabletIndications:Wound dehiscence Take 1 tablet by mouth every 6 hours as needed for Pain for up to 7 days. Intended supply: 3 days. Take lowest dose possible to manage pain 28 tablet 0 09/10/2021 09/17/2021 Scheduled Active and Recently Administ ered Medications (unrecognized section and content) Continuous Medication Order 07/19/2021 07/20/2021 07/21/2021 lactated ringers infusion IntraVENous, at 50 mL/hr, CONTINUOUS, Starting on Mon07/21/21 at 0645, Upon admission to sameday - please start iv if patient does not have iv access. Use 500ml NS for patients on dialysis., Pre-op (day of surgery) 0641 (New Bag - Prov ider: Sandra Ross RN) PRN Medication Order 07/19/2021 07/20/2021 07/21/2021 0.9 % sodium chloride bolus 500 mL (5.8 mL/kg), IntraVENous, at 250 mL/hr, Administer over 2 Hours, ONCE PRN, Nausea, Starting on Mon07/21/21 at 0722, For 1 dose, PACU only 0.9 % sodium chloride infusion 25 mL, IntraVENous, at 100 mL/hr, PRN, If patient receiving piggyback infusions without ordered maintenance IV fluids or with frequent/long duration piggyback infusions, Starting on Mon07/21/21 at 0616, Administer at the same rate as the piggyback being infused., Pre-op (day of surgery) ALPRAZolam (NIRAVAM) dissolvable tablet 0.25 mg 0.25 mg, Oral, PRN, Anxiety, Starting on Mon07/21/21 at 0616, Pre-op (day of surgery) diphenhydrAMINE (BENADRYL) injection 12.5 mg 12.5 mg, IntraVENous, ONCE PRN, Itching, Starting on Mon07/21/21 at 07, For 1 dose, for use Sameday and, PACU only fentaNYL (SUBLIMAZE) injection 25 mcg 25 mcg, IntraVENous, EVERY 5 MIN PRN, Pain Moderate (4-6), Starting on Mon07/21/21 at 0722, For 3 doses, Phase I and Phase II- Initial therapy for moderate pain (4-6). Restricted to a 50 minute time frame starting when the patient can verbally state their pain score. If after 2 doses the pain score does not decrease by more than one point, then go to secondary medication. Ifsecondary medications are utilized, do not return to initial therapy medications. SDS and, PACU only fentaNYL (SUBLIMAZE) injection 50 mcg 50 mcg, IntraVENous, EVERY 5 MIN PRN, Pain Severe (7-10), Starting on Mon07/21/21 at 0722, For 3 doses, Phase I or Phase II- Initial therapy for severe pain (7-10). Restricted to a 50 minute time frame starting when the patient can verbally state their pain score. If after 2 doses the pain score does not decrease by more than one point, then go to secondary medication. If secondary medications are utilized, do not return to initial therapy medications.Sameday and, PACU only 0935 (Given - Provid er: Christopher J. Cotton, RN) hydrALAZINE (APRESOLINE) injection 5 mg 5 mg, IntraVENous, EVERY 10 MIN PRN, High Blood Pressure, Starting on Mon07/21/21 at 0722, PRN for SBP > 160 for 2 consecutive measurements, and if one of the following conditions is met: 1) If IV labetolol is ineffective. 2) If HR is under 60. 3) If patient has heart block, COPD or asthma. If both labetalol and hydralazine ineffective, notify anesthesiologist. for use Sameday and, PACU only HYDROmorphone (DILAUDID) injection 0.25 mg 0.25 mg, IntraVENous, EVERY 5 MIN PRN, Pain Moderate (4-6), Starting on Mon07/21/21 at 0722, For 4 doses, Phase I - Secondary therapy to be used after initial therapy medication doses are ineffective (pain score does not decrease by more than 1 point). If secondary medications are utilized, do not return to initial therapy medications., PACU only HYDROmorphone (DILAUDID) injection 0.5 mg 0.5 mg, IntraVENous, EVERY 5 MIN PRN, Pain Severe (7-10), Starting on Mon07/21/21 at 0722, For 4 doses, Phase I - Secondary therapy to be used after initial therapy medication doses are ineffective (pain score does not decrease by more than 1 point). If secondary medications are utilized, do not return to initial therapy medications., PACU only labetalol (NORMODYNE;TRANDATE) injection 5 mg 5 mg, IntraVENous, EVERY 10 MIN PRN, High Blood Pressure, Starting on Mon07/21/21 at 0722, PRN for SBP >160 for 2 consecutive measurements, if HR is 60 or greater. If beta lubna is contraindicated (HR less than 60, heart block, COPD or asthma) use hydralazine IV order. for use Sameday and, PACU only lidocaine PF 1 % injection 1 mL 1 mL, IntraDERmal, ONCE PRN, IV start, Starting on Mon07/21/21 at 0616, For 1 dose, Pre-op (day of surgery) meperidine (DEMEROL) injection 12.5 mg 12.5 mg, IntraVENous, EVERY 5 MIN PRN, Shivering, , Starting on Mon07/21/21 at 0722, May give every 5 minutes to max of 50mg. for use Sameday and, PACU only ondansetron (ZOFRAN) injection 4 mg 4 mg, IntraVENous, ONCE PRN, Nausea, Starting on Mon07/21/21 at 0722, For 1 dose, Initial antiemetic therapy. For use sameday and, PACU only oxyCODONE (ROXICODONE) immediate release tablet 10 mg(Linked Group 1) 10 mg, Oral, PRN, Pain Severe (7-10), Starting on Mon07/21/21 at 0722, For 1 dose, PHASE II, PACU only oxyCODONE (ROXICODONE) immediate release tablet 5 mg(Linked Group 1) 5 mg, Oral, PRN, Pain Moderate (4-6), Starting on Mon07/21/21 at 0722, For 1 dose, PHASE II, PACU only promethazine (PHENERGAN) injection 6.25 mg 6.25 mg, IntraVENous, ONCE PRN, Nausea, Starting on Mon07/21/21 at 0722, For 1 dose, Caution if used IV:Check IV site for infiltrate prior to and during administration. Secondary antiemetic therapy. For use sameday and For IV administration, dilute to 10ml with normal saline. Must be administered over at least 10 minutes., PACU only sodium chloride flush 0.9 % injection 5-40 mL 5-40 mL, IntraVENous, PRN, Line Care, Starting on Mon07/21/21 at 0616, For Line Patency: Peripheral IV = 5 mL; Midline or Central Line = 10 mL/lumen. If following IV push medication, administer flush at same rate as the IV push. Flush volume is determined by type of infusion therapy being given. For non-viscous solutions use: Peripheral IV = 5 mL Midline or Central Line = 10 mL/lumen For viscous solutions (i.e. blood components, parenteral nutrition, contrast media, or after obtaining blood sample) use: Peripheral IV = 10 mL Midline or Central Line = 20 mL/lumen, Pre-op (day of surgery) Linked Groups Order Group 1: oxyCODONE (ROXICODONE) immediate release tablet 5 mgJump to med 5 mg, Oral, PRN, Pain Moderate (4-6), Starting on Mon07/21/21 at 0722, For 1 dose
PHASE II
PACU only Or oxyCODONE (ROXICODONE) immediate release tablet 10 mgJump to med 10 mg, Oral, PRN, Pain Severe (7-10), Starting on Mon07/21/21 at 0722, For 1 dose
PHASE II
PACU only Scheduled Medication Order 08/10/2021 08/11/2021 08/12/2021 atenolol (TENORMIN) tablet 50 mg 50 mg, Oral, DAILY, First dose (after last modification) on Mon08/09/21 at 1230, Hold if SBP<100 0848 (Given - Provider: Della Madrigal) 0751 (Given - Provider: Noemy Martinez, MAU) 0836 (Given - Provider: Merline Myers RN) docusate sodium (COLACE) capsule 100 mg 100 mg, Oral, DAILY, First dose on Mon08/10/21 at 0900, Do not crush or break. 0849 (Given - Provider: Della Madrigal) 0751 (Given - Provider: Noemy Martinez RN) 0836 (Given - Provider: Merline Myers RN) heparin flush 100 UNIT/ML injection 250 Units 250 Units, IntraVENous, EVERY 12 HOURS SCHEDULED (2 times per day), First dose on Mon08/11/21 at 2100, Flush each lumen of PICC not connected to a continuous infusion. 2302 (Given - Provider: Ellen Day, MAU) 0837 (Given - Provider: Merline Myers, MAU)2100 (Due) heparin flush 100 UNIT/ML injection 250 Units 250 Units, IntraCATHeter, EVERY 12 HOURS, First dose on Mon08/11/21 at 1715, Each lumen. Do NOT administer to lumens with continuous fluids currently infusing. Line Care. Use 10 mL or larger syringe. 1724 (Given - Provider: Noemy Martinez RN) 0514 (Given - Provider: Ellen Day RN)1715 (Due) hydroCHLOROthiazide (HYDRODIURIL) tablet 25 mg 25 mg, Oral, DAILY, First dose on Mon08/08/21 at 1345, Hold if SBP<120 0849 (Given - Provider: Della Madrigal) 0751 (Given - Provider: Noemy Martinez RN) 0836 (Given - Provider: Merline Myers, MAU) levothyroxine (SYNTHROID) tablet 125 mcg 125 mcg, Oral, DAILY, First dose on Mon08/08/21 at 1345, Tube feeding (TF) interaction, obtain physician order to manage, recommend holding TF for 30 minutes before and after dose. 0534 (Given - Provider: Venessa Purdy RN) 0543 (Given - Provider: Venessa Purdy RN) 0513 (Given - Provider: Ellen Day RN) lidocaine 1 % injection 5 mL 5 mL, IntraDERmal, ONCE, On Mon08/11/21 at 1400, For 1 dose 1634 (Not Given - Provider: Noemy Martinez RN - Reason: Other) linezolid (ZYVOX) tablet 600 mg 600 mg, Oral, EVERY 12 HOURS SCHEDULED (2 times per day), First dose on Mon08/11/21 at 2100, Avoid aged, smoked, or fermented foods including cheese, sour cream, soy sauce, sauerkraut, yogurt, sausage, pepperoni, salami, and dried fruit. Limit caffeine. 2253 (Given - Provider: Ellen Day RN) 0836 (Given - Provider: Merline Myers RN)2100 (Due) magnesium citrate solution 296 mL (COMPLETED) 296 mL, Oral, ONCE, On Mon08/11/21 at 0815, For 1 dose, Administer each dose with 8 oz (240 mL) of water. 0841 (Given - Provider: Noemy Martinez RN) pantoprazole (PROTONIX) tablet 40 mg 40 mg, Oral, DAILY BEFORE BREAKFAST, First dose on Mon08/09/21 at 0700, Substituted for Esomeprazole (NEXIUM). 0534 (Given - Provider: Venessa Purdy RN) 0543 (Given - Provider: Venessa Purdy RN) 0513 (Given - Provider: Ellen Day RN) piperacillin-tazobactam (ZOSYN) 3375 mg in dextrose 50 mL IVPB extended infusion (premix) 3,375 mg, IntraVENous, EVERY 8 HOURS, First dose on Mon08/08/21 at 1345, Until Discontinued 0036 (Stopped - Provider: Onelia Wilson RN)0534 (New Bag - Provider: Venessa Purdy RN)0934 (Stopped - Provider: Noemy Martinez RN)1421 (New Bag - Provider: Noemy Martinez RN)1821 (Stopped - Provider: Noemy Martinez RN)2139 (New Bag - Provider: Venessa Purdy RN) 0154 (Stopped - Provider: Venessa Purdy RN)0543 (New Bag - Provider: Venessa Purdy RN)0943 (Stopped - Provider: Noemy Martinez RN)1451 (New Bag - Provider: Noemy Martinez RN)1851 (Stopped - Provider: Noemy Martinez RN)2254 (New Bag - Provider: Ellen Day RN) 0332 (Stopped - Provider: Ellen Day RN)0514 (New Bag - Provider: Ellen Day RN)0955 (Stopped - Provider: Merline Myers RN)1321 (New Bag - Provider: Merline Myers RN)1721 (Due: Stopped - Provider: Merline Myers RN)2145 (Due - Provider: Noemy Martinez RN) sodium chloride flush 0.9 % injection 10 mL 10 mL, IntraVENous, EVERY 12 HOURS SCHEDULED (2 times per day), First dose on Mon08/11/21 at 2100, Flush each lumen of PICC not connected to a continuous infusion. 2301 (Given - Provider: Ellen Day RN) 0838 (Not Given - Provider: Merline Myers RN - Reason: Other - Comment: iv infusing in this port)2100 (Due) sodium chloride flush 0.9 % injection 10 mL 10 mL, IntraVENous, EVERY 12 HOURS SCHEDULED (2 times per day), First dose on Mon08/11/21 at 2100, Flush each lumen of PICC not connected to a continuous infusion. 2254 (Given - Provider: Ellen Day RN) 0837 (Given - Provider: Merline Myers RN)2100 (Due) sodium chloride flush 0.9 % injection 10 mL 10 mL, IntraCATHeter, EVERY 12 HOURS, First dose on Mon08/11/21 at 1715, Administer to each lumen, regardless of whether or not fluids are infusing. Line Care. Use 10 mL or larger syringe. 1724 (Given - Provider: Noemy Martinez RN) 0514 (Given - Provider: Ellen Day, RN)1715 (Due) sodium chloride flush 0.9 % injection 5-40 mL 5-40 mL, IntraVENous, EVERY 12 HOURS SCHEDULED (2 times per day), First dose on Mon08/08/21 at 2100, For Line Patency: Peripheral IV = 5 mL; Midline or Central Line = 10 mL/lumen. If following IV push medication, administer flush at same rate as the IV push. Flush volume is determined by type of infusion therapy being given. For non-viscous solutions use: Peripheral IV = 5 mL Midline or Central Line = 10 mL/lumen For viscous solutions (i.e. blood components, parenteral nutrition, contrast media, or after obtaining blood sample) use: Peripheral IV = 10 mL Midline or Central Line = 20 mL/lumen 0834 (Given - Provider: Noemy Martinez RN)2100 (Given - Provider: Venessa Purdy RN) 1035 (Given - Provider: Noemy Martinez RN)2302 (Given - Provider: Ellen Day, MAU) 0838 (Not Given - Provider: Merline Myers RN - Reason: Other - Comment: only x2 port iv infusiing in one)2100 (Due - Provider: Noemy Martinez RN) sodium hypochlorite (DAKINS) 0.125 % external solution Irrigation, DAILY, First dose on Usha 08/12/21 at 1030, Apply to right gluteal 1231 (Not Given - Provider: Merline Myers RN - Reason: Other - Comment: wound care asses and changed dressing today) vancomycin (VANCOCIN) 1,250 mg in dextrose 5 % 250 mL IVPB (CANCELED) 1,250 mg (14.5 mg/kg), IntraVENous, at 125 mL/hr, Administer over 120 Minutes, EVERY 12 HOURS, First dose (after last modification) on 08/09/21 at 1230 0031 (New Bag - Provider: Venessa Purdy RN)0231 (Stopped - Provider: Onelia Wilson RN)1147 (New Bag - Provider: Della Madrigal)1347 (Stopped - Provider: Noemy Martinez, MAU) 0155 (New Bag - Provider: Venessa Purdy, MAU)0400 (Stopped - Provider: Venessa Purdy RN) vancomycin (VANCOCIN) 1,500 mg in dextrose 5 % 250 mL IVPB (CANCELED) 1,500 mg (17.4 mg/kg), IntraVENous, at 166.7 mL/hr, Administer over 90 Minutes, EVERY 12 HOURS, First dose (after last reorder) on Mon08/11/21 at 1200 1257 (New Bag - Provider: Noemy Martinez RN)1418 (Stopped - Provider: Noemy Martinez RN) PRN Medication Order 08/10/2021 08/11/2021 08/12/2021 0.9 % sodium chloride infusion 25 mL, IntraVENous, at 100 mL/hr, PRN, If patient receiving piggyback infusions without ordered maintenance IV fluids or with frequent/long duration piggyback infusions, Starting on Mon08/08/21 at 1326, Administer at the same rate as the piggyback being infused. acetaminophen (TYLENOL) suppository 650 mg(Linked Group 1) 650 mg, Rectal, EVERY 6 HOURS PRN, Pain Mild (1-3), Fever, For temp greater than 100.4 F (38 C), Starting on Mon08/08/21 at 1326, Administer if oral route cannot be used. acetaminophen (TYLENOL) tablet 650 mg(Linked Group 1) 650 mg, Oral, EVERY 6 HOURS PRN, Pain Mild (1-3), Fever, For temp greater than 100.4 F (38 C), Starting on Mon08/08/21 at 1326, Maximum dose of acetaminophen is 4000 mg from all sources in 24 hours. bisacodyl (DULCOLAX) suppository 10 mg 10 mg, Rectal, DAILY PRN, Constipation, Starting on Mon08/11/21 at 1209 1215 (Given - Provider: Noemy Martinez RN) heparin flush 100 UNIT/ML injection 250 Units 250 Units, IntraVENous, PRN, Line Care, Starting on Mon08/11/21 at 1333, Flush each lumen of PICC. heparin flush 100 UNIT/ML injection 250 Units 250 Units, IntraCATHeter, PRN, Line Care, after blood draws and after infusion, Starting on Mon08/11/21 at 1647, Do NOT administer to lumens with continuous fluids currently infusing. Line Care. Use 10 mL or larger syringe. morphine sulfate (PF) injection 2 mg 2 mg, IntraVENous, EVERY 4 HOURS PRN, Pain Severe (7-10), Starting on 08/08/21 at 1326, If oral and IV narcotics ordered, use oral first and only use IV if oral is ineffective or cannot take oral. Do Not give oral and IV within 1 hour of each other unless specifically ordered. 0608 (Given - Provider: Venessa Purdy RN) 0137 (Given - Provider: Venessa Purdy RN)1724 (Given - Provider: Noemy Martinez, MAU)2254 (Given - Provider: Ellen Day, MAU) ondansetron (ZOFRAN) injection 4 mg(Linked Group 2) 4 mg, IntraVENous, EVERY 6 HOURS PRN, Nausea, Vomiting, Starting on 08/08/21 at 1326, Administer if oral route cannot be used. ondansetron (ZOFRAN-ODT) disintegrating tablet 4 mg(Linked Group 2) 4 mg, Oral, EVERY 8 HOURS PRN, Nausea, Vomiting, Starting on 08/08/21 at 1326 oxyCODONE (ROXICODONE) immediate release tablet 5 mg 5 mg, Oral, EVERY 4 HOURS PRN, Pain Moderate (4-6), Starting on 08/08/21 at 1326 0031 (Given - Provider: Venessa Purdy RN) 0543 (Given - Provider: Venessa Purdy RN)0953 (Given - Provider: Noemy Martinez, MAU)1631 (Given - Provider: Noemy Martinez, MAU) 0604 (Given - Provider: Ellen Day, RN) polyethylene glycol (GLYCOLAX) packet 17 g 17 g, Oral, DAILY PRN, Constipation, Starting on 08/08/21 at 1326, First line therapy for constipation 2143 (Given - Provider: Venessa Purdy RN) 0751 (Given - Provider: Noemy Martinez, MAU) 0605 (Given - Provider: Ellen Day, MAU) sodium chloride flush 0.9 % injection 10 mL 10 mL, IntraVENous, PRN, Line Care, Starting on Mon08/11/21 at 1333, Flush each lumen of PICC. sodium chloride flush 0.9 % injection 10 mL 10 mL, IntraCATHeter, PRN, Line Care, before blood draws, before and after infusion or medication administration, Starting on Mon08/11/21 at 1647, Use 10 mL or larger syringe. sodium chloride flush 0.9 % injection 5-40 mL 5-40 mL, IntraVENous, PRN, Line Care, After every IV line use, Starting on Mon08/08/21 at 1326, For Line Patency: Peripheral IV = 5 mL; Midline or Central Line = 10 mL/lumen. If following IV push medication, administer flush at same rate as the IV push. Flush volume is determined by type of infusion therapy being given. For non-viscous solutions use: Peripheral IV = 5 mL Midline or Central Line = 10 mL/lumen For viscous solutions (i.e. blood components, parenteral nutrition, contrast media, or after obtaining blood sample) use: Peripheral IV = 10 mL Midline or Central Line = 20 mL/lumen Linked Groups Order Group 1: acetaminophen (TYLENOL) tablet 650 mgJump to med 650 mg, Oral, EVERY 6 HOURS PRN, Pain Mild (1-3), Fever, For temp greater than 100.4 F (38 C), Starting on 08/08/21 at 1326
Maximum dose of acetaminophen is 4000 mg from all sources in 24 hours.
Or acetaminophen (TYLENOL) suppository 650 mgJump to med 650 mg, Rectal, EVERY 6 HOURS PRN, Pain Mild (1-3), Fever, For temp greater than 100.4 F (38 C), Starting on Mon08/08/21 at 1326
Administer if oral route cannot be used.
Group 2: ondansetron (ZOFRAN-ODT) disintegrating tablet 4 mgJump to med 4 mg, Oral, EVERY 8 HOURS PRN, Nausea, Vomiting, Starting on Mon08/08/21 at 1326 Or ondansetron (ZOFRAN) injection 4 mgJump to med 4 mg, IntraVENous, EVERY 6 HOURS PRN, Nausea, Vomiting, Starting on Mon08/08/21 at 1326
Administer if oral route cannot be used.
Scheduled Medication Order 09/08/2021 09/09/2021 09/10/2021 acetaminophen (TYLENOL) tablet 1,000 mg (COMPLETED) 1,000 mg, Oral, ONCE, On Mon09/10/21 at 0800, For 1 dose, Maximum dose of acetaminophen is 4000 mg from all sources in 24 hours. Do not administer if patient has taken tylenol <4 hours earlier. Do not give if contraindicated ie. patient has active liver disease or cirrhosis., Pre-op (day of surgery) 0837 (Given - Provid er: Melody Garrett RN) aprepitant (EMEND) capsule 40 mg (COMPLETED) 40 mg, Oral, ONCE, On Mon09/10/21 at 0845, For 1 dose 0837 (Given - Provid er: Melody Garrett RN) clindamycin (CLEOCIN) 600 mg in dextrose 5 % 50 mL IVPB 600 mg, IntraVENous, SUPERVISORY GEOGRAPHER TO O.R., 1 dose, On Mon09/10/21 at 0800, Pre-op (day of surgery) 0800 (Due) famotidine (PEPCID) tablet 20 mg (COMPLETED) 20 mg, Oral, ONCE, On Mon09/10/21 at 0800, For 1 dose, Pre-op (day of surgery) 0837 (Given - Provid er: Melody Garrett RN) Continuous Medication Order 09/08/2021 09/09/2021 09/10/2021 lactated ringers infusion IntraVENous, at 50 mL/hr, CONTINUOUS, Starting on Mon09/10/21 at 0800, Upon admission to sameday - please start iv if patient does not have iv access. Use 500ml NS for patients on dialysis., Pre-op (day of surgery) 0837 (New Bag - Prov ider: Melody Garrett RN) PRN Medication Order 09/08/2021 09/09/2021 09/10/2021 0.9 % sodium chloride bolus 500 mL (5.8 mL/kg), IntraVENous, at 500 mL/hr, Administer over 1 Hours, ONCE PRN, Nausea, Starting on Mon09/10/21 at 0858, For 1 dose, Use caution in patients with a diagnosis of Heart failure or Kidney failure., PACU only diphenhydrAMINE (BENADRYL) injection 12.5 mg 12.5 mg, IntraVENous, ONCE PRN, Itching, Starting on Mon09/10/21 at 0858, For 1 dose, PACU only hydrALAZINE (APRESOLINE) injection 5 mg 5 mg, IntraVENous, EVERY 10 MIN PRN, High Blood Pressure, Starting on Mon09/10/21 at 0858, PRN for SBP > 160 for 2 consecutive measurements, and if one of the following conditions is met: 1) If IV labetolol is ineffective. 2) If HR is under 60. 3) If patient has heart block, COPD or asthma. If both labetalol and hydralazine ineffective, notify anesthesiologist., PACU only HYDROmorphone (DILAUDID) injection 0.25 mg 0.25 mg, IntraVENous, EVERY 5 MIN PRN, Pain Moderate (4-6), Starting on Mon09/10/21 at 0858, For 4 doses, Phase I and Phase II- Initial therapy for moderate pain (4-6). Restricted to a 50 minute time frame starting when the patient can verbally state their pain score. If secondary medications are utilized, do not return to initial therapy medications. SDS and, PACU only HYDROmorphone (DILAUDID) injection 0.25 mg 0.25 mg, IntraVENous, EVERY 5 MIN PRN, Pain Moderate (4-6), Starting on Mon09/10/21 at 0858, For 4 doses, Phase I - Secondary therapy to be used after initial therapy medication doses are ineffective . If secondary medications are utilized, do not return to initial therapy medications., PACU only HYDROmorphone (DILAUDID) injection 0.5 mg 0.5 mg, IntraVENous, EVERY 5 MIN PRN, Pain Severe (7-10), Starting on Mon09/10/21 at 0858, For 4 doses, Phase I or Phase II- Initial therapy for severe pain (7-10). Restricted to a 50 minute time frame starting when the patient can verbally state their pain score. If secondary medications are utilized, do not return to initial therapy medications. Sameday and, PACU only HYDROmorphone (DILAUDID) injection 1 mg 1 mg, IntraVENous, EVERY 5 MIN PRN, Pain Severe (7-10), Starting on Mon09/10/21 at 0858, For 4 doses, Phase I - Secondary therapy to be used after initial therapy medication doses are ineffective. If secondary medications are utilized, do not return to initial therapy medications., PACU only 1107 (Given - Provid er: Jyoti Chow, MAU)1131 (Given - Provider: Jyoti Chow RN) labetalol (NORMODYNE;TRANDATE) injection 5 mg 5 mg, IntraVENous, EVERY 10 MIN PRN, High Blood Pressure, Starting on Mon09/10/21 at 0858, PRN for SBP >160 for 2 consecutive measurements, if HR is 60 or greater. If beta lubna is contraindicated (HR less than 60, heart block, COPD or asthma) use hydralazine IV order., PACU only lidocaine PF 1 % injection 1 mL 1 mL, IntraDERmal, ONCE PRN, IV start, Starting on Mon09/10/21 at 0736, For 1 dose, Pre-op (day of surgery) meperidine (DEMEROL) injection 12.5 mg 12.5 mg, IntraVENous, EVERY 5 MIN PRN, Shivering, , Starting on Mon09/10/21 at 0858, May give every 5 minutes to max of 50mg., PACU only ondansetron (ZOFRAN) injection 4 mg 4 mg, IntraVENous, ONCE PRN, Nausea, Starting on Mon09/10/21 at 0858, For 1 dose, Initial antiemetic therapy., PACU only oxyCODONE (ROXICODONE) immediate release tablet 10 mg(Linked Group 1) 10 mg, Oral, PRN, Pain Severe (7-10), Starting on Mon09/10/21 at 0858, For 1 dose, PHASE II, PACU only oxyCODONE (ROXICODONE) immediate release tablet 5 mg(Linked Group 1) 5 mg, Oral, PRN, Pain Moderate (4-6), Starting on Mon09/10/21 at 0858, For 1 dose, PHASE II, PACU only promethazine (PHENERGAN) injection 6.25 mg 6.25 mg, IntraVENous, ONCE PRN, Nausea, Starting on Mon09/10/21 at 0858, For 1 dose, Caution if used IV:Check IV site for infiltrate prior to and during administration. Secondary antiemetic therapy. For IV administration, dilute to 10ml with normal saline. Must be administered over at least 10 minutes., PACU only Linked Groups Order Group 1: oxyCODONE (ROXICODONE) immediate release tablet 5 mgJump to med 5 mg, Oral, PRN, Pain Moderate (4-6), Starting on Mon09/10/21 at 0858, For 1 dose
PHASE II
PACU only Or oxyCODONE (ROXICODONE) immediate release tablet 10 mgJump to med 10 mg, Oral, PRN, Pain Severe (7-10), Starting on Mon09/10/21 at 0858, For 1 dose
PHASE II
PACU only Reason for Visit (unrecogniz ed section and content) Reason Comments Thyroid Problem Reason Onset Date Comments Refill Request 04/02/2022 INFORMATION SOURCE (unrecogn ized section and content) DATE CREATED AUTHOR AUTHOR'S ORGANIZ ATION 09/16/2021 [facility] DATE CREATED AUTHOR AUTHOR'S ORGANIZ ATION 02/25/2022 [facility] Source Comments (unrecognize d section and content) In the event this informatio n is protected by the Federal Confidentiality of Alcohol and Drug Abuse Patient Records regulations: The Federal rules restrict any use of the information to criminally investigate or prosecute any alcohol or drug abuse patient.[facility] the event this information is protected by the Federal Confidentiality of Alcohol and Drug Abuse Patient Records regulations: The Federal rules restrict any use of the information to criminally investigate or prosecute any alcohol or drug abuse patient.[facility] the event this information is protected by the Federal Confidentiality of Alcohol and Drug Abuse Patient Records regulations: The Federal rules restrict any use of the information to criminally investigate or prosecute any alcohol or drug abuse patient.[facility] Care Teams (unrecognized sec tion and content) Manager Spring Relationship Specialty Start Date End Date Yayo Alaniz DO [address] [place] [address] PCP - General Family Practice 06/11/20 Manager Spring Relationship Specialty Start Date End Date Yayo Alaniz DO [address] [place], [place] [address] PCP - General Family Practice 06/11/20 FOR RECORDS PERTAINING TO PATIENTS WHO ARE OR HAVE BEEN ENROLLED IN A CHEMICAL DEPENDENCY/SUBSTANCEABUSE PROGRAM, SOME INFORMATION MAY BE OMITTED. This clinical summary was aggregated from multiple sources. Caution should be exercised in using it in the provision of clinical care. This summary normalizes information from multiple sources, and as a consequence, information in this document may materially change the coding, format and clinical context of patient data. In addition, data may be omitted in some cases. CLINICAL DECISIONS SHOULD BE BASED ON THE PRIMARY CLINICAL RECORDS. [facility]. provides no warranty or guarantee of the accuracy or completeness of information in this document.
== END | disposition home or self-care (01) ==
LOC: MTRAD 15:20
PROVIDERS: PCP Family Medicine; Referring Provider Family Medicine; Visit Provider Family Medicine
DX: M25.551 Pain in right hip (principal); M25.552 Pain in left hip
CPT/HCPCS: 73521

== ENCOUNTER → 2024-04-23 | Outpatient (CLI) | payer MEDICARE, SELFPAY ==
[2024-04-23 15:21] LABS: Mucous, Urine 0 SEEN /hpf (<or=2+); Red Blood Cells-Urine 0 SEEN /hpf (0-5)
[2024-04-23 17:39] LABS: Absolute Lymphocyte Count 3.04 X10^3/uL (0.83-4.51); Absolute Neutrophil Count 4.3 X10^3/uL (2.0-7.7); Basophil# 0.05 X10^3/uL; Basophil% 0.6 % (0-1); Eosinophil# 0.16 X10^3/uL; Eosinophils% 1.9 % (0-5); Hematocrit 43.5 % (37-47); Hemoglobin 14.3 g/dL (12.0-15.0); Lymphocyte # 3.04 X10^3/ul (0.83-4.51); Lymphocyte % 36.8 % (19-41); Mean Corp Hgb Conc 32.9 g/dL (32-36); Mean Corpuscular Hgb 29.2 pg (27.0-32.0); Mean Corpuscular Volume 88.8 fL (81-99); Mean Platelet Vol. 10.3 fl (6.2-12.0); Monocyte# 0.67 X10^3/uL; Monocyte% 8.1 % (0-10); NRBC Flagged by Analyzer 0 % (0-5); Neutrophil # 4.32 X10^3/uL (2.7-7.7); Neutrophil % 52.2 % (47-70); Platelet Count 298 K/mm3 (150-450); RBC Distribution Width CV 13.3 % (11.6-14.6); RBC Distribution Width SD 43.8 fl (35.1-43.9); White Blood Count 8.3 K/mm3 (4.4-11.0)
[2024-04-23 18:00] LABS: Vitamin B12 1609 pg/mL (211-911); Vitamin D,25 Hydroxy 45.2 ng/mL
[2024-04-23 18:03] LABS: Color, Urine Yellow (Yellow); Glucose, Dipstick Normal (Normal); Ketone-Dipstick Negative (Negative); Leukocyte Esterase-Dipstick 25 /ul (Negative); Nitrite-Dipstick Negative (Negative); Occult Blood-Urine Negative /ul (Negative); Protein-Dipstick Negative (Negative); Urine Bilirubin Dipstick Negative (Negative); Urine Clarity Clear (Clear); Urine Urobilinogen Normal (Normal)
[2024-04-23 18:10] LABS: ALB/GLOB Ratio 1.1 RATIO (0.9-2.4); AST(SGOT) 19 U/L (15-37); Alanine Aminotransfer ALT/SGPT 34 U/L (13-56); Albumin, Serum 3.9 g/dL (3.2-5.0); Alkaline Phosphatase 88 U/L (45-117); Anion Gap 7 (5-15); BUN 26 mg/dL (7-18); BUN/Creat Ratio 41.8 RATIO (10-20); Calcium,Total 10.6 mg/dL (8.5-10.1); Chloride 106 mmol/L (98-107); Cholesterol 200 mg/dL (200); Creatinine, Serum 0.62 mg/dL (0.55-1.02); EST Glomerular Filtration Rate 101 mL/min (>60); Est Glom Filt Rate - Afr Amer 122 mL/min (>60); Globulin 3.6 g/dL (2.2-4.2); Glucose 123 mg/dL (74-106); High Density Lipoprotein 38 mg/dL; Potassium 3.5 mmol/L (3.5-5.1); Protein, Total 7.5 g/dL (6.4-8.2); Sodium Level 137 mmol/L (136-145); T4 Free Direct 1.23 ng/dL (0.76-1.46); Thyroid Stim Hormone (TSH) 1.18 uIU/mL (0.358-3.74); Triglycerides 277 mg/dL; Very Low Density Lipoprotein 55 mg/dL (5-40)
[2024-04-23 18:16] LABS: Hemoglobin A1c 5.9 % (3.8-5.6)
[2024-04-23 18:53] LABS: Bacteria 1+ /hpf (None Seen); Squamous Epithelial Cells - UA 0-5 SEEN /hpf (5-10); White Blood Cells 0-5 SEEN /hpf (0-5)
[2024-04-29 00:06] LABS: Vitamin B1, Thiamine 182.1 nmol/L (66.5-200.0)
== END | disposition home or self-care (01) ==
LOC: MTLAB 15:12
PROVIDERS: PCP Family Medicine; Referring Provider Family Medicine; Visit Provider Family Medicine
DX: I10 Essential (primary) hypertension (principal); E78.5 Hyperlipidemia, unspecified; E03.9 Hypothyroidism, unspecified; E55.9 Vitamin D deficiency, unspecified; E53.9 Vitamin B deficiency, unspecified; R73.02 Impaired glucose tolerance (oral)
CPT/HCPCS: 36415; 80053; 80061; 81001; 82306; 82607; 83036; 83735; 84207; 84425; 84439; 84443; 85025

== ENCOUNTER → 2024-05-07 | Outpatient (CLI) | payer MEDICARE, SELFPAY ==
--- NOTE | 2024-05-07 14:38 | BI_ITS ---
MAMMOGRAPHY - BILATERAL SCREENING REASON FOR EXAM: Female, 68 years old. Routine annual screening examination. PERTINENT HISTORY: Non-contributory. Remote left excisional breast biopsy. TECHNIQUE: Digital bilateral breast dilia (3D mammographic acquisition) in the CC and MLO projections. 2-D mediolateral oblique (MLO) and craniocaudad (CC) views of both breasts were obtained. CAD: Full Field Digital Mammography with Computer Added Detection was performed. COMPARISON: Comparison is made with prior study dated January 10, 2022 and January 08, 2021. FINDINGS: Breast Composition: The breasts are almost entirely fatty. There are no dominant masses or suspicious calcifications. Stable small bilateral fat containing axillary lymph nodes. No other significant abnormalities are identified. There has been no significant change since the prior study. BI/SCRN MAMM (CAD)W/DILIA BILAT IMPRESSION: Stable bilateral screening mammogram. Yearly follow-up mammogram recommended. (A) ASSESSMENT CATEGORY: BIRADS Category 2: Benign. A letter regarding these results will be sent to the patient by the facility within 30 days. Approximately 10% of breast cancers are not detected by mammography. A normal mammogram should not delay biopsy of a clinically suspicious abnormality. [id number] Electronically Signed: Cal West MD at 8:21 EDT ,
== END | disposition home or self-care (01) ==
LOC: OPBI 14:38
PROVIDERS: PCP Family Medicine; Referring Provider Family Medicine; Visit Provider Family Medicine
DX: Z12.31 Encounter for screening mammogram for malignant neoplasm of breast (principal)
CPT/HCPCS: 77063; 77067

== ENCOUNTER → 2024-09-24 | Outpatient (CLI) | payer MEDICARE, SELFPAY ==
--- NOTE | 2024-09-24 14:46 | BD_ITS ---
STUDY: DUAL ENERGY X-RAY ABSORPTIOMETRY / DXA REASON FOR EXAM: Female, 69 years old. 733.90OsteopeniaBONE DENSITY REASON FOR EXAM TECHNIQUE: Bone Mineral Density (BMD) measurements of lumbar spine and bilateral hips were obtained. COMPARISON: Comparison is made with prior study July 11, 2013. FINDINGS: Lumbar Spine (L1-L4): g/cm2 (1.001) / T-score (-0.4) / Z-score (1.7) Findings are suggestive of normal bone density with a low fracture risk. Left Femur Total: g/cm2 (0.791) / T-score (-1.2) / Z-score (0.3) Left Femoral Neck: g/cm2 (0.661) / T-score (-1.7) / Z-score (0.1) Right Femur Total: g/cm2 (0.793) / T-score (-1.2) / Z-score (0.3) Right Femoral Neck: g/cm2 (0.692) / T-score (-1.4) / Z-score (0.4) The T-Scores on the most recent prior examination were: Lumbar Spine (L1-L4): There has been worsening of bone density since the previous examination. Left Femur Total: which represents a worsening of 13.8%. Right Femur Total: which represents a worsening of 12.9%. BD/Dexa Bone Density Study IMPRESSION: The patient is considered osteopenic as outlined below according to World Matt Organization (WHO) criteria with a moderate fracture risk. There has been worsening of bone density since the previous examination. Reference Information: The T-score is the number of standard deviations above or below the standard which is normal for young adults at their peak bone mineral density. The World Health Organization (WHO) interprets the T-scores as follows: Above -1 Normal bone density Between -1 and -2.5 Osteopenia Equal to / or below -2.5 Osteoporosis As a practical clinical guideline, osteopenia may be graded as follows: Mild -1 through -1.5 Moderate -1.6 through -2.0 Severe -2.1 through -2.4 The Z-score is the number of standard deviations above or below age-matched controls. A Z-score of less than -1.5 would be considered abnormal. References: 1. NIH Osteoporosis and Related Bone Diseases www osteo.org 2. International Society for Clinical Densitometry www iscd.org 3. National Osteoporosis Foundation www nof.org Electronically Signed: Cal West MD at 14:04 EST ,
== END | disposition home or self-care (01) ==
LOC: OPBD 14:37
PROVIDERS: PCP Family Medicine; Referring Provider Family Medicine; Visit Provider Family Medicine
DX: M85.88 Other specified disorders of bone density and structure, other site (principal)
CPT/HCPCS: 77080

== ENCOUNTER → 2024-11-08 | Outpatient (CLI) | payer MEDICARE, SELFPAY ==
[2024-11-08 10:21] LABS: Absolute Lymphocyte Count 2.65 X10^3/uL (0.83-4.51); Absolute Neutrophil Count 3.3 X10^3/uL (2.0-7.7); Basophil# 0.04 X10^3/uL; Basophil% 0.6 % (0-1); Eosinophil# 0.09 X10^3/uL; Eosinophils% 1.4 % (0-5); Hematocrit 43.4 % (37-47); Hemoglobin 14.1 g/dL (12.0-15.0); Lymphocyte # 2.65 X10^3/ul (0.83-4.51); Mean Corp Hgb Conc 32.5 g/dL (32-36); Mean Corpuscular Hgb 28.8 pg (27.0-32.0); Mean Corpuscular Volume 88.6 fL (81-99); Mean Platelet Vol. 11.2 fl (6.2-12.0); Monocyte# 0.56 X10^3/uL; Monocyte% 8.4 % (0-10); NRBC Flagged by Analyzer 0 % (0-5); Neutrophil # 3.26 X10^3/uL (2.7-7.7); Neutrophil % 49.1 % (47-70); Platelet Count 299 K/mm3 (150-450); RBC Distribution Width CV 13.4 % (11.6-14.6); RBC Distribution Width SD 43.5 fl (35.1-43.9); White Blood Count 6.6 K/mm3 (4.4-11.0)
[2024-11-08 11:31] LABS: Hemoglobin A1c 6.2 % (3.8-5.6)
[2024-11-08 12:16] LABS: ALB/GLOB Ratio 1.1 RATIO (0.9-2.4); AST(SGOT) 20 U/L (15-37); Alanine Aminotransfer ALT/SGPT 29 U/L (13-56); Albumin, Serum 3.8 g/dL (3.2-5.0); Alkaline Phosphatase 100 U/L (45-117); Anion Gap 7 (5-15); BUN 16 mg/dL (7-18); BUN/Creat Ratio 31.7 RATIO (10-20); Calcium,Total 10.3 mg/dL (8.5-10.1); Chloride 108 mmol/L (98-107); Cholesterol 197 mg/dL (200); EST Glomerular Filtration Rate 128 mL/min (>60); Est Glom Filt Rate - Afr Amer 155 mL/min (>60); Globulin 3.5 g/dL (2.2-4.2); Glucose 105 mg/dL (74-106); High Density Lipoprotein 52 mg/dL; Potassium 3.9 mmol/L (3.5-5.1); Protein, Total 7.3 g/dL (6.4-8.2); Sodium Level 142 mmol/L (136-145); T4 Free Direct 1.08 ng/dL (0.76-1.46); Triglycerides 164 mg/dL; Very Low Density Lipoprotein 33 mg/dL (5-40)
[2024-11-08 14:29] LABS: PTHIN 86.5 pg/mL (18.4-80.1)
== END | disposition home or self-care (01) ==
LOC: MTLAB 07:25
PROVIDERS: PCP Family Medicine; Referring Provider Family Medicine; Visit Provider Family Medicine
DX: I10 Essential (primary) hypertension (principal); E83.52 Hypercalcemia; E03.9 Hypothyroidism, unspecified; R73.02 Impaired glucose tolerance (oral)
CPT/HCPCS: 36415; 80053; 80061; 83036; 83970; 84439; 84443; 85025

== ENCOUNTER → 2024-11-19 | Outpatient (CLI) | payer MEDICARE, SELFPAY ==
[2024-11-19 15:42] LABS: Mucous, Urine 0 SEEN /hpf (<or=2+)
[2024-11-19 17:53] LABS: Absolute Lymphocyte Count 2.94 X10^3/uL (0.83-4.51); Absolute Neutrophil Count 3.1 X10^3/uL (2.0-7.7); Basophil# 0.03 X10^3/uL; Basophil% 0.4 % (0-1); Eosinophil# 0.09 X10^3/uL; Eosinophils% 1.3 % (0-5); Lymphocyte # 2.94 X10^3/ul (0.83-4.51); Lymphocyte % 43.4 % (19-41); Mean Corp Hgb Conc 31.8 g/dL (32-36); Mean Corpuscular Hgb 28.5 pg (27.0-32.0); Mean Corpuscular Volume 89.4 fL (81-99); Mean Platelet Vol. 11.3 fl (6.2-12.0); Monocyte% 8.9 % (0-10); NRBC Flagged by Analyzer 0 % (0-5); Neutrophil % 45.9 % (47-70); Platelet Count 293 K/mm3 (150-450); RBC Distribution Width CV 13.4 % (11.6-14.6); RBC Distribution Width SD 43.9 fl (35.1-43.9); Red Blood Count 4.92 M/mm3 (4.2-5.4); White Blood Count 6.8 K/mm3 (4.4-11.0)
[2024-11-19 18:37] LABS: Color, Urine Yellow (Yellow); Glucose, Dipstick Normal (Normal); Ketone-Dipstick Negative (Negative); Leukocyte Esterase-Dipstick 100 /ul (Negative); Nitrite-Dipstick Negative (Negative); Occult Blood-Urine Negative /ul (Negative); Protein-Dipstick Negative (Negative); Specific Gravity, Urine 1.015 (1.002-1.030); Urine Bilirubin Dipstick Negative (Negative); Urine Clarity Sl. Cloudy (Clear); Urine Urobilinogen Normal (Normal)
[2024-11-19 19:12] LABS: Bacteria 1+ /hpf (None Seen); Red Blood Cells-Urine 0-5 SEEN /hpf (0-5); Squamous Epithelial Cells - UA 0-5 SEEN /hpf (5-10); Transitional Epithelial - Ur 0-5 SEEN /hpf (0-5); White Blood Cells 5-10 SEEN /hpf (0-5)
[2024-11-19 19:14] LABS: ALB/GLOB Ratio 1.2 RATIO (0.9-2.4); AST(SGOT) 23 U/L (15-37); Alanine Aminotransfer ALT/SGPT 33 U/L (13-56); Alkaline Phosphatase 106 U/L (45-117); Anion Gap 5 (5-15); BUN 22 mg/dL (7-18); BUN/Creat Ratio 36.7 RATIO (10-20); Calcium,Total 10.3 mg/dL (8.5-10.1); Chloride 107 mmol/L (98-107); Cholesterol 195 mg/dL (200); EST Glomerular Filtration Rate 105 mL/min (>60); Est Glom Filt Rate - Afr Amer 127 mL/min (>60); Globulin 3.4 g/dL (2.2-4.2); Glucose 89 mg/dL (74-106); High Density Lipoprotein 47 mg/dL; Potassium 3.8 mmol/L (3.5-5.1); Protein, Total 7.4 g/dL (6.4-8.2); Sodium Level 139 mmol/L (136-145); T4 Free Direct 1.07 ng/dL (0.76-1.46); Triglycerides 191 mg/dL; Very Low Density Lipoprotein 38 mg/dL (5-40)
[2024-11-19 20:57] LABS: Hemoglobin A1c 6.2 % (3.8-5.6)
== END | disposition home or self-care (01) ==
LOC: MFPLAB 15:32
PROVIDERS: PCP Family Medicine; Referring Provider Family Medicine; Visit Provider Family Medicine
DX: R73.02 Impaired glucose tolerance (oral) (principal); I10 Essential (primary) hypertension; E03.9 Hypothyroidism, unspecified
CPT/HCPCS: 36415; 80053; 80061; 81001; 83036; 84439; 84443; 85025

== ENCOUNTER → 2024-12-16 | Outpatient (CLI) | payer MEDICARE, SELFPAY ==
--- NOTE | 2024-12-16 09:33 | NM_ITS ---
PROCEDURE: PARATHYROID SCAN REASON FOR EXAM: Status post thyroid resection. TECHNIQUE: Nuclear medicine parathyroid imaging performed following intravenous technetium- 99m sestamibi administration. Anterior imaging of the neck through 2 hours. RADIOPHARMACEUTICAL: 27.7 mCi of technetium labeled sestamibi COMPARISON: None. FINDINGS: Status post thyroid resection. No abnormal residual uptake identified to suggest abnormal parathyroid tissue. NM/Parathyroid Scan IMPRESSION: NORMAL NUCLEAR MEDICINE PARATHYROID SCAN. Reading Location: [facility]
== END | disposition home or self-care (01) ==
LOC: NM 09:33
PROVIDERS: PCP Family Medicine; Referring Provider Family Medicine; Visit Provider Family Medicine
DX: E21.3 Hyperparathyroidism, unspecified (principal)
CPT/HCPCS: 78070; A9500

== ENCOUNTER → 2025-01-02 | Outpatient (CLI) | payer MEDICARE, SELFPAY | END | disposition home or self-care (01) | LOC: MFPLAB 16:07 | PROVIDERS: PCP Family Medicine; Referring Provider Family Medicine; Visit Provider Family Medicine | DX: R19.7 Diarrhea, unspecified (principal) | CPT/HCPCS: 87493 ==

== ENCOUNTER → 2025-03-17 | Outpatient (CLI) | payer MEDICARE, SELFPAY ==
--- NOTE | 2025-03-17 14:00 | RAD_ITS ---
PROCEDURE: KNEE 4 OR MORE VIEWS 03/17/2025 REASON FOR EXAM: LEFT KNEE PAIN TECHNIQUE: Four views left knee COMPARISON: 10/06/2023 FINDINGS: No fracture, dislocation or joint effusion. The joint spaces appear within limits. RAD/Knee 4 or More Views IMPRESSION: No fracture, dislocation or joint effusion. Reading Location: [id number]
== END | disposition home or self-care (01) ==
LOC: MTRAD 13:53
PROVIDERS: PCP Family Medicine; Referring Provider Family Medicine; Visit Provider Family Medicine
DX: M25.562 Pain in left knee (principal)
CPT/HCPCS: 73564

== ENCOUNTER 2025-03-22 06:55 | Outpatient (CLI) | payer MEDICARE, SELFPAY ==
[2025-03-22 08:07] LABS: Bacteria 0 SEEN /hpf (None Seen); Mucous, Urine 0 SEEN /hpf (<or=2+); Red Blood Cells-Urine 0 SEEN /hpf (0-5)
[2025-03-22 08:14] LABS: Absolute Lymphocyte Count 2.38 X10^3/uL (0.83-4.51); Absolute Neutrophil Count 2.9 X10^3/uL (2.0-7.7); Basophil# 0.03 X10^3/uL; Basophil% 0.5 % (0-1); Eosinophil# 0.08 X10^3/uL; Eosinophils% 1.3 % (0-5); Hematocrit 44.4 % (37-47); Hemoglobin 14.7 g/dL (12.0-15.0); Lymphocyte # 2.38 X10^3/ul (0.83-4.51); Mean Corp Hgb Conc 33.1 g/dL (32-36); Mean Corpuscular Hgb 29.5 pg (27.0-32.0); Mean Corpuscular Volume 89.2 fL (81-99); Mean Platelet Vol. 11.3 fl (6.2-12.0); Monocyte# 0.54 X10^3/uL; Monocyte% 9.1 % (0-10); NRBC Flagged by Analyzer 0 % (0-5); Neutrophil # 2.92 X10^3/uL (2.7-7.7); Neutrophil % 49.1 % (47-70); Platelet Count 279 K/mm3 (150-450); RBC Distribution Width CV 13.6 % (11.6-14.6); RBC Distribution Width SD 44.3 fl (35.1-43.9); Red Blood Count 4.98 M/mm3 (4.2-5.4)
[2025-03-22 08:26] LABS: Color, Urine Yellow (Yellow); Glucose, Dipstick Normal (Normal); Ketone-Dipstick Negative (Negative); Leukocyte Esterase-Dipstick Negative /ul (Negative); Nitrite-Dipstick Negative (Negative); Occult Blood-Urine Negative /ul (Negative); Protein-Dipstick 30 mg/dl (Negative); Specific Gravity, Urine 1.025 (1.002-1.030); Urine Bilirubin Dipstick Negative (Negative); Urine Clarity Clear (Clear); Urine Urobilinogen Normal (Normal)
[2025-03-22 08:39] LABS: Squamous Epithelial Cells - UA 0-5 SEEN /hpf (5-10); White Blood Cells 0-5 SEEN /hpf (0-5)
[2025-03-22 08:49] LABS: Hemoglobin A1c 6.2 % (<=5.6); PTHIN 69 pg/mL (11-61)
[2025-03-22 09:06] LABS: ALB/GLOB Ratio 1.7 RATIO (0.9-2.4); AST(SGOT) 20 U/L (<=31); Alanine Aminotransfer ALT/SGPT 16 U/L (<=34); Albumin, Serum 4.5 g/dL (3.4-4.8); Alkaline Phosphatase 100 U/L (35-104); Anion Gap 10 (5-15); BUN 24 mg/dL (4-19); BUN/Creat Ratio 49.2 RATIO (10-20); Calcium,Total 10.9 mg/dL (7.6-11.0); Carbon Dioxide 26.4 mmol/L (21.0-32.0); Chloride 107 mmol/L (98-108); Cholesterol 191 mg/dL (<=200); Creatinine, Serum 0.49 mg/dL (0.70-1.20); EST Glomerular Filtration Rate 102 (>60); Globulin 2.7 g/dL (2.2-4.2); Glucose 117 mg/dL (70-99); High Density Lipoprotein 48 mg/dL; Low Density Lipoprotein Calc. 128 mg/dL; Potassium 5.1 mmol/L (3.3-5.1); Protein, Total 7.2 g/dL (5.9-8.4); Sodium Level 143 mmol/L (133-145); Total Bilirubin 0.36 mg/dL (0.00-1.30); Triglycerides 78 mg/dL; Very Low Density Lipoprotein 16 mg/dL (5-40); cholesterol:hdl ratio screen 4.02
[2025-03-22 09:07] LABS: Thyroid Stim Hormone (TSH) 0.289 uIU/mL (0.300-4.200); Vitamin D,25 Hydroxy 50.3 ng/mL (30-100)
== END 2025-03-22 23:59 | disposition home or self-care (01) ==
LOC: LAB 06:56
PROVIDERS: PCP Family Medicine; Referring Provider Family Medicine; Visit Provider Family Medicine
DX: R73.02 Impaired glucose tolerance (oral) (principal); E03.9 Hypothyroidism, unspecified; E78.5 Hyperlipidemia, unspecified; E21.3 Hyperparathyroidism, unspecified
CPT/HCPCS: 36415; 80053; 80061; 81001; 82306; 83036; 83970; 84439; 84443; 85025

== ENCOUNTER → 2025-06-06 | Outpatient (CLI) | payer MEDICARE, SELFPAY ==
--- NOTE | 2025-06-06 14:01 | MRI_ITS ---
PROCEDURE: LOWER EXT JOINT ONLY (ROUTINE) 06/06/2025 REASON FOR EXAM: POSSIBLE CRUCIATE LIGAMENT INJURY TECHNIQUE: T1, T2, PD, LOWER EXT JOINT ONLY (left) multiplanar and multisequence images were obtained without IV contrast administration. COMPARISON: COMPARISON : March 17, 2025 x-ray FINDINGS: Bone Marrow: There is no bony contusion or osteochondral defect. Cruciate ligaments: There is a edema and attenuation in the mid and lower portion of the anterior cruciate ligament without laxity, grade 2 sprain. The posterior cruciate appears intact. Collateral ligaments: The medial collateral ligament appears intact. The lateral collateral ligament complex appears intact. Menisci: There is a horizontal tear in the body of the lateral meniscus which extends to the femoral surface, with extrusion of the anterior body. There is a degenerative signal at the root of the medial meniscus. There is a small horizontal tear in the posterior horn of the medial meniscus which extends to the tibial surface, sagittal image 10. 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 Effusion: There is a moderate joint effusion. Plica are noted in the superior joint space. MRI/Lower Ext Joint Only (Routine) IMPRESSION: There is a edema and attenuation in the mid and lower portion of the anterior c ruciate ligament without laxity, grade 2 sprain. There is a horizontal tear in the body of the lateral meniscus which extends to the femoral surface, with extrusion of the anterior body. There is a degenerative signal at the root of the medial meniscus. There is a small horizontal tear in the posterior horn of the medial meniscus w hich extends to the tibial surface, sagittal image 09/07. There is mild chondromalacia in the medial and lateral patellar facet with smal l fissures noted. There is a moderate joint effusion. Plica are noted in the superior joint space Reading Location: [facility]
== END | disposition home or self-care (01) ==
LOC: OPMRI 13:51
PROVIDERS: PCP Family Medicine; Referring Provider Family Medicine; Visit Provider Family Medicine
DX: S83.502D Sprain of unspecified cruciate ligament of left knee, subsequent encounter (principal)
CPT/HCPCS: 73721

== ENCOUNTER → 2025-06-17 | Outpatient (CLI) | payer MEDICARE, SELFPAY ==
--- NOTE | 2025-06-17 07:55 | EKG12_ITS ---
Test Reason : PREOP Blood Pressure : */* mmHG Vent. Rate : 64 BPM Atrial Rate : 64 BPM P-R Int : 198 ms QRS Dur : 90 ms QT Int : 436 ms P-R-T Axes : 48 4 34 degrees QTcB Int : 449 ms Normal sinus rhythm Normal ECG Confirmed by VELIA ROME, RADHA ([id number]), movie editor GREGORY PULIDO ([id number]) on 06/18/2025 6:49:53 AM Referred By: Jakob Gill Confirmed By: RADHA GUNN MD
[2025-06-17 09:30] LABS: Hematocrit 41.4 % (37-47); Hemoglobin 14.0 g/dL (12.0-15.0); Immature Granulocytes Count 0.030 X10^3/uL (0.0-0.0); Mean Corp Hgb Conc 33.8 g/dL (32-36); Mean Corpuscular Volume 87.9 fL (81-99); Mean Platelet Vol. 10.9 fl (6.2-12.0); NRBC Flagged by Analyzer 0 % (0-5); Platelet Count 270 K/mm3 (150-450); RBC Distribution Width CV 13.2 % (11.6-14.6); RBC Distribution Width SD 43.0 fl (35.1-43.9); Red Blood Count 4.71 M/mm3 (4.2-5.4); White Blood Count 7.0 K/mm3 (4.4-11.0)
[2025-06-17 10:10] LABS: Anion Gap 12 (5-15); BUN 15 mg/dL (4-19); BUN/Creat Ratio 31.5 RATIO (10-20); Calcium,Total 10.4 mg/dL (7.6-11.0); Carbon Dioxide 25.4 mmol/L (21.0-32.0); Chloride 104 mmol/L (98-108); Glucose 113 mg/dL (70-99); Potassium 3.8 mmol/L (3.3-5.1)
== END | disposition home or self-care (01) ==
PROVIDERS: PCP Family Medicine; Referring Provider Student in an Organized Health Care Education/Training Program; Visit Provider Student in an Organized Health Care Education/Training Program
DX: Z01.818 Encounter for other preprocedural examination (principal)
CPT/HCPCS: 36415; 80048; 85025; 93005

== ENCOUNTER → 2025-09-05 | Outpatient (CLI) | payer MEDICARE, SELFPAY ==
[2025-09-05 09:38] LABS: Mucous, Urine 0 SEEN /hpf (<or=2+); Red Blood Cells-Urine 0 SEEN /hpf (0-5)
--- OUTSIDE RECORDS SUMMARY | 2025-09-05 10:27 | XMS RPT_ITS | CCD ---
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 Brandy Corado Primary Care Provider Dr. Brandy Corado Referring Provider [phone] Nicola DAWN, [place] Donaldo Rick Attending Provider [phone] LÓPEZ Kessler Attending Provider Dr. Shereen Soria Primary Care Provider [phone] Dr. Jan Tobias Attending Provider Dr. Shereen Soria Primary Care Provider Dr. Jan Tobias Attending Provider Dr. Shereen Soria Primary Care Provider [phone] Dr. Shereen Soria Referring Provider [phone] LÓPEZ Schmidt Attending Provider Shereen Soria MD Primary Care Provider TERRENCE JUNIOR Attending Unavailable SHEREEN SORIA Primary Care Unavailable SUSANA SMITH Referring Unavailable SHEREEN ALANIZ Primary Care Unavailable SUSANA SMITH Attending Unavailable Dr. Shereen Soria MD Primary Care Provider [phone] Dr. Shereen Soria MD Attending Provider Dr. Shereen Soria MD Referring Provider [phone] Sylvester ROME, Dr. Thapa Attending Provider Sylvester ROME, Dr. Thapa Referring Provider Estella ROME, Dr. Shereen Masters Primary Care Provider [phone] Estella ROME, Dr. Shereen Masters Attending Provider Estella ROME, Dr. Shereen Masters Referring Provider Dr. Jakob Gill DO Attending Provider Dr. Jakob Gill DO Referring Provider [phone] Micheline ROME, Dr. Montoya Attending Provider Schinner, Shereen E Primary Care Unavailable Elier Phan Attending Unavailable Elier Phan Referring Unavailable Schinner, Shereen E Primary Care Unavailable Schinner, Shereen E Attending Unavailable Schinner, Shereen E Referring Unavailable Schinner, Shereen E Primary Care Unavailable Schinner, Shereen E Attending Unavailable Schinner, Shereen E Referring Unavailable Schinner, Shereen E Primary Care Unavailable SpittleJakob Attending Unavailable Schinner, Shereen E Primary Care Unavailable SpittleJakob Attending Unavailable SpittleJakob Referring Unavailable Schinner, Shereen E Primary Care Unavailable SpittleJakob Attending Unavailable SpittleJakob Referring Unavailable Schinner, Shereen E Primary Care Unavailable Jan Tobias Attending Unavailable SpittleJakob Referring Unavailable Schinner, Shereen E Referring Unavailable Schinner, Shereen E Attending Unavailable Schinner, Shereen E Primary Care Unavailable Schinner, Shereen E Attending Unavailable Schinner, Shereen E Primary Care Unavailable Schinner, Shereen E Referring Unavailable Schinner, Shereen E Attending Unavailable Schinner, Shereen E Primary Care Unavailable Schinner, Shereen E Referring Unavailable Schinner, Shereen E Primary Care Unavailable Schinner, Shereen E Attending Unavailable Schinner, Shereen E Referring Unavailable Schinner, Shereen E Primary Care Unavailable Schinner, Shereen E Attending Unavailable Schinner, Shereen E Referring Unavailable Allergies Allergy Classification Reported Allergen(s) Allergy Type Date of Onset Reaction(s) Facility (8 sources) Amoxicillin; Translations: [AMOXICILLIN] Drug Allergy 09-23-2014 Other (See Comments), Other: See Comments [facility] (8 sources) lansoprazole; Translations: [LANSOPRAZOLE] Drug Allergy 02-21-2007 Diarrhea [facility] Medications Current [...] 07-21-2021 ALPRAZolam (NIRAVAM) dissolvable tablet 0.25 mg amLODIPine 5 mg oral tablet (3 sources) Dihydropyridine Calcium Channel [place] take 1 tablet by mouth once daily amLODIPine (NORVASC) 5 mg tablet Take 5 mg by mouth once daily. Active amoxicillin 875 mg / clavulanate 125 mg [...] PO) Take by mouth daily 0 Active aspirin 81 mg chewable tablet (20 sources) Platelet Aggregation Inhibitor, Nonsteroidal Anti-inflammatory Drug Start: 04-17-2017 take 1 tablet by mouth once daily Aspirin 81 MG tablet,chewable Active 81 mg PO DAILY April 17, 2017 12:00am Start: 10-30-2013 take 1 tablet by vivi th once daily aspirin, enteric coated (ECOTRIN LOW STRENGTH) 81 mg EC tablet Take 1 tablet by mouth once daily. 0 10/30/2013 Active Comment on above: Take 1 tablet by vivi th once daily. atenolol 50 mg oral tablet (20 sources) beta-Adrenergic [place] Start: 03-01-20 take 1 tablet by mouth once daily Atenolol 50 MG tablet Active 50 mg PO DAILY April 17, 2017 12:00am Comment on above: Take one(1) tablet d aily. biotin 10 mg oral capsule (5 sources) Biotin 10 MG CAP S Take by mouth daily 0 Active bisacodyl 10 mg rectal suppository (1 source) Stimulant Laxative Start: 08-11-20 bisacodyl (DULCOLAX) suppository 10 mg cholecalciferol 0.05 mg oral tablet (15 sources) Vitamin D take 1 tablet by mouth once daily cholecalciferol (VITAMIN D-3) 2,000 unit tablet Take 2,000 Units by mouth once daily. Active End: 08-29-2024 take 1 tablet by mouth once daily cholecalciferol (VITAMIN D-3) 5,000 unit tab Take 5,000 Units by mouth once daily. 08/29/2024 Discontinued (Discontinued by Patient) Comment on above: Take 2,000 Units by mouth once daily. Take 5,000 Units by mouth once daily. Collagen (5 sources) COLLAGEN PO Indications: collagen peptides Take by mouth daily Indications: collagen peptides 0 Active docosahexaenoic acid 1000 mg / omega-3 acid ethyl esters (intermediate) 300 mg delayed release oral capsule (5 sources) take 1000 mg by mouth once daily Howard-3 Fatty Acids (FISH OIL) 1000 MG CPDR Take 1,000 mg by mouth daily 0 Active docusate sodium 100 mg oral capsule (1 source) Start: 08-10-20 docusate sodium (COLACE) capsule 100 mg esomeprazole 40 mg delayed release oral capsule (20 sources) Proton Pump Inhibitor Start: 03-01-20 End: 08-29-20 24 take 1 capsule by mouth once daily Esomeprazole Magnesium (Nexium) 40 MG capsule Active 40 mg PO DAILY April 17, 2017 12:00am Comment on above: Take one(1) tablet d aily. estradiol 1 mg oral tablet (20 sources) Estrogen Start: 04-17-20 End: 08-29-20 take 0.5 mg by mouth at bedtime Estradiol 1 MG tablet Active 0.5 mg PO AT BEDTIME April 17, 2017 12:00am SWEATS Start: 04-17-2017 take 0.5 mg by mouth at bedtim e Estradiol Active 0.5 MG PO AT BEDTIME April 16, 2017 11:00pm take 1 tablet by vivi th once daily in the evening estradiol (ESTRACE) 0.5 MG tablet Take 0.5 mg by mouth every evening 0 Active Comment on above: Take 0.5 mg by mouth once daily. gabapentin 100 mg oral capsule (2 sources) Anti-epileptic Agent Start: 09-01-2021 End: 09-15-2021 gabapentin (NEURONTIN) 100 MG capsule Take 1 capsule by mouth 3 times daily for 14 days. Intended supply: 90 days 42 capsule 0 09/01/2021 09/15/2021 Active Start: 07-21-2021 End: 07-21-2021 gabapentin (NEURONTIN) capsu le 100 mg 3 ml heparin sodium, porcine 100 unt/ml prefilled syringe (4 sources) Unfractionated Heparin, Anti-coagulant Start: 08-11-2021 heparin flush 100 UNIT/ML injection 250 Units 1 ml hydrALAZINE hydrochloride 20 mg/ml injection (2 sources) Arteriolar Vasodilator Start: 09-10-2021 hydrALA ZINE (APRESOLINE) injection 5 mg Start: 07-21-2021 hydrALAZINE (A PRESOLINE) injection 5 mg hydroCHLOROthiazide 25 mg oral tablet (20 sources) Thiazide Diuretic Start: 04-17-2017 End: 04-02-2022 take 1 tablet by mouth once daily Hydrochlorothiazide 25 MG tablet Active 25 mg PO DAILY April 17, 2017 12:00am Comment on above: Take 1 tablet by vivi th once daily. 1 ml HYDROmorphone hydrochloride 1 mg/ml cartridge (8 sources) Opioid Agonist Start: 09-10-2021 HYDROmorphone (DILAUDID) injection 1 mg Start: 09-10-2021 HYDROmorphone (DILAUDID) injection 0.25 mg Start: 09-10-2021 HYDROmorphone (DILAUDID) injection 0.5 mg Start: 08-09-2021 End: 08-09-2021 HYDROmorphone (DILAUDID) inj ection 0.5 mg Start: 07-21-2021 HYDROmorphone (DILAUDID) injection 0.5 mg Start: 07-21-2021 HYDROmorphone (DILAUDID) injection 0.25 mg sodium hypochlorite 1.25 mg/ml topical solution (1 source) Start: 08-12-2021 sodium hypochlorite (DAKINS) 0.125 % external solution ibuprofen 200 mg oral tablet (1 source) Nonsteroidal Anti-inflammatory Drug take 1 tablet by mouth every six hours as needed for pain ibuprofen (ADVIL;MOTRIN) 200 MG tablet Take 200 mg by mouth every 6 hours as needed for Pain 0 Active labetalol hydrochloride 5 mg/ml injectable solution (2 sources) beta-Adrenergic [place] Start: 09-10-2021 labetalol (NORMODYNE;TRANDAT E) injection 5 mg Start: 07-21-2021 labetalol (NOR MODYNE;TRANDATE) injection 5 mg levothyroxine sodium 0.125 mg oral tablet (20 sources) l-Thyroxine Start: 04-04-2022 take 1 tablet by mouth six times weekly levothyroxine (SYNTHROID) 125 mcg tablet Indications: Malignant neoplasm of thyroid gland (HCC) , Postablative hypothyroidism Take 1 tablet by mouth six times a week. 90 tablet 3 04/04/2022 Active Start: 01-03-2022 End: 04-02-2022 take 1 tablet by mouth six times weekly levothyroxine (SYNTHROID) 125 mcg tablet Indications: Malignant neoplasm of thyroid gland (HCC) , Postablative hypothyroidism Take 1 tablet by mouth six times a week. 90 tablet 0 01/03/2022 04/02/2022 Discontinued Start: 2021 take 125 ug by mouth once daily 125 mcg, Oral, DAILY, First dose on 08/08/21 at 1345 Tube feeding (TF) interaction, obtain physician order to manage, recommend holding TF for 30 minutes before and after dose. Start: 04-17-2017 Levothyroxine 137 MCG tablet Active 125 ug PO DAILY April 17, 2017 12:00am Start: 04-17-2017 take 125 ug by mouth once daily Levothyroxine Active 125 MCG PO DAILY April 16, 2017 11:00pm Comment on above: Take 1 tablet by vivi th six times a week. 10 ml lidocaine hydrochloride 10 mg/ml injection (2 sources) Antiarrhythmic, Amide Local Anesthetic Start: 09-10-2021 End: 09-10-2021 lidocaine PF 1 % injection 1 mL Start: 07-21-2021 End: 07-21-2021 lidocaine PF 1 % injection 1 mL meloxicam 15 mg oral tablet (14 sources) Nonsteroidal Anti-inflammatory Drug Start: 2021 take 1 tablet by mouth once daily Meloxicam 15 mg Tablet Active 15 mg PO DAILY 2021 12:00am take 1 tablet by mouth once zac y meloxicam (MOBIC) 7.5 MG tablet Take 7.5 mg by mouth daily 0 Active meperidine hydrochloride 50 mg/ml injectable solution (2 sources) Opioid Agonist Start: 09-10-2021 meperidine (DE MEROL) injection 12.5 mg Start: 07-21-2021 meperidine (DE MEROL) injection 12.5 mg 1 ml morphine sulfate 4 mg/ml injection (1 source) Opioid Agonist Start: 2021 take 2 mg by mouth every four hours as needed for pain 2 mg, IntraVENous, EVERY 4 HOURS PRN, Pain Severe (7-10), Starting on 08/08/21 at 1326 If oral and IV narcotics ordered, use oral first and only use IV if oral is ineffective or cannot take oral. D o Not give oral and IV within 1 hour of each other unless specifically ordered. 2 ml ondansetron 2 mg/ml injection (3 sources) Serotonin-3 Receptor Antagonist Start: 09-10-2021 End: 09-10-2021 ondansetron (ZOFRAN) injection 4 mg Start: 07-21-2021 End: 2021 take 1 tablet by mouth three times daily as needed for nausea ondansetron (ZOFRAN-ODT) 4 MG disintegrating tablet Take 1 tablet by mouth 3 times daily as needed for Nausea or Vomiting 21 tablet 0 07/21/2021 2021 Discontinued (LIST CLEANUP) Start: 07-21-2021 End: 07-21-2021 ondansetron (ZOFRAN) injecti on 4 mg ondansetron (ZOFRAN-ODT) disintegrating tablet 4 mg (1 source) Start: 2021 ondansetron (Z OFRAN-ODT) disintegrating tablet 4 mg oxyCODONE (4 sources) Opioid Agonist Start: 09-10-2021 End: 09-10-2021 oxyCODONE (ROXICODONE) immediate release tablet 5 mg Start: 2021 End: 08-16-2021 take 1 tablet by mouth every four hours as needed for pain oxyCODONE (ROXICODONE) 5 MG immediate release tablet Indications: Abscess Take 1 tablet by mouth every 4 hours as needed for Pain for up to 5 days. 20 tablet 0 08/11/2021 08/16/2021 Active Start: 07-21-2021 End: 07-21-2021 oxyCODONE (ROXICODONE) immed iate release tablet 5 mg pantoprazole 40 mg delayed release oral tablet (1 source) Proton Pump Inhibitor Start: 08-09-2021 take 40 mg by mouth once daily before breakfast 40 mg, Oral, DAILY BEFORE BREAKFAST, First dose on 08/09/21 at 0700 Substituted for Esomeprazole (NEXIUM). polyethylene glycol 3350 49012 mg powder for oral solution (1 source) Osmotic Laxative Start: 2021 17 g, Oral, DAILY PRN, Constipation, Starting on 08/08/21 at 1326 First line therapy for constipation polyethylene glycol 3350 510139 mg / potassium chloride 2970 mg / sodium bicarbonate 6740 mg / sodium chloride 5860 mg / sodium sulfate 69301 mg powder for oral solution (1 source) Osmotic Laxative Start: 08-29-2024 End: 08-29-2024 peg 3350-Electrolytes (GOLYTELY) 236-22.74-6.74 -5.86 gram suspension Indications: Screen for colon cancer Take 4,000 mL by mouth one time only for 1 dose. Refer to printed prep instructions from your provider. 4000 mL 08/29/2024 08/29/2024 Active 1 ml promethazine hydrochloride 25 mg/ml injection (2 sources) Phenothiazine Start: 09-10-2021 End: 09-10-2021 promethazine (PHENERGAN) injection 6.25 mg Start: 07-21-2021 End: 07-21-2021 promethazine (PHENERGAN) inj ection 6.25 mg simvastatin 40 mg oral tablet (17 sources) HMG-CoA Reductase Inhibitor Start: 04-17-2017 take 1 tablet by mouth once daily Simvastatin 40 MG tablet Active 40 mg PO DAILY April 17, 2017 12:00am Comment on above: Take 40 mg by mouth daily at bedtime. 50 ml sodium chloride 9 mg/ml injection (13 sources) Start: 09-10-2021 End: 09-10-2021 0.9 % sodium chloride bolus Start: 08-11-2021 sodium chlorid e flush 0.9 % injection 10 mL Start: 08-11-2021 sodium chlorid e flush 0.9 % injection 10 mL Start: 2021 take 1 dose intraven ously twice daily 5-40 mL, IntraVENous, EVERY 12 HOURS SCHEDULED (2 times per day), First dose on 08/08/21 at 2100 For Line Patency: Peripheral IV = 5 [...] Midline or Central Line = 20 mL/lumen Start: 2021 take 5-40 mL intrave nously once as needed 5-40 mL, IntraVENous, PRN, Line Care, After every IV line use, Starting on 08/08/21 at 1326 For Line Patency: Peripheral IV = 5 [...] Midline or Central Line = 20 mL/lumen Start: 2021 take 25 mL intraveno usly every hour as needed 25 mL, IntraVENous, at 100 mL/hr, PRN, If patient receiving piggyback infusions without ordered maintenance IV fluids or with frequent/long duration piggyback infusions, Starting on 08/08/21 at 1326 Administer at the same rate as the piggyback being infused. Start: 07-21-2021 End: 07-21-2021 0.9 % sodium chloride bolus Start: 07-21-2021 0.9 % sodium c hloride infusion Start: 07-21-2021 sodium chlorid e flush 0.9 % injection 5-40 mL sulfamethoxazole 800 mg / trimethoprim 160 mg oral tablet (2 sources) Dihydrofolate Reductase Inhibitor Antibacterial, Sulfonamide Antimicrobial Start: 09-07-2021 End: 09-15-2021 take 1 tablet by mouth twice daily sulfamethoxazole-trimethoprim (BACTRIM DS) 800-160 MG per tablet Take 1 tablet by mouth 2 times daily for 5 days 10 tablet 0 09/10/2021 09/15/2021 Active Turmeric extract (11 sources) take 1 tablet by mouth once daily TURMERIC ORAL Take 1 tablet by mouth once daily. Active take 1 tablet by mouth once zac y TURMERIC ORAL Take 1 tablet by mouth once daily. 0 Active take 1 capsule by mouth once kady ly Turmeric 500 MG CAPS Take by mouth daily 0 Active Comment on above: Take 1 tablet by vivi th once daily. Completed/Discontinued Medications Medication Drug Class(es) Dates Sig (Normalized) Sig (Original) acetaminophen 500 mg oral tablet (3 sources) Start: 09-10-2021 End: 09-10-2021 acetaminophen (TYLENOL) tablet 1,000 mg Start: 2021 acetaminophen (TYLENOL) tablet 650 mg Start: 07-21-2021 End: 07-21-2021 acetaminophen (TYLENOL) tabl et 1,000 mg aprepitant 40 mg oral capsule (1 source) Substance P/Neurokinin-1 Receptor Antagonist Start: 09-10-2021 End: 09-10-2021 aprepitant (EMEND) capsule 40 mg Start: 09-10-2021 End: 09-10-2021 aprepitant (EMEND) capsule 4 0 mg calcium carbonate 1500 mg / cholecalciferol 0.01 mg oral tablet (4 sources) Vitamin D Start: 06-12-2007 End: 08-29-2024 take 1 tablet by mouth once daily Calcium-Cholecalciferol (D3) (CALCIUM 600 + D) 600-400 mg-unit ORAL Tab Take one(1) tablet two(2) times daily. 0 06/12/2007 08/29/2024 Discontinued (Discontinued by Patient) Comment on above: Take one(1) tablet t wo(2) times daily. calcium chloride 0.0014 meq/ml / potassium chloride 0.004 meq/ml / sodium chloride 0.103 meq/ml / sodium lactate 0.028 meq/ml injectable solution (3 sources) Start: 09-19-2024 End: 09-19-2024 take 30 mL intravenously every hour 30 mL/hr, INTRAVENOUS, CONTINUOUS, Starting on Usha 09/19/24 at 0800, Until Usha 09/19/24 at 0903, Preprocedure Start: 09-10-2021 lactated ringe rs infusion Start: 07-21-2021 lactated ringe rs infusion ceFAZolin 2000 mg injection (1 source) Cephalosporin Antibacterial Start: 07-21-2021 End: 07-21-2021 ceFAZolin (ANCEF) 2000 mg in dextrose 4 % 100 mL IVPB (premix) diphenhydrAMINE (3 sources) Histamine-1 Receptor Antagonist Start: 09-19-2024 End: 09-19-2024 12.5-50 mg, INTRAVENOUS, DIRECTED, Starting on Usha 09/19/24 at 0900, Until Usha 09/19/24 at 1259, DOSING DIRECTED BY PHYSICIAN FOR PROCEDURAL SEDATION ONLY, Intraprocedure Start: 09-10-2021 End: 09-10-2021 diphenhydrAMINE (BENADRYL) i njection 12.5 mg Start: 07-21-2021 End: 07-21-2021 diphenhydrAMINE (BENADRYL) i njection 12.5 mg famotidine 20 mg oral tablet (2 sources) Histamine-2 Receptor Antagonist Start: 09-10-2021 End: 09-10-2021 famotidine (PEPCID) tablet 20 mg Start: 07-21-2021 End: 07-21-2021 famotidine (PEPCID) tablet 2 0 mg 1 ml fentaNYL 0.05 mg/ml injection (3 sources) Opioid Agonist Start: 09-19-2024 End: 09-19-2024 25-100 mcg, INTRAVENOUS, DIRECTED, Starting on Usha 09/19/24 at 0900, Until Usha 09/19/24 at 1259, DOSING DIRECTED BY PHYSICIAN FOR PROCEDURAL SEDATION ONLY, Intraprocedure Start: 07-21-2021 fentaNYL (SUBL IMAZE) injection 50 mcg Start: 07-21-2021 fentaNYL (SUBL IMAZE) injection 25 mcg linezolid 600 mg oral tablet (4 sources) Oxazolidinone Antibacterial Start: 08-11-2021 End: 08-23-2021 take 1 tablet by mouth every twelve hours linezolid (ZYVOX) 600 MG tablet Take 1 tablet by mouth every 12 hours for 11 days 22 tablet 0 08/12/2021 08/12/2021 Discontinued magnesium citrate 58.2 mg/ml oral solution (1 source) Start: 08-11-2021 End: 08-11-2021 magnesium citrate solution 296 mL 5 ml midazolam 1 mg/ml injection (1 source) Benzodiazepine Start: 09-19-2024 End: 09-19-2024 1-5 mg, INTRAVENOUS, DIRECTED, Starting on Usha 09/19/24 at 0900, Until Usha 09/19/24 at 1259, DOSING DIRECTED BY PHYSICIAN FOR PROCEDURAL SEDATION ONLY, Intraprocedure Multivitamin (DAILY MULTIPLE) ORAL Tab (4 sources) Start: 07-08-2019 End: 08-29-2024 take 1 tablet by mouth once daily Multivitamin (DAILY MULTIPLE) ORAL Tab Take 1 tablet by mouth once daily. Without Calcium. 0 07/08/2019 08/29/2024 Discontinued (Discontinued by Patient) Start: 07-08-2019 take 1 tablet by vivi th once daily Multivitamin (DAILY MULTIPLE) ORAL Tab Take 1 tablet by mouth once daily. Without Calcium. 0 07/08/2019 Active Comment on above: Take 1 tablet by vivi th once daily. Without Calcium. omega-3 fatty acids(FISH OIL 500 MG CAP) (4 sources) Start: 06-24-2010 End: 08-29-2024 omega-3 fatty acids(FISH OIL 500 MG CAP) Take by mouth. 0 06/24/2010 08/29/2024 Discontinued (Discontinued by Patient) Start: 06-24-2010 omega-3 fatty acids(FISH OIL 500 MG CAP) Take one(1) tablet two(2) times daily. 0 06/24/2010 Active Comment on above: Take one(1) tablet t wo(2) times daily. piperacillin 3000 mg / tazobactam 375 mg injection (1 source) Penicillin-class Antibacterial, beta Lactamase Inhibitor Start: 2021 3,375 mg, IntraVENous, EVERY 8 HOURS, First dose on 08/08/21 at 1345, Until Discontinued vancomycin (VANCOCIN) 1,250 mg in dextrose 5 % 250 mL IVPB (2 sources) Start: 08-09-2021 End: 08-11-2021 vancomycin (VANCOCIN) 1,250 mg in dextrose 5 % 250 mL IVPB Start: 2021 End: 08-09-2021 1,250 mg (14.5 mg/kg), Intra VENous, at 125 mL/hr, Administer over 120 Minutes, EVERY 12 HOURS, First dose on 08/08/21 at 2200 vancomycin (VANCOCIN) 1,500 mg in dextrose 5 % 250 mL IVPB (2 sources) Start: 08-11-2021 End: 08-11-2021 vancomycin (VANCOCIN) 1,500 mg in dextrose 5 % 250 mL IVPB Start: 2021 End: 2021 vancomycin (VANCOCIN) 1,500 mg in dextrose 5 % 250 mL IVPB Problems Active Problems Problem Classification Problem Date Documented Date Episodic/Chronic Administrative/socia l admission (17 sources) Patient encounter status; Translations: [Encounter for pre-employment examination] Onset: 09-19-2024 04-17-2023 Episodic Cancer of breast (11 sources) History of malignant neoplasm of breast; Translations: [Personal history of malignant neoplasm of breast] 11-15-2020 Episodic Cancer of thyroid (20 sources) Follicular thyroid carcinoma; Translations: [Malignant neoplasm of thyroid gland] Onset: 06-10-2010 Chronic Cancer of thyroid (11 sources) History of malignant neoplasm of thyroid; Translations: [Personal history of malignant neoplasm of thyroid] 11-15-2020 Episodic Complications of surgical procedures or medical care (8 sources) Postoperative hypothyroidism; Translations: [Postprocedural hypothyroidism] Onset: 05-13-2016 Chronic Complications of surgical procedures or medical care (17 sources) Wound dehiscence; Translations: [Disruption of wound, unspecified, initial encounter] Episodic Disorders of lipid metabolism (17 sources) Mixed hyperlipidemia; Translations: [Mixed hyperlipidemia] Onset: 08-11-2016 08-11-2016 Chronic Esophageal disorders (11 sources) Gastroesophageal reflux disease; Translations: [Gastro-esophageal reflux disease without esophagitis] 11-15-2020 Chronic Essential hypertension (19 sources) Essential hypertension; Translations: [Essential (primary) hypertension] Onset: 08-11-2016 08-11-2016 Chronic Fluid and electrolyte disorders (11 sources) Hypokalemia; Translations: [Hypokalemia] 11-14-2020 Episodic Malaise and fatigue (1 source) Fatigue; Translations: [Other fatigue] Episodic Nutritional deficiencies (6 sources) Vitamin D deficiency; Translations: [Vitamin D deficiency, unspecified] Onset: 05-13-2016 05-13-2016 Chronic Other aftercare (4 sources) Long-term current use of antibiotic; Translations: [care home (current) use of antibiotics] Episodic Other endocrine disorders (1 source) Hyperparathyroidism, unspecified; Translations: [Hyperparathyroidism, unspecified] Onset: 01-02-2025 Chronic Other lower respiratory disease (11 sources) Hypoxia; Translations: [Hypoxemia] 11-14-2020 Episodic Other nutritional; endocrine; and metabolic disorders (6 sources) Hypocalcemia; Translations: [Hypocalcemia] Onset: 06-24-2010 06-24-2010 Chronic Other screening for suspected conditions (not mental disorders or infectious disease) (2 sources) Encounter for screening for malignant neoplasm of colon; Translations: [Encounter for screening for malignant neoplasm of colon] Onset: 09-19-2024 Episodic Other skin disorders (4 sources) Mass of lower limb; Translations: [Localized swelling, mass and lump, right lower limb] 06-07-2021 Episodic Residual codes; unclassified (1 source) Intolerant of cold; Translations: [Other general symptoms and signs] Episodic Skin and subcutaneous tissue infections (4 sources) Abscess; Translations: [Cutaneous abscess, unspecified] Onset: 2021 Episodic Sprains and strains (12 sources) Strain of abdominal muscle; Translations: [Strain of muscle, fascia and tendon of abdomen, initial encounter] Onset: 06-11-2025 04-18-2017 Episodic Superficial injury; contusion (7 sources) Contusion of left knee; Translations: [Contusion of left knee, initial encounter] 10-06-2023 Episodic Thyroid disorders (14 sources) Hypothyroidism; Translations: [Hypothyroidism, unspecified] Onset: 04-08-2010 Resolved: 10-12-2012 11-15-2020 Chronic Viral infection (20 sources) COVID-19; Translations: [Pneumonia due to 2019 novel coronavirus] 11-15-2020 Episodic Past or Other Problems Problem Classification Problem Date Documented Da te Episodic/Chronic Diabetes mellitus without complication (1 source) Impaired glucose tolerance (oral); Translations: [Impaired glucose tolerance (oral)] Onset: 03-27-2025 Episodic Esophageal disorders (6 sources) Esophagitis; Translations: [Esophagitis, unspecified] Onset: 04-16-2007 04-16-2007 Episodic Gastritis and duodenitis (6 sources) Duodenitis; Translations: [Duodenitis without bleeding] Onset: 04-16-2007 04-16-2007 Episodic Other bone disease and musculoskeletal deformities (1 source) Other specified disorders of bone density and structure, other site; Translations: [Other specified disorders of bone density and structure, other site] Onset: 10-22-2024 Episodic Other connective tissue disease (6 sources) Plantar fasciitis; Translations: [Plantar fascial fibromatosis] Onset: 04-29-2020 04-29-2020 Episodic Other gastrointestinal disorders (1 source) Diarrhea, unspecified; Translations: [Diarrhea, unspecified] Onset: 01-16-2025 Episodic Other non-traumatic joint disorders (1 source) Pain in left knee; Translations: [Pain in left knee] Onset: 03-20-2025 Episodic Residual codes; unclassified (6 sources) Menopause present; Translations: [Asymptomatic menopausal state] Onset: 08-11-2016 08-11-2016 Episodic Results Test Name Value Interpretation Reference Range Facility Re-Evaluation - PT (1)on Re-Evaluation - PT (1) [facility] [address] [place] [address] / REEVALUATION / MEDICARE RECERTIFICATION PHYSICAL THERAPY MR#: [id number] Acct: [id number] Name: XIAO SHEARER Rep #: [id number] : 1955 69 From: Bart Herring PT, Cert. T, OCS Referring Dr.: Dr. Jakob Gill DO Status:REG RC R Insurance: MMO MEDICARE SELF PAY INSURANCE Re-Evaluation Intro: Dr. Jakob Gill DO, It has been my pleasure to treat XIAO SHEARER over the last 8 visits for Tear of lateral meniscus and tear medial meniscus ,Chondromalacia. Please see the progress note below for an update on the physical therapy plan of care! Subjective Subjective: Min pian ,swelling in ankle Uses FWW NWB LLE Sees today Objective Objective/Function: POSTURE: mild forward posture knee brace locked in extension NEURO: denies paresthesia/tingling SKIN: intact suture well approximate GAIT: ambulates with NWB LLE with knee brace locked in extension 20 ft with supervision AAROM: 5-95 supine knee flexion MMT: ( peak force) quads 26.1 ,18.1 hamstrings ,hip flexion 17.2,14. 2 EDEMA: joint line 39.0 cm Plan Plan Plan: -S/P arthroscopic left knee meniscus root repair 06/25/25 -Brace locked in extension 6 weeks with gait -NWB 6 WEEKS LLE -No isolated hamstring strengthening 8 weeks( root repair precautions) -ROM knee flexion 90 Degrees open pack position -See guidelines for complex meniscus repair PT INTERVENTIONS START MAT EX'S ,ROM /STRENGTHENING WITH ROM LIMITATIONS 6 WEEKS, VASO /ICE NEEDED THEN PROGRESS WITH STRENGTHENING QUADS/HAMS/HIP CLOSED /OPEN CHAIN ,WB ACTIVITIES ,GAIT/BALANCE TRAINING AND FUNCTIONAL STRENGTEHNING Balance/Gait/Functional tests Balance/Special Test Scores Lower Extremity Functional Score: 13 Goals Goals Goal 1:: Patient to be I with HEP for meniscus repair Goal Time Frame: 8-12 Weeks Goal Progress: Progressing Goal 2:: Patient to improve AROM supine knee flexion 0-125 degrees to improve stairs Goal Time Frame: 8-12 Weeks Goal Progress: Progressing Goal 3:: Patient to improve peak force quads/hams hip by 10-15 # to improve function.( new goal Goal Time Frame: 8-12 Weeks Goal Progress: Progressing Goal 4:: Patient to normalize gait Goal Time Frame: 8-12 Weeks Goal Progress: Progressing Goal 5:: Patient to improve LFES score by 10-15 points to improve function and QOL Goal Time Frame: 8-12 Weeks Goal Progress: Progressing Anticipated Interventions Anticipated Interventions Patient/Client Instruction: Educate patient on: Condition and Plan of Care For the Purpose of:: To decrease pain, To increase ROM, To improve muscle performance and motor function, To improve ability to perform ADL's, To increase tolerance to activity/condition/positio n, To improve ability of physical actions for home/community/work/leisur e, To improve gait and locomotor functions, To improve health of tissue, To decrease soft tissue restriction, To increase flexibility/ROM, To improve balance, To improve safety with gait and To improve tolerance to ADL's Therapeutic Exercise to Include: Strength training, Endurance training, Balance training, Postural training, Flexibilty training, Passive ROM and Active ROM Comment: SEE GUIDELINES For the Purpose of:: To decrease pain, To increase ROM, To improve nutrient delivery to tissue, To increase oxygenation perfusion, To improve muscle performance and motor function, To improve ability to perform ADL's, To increase tolerance to activity/condition/positio n, To improve ability of physical actions for home/community/work/leisur e, To improve health of tissue, To decrease soft tissue restriction, To increase flexibility/ROM, To improve endurance, To improve balance and To improve tolerance to ADL's TENS: Yes Cryotherapy (ice pack, ice massage): Yes Vasopneumatic device: Yes For the Purpose of:: To decrease pain and To decrease swelling/inflammation Re-Evaluation Ending Re-evaluation ending: Please do not hesitate to contact me at [phone] by phone or if you have questions or concerns regarding this new plan of care! Sincerely, Bart Herring PT, Cert MDT, OCS 08/07/25 1041 CC: Dr. Shereen Soria MD; Dr. Jakob Gill, JLA Signed For Medicare only, by signing this I certify the plan of care. __ Physicians Signature Date Normal [facility] Inital Evaluation (1) - PTon 07-09-2025 Inital Evaluation (1) - PT [facility] [address] [place] [address] / REHABILITATION SERVICES INITIAL EVALUATION MR#: [id number] Acct: [id number] Name: XIAO SHEARER Rep #: [id number] : 1955 69 From: Bart Herring PT, Cert. T, OCS Referring Dr.: Dr. Jakob Gill DO Status: REG RCR Insurance: MMO MEDICARE SELF PAY INSURANCE Patient's Visit Information Visit Information Visit Information: XIAO SHEARER is a 69 year old F referred to Physical Therapy by Dr. Jakob Gill, with a diagnosis of Tear of lateral meniscus and tear medial meniscus ,Chondromalacia. Date of Evaluation: 07/09/25 Physical Therapist: Bart Herring PT, Cert T, OCS Visit Plan Frequency: 2x /Week Duration: 12 weeks Plan: -S/P arthroscopic left knee meniscus root repair 06/25/25 -Brace locked in extension 6 weeks with gait - NWB 6 WEEKS LLE -No isolated hamstring strengthening 8 weeks( root repair precautions) -ROM knee flexion limited by 90 degrees 6 weeks - See guidelines for complex meniscus repair PT INTERVENTIONS START MAT EX'S ,ROM /STRENGTHENING WITH ROM LIMITATIONS 6 WEEKS, VASO /ICE NEEDED THEN PROGRESS WITH STRENGTHENING QUADS/HAMS/HIP CLOSED /OPEN CHAIN ,WB ACTIVITIES ,GAIT/BALANCE TRAINING AND FUNCTIONAL STRENGTEHNING Subjective Subjective: This 69 y/o female presents to physical therapy with s/p arthroscopic left knee meniscus root repair 06/25/25 done at [facility] by Dr Gill . Patient was d/c DOS with walker brace locked in extension with NWB LLE for [address] yesterday removed sutures looked good some edema. RTD in 4 weeks Aug 07. Patient injury knee twisted knee left February 2025. Did MRI There is a horizontal tear in the body of the lateral meniscus which extends to the femoral surface, with extrusion of the anterior body.There is a degenerative signal at the root of the medial meniscus. There is a small horizontal tear in the posterior horn of the medial meniscus which extends to the tibial surface, and mild chondromalacia There is a moderate joint effusion. Patient has polar care mo medication. Denies paresthesia/tingling-. Patient pain affects sleeping . Apartment no step .Tub shower with assist from granddaughters. Assist with shoes ,cooking /cleaning. Currently 24 care per grand daughters. Patient has difficulty with gait and function and RTW. Tentative RTW 60 days . Patient is not working. Patient goals to RTW and ADLS normal SOCAIL: single VOCATION : 180 Pain Left Knee: Pain Intensity (Out of 10): 2 Objective Objective: POSTURE: mild forward posture knee brace locked in extension NEURO: denies paresthesia/tingling SKIN: intact suture well approximate GAIT: ambulates with NWB LLE with knee brace locked in extension 20 ft with supervision AAROM: 5-60 supine knee flexion MMT: ( peak force) 0 EDEMA: joint line 39.0 cm Balance/Special Test Scores Lower Extremity Functional Score: 13 Goals Goal 1:: Patient to be I with [facility] for meniscus repair Goal Time Frame: 8-12 Weeks Goal 2:: Patient to improve AROM supine knee flexion 0-125 degrees to improve stairs Goal Time Frame: 8-12 Weeks Goal 3:: Patient to improve peak force quads/hams hip by 15-20 # to improve function. Goal Time Frame: 8-12 Weeks Goal 4:: Patient to normalize gait Goal Time Frame: 8-12 Weeks Goal 5:: Patient to improve LFES score by 10-15 points to improve function and QOL Goal Time Frame: 8-12 Weeks Rehabilitation Potential Physical Therapy Diagnosis: This patient underwent s/p arthroscopic left knee meniscus root repair 06/25/25 with NWB LLE brace locked in extension with fww with impairments decrease ROM ,weakness quads/hams /hip decrease gait and stairs impairs ADLS and RTW thus benefit from skilled PT Rehabilitation Potential: Good Anticipated Interventions Patient/Client Instruction: Educate patient on: Condition and Plan of Care For the Purpose of:: To decrease pain, To increase ROM, To improve muscle performance and motor function, To improve ability to perform ADL's, To increase tolerance to activity/condition/positio n, To improve ability of physical actions for home/community/work/leisur e, To improve gait and locomotor functions, To improve health of tissue, To decrease soft tissue restriction, To increase flexibility/ROM, To improve balance, To improve safety with gait and To improve tolerance to ADL's Therapeutic Exercise to Include: Strength training, Endurance training, Balance training, Postural training, Flexibilty training, Passive ROM and Active ROM Comment: SEE GUIDELINES For the Purpose of:: To decrease pain, To increase ROM, To improve nutrient delivery to tissue, To increase oxygenation perfusion, To improve muscle performance and motor function, To improve ability to perform ADL's, To increase toleran (more content not included)... Normal [facility] Electrocardiogram reportOrde red By: Jan Tobias on 06-18-2025 EKG study [facility] Services [address] [place] [address] 12 Lead EKG 06/17/25813 MR#: [id number] Acct: [id number] Name: XIAO SHEARER Rep #:[id number] : 1955 69 From: Jan Tobias MD Attending Dr: Dr. Jakob Gill, Status: REG CLI Ordering Dr: Jakob Gill DO Date: 06/17/25 Location: [facility] Sex: F C Admitted: Test Reason : PREOP Blood Pressure : */* mmHG Vent. Rate : 64 BPM Atrial Rate : 64 BPM P-R Int : 198 ms QRS Dur : 90 ms QT Int : 436 ms P-R-T Axes : 48 4 34 degrees QTcB Int : 449 ms Normal sinus rhythm Normal ECG Confirmed by JAN TOBIAS MD ([id number]), mapping editor MONICA PULIDO ([id number]) on 06/18/2025 6:49:53 AM Referred By: Jakob Gill Confirmed By: JAN TOBIAS MD 06/18/25 0649 Date _ Jan Tobias MD CC: Dr. Shereen Soria MD; Dr. Jakob Gill DO ~ Signed [facility] Work Phone: 12 Lead EKGon 06-17-2025 12 Lead EKG [facility] Cardi[facility] Services [address] [place] [address] 12 Lead EKG 06/17/25 0814 MR#: [id number] Acct: [id number] Name: XIAO SHEARER Rep #: [id number] : 1955 69 From: Jan Tobias MD Attending Dr: Dr. Jakob Gill DO Status: REG CLI Ordering Dr: Jakob Gill DO Date: 06/17/25 Location: [facility] Sex: F C Admitted: Test Reason : PREOP Blood Pressure : */* mmHG Vent. Rate : 64 BPM Atrial Rate : 64 BPM P-R Int : 198 ms QRS Dur : 90 ms QT Int : 436 ms P-R-T Axes : 48 4 34 degrees QTcB Int : 449 ms Normal sinus rhythm Normal ECG Confirmed by MICHELINE ROME, JAN ([id number]), mapping editor MONICA PULIDO ([id number]) on 06/18/2025 6:49:53 AM Referred By: Jakob Gill Confirmed By: JAN TOBIAS MD 06/18/25 0649 Date Jan Tobias MD CC: Dr. Shereen Soria MD; Dr. Jakob Gill DO Signed Normal [facility] Absolute lymphocyte countOrd ered By: Jakob Gill on 06-17-2025 Lymphocytes Auto (Unsp spec) [#/Vol] 2.23 10*3/uL 0.83-4.51 [facility] Absolute neutrophil countOrd ered By: Jakob Gill on 06-17-2025 Neutrophils (Bld) [#/Vol] 4.0 10*3/uL 2.0-7.7 [facility] Anion gap in Serum or Plasma Ordered By: Jakob Gill on 06-17-2025 Anion gap [Moles/Vol] 12 mmol/L 5-15 [facility] Automated lymphocyte count a s percentage of total leukocytesOrdered By: Jakob Gill on 06-17-2025 Lymphocytes/100 WBC Auto (Unsp spec) 31.8 % - [facility] BUN/creatinine ratioOrdered By: Jakob Gill on 06-17-2025 Urea nitrogen/Creatinine [Mass ratio] 31.5 mg/mg High 09-01 [facility] Basic Metabolic Profile (BMP )on 06-17-2025 BUN/CRE 31.5 RATIO High 09-01 [facility] Comment on above: Performed By: #### L 100.0100, L500.2500 ####[facility] [address] [place], [address] Calcium [Mass/Vol] 10.4 mg/dL Normal 7.6-11.0 [facility] Comment on above: Performed By: #### L 100.0100, L500.2500 ####[facility] [address] [place], [address] Chloride [Moles/Vol] 104 mmol/L Normal 98-108 [facility] Comment on above: Performed By: #### L 100.0100, L500.2500 ####[facility] [address] [place], [address] CO2 [Moles/Vol] 25.4 mmol/L Normal 21.0-32.0 [facility] Comment on above: Performed By: #### L 100.0100, L500.2500 ####[facility] [address] [place], [address] Creatinine [Mass/Vol] 0.48 mg/dL Low 0.70-1.20 [facility] Comment on above: Performed By: #### L 100.0100, L500.2500 ####[facility] [address] [place], [address] GAP 12 Normal 5-15 [facility] Comment on above: Performed By: #### L 100.0100, L500.2500 ####[facility] [address] [place], [address] GFR/1.73 sq M.predicted among non-blacks MDRD (S/P/Bld) [Vol rate/Area] 102 mL/min/{1.73_m2} Normal >60 [facility] Comment on above: Result Comment: mL/m in/1.73m2 CKD-EPI Creatinine Equation (2020) Performed By: #### L 100.0100, L500.2500 ####[facility] [address] [place], [address] Glucose [Mass/Vol] 113 mg/dL High 70-99 [facility] Comment on above: Performed By: #### L 100.0100, L500.2500 ####[facility] [address] [place], [address] Potassium [Moles/Vol] 3.8 mmol/L Normal 3.3-5.1 [facility] Comment on above: Performed By: #### L 100.0100, L500.2500 ####[facility] [address] [place], [address] Sodium [Moles/Vol] 141 mmol/L Normal 133-145 [facility] Comment on above: Performed By: #### L 100.0100, L500.2500 ####[facility] [address] [place], [address] Urea nitrogen [Mass/Vol] 15 mg/dL Normal 4-19 [facility] Comment on above: Performed By: #### L 100.0100, L500.2500 ####[facility] [address] [place], [address] Basophil percentageOrdered B y: Jakob Gill on 06-17-2025 Basophils/100 WBC (Bld) 0.4 % 0-1 [facility] CBC W/Diff, Automatedon -2024 Absolute Lymph 2.23 X10 3/uL Normal 0.83-4.51 [facility] Comment on above: Performed By: #### M 100.6796 #### [facility] [address] [place], [address] Absolute Neut 4.0 X10 3/uL Normal 2.0-7.7 [facility] Comment on above: Performed By: #### M 100.6796 #### [facility] [address] [place], [address] Basophils/100 WBC (Bld) 0.4 % Normal 0-1 [facility] Comment on above: Performed By: #### M 100.6796 #### [facility] [address] [place], [address] Eosinophils/100 WBC (Bld) 1.1 % Normal 0-5 [facility] Comment on above: Performed By: #### M 100.7596 #### [facility] [address] [place], [address] Erythrocyte distribution width (RBC) [Ratio] 13.2 % Normal 11.6-14.6 [facility] Comment on above: Performed By: #### M 100.3096 #### [facility] [address] [place], [address] Hematocrit (Bld) [Volume fraction] 41.4 % Normal 37-47 [facility] Comment on above: Performed By: #### M 100.6196 #### [facility] [address] [place], [address] Hemoglobin (Bld) [Mass/Vol] 14.0 g/dL Normal 12.0-15.0 [facility] Comment on above: Performed By: #### M 100.6796 #### [facility] [address] [place], [address] IG% 0.400 Normal 0.0-0.9 [facility] Comment on above: Result Comment: IG% - Immature Granulocytes (promyelocytes, myelocytes and metamyelocytes) > 1% indicates that a LEFT SHIFT is Present. Performed By: #### M 100.6796 #### [facility] [address] [place], [address] Lymphocytes/100 WBC (Bld) 31.8 % Normal 19-41 [facility] Comment on above: Performed By: #### M 100.96 #### [facility] [address] [place], [address] MCH (RBC) [Entitic mass] 29.7 pg Normal 27.0-32.0 [facility] Comment on above: Performed By: #### M 100.96 #### [facility] [address] [place], [address] MCHC (RBC) [Mass/Vol] 33.8 g/dL Normal 32-36 [facility] Comment on above: Performed By: #### M 100.96 #### [facility] [address] [place], [address] MCV (RBC) [Entitic vol] 87.9 fL Normal 81-99 [facility] Comment on above: Performed By: #### M 100.6796 #### [facility] [address] [place], [address] Monocytes/100 WBC (Bld) 9.1 % Normal 0-10 [facility] Comment on above: Performed By: #### M 100.6796 #### [facility] [address] [place], [address] Neutrophils/100 WBC (Bld) 57.2 % Normal 47-70 [facility] Comment on above: Performed By: #### M 100.96 #### [facility] [address] [place], [address] Nucleated RBC (Bld) [#/Vol] 0 10*3/uL Normal 0-5 [facility] Comment on above: Performed By: #### M 100.96 #### [facility] [address] [place], [address] Platelet mean volume (Bld) [Entitic vol] 10.9 fL Normal 6.2-12.0 [facility] Comment on above: Performed By: #### M 100.96 #### [facility] [address] [place], [address] Platelets (Bld) [#/Vol] 270 10*3/uL Normal 150-450 [facility] Comment on above: Performed By: #### M 100.96 #### [facility] [address] [place], [address] RBC (Bld) [#/Vol] 4.71 10*6/uL Normal 4.2-5.4 [facility] Comment on above: Performed By: #### M 100.96 #### [facility] [address] [place], [address] RDW SD 43.0 fl Normal 35.1-43.9 [facility] Comment on above: Performed By: #### M 100.96 #### [facility] [address] [place], [address] WBC (Bld) [#/Vol] 7.0 10*3/uL Normal 4.4-11.0 [facility] Comment on above: Performed By: #### M .6795 #### [facility] [address] [place], [address] Carbon dioxide, total [Moles /volume] in Central venous bloodOrdered By: Jakob Gill on 06-17-2025 CO2 [Moles/Vol] 25.4 mmol/L 21.0-32.0 [facility] Chloride assayOrdered By: Svitlana Gill on 06-17-2025 Chloride [Moles/Vol] 104 mmol/L 98-108 [facility] Eosinophil percentageOrdered By: Jakob Gill on 06-17-2025 Eosinophils/100 WBC (Bld) 1.1 % 0-5 [facility] Erythrocyte distribution wid th ratioOrdered By: Jakob Gill on 06-17-2025 Erythrocyte distribution width (RBC) [Ratio] 13.2 % 11.6-14.6 [facility] Erythrocyte distribution wid th standard deviationOrdered By: Jakob Gill on 06-17-2025 Erythrocyte distribution width (RBC) [Ratio] 43.0 fl 35.1-43.9 [facility] Glomerular filtration rate ( GFR) estimation/1.73 sq m using serum, plasma, or whole bOrdered By: Jakob Gill on 06-17-2025 GFR/1.73 sq M.predicted among non-blacks MDRD (S/P/Bld) [Vol rate/Area] 102 mL/min/{1.73_m2} >60 [facility] Comment on above: mL/min/1.73m2 CKD-EP I Creatinine Equation (2020) Hematocrit Auto (Bld) [Volum e fraction]Ordered By: Jakob Gill on 06-17-2025 Hematocrit (Bld) [Volume fraction] 41.4 % 37-47 [facility] Hemoglobin measurementOrdere d By: Jakob Gill on 06-17-2025 Hemoglobin (Bld) [Mass/Vol] 14.0 g/dL 12.0-15.0 [facility] Immature granulocytes/100 WB C Auto (Bld)Ordered By: Jakob Gill on 06-17-2025 Immature granulocytes/100 WBC (Bld) 0.400 % 0.0-0.9 [facility] Comment on above: IG% - Immature Granu locytes (promyelocytes, myelocytes and metamyelocytes) > 1% indicates that a LEFT SHIFT is Present. MCV (mean corpuscular volume ) determinationOrdered By: Jakob Gill on 06-17-2025 MCV (RBC) [Entitic vol] 87.9 fL 81-99 [facility] Mean corpuscular hemoglobin (MCH) determinationOrdered By: Jakob Gill on 06-17-2025 MCH (RBC) [Entitic mass] 29.7 pg 27.0-32.0 [facility] Mean corpuscular hemoglobin concentration (MCHC) determinationOrdered By: Jakob Gill on 06-17-2025 MCHC (RBC) [Mass/Vol] 33.8 g/dL 32-36 [facility] Mean platelet volume determi nationOrdered By: Jakob Gill on 06-17-2025 Platelet mean volume (Bld) [Entitic vol] 10.9 fL 6.2-12.0 [facility] Monocyte percentageOrdered B y: Jakob Gill on 06-17-2025 Monocytes/100 WBC (Bld) 9.1 % 0-10 [facility] Neutrophil percentageOrdered By: Jakob Gill on 06-17-2025 Neutrophils/100 WBC (Bld) 57.2 % 47-70 [facility] Nucleated red blood cell per centageOrdered By: Jakob Gill on 06-17-2025 Nucleated RBC/100 WBC (Bld) [Ratio] 0 % 0-5 [facility] Platelet countOrdered By: Svitlana Gill on 06-17-2025 Platelets (Bld) [#/Vol] 270 10*3/uL 150-450 [facility] Potassium measurement (mass/ volume)Ordered By: Jakob Gill on 06-17-2025 Potassium (Unsp spec) [Mass/Vol] 3.8 mmol/L 3.3-5.1 [facility] RBC Auto (Bld) [#/Vol]Ordere d By: Jakob Gill on 06-17-2025 RBC (Bld) [#/Vol] 4.71 10*6/uL 4.2-5.4 [facility] Serum creatinine measurement (mass/volume)Ordered By: Jakob Gill on 06-17-2025 Creatinine [Mass/Vol] 0.48 mg/dL Low 0.70-1.20 [facility] Serum glucose measurement (m ass/volume)Ordered By: Jakob Gill on 06-17-2025 Glucose [Mass/Vol] 113 mg/dL High 70-99 [facility] Serum or plasma calcium dorian urement (mass/volume)Ordered By: Jakob Gill on 06-17-2025 Calcium [Mass/Vol] 10.4 mg/dL 7.6-11.0 [facility] Serum or plasma urea nitroge n measurement (mass/volume)Ordered By: Jakob Gill on 06-17-2025 Urea nitrogen [Mass/Vol] 15 mg/dL 4-19 [facility] Sodium levelOrdered By: Elmer Gill on 06-17-2025 Sodium [Moles/Vol] 141 mmol/L 133-145 [facility] White blood cell (WBC) count Ordered By: Jakob Gill on 06-17-2025 WBC (Bld) [#/Vol] 7.0 10*3/uL 4.4-11.0 [facility] Magnetic resonance imaging r eportOrdered By: Harvinder Newberry on 06-09-2025 Study report [facility] Imaging Services [address] [place] [address] Lower Ext Joint Only (Routine) MR#: [id number] Acct: [id number] Name: XIAO SHEARER Rep #: [id number] : 1955 F 69 From: Ines Newberry MD PCP: Dr. Shereen Soria MD Status: RE G CLI Study:Lower Ext Joint Only (Routine) Date of Exam: 06/06/25 Exam# [id number] Ordering Dr: Shereen Soria MD PROCEDURE: LOWER EXT JOINT ONLY (ROUTINE) 06/06/2025 REASON FOR EXAM: POSSIBLE CRUCIATE LIGAMENT INJURY TECHNIQUE: T1, T2, PD, LOWER EXT JOINT ONLY (left) multiplanar and multisequence images were obtained without IV contrast administration. COMPARISON: COMPARISON : March 17, 2025 x-ray FINDINGS: Bone Marrow: There is no bony contusion or osteochondral defect. Cruciate ligaments: There is a edema and attenuation in the mid and lower portion of the anterior cruciate ligament without laxity, grade 2 sprain. The posterior cruciate appears intact. Collateral ligaments: The medial collateral ligament appears intact. The lateral collateral ligament complex appears intact. Menisci: There is a horizontal tear in the body of the lateral meniscus which extends to the femoral surface, with extrusion of the anterior body. There is a degenerative signal at the root of the medial meniscus. There is a small horizontal tear in the posterior horn of the medial meniscus which extends to the tibial surface, sagittal image 10/. Cartilage: There is mild chondromalacia in the medial and lateral patellar facetwith small fissures noted. Effusion: There is a moderate joint effusion. Plica are noted in the superior joint space. MRI/Lower Ext Joint Only (Routine) IMPRESSION: There is a edema and attenuation in the mid and lower portion of the anterior cruciate ligament without laxity, grade 2 sprain. There is a horizontal tear in the body of the lateral meniscus which extends to the femoral surface, with extrusion of the anterior body. There is a degenerative signal at the root of the medial meniscus. There is a small horizontal tear in the posterior horn of the medial meniscus which extends to the tibial surface, sagittal image 10/. There is mild chondromalacia in the medial and lateral patellar facet with smallfissures noted. There is a moderate joint effusion. Plica are noted in the superior joint space Reading Location: [place] CC: Dr. Shereen Soria MD ~ Configuration Engineer: Signed [facility] Lower Ext Joint Only (Routin e)on 06-06-2025 Lower Ext Joint Only (Routine) [facility] Imaging Services [address] [place] [id number] Lower Ext Joint Only (Routine) MR#: [id number] Acct: [id number] Name: XIAO SHEARER Rep #: [id number] : 1955 F 69 From: Harvinder Newberry MD PCP: Dr. Shereen Soria MD Status: REG CLI Study: Lower Ext Joint Only (Routine) Date of Exam: 0 06/06/25 Exam# [id number] Ordering Dr: Shereen Soria MD PROCEDURE: LOWER EXT JOINT ONLY (ROUTINE) 06/06/2025 REASON FOR EXAM: POSSIBLE CRUCIATE LIGAMENT INJURY TECHNIQUE: T1, T2, PD, LOWER EXT JOINT ONLY (left) multiplanar and multisequence images were obtained without IV contrast administration. COMPARISON: COMPARISON : March 17, 2025 x-ray FINDINGS: Bone Marrow: There is no bony contusion or osteochondral defect. Cruciate ligaments: There is a edema and attenuation in the mid and lower portion of the anterior cruciate ligament without laxity, grade 2 sprain. The posterior cruciate appears intact. Collateral ligaments: The medial collateral ligament appears intact. The lateral collateral ligament complex appears intact. Menisci: There is a horizontal tear in the body of the lateral meniscus which extends to the femoral surface, with extrusion of the anterior body. There is a degenerative signal at the root of the medial meniscus. There is a small horizontal tear in the posterior horn of the medial meniscus which extends to the tibial surface, sagittal image /. 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 Effusion: There is a moderate joint effusion. Plica are noted in the superior joint space. MRI/Lower Ext Joint Only (Routine) IMPRESSION: There is a edema and attenuation in the mid and lower portion of the anterior cruciate ligament without laxity, grade 2 sprain. There is a horizontal tear in the body of the lateral meniscus which extends to the femoral surface, with extrusion of the anterior body. There is a degenerative signal at the root of the medial meniscus. There is a small horizontal tear in the posterior horn of the medial meniscus which extends to the tibial surface, sagittal image 10/. 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 There is a moderate joint effusion. Plica are noted in the superior joint space Reading Location: [place] CC: Dr. Shereen Soria MD Configuration Engineer: Signed Normal [facility] Absolute lymphocyte countOrd ered By: Shereen Soria on 03-22-2025 Lymphocytes Auto (Unsp spec) [#/Vol] 2.38 10*3/uL 0.83-4.51 [facility] Absolute neutrophil countOrd ered By: Shereen Soria on 03-22-2025 Neutrophils (Bld) [#/Vol] 2.9 10*3/uL 2.0-7.7 [facility] Anion gap in Serum or Plasma Ordered By: Shereen Soria on 03-22-2025 Anion gap [Moles/Vol] 10 mmol/L - [facility] Automated lymphocyte count a s percentage of total leukocytesOrdered By: Shereen Soria on 03-22-2025 Lymphocytes/100 WBC Auto (Unsp spec) 40.0 % [facility] BUN/creatinine ratioOrdered By: Shereen Sorai on 03-22-2025 Urea nitrogen/Creatinine [Mass ratio] 49.2 mg/mg High 09-01 [facility] Basophil percentageOrdered B y: Shereen Soria on 03-22-2025 Basophils/100 WBC (Bld) 0.5 % 0- [facility] Bilirubin Test strip Ql (U)O rdered By: Shereen Soria on 03-22-2025 Bilirubin Ql (U) Negative Negative [facility] Bilirubin, totalOrdered By: Shereen Soria on 03-22-2025 Bilirubin [Mass/Vol] 0.36 mg/dL 0.00-1.30 [facility] CBC W/Diff, Automatedon 03-13 Absolute Lymph 2.38 X10 3/uL Normal 0.83-4.51 [facility] Comment on above: Order Comment: Order Date: 11/19/24 Order Info: [id number] - CBCD Performed By: #### L 500.4050, L100.0100, L501.9520, L509.1000, L506.0400, L501.9985, L500.4100 #### [facility] [address] [place], [address] Absolute Neut 2.9 X10 3/uL Normal 2.0-7.7 [facility] Comment on above: Order Comment: Order Date: 11/19/24 Order Info: [id number] - CBCD Performed By: #### L 500.4050, L100.0100, L501.9520, L509.1000, L506.0400, L501.9985, L500.4100 #### [facility] [address] [place], [address] Basophils/100 WBC (Bld) 0.5 % Normal 0-1 [facility] Comment on above: Order Comment: Order Date: 11/19/24 Order Info: [id number] - CBCD Performed By: #### L 500.4050, L100.0100, L501.9520, L509.1000, L506.0400, L501.9985, L500.4100 #### [facility] [address] [place], [address] Eosinophils/100 WBC (Bld) 1.3 % Normal 0-5 [facility] Comment on above: Order Comment: Order Date: 11/19/24 Order Info: [id number] - CBCD Performed By: #### L 500.4050, L100.0100, L501.9520, L509.1000, L506.0400, L501.9985, L500.4100 #### [facility] [address] [place], [address] Erythrocyte distribution width (RBC) [Ratio] 13.6 % Normal 11.6-14.6 [facility] Comment on above: Order Comment: Order Date: 11/19/24 Order Info: [id number] - CBCD Performed By: #### L 500.4050, L100.0100, L501.9520, L509.1000, L506.0400, L501.9985, L500.4100 #### [facility] [address] [place], [address] Hematocrit (Bld) [Volume fraction] 44.4 % Normal 37-47 [facility] Comment on above: Order Comment: Order Date: 11/19/24 Order Info: [id number] - CBCD Performed By: #### L 500.4050, L100.0100, L501.9520, L509.1000, L506.0400, L501.9985, L500.4100 #### [facility] [address] [place], [address] Hemoglobin (Bld) [Mass/Vol] 14.7 g/dL Normal 12.0-15.0 [facility] Comment on above: Order Comment: Order Date: 11/19/24 Order Info: [id number] - CBCD Performed By: #### L 500.4050, L100.0100, L501.9520, L509.1000, L506.0400, L501.9985, L500.4100 #### [facility] [address] [place], [address] IG% 0.000 Normal 0.0-0.9 [facility] Comment on above: Order Comment: Order Date: 11/19/24 Order Info: [id number] - CBCD Result Comment: IG% - Immature Granulocytes (promyelocytes, myelocytes and metamyelocytes) > 1% indicates that a LEFT SHIFT is Present. Performed By: #### L 500.4050, L100.0100, L501.9520, L509.1000, L506.0400, L501.9985, L500.4100 #### [facility] [address] [place], [address] Lymphocytes/100 WBC (Bld) 40.0 % Normal 19-41 [facility] Comment on above: Order Comment: Order Date: 11/19/24 Order Info: [id number] - CBCD Performed By: #### L 500.4050, L100.0100, L501.9520, L509.1000, L506.0400, L501.9985, L500.4100 #### [facility] [address] [place], [address] MCH (RBC) [Entitic mass] 29.5 pg Normal 27.0-32.0 [facility] Comment on above: Order Comment: Order Date: 11/19/24 Order Info: [id number] - CBCD Performed By: #### L 500.4050, L100.0100, L501.9520, L509.1000, L506.0400, L501.9985, L500.4100 #### [facility] [address] [place], [address] MCHC (RBC) [Mass/Vol] 33.1 g/dL Normal 32-36 [facility] Comment on above: Order Comment: Order Date: 11/19/24 Order Info: [id number] - CBCD Performed By: #### L 500.4050, L100.0100, L501.9520, L509.1000, L506.0400, L501.9985, L500.4100 #### [facility] [address] [place], [address] MCV (RBC) [Entitic vol] 89.2 fL Normal 81-99 [facility] Comment on above: Order Comment: Order Date: 11/19/24 Order Info: [id number] - CBCD Performed By: #### L 500.4050, L100.0100, L501.9520, L509.1000, L506.0400, L501.9985, L500.4100 #### [facility] [address] [place], [address] Monocytes/100 WBC (Bld) 9.1 % Normal 0-10 [facility] Comment on above: Order Comment: Order Date: 11/19/24 Order Info: [id number] - CBCD Performed By: #### L 500.4050, L100.0100, L501.9520, L509.1000, L506.0400, L501.9985, L500.4100 #### [facility] [address] [place], [address] Neutrophils/100 WBC (Bld) 49.1 % Normal 47-70 [facility] Comment on above: Order Comment: Order Date: 11/19/24 Order Info: [id number] - CBCD Performed By: #### L 500.4050, L100.0100, L501.9520, L509.1000, L506.0400, L501.9985, L500.4100 #### [facility] [address] [place], [address] Nucleated RBC (Bld) [#/Vol] 0 10*3/uL Normal 0-5 [facility] Comment on above: Order Comment: Order Date: 11/19/24 Order Info: [id number]- - CBCD Performed By: #### L 500.4050, L100.0100, L501.9520, L509.1000, L506.0400, L501.9985, L500.4100 #### [facility] [address] [place], [address] Platelet mean volume (Bld) [Entitic vol] 11.3 fL Normal 6.2-12.0 [facility] Comment on above: Order Comment: Order Date: 11/19/24 Order Info: [id number] - CBCD Performed By: #### L 500.4050, L100.0100, L501.9520, L509.1000, L506.0400, L501.9985, L500.4100 #### [facility] [address] [place], [address] Platelets (Bld) [#/Vol] 279 10*3/uL Normal 150-450 [facility] Comment on above: Order Comment: Order Date: 11/19/24 Order Info: [id number] - CBCD Performed By: #### L 500.4050, L100.0100, L501.9520, L509.1000, L506.0400, L501.9985, L500.4100 #### [facility] [address] [place], [address] RBC (Bld) [#/Vol] 4.98 10*6/uL Normal 4.2-5.4 [facility] Comment on above: Order Comment: Order Date: 11/19/24 Order Info: [id number] - CBCD Performed By: #### L 500.4050, L100.0100, L501.9520, L509.1000, L506.0400, L501.9985, L500.4100 #### [facility] [address] [place], [place], [id number] RDW SD 44.3 fl High 35.1-43.9 [facility] Comment on above: Order Comment: Order Date: 11/19/24 Order Info: [id number] - CBCD Performed By: #### L 500.4050, L100.0100, L501.9520, L509.1000, L506.0400, L501.9985, L500.4100 #### [facility] [address] [place], [place], [id number] WBC (Bld) [#/Vol] 6.0 10*3/uL Normal 4.4-11.0 [facility] Comment on above: Order Comment: Order Date: 11/19/24 Order Info: [id number] - CBCD Performed By: #### L 500.4050, L100.0100, L501.9520, L509.1000, L506.0400, L501.9985, L500.4100 #### [facility] [address] [place], [place], [id number] Calculated very low density lipoprotein (VLDL) cholesterol measurementOrdered By: Shereen Soria on 03-22-2025 Calculated very low density lipoprotein (VLDL) cholesterol measurement 16 mg/dL 5-40 [facility] Carbon dioxide, total [Moles /volume] in Central venous bloodOrdered By: Shereen Soria on 03-22-2025 CO2 [Moles/Vol] 26.4 mmol/L 21.0-32.0 [facility] Chloride assayOrdered By: Joann Soria on 03-22-2025 Chloride [Moles/Vol] 107 mmol/L 98-108 [facility] Comprehensive Metabolic Prof ilon 03-22-2025 Albumin [Mass/Vol] 4.5 g/dL Normal 3.4-4.8 [facility] Comment on above: Order Comment: Order Date: 11/19/24Order Info: [id number] - CMPOrder Info: [id number] - LIPIDOrder Info: [id number] - TSHOrder Info: [id number] - T4F Performed By: #### L 500.4050, L100.0100, L501.9520, L509.1000, L506.0400, L501.9985, L500.4100 ####[facility] [address] [place], [address] Albumin/Globulin [Mass ratio] 1.7 {ratio} Normal 0.9-2.4 [facility] Comment on above: Order Comment: Order Date: 11/19/24Order Info: [id number] - CMPOrder Info: [id number] - LIPIDOrder Info: 6-3 - TSHOrder Info: [id number] - T4F Performed By: #### L 500.4050, L100.0100, L501.9520, L509.1000, L506.0400, L501.9985, L500.4100 ####[facility] [address] [place], [address] ALK PHOS 100 U/L Normal 35-104 [facility] Comment on above: Order Comment: Order Date: 11/19/24Order Info: 86-1 - CMPOrder Info: [id number] - LIPIDOrder Info: [id number] - TSHOrder Info: [id number] - T4F Performed By: #### L 500.4050, L100.0100, L501.9520, L509.1000, L506.0400, L501.9985, L500.4100 ####[facility] [address] [place], [address] ALT [Catalytic activity/Vol] 16 U/L Normal <=34 [facility] Comment on above: Order Comment: Order Date: 11/19/24Order Info: 86-1 - CMPOrder Info: [id number] - LIPIDOrder Info: [id number] - TSHOrder Info: [id number] - T4F Performed By: #### L 500.4050, L100.0100, L501.9520, L509.1000, L506.0400, L501.9985, L500.4100 ####[facility] [address] [place], [address] AST [Catalytic activity/Vol] 20 U/L Normal <=31 [facility] Comment on above: Order Comment: Order Date: 11/19/24Order Info: 86-1 - CMPOrder Info: [id number] - LIPIDOrder Info: 3 - TSHOrder Info: [id number] - T4F Performed By: #### L 500.4050, L100.0100, L501.9520, L509.1000, L506.0400, L501.9985, L500.4100 ####[facility] [address] [place], [address] Bilirubin [Mass/Vol] 0.36 mg/dL Normal 0.00-1.30 [facility] Comment on above: Order Comment: Order Date: 11/19/24Order Info: 86-1 - CMPOrder Info: [id number] - LIPIDOrder Info: [id number] - TSHOrder Info: [id number] - T4F Performed By: #### L 500.4050, L100.0100, L501.9520, L509.1000, L506.0400, L501.9985, L500.4100 ####[facility] [address] [place], [address] BUN/CRE 49.2 RATIO High 10-20 [facility] Comment on above: Order Comment: Order Date: 11/19/24Order Info: 86-1 - CMPOrder Info: [id number] - LIPIDOrder Info: [id number] - TSHOrder Info: [id number] - T4F Performed By: #### L 500.4050, L100.0100, L501.9520, L509.1000, L506.0400, L501.9985, L500.4100 ####[facility] [address] [place], [place], [address] Calcium [Mass/Vol] 10.9 mg/dL Normal 7.6-11.0 [facility] Comment on above: Order Comment: Order Date: 11/19/24Order Info: [id number] - CMPOrder Info: [id number] - LIPIDOrder Info: [id number] - TSHOrder Info: [id number] - T4F Performed By: #### L 500.4050, L100.0100, L501.9520, L509.1000, L506.0400, L501.9985, L500.4100 ####[facility] [address] [place], [place], [id number] Chloride [Moles/Vol] 107 mmol/L Normal 98-108 [facility] Comment on above: Order Comment: Order Date: 11/19/24Order Info: [id number] - CMPOrder Info: [id number] - LIPIDOrder Info: 3 - TSHOrder Info: [id number] - T4F Performed By: #### L 500.4050, L100.0100, L501.9520, L509.1000, L506.0400, L501.9985, L500.4100 ####[facility] [address] [place], [place], [address]) CO2 [Moles/Vol] 26.4 mmol/L Normal 21.0-32.0 [facility] Comment on above: Order Comment: Order Date: 11/19/24Order Info: [id number] - CMPOrder Info: [id number] - LIPIDOrder Info: [id number] - TSHOrder Info: 3024-7 - T4F Performed By: #### L 500.4050, L100.0100, L501.9520, L509.1000, L506.0400, L501.9985, L500.4100 ####[facility] [address] [place], [place], [id number] Creatinine [Mass/Vol] 0.49 mg/dL Low 0.70-1.20 [facility] Comment on above: Order Comment: Order Date: 11/19/24Order Info: [id number] - CMPOrder Info: [id number] - LIPIDOrder Info: [id number] - TSHOrder Info: 3027 - T4F Performed By: #### L 500.4050, L100.0100, L501.9520, L509.1000, L506.0400, L501.9985, L500.4100 ####[facility] [address] [place], [place], [phone] GAP 10 Normal 5-15 [facility] Comment on above: Order Comment: Order Date: 11/19/24Order Info: 86- - CMPOrder Info: [id number] - LIPIDOrder Info: [id number] - TSHOrder Info: 3027 - T4F Performed By: #### L 500.4050, L100.0100, L501.9520, L509.1000, L506.0400, L501.9985, L500.4100 ####[facility] [address] [place], [place], [phone] GFR/1.73 sq M.predicted among non-blacks MDRD (S/P/Bld) [Vol rate/Area] 102 mL/min/{1.73_m2} Normal >60 [facility] Comment on above: Order Comment: Order Date: 11/19/24Order Info: [id number] - CMPOrder Info: [id number] - LIPIDOrder Info: [id number] - TSHOrder Info: 3027 - T4F Result Comment: mL/m in/1.73m2 CKD-EPI Creatinine Equation (2020) Performed By: #### L 500.4050, L100.0100, L501.9520, L509.1000, L506.0400, L501.9985, L500.4100 ####[facility] [address] [place], [address] Globulin (S) [Mass/Vol] 2.7 g/dL Normal 2.2-4.2 [facility] Comment on above: Order Comment: Order Date: 11/19/24Order Info: [id number] - CMPOrder Info: [id number] - LIPIDOrder Info: [id number] - TSHOrder Info: [id number] - T4F Performed By: #### L 500.4050, L100.0100, L501.9520, L509.1000, L506.0400, L501.9985, L500.4100 ####[facility] [address] [place], [address] Glucose [Mass/Vol] 117 mg/dL High 70-99 [facility] Comment on above: Order Comment: Order Date: 11/19/24Order Info: 86-1 - CMPOrder Info: [id number] - LIPIDOrder Info: 3 - TSHOrder Info: [id number] - T4F Performed By: #### L 500.4050, L100.0100, L501.9520, L509.1000, L506.0400, L501.9985, L500.4100 ####[facility] [address] [place], [address] Potassium [Moles/Vol] 5.1 mmol/L Normal 3.3-5.1 [facility] Comment on above: Order Comment: Order Date: 11/19/24Order Info: 86-1 - CMPOrder Info: [id number] - LIPIDOrder Info: [id number] - TSHOrder Info: [id number] - T4F Performed By: #### L 500.4050, L100.0100, L501.9520, L509.1000, L506.0400, L501.9985, L500.4100 ####[facility] [address] [place], [address] Sodium [Moles/Vol] 143 mmol/L Normal 133-145 [facility] Comment on above: Order Comment: Order Date: 11/19/24Order Info: [id number] - CMPOrder Info: [id number] - LIPIDOrder Info: [id number] - TSHOrder Info: 7 - T4F Performed By: #### L 500.4050, L100.0100, L501.9520, L509.1000, L506.0400, L501.9985, L500.4100 ####[facility] [address] [place], [address] T PROT 7.2 g/dL Normal 5.9-8.4 [facility] Comment on above: Order Comment: Order Date: 11/19/24Order Info: [id number]- - CMPOrder Info: [id number] - LIPIDOrder Info: [id number] - TSHOrder Info: [id number] - T4F Performed By: #### L 500.4050, L100.0100, L501.9520, L509.1000, L506.0400, L501.9985, L500.4100 ####[facility] [address] [place], [place], [id number] Urea nitrogen [Mass/Vol] 24 mg/dL High 4-19 [facility] Comment on above: Order Comment: Order Date: 11/19/24Order Info: [id number]- - CMPOrder Info: [id number] - LIPIDOrder Info: [id number] - TSHOrder Info: 7 - T4F Performed By: #### L 500.4050, L100.0100, L501.9520, L509.1000, L506.0400, L501.9985, L500.4100 ####[facility] [address] [place], [address] Eosinophil percentageOrdered By: Shereen Soria on 03-22-2025 Eosinophils/100 WBC (Bld) 1.3 % 0-5 [facility] Erythrocyte distribution wid th ratioOrdered By: Shereen Soria on 03-22-2025 Erythrocyte distribution width (RBC) [Ratio] 13.6 % 11.6-14.6 [facility] Erythrocyte distribution wid th standard deviationOrdered By: Shereen Soria on 03-22-2025 Erythrocyte distribution width (RBC) [Ratio] 44.3 fl High 35.1-43.9 [facility] Glomerular filtration rate ( GFR) estimation/1.73 sq m using serum, plasma, or whole bOrdered By: Shereen Soria on 03-22-2025 GFR/1.73 sq M.predicted among non-blacks MDRD (S/P/Bld) [Vol rate/Area] 102 mL/min/{1.73_m2} >60 [facility] Comment on above: mL/min/1.73m2 CKD-EP I Creatinine Equation (2020) Hematocrit Auto (Bld) [Volum e fraction]Ordered By: Shereen Soria on 03-22-2025 Hematocrit (Bld) [Volume fraction] 44.4 % 37-47 [facility] Hemoglobin A1con 03-22-2025 HbA1c (Bld) [Mass fraction] 6.2 % High <=5.6 [facility] Comment on above: Order Comment: Order Date: 11/19/24Order Info: [id number] - A1C Result Comment: Norm al < 5.7 % Prediabetic 5.7 - 6.4 % Diabetic >or= 6.5 % Please note range changes. Performed By: #### L 500.4050, L100.0100, L501.9520, L509.1000, L506.0400, L501.9985, L500.4100 ####[facility] [address] [place], [address] Hemoglobin A1c percentageOrd ered By: Shereen Soria on 03-22-2025 HbA1c (Bld) [Mass fraction] 6.2 % High <5.7 [facility] Comment on above: Normal < 5.7 % Predi abetic 5.7 - 6.4 % Diabetic >or= 6.5 % Please note range changes. Hemoglobin measurementOrdere d By: Shereen Soria on 03-22-2025 Hemoglobin (Bld) [Mass/Vol] 14.7 g/dL 12.0-15.0 [facility] Immature granulocytes/100 WB C Auto (Bld)Ordered By: Shereen Soria on 03-22-2025 Immature granulocytes/100 WBC (Bld) 0.000 % 0.0-0.9 [facility] Comment on above: IG% - Immature Granu locytes (promyelocytes, myelocytes and metamyelocytes) > 1% indicates that a LEFT SHIFT is Present. Ketones Test strip Ql (U)Ord ered By: Shereen Soria on 03-22-2025 Ketones Ql (U) Negative Negative [facility] LDL calc ser/plasOrdered By: Shereen Soria on 03-22-2025 Cholesterol in LDL [Mass/Vol] 128 mg/dL [facility] Comment on above: Nacskmsqjg=217-973 m g/dL & Higher Tlfa=632 mg/dL or greater Laboratory - Chemistry and C hemistry - challengeOrdered By: Shereen Soria on 03-22-2025 AST [Catalytic activity/Vol] 20 U/L <32 [facility] Lipid Profileon 03-22-2025 CHOL:HDL 4.02 Normal [facility] Comment on above: Order Comment: Order Date: 11/19/24Order Info: [id number] - CMPOrder Info: [id number] - LIPIDOrder Info: [id number] - TSHOrder Info: [id number] - T4F Performed By: #### L 500.4050, L100.0100, L501.9520, L509.1000, L506.0400, L501.9985, L500.4100 ####[facility] [address] [place], [place], [id number] Cholesterol [Mass/Vol] 191 mg/dL Normal <=200 [facility] Comment on above: Order Comment: Order Date: 11/19/24Order Info: [id number] - CMPOrder Info: [id number] - LIPIDOrder Info: [id number] - TSHOrder Info: [id number] - T4F Result Comment: Chol esterol level, Desirable <200 mg/dL Borderline high cholesterol 200-239 mg/dL High cholesterol >=240 mg/dL Recommendations of the NCEP Adult Treatment Panel for the following risk-cutoff thresholds for the [place] population. Performed By: #### L 500.4050, L100.0100, L501.9520, L509.1000, L506.0400, L501.9985, L500.4100 ####[facility] [address] [place], [address] Cholesterol in HDL [Mass/Vol] 48 mg/dL Normal [facility] Comment on above: Order Comment: Order Date: 11/19/24Order Info: [id number] - CMPOrder Info: [id number] - LIPIDOrder Info: [id number] - TSHOrder Info: [id number] T4F Result Comment: Mariam onal Cholesterol Education Program (NCEP) guidelines: <40 mg/dL: Low HDL-cholesterol (major risk factor for CHD) >= 60 mg/dL: High HDL-cholesterol (negative risk factor for CHD) HDL-cholesterol is affected by a number of factors, e.g. smoking, exercise, hormones, sex and age. Performed By: #### L 500.4050, L100.0100, L501.9520, L509.1000, L506.0400, L501.9985, L500.4100 ####[facility] [address] [place], [address] Cholesterol in LDL [Mass/Vol] 128 mg/dL Normal [facility] Comment on above: Order Comment: Order Date: 11/19/24Order Info: [id number] - CMPOrder Info: [id number] - LIPIDOrder Info: [id number] - TSHOrder Info: [id number] Result Comment: Bord usnnqf=235-311 mg/dL Higher Kubq=310 mg/dL or greater Performed By: #### L 500.4050, L100.0100, L501.9520, L509.1000, L506.0400, L501.9985, L500.4100 ####[facility] [address] [place], [address] Cholesterol in VLDL [Mass/Vol] 16 mg/dL Normal 5-40 [facility] Comment on above: Order Comment: Order Date: 11/19/24Order Info: [id number] - CMPOrder Info: [id number] - LIPIDOrder Info: [id number] - TSHOrder Info: [id number] - T4F Performed By: #### L 500.4050, L100.0100, L501.9520, L509.1000, L506.0400, L501.9985, L500.4100 ####[facility] [address] [place], [place], [id number] Triglyceride [Mass/Vol] 78 mg/dL Normal [facility] Comment on above: Order Comment: Order Date: 11/19/24Order Info: [id number] - CMPOrder Info: [id number] - LIPIDOrder Info: [id number] - TSHOrder Info: [id number] - T4F Result Comment: The drugs N-Acetylcysteine and Metamizole may falsely depress this assay. Normal range: <150 mg/dL Borderline High: 150-199 mg/dL High: 200-499 mg/dL Very High: >500 mg/dL Performed By: #### L 500.4050, L100.0100, L501.9520, L509.1000, L506.0400, L501.9985, L500.4100 ####[facility] [address] [place], [place], [id number] MCV (mean corpuscular volume ) determinationOrdered By: Shereen Soria on 03-22-2025 MCV (RBC) [Entitic vol] 89.2 fL 81-99 [facility] Mean corpuscular hemoglobin (MCH) determinationOrdered By: Shereen Soria on 03-22-2025 MCH (RBC) [Entitic mass] 29.5 pg 27.0-32.0 [facility] Mean corpuscular hemoglobin concentration (MCHC) determinationOrdered By: Shereen Soria on 03-22-2025 MCHC (RBC) [Mass/Vol] 33.1 g/dL 32-36 [facility] Mean platelet volume determi nationOrdered By: Shereen Soria on 03-22-2025 Platelet mean volume (Bld) [Entitic vol] 11.3 fL 6.2-12.0 [facility] Microscopic analysis of urin e for red blood cells (RBC)Ordered By: Shereen Soria on 03-22-2025 Microscopic analysis of urine for red blood cells (RBC) 0 SEEN /hpf 0-5 [facility] Monocyte percentageOrdered B y: Shereen Soria on 03-22-2025 Monocytes/100 WBC (Bld) 9.1 % 0-10 [facility] Mucus LM Ql (Urine sed)Order ed By: Shereen Soria on 03-22-2025 Mucus Ql (Urine sed) 0 SEEN /hpf [facility] Neutrophil percentageOrdered By: Shereen Soria on 03-22-2025 Neutrophils/100 WBC (Bld) 49.1 % 47-70 [facility] Nitrite Test strip Ql (U)Ord ered By: Shereen Soria on 03-22-2025 Nitrite Ql (U) Negative Negative [facility] Nucleated red blood cell per centageOrdered By: Shereen Soria on 03-22-2025 Nucleated RBC/100 WBC (Bld) [Ratio] 0 % 0-5 [facility] PTHINon 03-22-2025 PTH 69 pg/mL High 11-61 [facility] Comment on above: Order Comment: Order Date: 11/19/24 Order Info: [id number] - PTHIN Performed By: #### L 500.4050, L100.0100, L501.9520, L509.1000, L506.0400, L501.9985, L500.4100 #### [facility] [address] [place] [address], [id number] Platelet countOrdered By: Joann Soria on 03-22-2025 Platelets (Bld) [#/Vol] 279 10*3/uL 150-450 [facility] Potassium measurement (mass/ volume)Ordered By: Shereen Soria on 03-22-2025 Potassium (Unsp spec) [Mass/Vol] 5.1 mmol/L 3.3-5.1 [facility] Protein Test strip Ql (U)Ord ered By: Shereen Soria on 03-22-2025 Protein Ql (U) 30 mg/dl High Negative [facility] RBC Auto (Bld) [#/Vol]Ordere d By: Shereen Soria on 03-22-2025 RBC (Bld) [#/Vol] 4.98 10*6/uL 4.2-5.4 [facility] Screening total cholesterol/ high density lipoprotein (HDL) cholesterol ratioOrdered By: Shereen Soria on 03-22-2025 Cholesterol.total/Chol esterol in HDL [Mass ratio] 4.02 {ratio} [facility] Serum creatinine measurement (mass/volume)Ordered By: Shereen Soria on 03-22-2025 Creatinine [Mass/Vol] 0.49 mg/dL Low 0.70-1.20 [facility] Serum globulin measurementOr dered By: Shereen Soria on 03-22-2025 Globulin (S) [Mass/Vol] 2.7 g/dL 2.2-4.2 [facility] Serum glucose measurement (m ass/volume)Ordered By: Shereen Soria on 03-22-2025 Glucose [Mass/Vol] 117 mg/dL High 70-99 [facility] Serum or plasma alanine gillis otransferase (ALT) measurementOrdered By: Shereen Soria on 03-22-2025 ALT [Catalytic activity/Vol] 16 U/L <35 [facility] Serum or plasma albumin dorian urement (mass/volume)Ordered By: Shereen Soria on 03-22-2025 Albumin [Mass/Vol] 4.5 g/dL 3.4-4.8 [facility] Serum or plasma albumin/glob ulin mass ratioOrdered By: Shereen Soria on 03-22-2025 Albumin/Globulin [Mass ratio] 1.7 {ratio} 0.9-2.4 [facility] Serum or plasma alkaline beckie sphatase measurementOrdered By: Shereen Soria on 03-22-2025 ALP [Catalytic activity/Vol] 100 U/L 35-104 [facility] Serum or plasma calcium dorian urement (mass/volume)Ordered By: Shereen Soria on 03-22-2025 Calcium [Mass/Vol] 10.9 mg/dL 7.6-11.0 [facility] Serum or plasma cholesterol in HDL measurement (mass/volume)Ordered By: Shereen Soria on 03-22-2025 Cholesterol in HDL [Mass/Vol] 48 mg/dL >40 [facility] Comment on above: National Cholesterol Education Program (NCEP) guidelines:<40 mg/dL: Low HDL-cholesterol (major risk factor for CHD)>= 60 mg/dL: High HDL-cholesterol (negative risk factor for CHD)HDL-cholesterol is affected by a number of factors, e.g. smoking, exercise, hormones, sex and age. Serum or plasma cholesterol measurement (mass/volume)Ordered By: Shereen Soria on 03-22-2025 Cholesterol [Mass/Vol] 191 mg/dL <201 [facility] Comment on above: Cholesterol level, D esirable <200 mg/dLBorderline high cholesterol 200-239 mg/dLHigh cholesterol >=240 mg/dLRecommendations of the NCEP Adult Treatment Panel for the following risk-cutoff thresholds for the [place] population. Serum or plasma urea nitroge n measurement (mass/volume)Ordered By: Shereen Soria on 03-22-2025 Urea nitrogen [Mass/Vol] 24 mg/dL High 4-19 [facility] Sodium levelOrdered By: Shereen Soria on 03-22-2025 Sodium [Moles/Vol] 143 mmol/L 133-145 [facility] Squamous epithelial cells de tection in urine sediment by light microscopyOrdered By: Shereen Soria on 03-22-2025 Epithelial cells.squamous LM Ql (Urine sed) 0-5 SEEN /hpf 5-10 [facility] T4 Free Directon 03-22-2025 T4 FREE DIRECT 1.40 ng/dL Normal 0.76-1.46 [facility] Comment on above: Order Comment: Order Date: 11/19/24Order Info: [id number] - CMPOrder Info: [id number] - LIPIDOrder Info: [id number] - TSHOrder Info: [id number] - T4F Performed By: #### L 500.4050, L100.0100, L501.9520, L509.1000, L506.0400, L501.9985, L500.4100 ####[facility] [address] [place], [address] T4 freeOrdered By: Shereen roberson on 03-22-2025 Free T4 [Mass/Vol] 1.40 ng/dL 0.76-1.46 [facility] TSH DL <= 0.005 mIU/L QnOrde red By: Shereen Soria on 03-22-2025 TSH Qn 0.289 uIU/mL Low 0.300-4.200 [facility] Thyroid Stim Hormone (TSH)on 03-22-2025 TSH 0.289 uIU/mL Low 0.300-4.200 [facility] Comment on above: Order Comment: Order Date: 11/19/24Order Info: [id number] - CMPOrder Info: [id number] - LIPIDOrder Info: [id number] - TSHOrder Info: [id number] - T4F Performed By: #### L 500.4050, L100.0100, L501.9520, L509.1000, L506.0400, L501.9985, L500.4100 ####[facility] [address] [place], [address] Total proteinOrdered By: Michael Soria on 03-22-2025 Protein [Mass/Vol] 7.2 g/dL 5.9-8.4 [facility] Triglycerides measurementOrd ered By: Shereen Soria on 03-22-2025 Triglyceride [Mass/Vol] 78 mg/dL <199 [facility] Comment on above: The drugs N-Acetylcy steine and Metamizole may falsely depress this assay. Normal range: <150 mg/dLBorderline High: 150-199 mg/dLHigh: 200-499 mg/dLVery High: >500 mg/dL Urinalysis, Completeon 03-22 EPI,SQUAMOUS 0-5 SEEN Normal 5-10 [facility] Comment on above: Order Comment: CLEAN CATCH Performed By: #### L 400.0001, L506.1001 #### [facility] [address], [address] WBC 0-5 SEEN Normal 0-5 [facility] Comment on above: Order Comment: CLEAN CATCH Performed By: #### L 400.0001, L506.1001 #### [facility] [address] [place], [address] BACTERIA 0 SEEN Normal None Seen [facility] Comment on above: Order Comment: CLEAN CATCH Performed By: #### L 400.0001, L506.1001 #### [facility] [address] [place], [address] Mucus Ql (Urine sed) 0 SEEN Normal [facility] Comment on above: Order Comment: CLEAN CATCH Performed By: #### L 400.0001, L506.1001 #### [facility] [address] [place], [address] RBC 0 SEEN Normal 0-5 [facility] Comment on above: Order Comment: CLEAN CATCH Performed By: #### L 400.0001, L506.1001 #### [facility] [address] [place], [address] Urine clarityOrdered By: Michael Soria on 03-22-2025 Clarity (U) Clear Clear [facility] Urine color determinationOrd ered By: Shereen Soria on 03-22-2025 Color (U) Yellow Yellow [facility] Urine glucose detectionOrder ed By: Shereen Soria on 03-22-2025 Glucose Ql (U) Normal mg/dl Normal [facility] Urine leukocyte esterase det ection by dipstickOrdered By: Shereen Soria on 03-22-2025 Leukocyte esterase Test strip Ql (U) Negative Negative [facility] Urine pHOrdered By: Shereen botohe on 03-22-2025 pH (U) 6.0 [pH] 5.0 - 8.0 [facility] Urine sediment bacteria coun t by microscopy (number/high power field)Ordered By: Shereen Soria on 03-22-2025 Bacteria LM.HPF (Urine sed) [#/Area] 0 /[HPF] None Seen [facility] Urine specific gravity measu rementOrdered By: Shereen Soria on 03-22-2025 Specific gravity (U) [Rel density] 1.025 1.002-1.030 [facility] Urine urobilinogen measureme ntOrdered By: Shereen Soria on 03-22-2025 Urobilinogen Ql (U) Normal mg/dl Normal [facility] Vitamin D,25 Hydroxyon 03-22 Vitamin D 25-OH 50.3 ng/mL Normal 30-100 [facility] Comment on above: Order Comment: Order Date: 11/19/24 Order Info: [id number] - CMP Order Info: [id number] - LIPID Order Info: [id number] - TSH Order Info: [id number] - T4F Result Comment: Kavita min D Status Deficiency: <20 ng/mL (50nmol/L) Insufficiency: 20-30 ng/mL (50-75 nmol/L) Sufficiency: 30-100 ng/mL (75-250 nmol/L) Toxicity: >100 ng/mL (>250 nmol/L) Performed By: #### L 400.0001, L506.1001 #### [facility] [address] [place], [address] White blood cell (WBC) count Ordered By: Shereen Soria on 03-22-2025 WBC (Bld) [#/Vol] 6.0 10*3/uL 4.4-11.0 [facility] White blood cell countOrdere d By: Shereen Soria on 03-22-2025 White blood cell count 0-5 SEEN /hpf 0-5 [facility] Knee 4 or More Viewson 03-17 Knee 4 or More Views [facility] [address] [place], [place] [id number] Knee 4 or More Views MR#: [id number] Acct: [id number] Name: XIAO SHEARER Rep #: [id number] : 1955 F 69 From: Surendra [place] MD PCP: Dr. Shereen Soria MD Status: REG CLI Study: Knee 4 or More Views Date of Exam: 03/17/25 Exam# [id number] Ordering Dr: Elier Phan PROCEDURE: KNEE 4 OR MORE VIEWS 03/17/2025 REASON FOR EXAM: LEFT KNEE PAIN TECHNIQUE: Four views left knee COMPARISON: 10/06/2023 FINDINGS: No fracture, dislocation or joint effusion. The joint spaces appear within limits. RAD/Knee 4 or More Views IMPRESSION: No fracture, dislocation or joint effusion. Reading Location: [id number] CC: Dr. Elier Phan MD; Dr. Shereen Soria MD Configuration Engineer: Signed Normal [facility] CDIFF (PCR)on 01-02-2025 CDIFF A positive C. diffic ile molecular test does not differentiate between an active C. difficile infection and C. difficile colonization. Use clinical judgement and paired toxin/antigen testing to identify true infection and need for treatment. C diff DNA Spec Ql SPENCER+probe Reference Range: Negative Unbound GeneXpert: polymerase chain reaction (PCR) 027 027 NAP1-B1 Presumptive Negative *for epidemiolologic???use C. Diff PCR Negative- No toxigenic C. Diff Detected Normal [facility] Comment on above: Performed By: #### M 100.6796 #### [facility] [address] [place], [address] Clostridium difficile detect ion by polymerase chain reactionOrdered By: Shereen Soria on 01-02-2025 C. difficile DNA SPENCER+probe Ql (Unsp spec) [facility] Parathyroid Scanon Parathyroid scan [facility] Imaging Services [address] [place], [place] [address] Parathyroid Scan MR#: [id number] Acct: [id number] Name: XIAO SHEARER Rep #: [id number] : 1955 F 69 From: Cal maldonado MD PCP: Dr. Shereen Soria MD Status: REG CLI Study: Parathyroid Scan Date of Exam: 12/16/24 Exam# [id number] Ordering Dr: Shereen Soria MD PROCEDURE: PARATHYROID SCAN REASON FOR EXAM: Status post thyroid resection. TECHNIQUE: Nuclear medicine parathyroid imaging performed following intravenous technetium-99m sestamibi administration. Anterior imaging of the neck through 2 hours. RADIOPHARMACEUTICAL: 27.7 mCi of technetium labeled sestamibi COMPARISON: None. FINDINGS: Status post thyroid resection. No abnormal residual uptake identified to suggest abnormal parathyroid tissue. NM/Parathyroid Scan IMPRESSION: NORMAL NUCLEAR MEDICINE PARATHYROID SCAN. Reading Location: [place] [address] CC: Dr. Shereen Soria MD Configuration Engineer: Signed Normal [facility] CBC W/Diff, Automatedon -0 Absolute Lymph 2.94 X10 3/uL Normal 0.83-4.51 [facility] Comment on above: Performed By: #### L 500.4050, L100.0100, L400.0001, L501.9985, L501.9520, L506.0400, L500.4100 ####[facility] [address] [place], [address] Absolute Neut 3.1 X10 3/uL Normal 2.0-7.7 [facility] Comment on above: Performed By: #### L 500.4050, L100.0100, L400.0001, L501.9985, L501.9520, L506.0400, L500.4100 ####[facility] [address] [place], [address] Basophils/100 WBC (Bld) 0.4 % Normal 0-1 [facility] Comment on above: Performed By: #### L 500.4050, L100.0100, L400.0001, L501.9985, L501.9520, L506.0400, L500.4100 ####[facility] [address] [place], [address] Eosinophils/100 WBC (Bld) 1.3 % Normal 0-5 [facility] Comment on above: Performed By: #### L 500.4050, L100.0100, L400.0001, L501.9985, L501.9520, L506.0400, L500.4100 ####[facility] [address] [place], [address] Erythrocyte distribution width (RBC) [Ratio] 13.4 % Normal 11.6-14.6 [facility] Comment on above: Performed By: #### L 500.4050, L100.0100, L400.0001, L501.9985, L501.9520, L506.0400, L500.4100 ####[facility] [address] [place], [address] Hematocrit (Bld) [Volume fraction] 44.0 % Normal 37-47 [facility] Comment on above: Performed By: #### L 500.4050, L100.0100, L400.0001, L501.9985, L501.9520, L506.0400, L500.4100 ####[facility] [address] [place], [address] Hemoglobin (Bld) [Mass/Vol] 14.0 g/dL Normal 12.0-15.0 [facility] Comment on above: Performed By: #### L 500.4050, L100.0100, L400.0001, L501.9985, L501.9520, L506.0400, L500.4100 ####[facility] [address] [place], [address] IG% 0.100 Normal 0.0-0.9 [facility] Comment on above: Result Comment: IG% - Immature Granulocytes (promyelocytes, myelocytes and metamyelocytes) > 1% indicates that a LEFT SHIFT is Present. Performed By: #### L 500.4050, L100.0100, L400.0001, L501.9985, L501.9520, L506.0400, L500.4100 ####[facility] [address] [place], [address] Lymphocytes/100 WBC (Bld) 43.4 % High 19-41 [facility] Comment on above: Performed By: #### L 500.4050, L100.0100, L400.0001, L501.9985, L501.9520, L506.0400, L500.4100 ####[facility] [address] [place], [address] MCH (RBC) [Entitic mass] 28.5 pg Normal 27.0-32.0 [facility] Comment on above: Performed By: #### L 500.4050, L100.0100, L400.0001, L501.9985, L501.9520, L506.0400, L500.4100 ####[facility] [address] [place], [address] MCHC (RBC) [Mass/Vol] 31.8 g/dL Low 32-36 [facility] Comment on above: Performed By: #### L 500.4050, L100.0100, L400.0001, L501.9985, L501.9520, L506.0400, L500.4100 ####[facility] [address] [place], [address] MCV (RBC) [Entitic vol] 89.4 fL Normal 81-99 [facility] Comment on above: Performed By: #### L 500.4050, L100.0100, L400.0001, L501.9985, L501.9520, L506.0400, L500.4100 ####[facility] [address] [place], [address] Monocytes/100 WBC (Bld) 8.9 % Normal 0-10 [facility] Comment on above: Performed By: #### L 500.4050, L100.0100, L400.0001, L501.9985, L501.9520, L506.0400, L500.4100 ####[facility] [address] [place], [address] Neutrophils/100 WBC (Bld) 45.9 % Low 47-70 [facility] Comment on above: Performed By: #### L 500.4050, L100.0100, L400.0001, L501.9985, L501.9520, L506.0400, L500.4100 ####[facility] [address] [place], [address] Nucleated RBC (Bld) [#/Vol] 0 10*3/uL Normal 0-5 [facility] Comment on above: Performed By: #### L 500.4050, L100.0100, L400.0001, L501.9985, L501.9520, L506.0400, L500.4100 ####[facility] [address] [place], [address] Platelet mean volume (Bld) [Entitic vol] 11.3 fL Normal 6.2-12.0 [facility] Comment on above: Performed By: #### L 500.4050, L100.0100, L400.0001, L501.9985, L501.9520, L506.0400, L500.4100 ####[facility] [address] [place], [address] Platelets (Bld) [#/Vol] 293 10*3/uL Normal 150-450 [facility] Comment on above: Performed By: #### L 500.4050, L100.0100, L400.0001, L501.9985, L501.9520, L506.0400, L500.4100 ####[facility] [address] [place], [address] RBC (Bld) [#/Vol] 4.92 10*6/uL Normal 4.2-5.4 [facility] Comment on above: Performed By: #### L 500.4050, L100.0100, L400.0001, L501.9985, L501.9520, L506.0400, L500.4100 ####[facility] [address] [place], [address] RDW SD 43.9 fl Normal 35.1-43.9 [facility] Comment on above: Performed By: #### L 500.4050, L100.0100, L400.0001, L501.9985, L501.9520, L506.0400, L500.4100 ####[facility] [address] [place], [address] WBC (Bld) [#/Vol] 6.8 10*3/uL Normal 4.4-11.0 [facility] Comment on above: Performed By: #### L 500.4050, L100.0100, L400.0001, L501.9985, L501.9520, L506.0400, L500.4100 ####[facility] [address] [place], [address] Comprehensive Metabolic Prof ilon 11-19-2024 Albumin [Mass/Vol] 4.0 g/dL Normal 3.2-5.0 [facility] Comment on above: Performed By: #### L 500.4050, L100.0100, L400.0001, L501.9985, L501.9520, L506.0400, L500.4100 ####[facility] [address] [place], [address] Albumin/Globulin [Mass ratio] 1.2 {ratio} Normal 0.9-2.4 [facility] Comment on above: Performed By: #### L 500.4050, L100.0100, L400.0001, L501.9985, L501.9520, L506.0400, L500.4100 ####[facility] [address] [place], [address] ALK P 106 U/L Normal 45-117 [facility] Comment on above: Performed By: #### L 500.4050, L100.0100, L400.0001, L501.9985, L501.9520, L506.0400, L500.4100 ####[facility] [address] [place], [address] ALT [Catalytic activity/Vol] 33 U/L Normal 13-56 [facility] Comment on above: Performed By: #### L 500.4050, L100.0100, L400.0001, L501.9985, L501.9520, L506.0400, L500.4100 ####[facility] [address] [place], [address] AST [Catalytic activity/Vol] 23 U/L Normal 15-37 [facility] Comment on above: Performed By: #### L 500.4050, L100.0100, L400.0001, L501.9985, L501.9520, L506.0400, L500.4100 ####[facility] [address] [place], [place], [id number]) Bilirubin [Mass/Vol] 0.40 mg/dL Normal 0.20-1.00 [facility] Comment on above: Result Comment: For patients on eltrombopag therapy, use of Dimension [place] TBIL is not recommended. Performed By: #### L 500.4050, L100.0100, L400.0001, L501.9985, L501.9520, L506.0400, L500.4100 ####[facility] [address] [place], [address] BUN/CRE 36.7 RATIO High 10-20 [facility] Comment on above: Performed By: #### L 500.4050, L100.0100, L400.0001, L501.9985, L501.9520, L506.0400, L500.4100 ####[facility] [address] [place], [address] CA,Total 10.3 mg/dL High 8.5-10.1 [facility] Comment on above: Performed By: #### L 500.4050, L100.0100, L400.0001, L501.9985, L501.9520, L506.0400, L500.4100 ####[facility] [address] [place], [address] Chloride [Moles/Vol] 107 mmol/L Normal 98-107 [facility] Comment on above: Performed By: #### L 500.4050, L100.0100, L400.0001, L501.9985, L501.9520, L506.0400, L500.4100 ####[facility] [address] [place], [address] CO2 [Moles/Vol] 27.0 mmol/L Normal 21.0-32.0 [facility] Comment on above: Performed By: #### L 500.4050, L100.0100, L400.0001, L501.9985, L501.9520, L506.0400, L500.4100 ####[facility] [address] [place], [address] Creatinine [Mass/Vol] 0.60 mg/dL Normal 0.55-1.02 [facility] Comment on above: Result Comment: The validity of the calculated GFR GFRAA in patients over 70 years has not been determined. Clinical correlation is essential. Performed By: #### L 500.4050, L100.0100, L400.0001, L501.9985, L501.9520, L506.0400, L500.4100 ####[facility] [address] [place], [address] EST GFR - AA 127 mL/min Normal >60 [facility] Comment on above: Result Comment: Afri can Cypriot GFR Calc Performed By: #### L 500.4050, L100.0100, L400.0001, L501.9985, L501.9520, L506.0400, L500.4100 ####[facility] [address] [place], [address] GAP 5 Normal 5-15 [facility] Comment on above: Performed By: #### L 500.4050, L100.0100, L400.0001, L501.9985, L501.9520, L506.0400, L500.4100 ####[facility] [address] [place], [address] GFR/1.73 sq M.predicted among non-blacks MDRD (S/P/Bld) [Vol rate/Area] 105 mL/min/{1.73_m2} Normal >60 [facility] Comment on above: Result Comment: Non- GFR Calc Performed By: #### L 500.4050, L100.0100, L400.0001, L501.9985, L501.9520, L506.0400, L500.4100 ####[facility] [address] [place], [address] Globulin (S) [Mass/Vol] 3.4 g/dL Normal 2.2-4.2 [facility] Comment on above: Performed By: #### L 500.4050, L100.0100, L400.0001, L501.9985, L501.9520, L506.0400, L500.4100 ####[facility] [address] [place], [address] Glucose [Mass/Vol] 89 mg/dL Normal 74-106 [facility] Comment on above: Performed By: #### L 500.4050, L100.0100, L400.0001, L501.9985, L501.9520, L506.0400, L500.4100 ####[facility] [address] [place], [address] Potassium [Moles/Vol] 3.8 mmol/L Normal 3.5-5.1 [facility] Comment on above: Performed By: #### L 500.4050, L100.0100, L400.0001, L501.9985, L501.9520, L506.0400, L500.4100 ####[facility] [address] [place], [address] Sodium [Moles/Vol] 139 mmol/L Normal 136-145 [facility] Comment on above: Performed By: #### L 500.4050, L100.0100, L400.0001, L501.9985, L501.9520, L506.0400, L500.4100 ####[facility] [address] [place], [address] T PROT 7.4 g/dL Normal 6.4-8.2 [facility] Comment on above: Performed By: #### L 500.4050, L100.0100, L400.0001, L501.9985, L501.9520, L506.0400, L500.4100 ####[facility] [address] [place], [address] Urea nitrogen [Mass/Vol] 22 mg/dL High 7-18 [facility] Comment on above: Performed By: #### L 500.4050, L100.0100, L400.0001, L501.9985, L501.9520, L506.0400, L500.4100 ####[facility] [address] [place], [address] Hemoglobin A1con 11-19-2024 HbA1c (Bld) [Mass fraction] 6.2 % High 3.8-5.6 [facility] Comment on above: Result Comment: Norm al < 5.7 % Prediabetic 5.7 - 6.4 % Diabetic >or= 6.5 % Please note range changes. Performed By: #### M 100.6796 #### [facility] [address] [place], [address] Lipid Profileon 11-19-2024 Cholesterol [Mass/Vol] 195 mg/dL Normal 200 [facility] Comment on above: Result Comment: <200 mg/dL Desirable 200-240 mg/dL Borderline >240 mg/dL High Risk Performed By: #### L 500.4050, L100.0100, L400.0001, L501.9985, L501.9520, L506.0400, L500.4100 ####[facility] [address] [place], [address] Cholesterol in HDL [Mass/Vol] 47 mg/dL Normal [facility] Comment on above: Result Comment: The drugs N-Acetylcysteine and Metamizole may falsely depress this assay. Reference Range HDL <40 mg/dL Low HDL Cholesterol HDL >or= 60 mg/dL High HDL Cholesterol Performed By: #### L 500.4050, L100.0100, L400.0001, L501.9985, L501.9520, L506.0400, L500.4100 ####[facility] [address] [place], [address] Cholesterol in LDL [Mass/Vol] 110 mg/dL Normal 0-130 [facility] Comment on above: Performed By: #### L 500.4050, L100.0100, L400.0001, L501.9985, L501.9520, L506.0400, L500.4100 ####[facility] [address] [place], [address] Cholesterol in VLDL [Mass/Vol] 38 mg/dL Normal 5-40 [facility] Comment on above: Performed By: #### L 500.4050, L100.0100, L400.0001, L501.9985, L501.9520, L506.0400, L500.4100 ####[facility] [address] [place], [address] Triglyceride [Mass/Vol] 191 mg/dL Normal [facility] Comment on above: Result Comment: The drugs N-Acetylcysteine and Metamizole may falsely depress this assay. Serum Triglycerides Reference Interval Normal <150 mg/dL Borderline high 150 - 199 mg/dL High 200 - 499 mg/dL Very High > or = 500 mg/dL Performed By: #### L 500.4050, L100.0100, L400.0001, L501.9985, L501.9520, L506.0400, L500.4100 ####[facility] [address] [place], [address] T4 Free Directon 11-19-2024 T4 FREE DIRECT 1.07 ng/dL Normal 0.76-1.46 [facility] Comment on above: Performed By: #### M 100.6796 #### [facility] [address] [place], [place], [id number] Thyroid Stim Hormone (TSH)on 11-19-2024 TSH 2.160 uIU/mL Normal 0.358-3.740 [facility] Comment on above: Performed By: #### L 500.4050, L100.0100, L400.0001, L501.9985, L501.9520, L506.0400, L500.4100 ####[facility] [address] [place], [address] Urinalysis, Completeon 11-19 BACTERIA 1+ /hpf Normal None Seen [facility] Comment on above: Order Comment: CLEAN CATCH Performed By: #### L 500.4050, L100.0100, L400.0001, L501.9985, L501.9520, L506.0400, L500.4100 ####[facility] [address] [place], [address] EPI,SQUAMOUS 0-5 SEEN Normal 5-10 [facility] Comment on above: Order Comment: CLEAN CATCH Performed By: #### L 500.4050, L100.0100, L400.0001, L501.9985, L501.9520, L506.0400, L500.4100 ####[facility] [address] [place], [address] EPI,TRANSITION 0-5 SEEN Normal 0-5 [facility] Comment on above: Order Comment: CLEAN CATCH Performed By: #### L 500.4050, L100.0100, L400.0001, L501.9985, L501.9520, L506.0400, L500.4100 ####[facility] [address] [place], [address] RBC 0-5 SEEN Normal 0-5 [facility] Comment on above: Order Comment: CLEAN CATCH Performed By: #### L 500.4050, L100.0100, L400.0001, L501.9985, L501.9520, L506.0400, L500.4100 ####[facility] [address] [place], [address] WBC 5-10 SEEN Normal 0-5 [facility] Comment on above: Order Comment: CLEAN CATCH Performed By: #### L 500.4050, L100.0100, L400.0001, L501.9985, L501.9520, L506.0400, L500.4100 ####[facility] [address] [place], [address] Mucus Ql (Urine sed) 0 SEEN Normal [facility] Comment on above: Order Comment: CLEAN CATCH Performed By: #### L 500.4050, L100.0100, L400.0001, L501.9985, L501.9520, L506.0400, L500.4100 ####[facility] [address] [place], [address] CBC W/Diff, Automatedon 12-2 Absolute Lymph 2.65 X10 3/uL Normal 0.83-4.51 [facility] Comment on above: Order Comment: Order Date: 08/21/24Order Info: 0184-1 - CBCD Performed By: #### M 100.6796 #### [facility] [address] [place], [address] Absolute Neut 3.3 X10 3/uL Normal 2.0-7.7 [facility] Comment on above: Order Comment: Order Date: 08/21/24Order Info: 0184-1 - CBCD Performed By: #### M .6796 #### [facility] [address] [place], [address] Basophils/100 WBC (Bld) 0.6 % Normal 0-1 [facility] Comment on above: Order Comment: Order Date: 08/21/24Order Info: 4-1 - CBCD Performed By: #### M .6796 #### [facility] [address] [place], [address] Eosinophils/100 WBC (Bld) 1.4 % Normal 0-5 [facility] Comment on above: Order Comment: Order Date: 08/21/24Order Info: 018-1 - CBCD Performed By: #### M .6796 #### [facility] [address] [place], [address] Erythrocyte distribution width (RBC) [Ratio] 13.4 % Normal 11.6-14.6 [facility] Comment on above: Order Comment: Order Date: 08/21/24Order Info: 0184-1 - CBCD Performed By: #### M 100.6796 #### [facility] [address] [place], [address] Hematocrit (Bld) [Volume fraction] 43.4 % Normal 37-47 [facility] Comment on above: Order Comment: Order Date: 08/21/24Order Info: 0184-1 - CBCD Performed By: #### M .6796 #### [facility] [address] [place], [address] Hemoglobin (Bld) [Mass/Vol] 14.1 g/dL Normal 12.0-15.0 [facility] Comment on above: Order Comment: Order Date: 08/21/24Order Info: 183- - CBCD Performed By: #### M 100.6796 #### [facility] [address] [place], [address] IG% 0.500 Normal 0.0-0.9 [facility] Comment on above: Order Comment: Order Date: 08/21/24Order Info: 183- - CBCD Result Comment: IG% - Immature Granulocytes (promyelocytes, myelocytes and metamyelocytes) > 1% indicates that a LEFT SHIFT is Present. Performed By: #### M 100.6796 #### [facility] [address] [place], [address] Lymphocytes/100 WBC (Bld) 40.0 % Normal 19-41 [facility] Comment on above: Order Comment: Order Date: 08/21/24Order Info: 183- - CBCD Performed By: #### M 100.6796 #### [facility] [address] [place], [address] MCH (RBC) [Entitic mass] 28.8 pg Normal 27.0-32.0 [facility] Comment on above: Order Comment: Order Date: 08/21/24Order Info: 018- - CBCD Performed By: #### M 100.6796 #### [facility] [address] [place], [address] MCHC (RBC) [Mass/Vol] 32.5 g/dL Normal 32-36 [facility] Comment on above: Order Comment: Order Date: 08/21/24Order Info: 018- - CBCD Performed By: #### M 100.6796 #### [facility] [address] [place], [address] MCV (RBC) [Entitic vol] 88.6 fL Normal 81-99 [facility] Comment on above: Order Comment: Order Date: 08/21/24Order Info: 183-1 - CBCD Performed By: #### M 100.6796 #### [facility] [address] [place], [address] Monocytes/100 WBC (Bld) 8.4 % Normal 0-10 [facility] Comment on above: Order Comment: Order Date: 08/21/24Order Info: 183-1 - CBCD Performed By: #### M 100.6796 #### [facility] [address] [place], [address] Neutrophils/100 WBC (Bld) 49.1 % Normal 47-70 [facility] Comment on above: Order Comment: Order Date: 08/21/24Order Info: 183- - CBCD Performed By: #### M 100.6796 #### [facility] [address] [place], [address] Nucleated RBC (Bld) [#/Vol] 0 10*3/uL Normal 0-5 [facility] Comment on above: Order Comment: Order Date: 08/21/24Order Info: 018- - CBCD Performed By: #### M 100.6796 #### [facility] [address] [place], [address] Platelet mean volume (Bld) [Entitic vol] 11.2 fL Normal 6.2-12.0 [facility] Comment on above: Order Comment: Order Date: 08/21/24Order Info: 018-1 - CBCD Performed By: #### M 100.6796 #### [facility] [address] [place], [address] Platelets (Bld) [#/Vol] 299 10*3/uL Normal 150-450 [facility] Comment on above: Order Comment: Order Date: 08/21/24Order Info: 018- - CBCD Performed By: #### M 100.6796 #### [facility] [address] [place], [address] RBC (Bld) [#/Vol] 4.90 10*6/uL Normal 4.2-5.4 [facility] Comment on above: Order Comment: Order Date: 08/21/24Order Info: 018- - CBCD Performed By: #### M 100.6796 #### [facility] [address] [place], [address] RDW SD 43.5 fl Normal 35.1-43.9 [facility] Comment on above: Order Comment: Order Date: 08/21/24Order Info: 018- - CBCD Performed By: #### M 100.6796 #### [facility] [address] [place], [address] WBC (Bld) [#/Vol] 6.6 10*3/uL Normal 4.4-11.0 [facility] Comment on above: Order Comment: Order Date: 08/21/24Order Info: 018- - CBCD Performed By: #### M 100.6796 #### [facility] [address] [place], [address] Comprehensive Metabolic Prof [facility] 11-08-2024 Albumin [Mass/Vol] 3.8 g/dL Normal 3.2-5.0 [facility] Comment on above: Order Comment: Order Date: 08/21/24Order Info: 0786-1 - CMPOrder Info: [id number] - LIPIDOrder Info: [id number] - TSHOrder Info: 3024-7 - T4F Performed By: #### M 100.6796 #### [facility] [address] [place], [address] Albumin/Globulin [Mass ratio] 1.1 {ratio} Normal 0.9-2.4 [facility] Comment on above: Order Comment: Order Date: 08/21/24Order Info: 0786-1 - CMPOrder Info: [id number] - LIPIDOrder Info: [id number] - TSHOrder Info: 3024-7 - T4F Performed By: #### M 100.6796 #### [facility] [address] [place] [place], [address] ALK P 100 U/L Normal 45-117 [facility] Comment on above: Order Comment: Order Date: 08/21/24Order Info: 0786-1 - CMPOrder Info: [id number] - LIPIDOrder Info: [id number] - TSHOrder Info: 3024-7 - T4F Performed By: #### M 100.6796 #### [facility] [address] [place], [address] ALT [Catalytic activity/Vol] 29 U/L Normal 13-56 [facility] Comment on above: Order Comment: Order Date: 08/21/24Order Info: 0786-1 - CMPOrder Info: [id number] - LIPIDOrder Info: [id number] - TSHOrder Info: 3024-7 - T4F Performed By: #### M 100.6796 #### [facility] [address] [place], [address] AST [Catalytic activity/Vol] 20 U/L Normal 15-37 [facility] Comment on above: Order Comment: Order Date: 08/21/24Order Info: 0786-1 - CMPOrder Info: [id number] - LIPIDOrder Info: [id number] - TSHOrder Info: 3024-7 - T4F Performed By: #### M 100.6796 #### [facility] [address] [place], [address] Bilirubin [Mass/Vol] 0.50 mg/dL Normal 0.20-1.00 [facility] Comment on above: Order Comment: Order Date: 08/21/24Order Info: 0786-1 - CMPOrder Info: [id number] - LIPIDOrder Info: [id number] - TSHOrder Info: 3024-7 - T4F Result Comment: For patients on eltrombopag therapy, use of Dimension [place] TBIL is not recommended. Performed By: #### M 100.6796 #### [facility] [address] [place], [address] BUN/CRE 31.7 RATIO High 10-20 [facility] Comment on above: Order Comment: Order Date: 08/21/24Order Info: 0786-1 - CMPOrder Info: [id number] - LIPIDOrder Info: [id number] - TSHOrder Info: 3024-7 - T4F Performed By: #### M 100.6796 #### [facility] [address] [place], [address] CA,Total 10.3 mg/dL High 8.5-10.1 [facility] Comment on above: Order Comment: Order Date: 08/21/24Order Info: 0786-1 - CMPOrder Info: [id number] - LIPIDOrder Info: [id number] - TSHOrder Info: 3024-7 - T4F Performed By: #### M 100.6796 #### [facility] [address] [place], [address] Chloride [Moles/Vol] 108 mmol/L High 98-107 [facility] Comment on above: Order Comment: Order Date: 08/21/24Order Info: 0786-1 - CMPOrder Info: [id number] - LIPIDOrder Info: [id number] - TSHOrder Info: 3024-7 - T4F Performed By: #### M 100.6796 #### [facility] [address] [place], [address] CO2 [Moles/Vol] 26.0 mmol/L Normal 21.0-32.0 [facility] Comment on above: Order Comment: Order Date: 08/21/24Order Info: 0786-1 - CMPOrder Info: [id number] - LIPIDOrder Info: [id number] - TSHOrder Info: 3024-7 - T4F Performed By: #### M 100.6796 #### [facility] [address] [place], [place], [address] Creatinine [Mass/Vol] 0.50 mg/dL Low 0.55-1.02 [facility] Comment on above: Order Comment: Order Date: 08/21/24Order Info: 0786-1 - CMPOrder Info: [id number] - LIPIDOrder Info: [id number] - TSHOrder Info: 7 - T4F Result Comment: The validity of the calculated GFR GFRAA in patients over 70 years has not been determined. Clinical correlation is essential. Performed By: #### M 100.6796 #### [facility] [address] [place], [place], [address] EST GFR - AA 155 mL/min Normal >60 [facility] Comment on above: Order Comment: Order Date: 08/21/24Order Info: 86-1 - CMPOrder Info: [id number] - LIPIDOrder Info: 3 - TSHOrder Info: 7 - T4F Result Comment: Afri can [place]riot GFR Calc Performed By: #### M 100.6796 #### [facility] [address] [place], [address] GAP 7 Normal 5-15 [facility] Comment on above: Order Comment: Order Date: 08/21/24Order Info: 0786-1 - CMPOrder Info: [id number] - LIPIDOrder Info: 3 - TSHOrder Info: 7 - T4F Performed By: #### M 100.6796 #### [facility] [address] [place], [address] GFR/1.73 sq M.predicted among non-blacks MDRD (S/P/Bld) [Vol rate/Area] 128 mL/min/{1.73_m2} Normal >60 [facility] Comment on above: Order Comment: Order Date: 08/21/24Order Info: 0786-1 - CMPOrder Info: [id number] - LIPIDOrder Info: [id number] - TSHOrder Info: 3024-7 - T4F Result Comment: Non- GFR Calc Performed By: #### M 100.6796 #### [facility] [address] [place], [address] Globulin (S) [Mass/Vol] 3.5 g/dL Normal 2.2-4.2 [facility] Comment on above: Order Comment: Order Date: 08/21/24Order Info: 86-1 - CMPOrder Info: [id number] - LIPIDOrder Info: 3 - TSHOrder Info: 7 - T4F Performed By: #### M 100.6796 #### [facility] [address] [place], [address] Glucose [Mass/Vol] 105 mg/dL Normal 74-106 [facility] Comment on above: Order Comment: Order Date: 08/21/24Order Info: 785-1 - CMPOrder Info: [id number] - LIPIDOrder Info: 3 - TSHOrder Info: 4-7 - T4F Result Comment: Fast ing Glucose result from 100 to 125 mg/dL suggests IMPAIRED HOMEOSTASIS per A.D.A. criteria. Performed By: #### M 100.6796 #### [facility] [address] [place], [address] Potassium [Moles/Vol] 3.9 mmol/L Normal 3.5-5.1 [facility] Comment on above: Order Comment: Order Date: 08/21/24Order Info: 785-1 - CMPOrder Info: [id number] - LIPIDOrder Info: 63 - TSHOrder Info: 3024-7 - T4F Performed By: #### M 100.6796 #### [facility] [address] [place], [address] Sodium [Moles/Vol] 142 mmol/L Normal 136-145 [facility] Comment on above: Order Comment: Order Date: 08/21/24Order Info: 785-1 - CMPOrder Info: [id number] - LIPIDOrder Info: [id number] - TSHOrder Info: 3027 - T4F Performed By: #### M 100.6796 #### [facility] [address] [place], [place], [address] T PROT 7.3 g/dL Normal 6.4-8.2 [facility] Comment on above: Order Comment: Order Date: 08/21/24Order Info: 86-1 - CMPOrder Info: [id number] - LIPIDOrder Info: 3 - TSHOrder Info: 3027 - T4F Performed By: #### M 100.6796 #### [facility] [address] [place], [place], [address] Urea nitrogen [Mass/Vol] 16 mg/dL Normal 7-18 [facility] Comment on above: Order Comment: Order Date: 08/21/24Order Info: 785-1 - CMPOrder Info: [id number] - LIPIDOrder Info: [id number] - TSHOrder Info: 7 - T4F Performed By: #### M 100.6796 #### [facility] [address] [place], [place], [address] Hemoglobin A1con 11-08-2024 HbA1c (Bld) [Mass fraction] 6.2 % High 3.8-5.6 [facility] Comment on above: Order Comment: Order Date: 08/21/24Order Info: [id number] - A1C Result Comment: Norm al < 5.7 % Prediabetic 5.7 - 6.4 % Diabetic >or= 6.5 % Please note range changes. Performed By: #### M 100.6796 #### [facility] [address] [place], [place], [address] Lipid Profileon 11-08-2024 Cholesterol [Mass/Vol] 197 mg/dL Normal 200 [facility] Comment on above: Order Comment: Order Date: 08/21/24Order Info: 0786-1 - CMPOrder Info: [id number] - LIPIDOrder Info: 3 - TSHOrder Info: 302-7 - T4F Result Comment: <200 mg/dL Desirable 200-240 mg/dL Borderline >240 mg/dL High Risk Performed By: #### M 100.6796 #### [facility] [address] [place], [address] Cholesterol in HDL [Mass/Vol] 52 mg/dL Normal [facility] Comment on above: Order Comment: Order Date: 08/21/24Order Info: 0786-1 - CMPOrder Info: [id number] - LIPIDOrder Info: [id number] - TSHOrder Info: 3024-7 - T4F Result Comment: The drugs N-Acetylcysteine and Metamizole may falsely depress this assay. Reference Range HDL <40 mg/dL Low HDL Cholesterol HDL >or= 60 mg/dL High HDL Cholesterol Performed By: #### M 100.6796 #### [facility] [address] [place], [address] Cholesterol in LDL [Mass/Vol] 112 mg/dL Normal 0-130 [facility] Comment on above: Order Comment: Order Date: 08/21/24Order Info: 0786-1 - CMPOrder Info: [id number] - LIPIDOrder Info: [id number] - TSHOrder Info: 3024-7 - T4F Performed By: #### M 100.6796 #### [facility] [address] [place], [address] Cholesterol in VLDL [Mass/Vol] 33 mg/dL Normal 5-40 [facility] Comment on above: Order Comment: Order Date: 08/21/24Order Info: [id number] - CMPOrder Info: [id number] - LIPIDOrder Info: [id number] - TSHOrder Info: 3024-7 - T4F Performed By: #### M 100.6796 #### [facility] [address] [place], [address] Triglyceride [Mass/Vol] 164 mg/dL Normal [facility] Comment on above: Order Comment: Order Date: 08/21/24Order Info: 0786-1 - CMPOrder Info: [id number] - LIPIDOrder Info: [id number] - TSHOrder Info: 3024-7 - T4F Result Comment: The drugs N-Acetylcysteine and Metamizole may falsely depress this assay. Serum Triglycerides Reference Interval Normal <150 mg/dL Borderline high 150 - 199 mg/dL High 200 - 499 mg/dL Very High > or = 500 mg/dL Performed By: #### M 100.6796 #### [facility] [address] [place], [address] PTHINon 11-08-2024 PTH 86.5 pg/mL High 18.4-80.1 [facility] Comment on above: Performed By: #### M [id number] #### [facility] [address] [place], [address] T4 Free Directon 11-08-2024 T4 FREE DIRECT 1.08 ng/dL Normal 0.76-1.46 [facility] Comment on above: Order Comment: Order Date: 08/21/24Order Info: [id number] - CMPOrder Info: [id number] - LIPIDOrder Info: [id number] - TSHOrder Info: 3027 - T4F Performed By: #### M 100.6796 #### [facility] [address] [place], [address] Thyroid Stim Hormone (TSH)on 11-08-2024 TSH 2.010 uIU/mL Normal 0.358-3.740 [facility] Comment on above: Order Comment: Order Date: 08/21/24Order Info: 0786-1 - CMPOrder Info: [id number] - LIPIDOrder Info: [id number] - TSHOrder Info: [id number] - T4F Performed By: #### M [id number] #### [facility] [address] [place], [address] Dexa Bone Density Studyon Dexa Bone Density Study [facility] [address] [place] [address] Dexa Bone Density Study MR#: [id number] Acct: [id number] Name: XIAO SHEARER Rep #: [id number] : 1955 F 69 From: [place] maldonado MD PCP: Dr. Shereen Soria MD Status: [facility] Study: Dexa Bone Density Study Date of Exam: 09/24/24 Exam# [id number] Ordering Dr: Shereen Soria MD [id number] STUDY: DUAL ENERGY X-RAY ABSORPTIOMETRY / DXA REASON FOR EXAM: Female, 69 years old. 733.90OsteopeniaBONE DENSITY REASON FOR EXAM TECHNIQUE: Bone Mineral Density (BMD) measurements of lumbar spine and bilateral hips were obtained. COMPARISON: Comparison is made with prior study July 11, 2013. FINDINGS: Lumbar Spine (L1-L4): g/cm2 (1.001) / T-score (-0.4) / Z-score (1.7) Findings are suggestive of normal bone density with a low fracture risk. Left Femur Total: g/cm2 (0.791) / T-score (-1.2) / Z-score (0.3) Left Femoral Neck: g/cm2 (0.661) / T-score (-1.7) / Z-score (0.1) Right Femur Total: g/cm2 (0.793) / T-score (-1.2) / Z-score (0.3) Right Femoral Neck: g/cm2 (0.692) / T-score (-1.4) / Z-score (0.4) The T-Scores on the most recent prior examination were: Lumbar Spine (L1-L4): There has been worsening of bone density since the previous examination. Left Femur Total: which represents a worsening of 13.8%. Right Femur Total: which represents a worsening of 12.9%. BD/Dexa Bone Density Study IMPRESSION: The patient is considered osteopenic as outlined below according to World Matt Organization (WHO) criteria with a moderate fracture risk. There has been worsening of bone density since the previous examination. Reference Information: The T-score is the number of standard deviations above or below the standard which is normal for young adults at their peak bone mineral density. The World Health Organization (WHO) interprets the T-scores as follows: Above -1 Normal bone density Between -1 and -2.5 Osteopenia Equal to / or below -2.5 Osteoporosis As a practical clinical guideline, osteopenia may be graded as follows: Mild -1 through -1.5 Moderate -1.6 through -2.0 Severe -2.1 through -2.4 The Z-score is the number of standard deviations above or below age-matched controls. A Z-score of less than -1.5 would be considered abnormal. References: 1. NIH Osteoporosis and Related Bone Diseases www osteo.org 2. International Society for Clinical Densitometry www iscd.org 3. National Osteoporosis Foundation www nof.org Electronically Signed: Cal West MD at 14:04 EST , CC: Dr. Shereen Soria MD Configuration Engineer: Signed [facility] [id number] 09-19-2024 [id number] HNO ID: [id number] Author: CHEL DECKER RN Service: ? Author Type: Registered Nurse Type: [id number] Filed: 09/19/2024 09:32 Note Text: The patient received a copy of Colonoscopy discharge instructions that contain information for how to contact the physician who performed the procedure and when to seek medical care. [facility] Colonoscopyon 09-19-2024 Colonoscopy [facility] Gastrointestinal Endoscopy Patient Name: Xiao Shearer Procedure Date: 09/19/2024 8:27 AM Date of : 1955 Admit Type: Outpatient Age: 69 Gender: Female Note Status: Finalized Procedure: Colonoscopy Indications: Screening for colorectal malignant neoplasm Providers: Terrence Junior MD Patient Profile: This is a 69 year old female. Refer to note in patient chart for documentation of history and physical. Last Colonoscopy: April 2015. Referring Physician: Susana Smith (Referring MD) Medicines: Fentanyl 50 micrograms IV, Midazolam 5 mg IV, Diphenhydramine 50 mg IV Complications: No immediate complications. Estimated blood loss: None. Requesting Provider: Procedure: Pre-Anesthesia Assessment: - Prior to the procedure, a History and Physical was performed, and patient medications and allergies were reviewed. The patient's tolerance of previous anesthesia was also reviewed. The risks and benefits of the procedure and the sedation options and risks were discussed with the patient. All questions were answered, and informed consent was obtained. Prior Anticoagulants: The patient has taken no anticoagulant or antiplatelet agents. ASA Grade Assessment: II - A patient with mild systemic disease. After reviewing the risks and benefits, the patient was deemed in satisfactory condition to undergo the procedure. After I obtained informed consent, the scope was passed under direct vision. Throughout the procedure, the patient's blood pressure, pulse, and oxygen saturations were monitored continuously. The Colonoscope was introduced through the anus and advanced to the cecum, identified by appendiceal orifice and ileocecal valve. The colonoscopy was performed without difficulty. The patient tolerated the procedure well. The quality of the bowel preparation was adequate to identify polyps greater than 5 mm in size. The ileocecal valve, appendiceal orifice, and rectum were photographed. Moderate Sedation: The administration of moderate sedation was initiated at 08:31 AM. Moderate (conscious) sedation was personally administered by the endoscopist. The following parameters were monitored: oxygen saturation, heart rate, blood pressure, respiratory rate, EKG, adequacy of pulmonary ventilation, and response to care. Total physician intraservice time was 16 minutes. Findings: The perianal and digital rectal examinations were normal. Non-bleeding internal hemorrhoids were found during retroflexion. The hemorrhoids were mild and small. The exam was otherwise without abnormality. Impression: - Non-bleeding internal hemorrhoids. - The examination was otherwise normal. - No specimens collected. Recommendation: - Patient has a contact number available for emergencies. The signs and symptoms of potential delayed complications were discussed with the patient. Return to normal activities tomorrow. Written discharge instructions were provided to the patient. - Resume previous diet. - Continue present medications. - Repeat colonoscopy in 10 years for screening purposes. - Return to primary care physician PRN. Procedure Code(s): --- Professional --- 93921, Colonoscopy, flexible; diagnostic, including collection of specimen(s) by brushing or washing, when performed (separate procedure) G0500, Moderate sedation services provided by the same physician or other qualified health vehicle care specialist performing a gastrointestinal endoscopic service that sedation supports, requiring the presence of an independent trained observer to assist in the monitoring of the patient's level of consciousness and physiological status; initial 15 minutes of intra-service time; patient age 5 years or older (additional time may be reported with 98325, as appropriate) Diagnosis Code(s): --- Professional --- Z12.11, Encounter for screening for malignant neoplasm of colon K64.8, Other hemorrhoids CPT copyright 2020 [employer]. All rights reserved. The codes documented in this report are preliminary and upon loading rack supervisor review may be revised to meet current compliance requirements. Attending Participation: I personally performed the entire procedure. Scope In: 8:35:55 AM Scope Out: 8:47:27 AM MD Terrence Solo MD 09/19/2024 8:50:44 AM This report has been signed electronically by Terrence Junior MD Number of Addenda: 0 Note Initiated On: 09/19/2024 8:27 AM Estimated Blood Loss: Estimated blood loss: none. Normal [facility] Colonoscopy Study observatio non 09-19-2024 [facility] Gastrointestinal Endoscopy Patient Name: Xiao Shearer Procedure Date: 09/19/2024 8:27 AM Date of : 1955 Admit Type: Outpatient Age: 69 Gender: Female Note Status: Finalized Procedure: Colonoscopy Indications: Screening for colorectal malignant neoplasm Providers: Terrence Junior MD Patient Profile: This is a 69 year old female. Refer to note in patient chart for documentation of history and physical. Last Colonoscopy: April 2015. Referring Physician: Susana Smith (Referring ) Medicines: Fentanyl 50 micrograms IV, Midazolam 5 mg IV, Diphenhydramine 50 mg IV Complications: No immediate complications. Estimated blood loss: None. Requesting Provider: Procedure: Pre-Anesthesia Assessment: - Prior to the procedure, a History and Physical was performed, and patient medications and allergies were reviewed. The patient's tolerance of previous anesthesia was also reviewed. The risks and benefits of the procedure and the sedation options and risks were discussed with the patient. All questions were answered, and informed consent was obtained. Prior Anticoagulants: The patient has taken no anticoagulant or antiplatelet agents. ASA Grade Assessment: II - A patient with mild systemic disease. After reviewing the risks and benefits, the patient was deemed in satisfactory condition to undergo the procedure. After I obtained informed consent, the scope was passed under direct vision. Throughout the procedure, the patient's blood pressure, pulse, and oxygen saturations were monitored continuously. The Colonoscope was introduced through the anus and advanced to the cecum, identified by appendiceal orifice and ileocecal valve. The colonoscopy was performed without difficulty. The patient tolerated the procedure well. The quality of the bowel preparation was adequate to identify polyps greater than 5 mm in size. The ileocecal valve, appendiceal orifice, and rectum were photographed. Moderate Sedation: The administration of moderate sedation was initiated at 08:31 AM. Moderate (conscious) sedation was personally administered by the endoscopist. The following parameters were monitored: oxygen saturation, heart rate, blood pressure, respiratory rate, EKG, adequacy of pulmonary ventilation, and response to care. Total physician intraservice time was 16 minutes. Findings: The perianal and digital rectal examinations were normal. Non-bleeding internal hemorrhoids were found during retroflexion. The hemorrhoids were mild and small. The exam was otherwise without abnormality. Impression: - Non-bleeding internal hemorrhoids. - The examination was otherwise normal. - No specimens collected. Recommendation: - Patient has a contact number available for emergencies. The signs and symptoms of potential delayed complications were discussed with the patient. Return to normal activities tomorrow. Written discharge instructions were provided to the patient. - Resume previous diet. - Continue present medications. - Repeat colonoscopy in 10 years for screening purposes. - Return to primary care physician PRN. Procedure Code(s): --- Professional --- 91127, Colonoscopy, flexible; diagnostic, including collection of specimen(s) by brushing or washing, when performed (separate procedure) G0500, Moderate sedation services provided by the same physician or other qualified health vehicle care specialist performing a gastrointestinal endoscopic service that sedation supports, requiring the presence of an independent trained observer to assist in the monitoring of the patient's level of consciousness and physiological (more content not included)... PROVATION [facility] Radiology Study observation (narrative) [facility] HISTORY PHYSICALon HISTORY PHYSICAL HNO ID: [id number] Author: TERRENCE JUNIOR MD Service: General Surgery Author Type: Physician Type: H&P Filed: 09/19/2024 08:19 Note Text: HISTORY AND PHYSICAL Xiao Shearer : 1955 REFERRING PHYSICIAN: No referring provider defined for this encounter. CHIEF COMPLAINT: Patient presents with: Consult: Colonoscopy consultation. HPI: Xiao is a 69 year old female referred for endoscopy. Xiao notes due for screening colonoscopy. Xiao denies abdominal pain.. Xiao denies diarrhea. Xiao denies constipation. Xiao denies a change in bowel habits. Xiao denies melena. Xiao denies bright red blood per rectum. Xiao denies hemorrhoids. Xiao notes a distant history of heartburn. Xiao denies dysphagia. Xiao denies a history of ulcers/ peptic ulcer disease. Xiao denies family history of colon issues. Medical history is significant for HTN, hypothyroidism, and osteopenia. Xiao has undergone prior endoscopy. Last colonoscopy was 04/[address] Junior at [facility]. Sedation:Midazolam 3 mg IV, Meperidine 100 mg IV Impression: - The distal rectum and anal verge are normal on retroflexion view. - No specimens collected. CURRENT MEDICATIONS Current Outpatient Medications Medication Sig amLODIPine (NORVASC) 5 mg tablet Take 5 mg by mouth once daily. levothyroxine (SYNTHROID) 125 mcg tablet Take 1 tablet by mouth six times a week. hydroCHLOROthiazide (HYDRODIURIL, ESIDRIX) 25 mg tablet Take 1 tablet by mouth once daily. TURMERIC ORAL Take 1 tablet by mouth once daily. cholecalciferol (VITAMIN D-3) 2,000 unit tablet Take 2,000 Units by mouth once daily. simvastatin (ZOCOR) 40 mg tablet Take 40 mg by mouth daily at bedtime. aspirin, enteric coated (ECOTRIN LOW STRENGTH) 81 mg EC tablet Take 1 tablet by mouth once daily. atenolol 50 mg ORAL Tab Take one(1) tablet daily. peg 3350-Electrolytes (GOLYTELY) 236-22.74-6.74 -5.86 gram suspension Take 4,000 mL by mouth one time only for 1 dose. Refer to printed prep instructions from your provider. No current facility-administered medications for this visit. 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) PAST SURGICAL HISTORY PAST SURGICAL HISTORY Procedure Laterality Date COLONOSCOPY FLX DX W/COLLJ SPEC WHEN PFRMD 11/25/2004 Colonoscopy CORRECT BUNION,SIMPLE EGD TRANSORAL BIOPSY SINGLE/MULTIPLE 04/16/2008 EXC BREAST LES PREOP PLMT RAD MARKER OPEN 1 LES 06/10/2011 LEFT EXC CYST/ABERRANT BREAST TISSUE OPEN 1/> LESION 10/01/2014 left LAPS ABD PRTMANDOMENTUM DX W/WO SPEC BR/WA SPX Laparoscopy LASER VEIN TREATMENT 05/13/2014 Lt leg PARATHYROID AUTOTRANSPLANTATION ADD-ON 06/03/2010 LEFT PAST SURGICAL HISTORY OF 05/13/2014 left leg - veins taken out PAST SURGICAL HISTORY OF tumor removed from posterior right leg SALPINGO-OOPHORECTOMY COMPL/PRTL UNI/BI SPX 11/13/1989 Salpingo-oophorectomy THYROIDECTOMY TOTAL/SUBTOTAL LMTD NECK DISSECT 06/03/2010 TOTAL TOTAL ABDOMINAL HYSTERECT W/WO RMVL TUBE OVARY 11/13/1989 Hysterectomy, [facility] FAMILY HISTORY FAMILY HISTORY Problem Relation Age of Onset Cervical Cancer Mother Cancer Mother lung, passed from this. Diabetes Mother unsure Hypertension Mother Prostate Cancer Father Heart Father Cancer Brother lung Cancer Paternal Grandfather SOCIAL HISTORY Social History Tobacco Use Smoking status: Former Current packs/day: 0.00 Types: Cigarettes Quit date: 09/09/1989 Years since quittin.9 Smokeless tobacco: Never Vaping Use Vaping status: Never Used Substance Use Topics Alcohol use: Yes Comment: socially Drug use: No REVIEW OF SYMPTOMS: REVIEW OF SYSTEMS: General: The patient denies fatigue, denies weight loss, denies weight gain, denies feeling hot, and feelings of cold. Eyes: The patient denies glaucoma, denies eye injury/surgery, + glasses or contacts. Ear/Nose/Throat: The patient denies allergies, denies hayfever, denies ear infections, and denies bloody noses. Cardiovascular: The patient denies chest pain, denies heart disease, + high blood pressure, + high cholesterol, +murmur and denies poor circulation. Respiratory: The patient denies tuberculosis, denies pneumonia, denies frequent cough, denies shortness of breath, and denies coughing up blood. Gastrointestinal: The patient denies difficulty swallowing, denies acid reflux, denies ulcers, denies jaundice/hepatitis, denies gallbladder problems, denies vomiting, denies black or t (more content not included)... Normal [facility] NURSING PROGon 09-19-2024 NURSING PROG HNO ID: [id number] Author: CHEL DECKER RN Service: ? Author Type: Registered Nurse Type: Nursing Progress Note Filed: 09/19/2024 09:32 Note Text: Starting to complain of some abdomen pain. Ambulated to the restroom where she released some air via rectum. Patient states pain has disappeared. Will continue to monitor. Normal [facility] CNOVon 08-29-2024 CNOV Office Visit (GENSWS ) -- XIAO SHEARER ([id number]) 1955 F Vendor Date Time Provider Department 08/29/24 3:00 PM SUSANA SMITH During your visit today, we recorded the following information about you: Temperature Pulse Blood pressure Weight 97.5 degrees 76/minute 117/77 89.3 kg Height 1.626 m Susana Smith APRN.CNP 08/29/2024 3:37 PM Signed HISTORY AND PHYSICAL Xiao Shearer : 1955 REFERRING PHYSICIAN: No referring provider defined for this encounter. CHIEF COMPLAINT: Patient presents with: Consult: Colonoscopy consultation. HPI: Xiao is a 69 year old female referred for endoscopy. Xiao notes due for screening colonoscopy. Xiao denies abdominal pain.. Xiao denies diarrhea. Xiao denies constipation. Xiao denies a change in bowel habits. Xiao denies melena. Xiao denies bright red blood per rectum. Xiao denies hemorrhoids. Xiao notes a distant history of heartburn. Xiao denies dysphagia. Xiao denies a history of ulcers/ peptic ulcer disease. Xiao denies family history of colon issues. Medical history is significant for HTN, hypothyroidism, and osteopenia. Xiao has undergone prior endoscopy. Last colonoscopy was 04/[address] Junior at [facility]. Sedation:Midazolam 3 mg IV, Meperidine 100 mg IV Impression: - The distal rectum and anal verge are normal on retroflexion view. - No specimens collected. Current Outpatient Medications Medication Sig amLODIPine (NORVASC) 5 mg tablet Take 5 mg by mouth once daily. levothyroxine (SYNTHROID) 125 mcg tablet Take 1 tablet by mouth six times a week. hydroCHLOROthiazide (HYDRODIURIL, ESIDRIX) 25 mg tablet Take 1 tablet by mouth once daily. TURMERIC ORAL Take 1 tablet by mouth once daily. cholecalciferol (VITAMIN D-3) 2,000 unit tablet Take 2,000 Units by mouth once daily. simvastatin (ZOCOR) 40 mg tablet Take 40 mg by mouth daily at bedtime. aspirin, enteric coated (ECOTRIN LOW STRENGTH) 81 mg EC tablet Take 1 tablet by mouth once daily. atenolol 50 mg ORAL Tab Take one(1) tablet daily. peg 3350-Electrolytes (GOLYTELY) 236-22.74-6.74 -5.86 gram suspension Take 4,000 mL by mouth one time only for 1 dose. Refer to printed prep instructions from your provider. No current facility-administered medications for this visit. 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) PAST SURGICAL HISTORY Procedure Laterality Date COLONOSCOPY FLX DX W/COLLJ SPEC WHEN PFRMD 11/25/2004 Colonoscopy CORRECT BUNION,SIMPLE EGD TRANSORAL BIOPSY SINGLE/MULTIPLE 04/16/2008 EXC BREAST LES PREOP PLMT RAD MARKER OPEN 1 LES 06/10/2011 LEFT EXC CYST/ABERRANT BREAST TISSUE OPEN 1/> LESION 10/01/2014 left LAPS ABD PRTMANDOMENTUM DX W/WO SPEC BR/WA SPX Laparoscopy LASER VEIN TREATMENT 05/13/2014 Lt leg PARATHYROID AUTOTRANSPLANTATION ADD-ON 06/03/2010 LEFT PAST SURGICAL HISTORY OF 05/13/2014 left leg - veins taken out PAST SURGICAL HISTORY OF tumor removed from posterior right leg SALPINGO-OOPHORECTOMY COMPL/PRTL UNI/BI SPX 11/13/1989 Salpingo-oophorectomy THYROIDECTOMY TOTAL/SUBTOTAL LMTD NECK DISSECT 06/03/2010 TOTAL TOTAL ABDOMINAL HYSTERECT W/WO RMVL TUBE OVARY 11/13/1989 Hysterectomy, [facility] FAMILY HISTORY Problem Relation Age of Onset Cervical Cancer Mother Cancer Mother lung, passed from this. Diabetes Mother unsure Hypertension Mother Prostate Cancer Father Heart Father Cancer Brother lung Cancer Paternal Grandfather Social History Tobacco Use Smoking status: Former Current packs/day: 0.00 Types: Cigarettes Quit date: 09/09/1989 Years since quittin.9 Smokeless tobacco: Never Vaping Use Vaping status: Never Used Substance Use Topics Alcohol use: Yes Comment: socially Drug use: No REVIEW OF SYMPTOMS: REVIEW OF SYSTEMS: General: The patient denies fatigue, denies weight loss, denies weight gain, denies feeling hot, and feelings of cold. Eyes: The patient denies glaucoma, denies eye injury/surgery, + glasses or contacts. Ear/Nose/Throat: The patient denies allergies, denies hayfever, denies ear infections, and denies bloody noses. Cardiovascular: The patient denies chest pain, denies heart disease, + high blood pressure, + high cholesterol, +murmur and denies poor circulation. Respiratory: The patient denies tuberculosis, denies pneumonia, denies frequent cough, denies shortness of breath, and denies coug (more content not included)... Normal [facility] Absolute lymphocyte countOrd ered By: Shereen Soria on 11-08-2023 Lymphocytes Auto (Unsp spec) [#/Vol] 2.82 10*3/uL 0.83-4.51 [facility] Basophil percentageOrdered B y: Shereen Valienteshyann on 11-08-2023 Basophil percentage 0-5 SEEN /hpf 0-5 [facility] Basophils/100 WBC (Bld) 0.6 % 0-1 [facility] Bilirubin [Mass/Vol] 0.30 mg/dL 0.20-1.00 [facility] Comment on above: For patients on eltr ombopag therapy, use of Dimension [place] TBIL is not recommended. Chloride [Moles/Vol] 108 mmol/L 98-107 [facility] Cholesterol [Mass/Vol] 207 mg/dL <200 [facility] Comment on above: <200 mg/dL Desirable 200-240 mg/dL Borderline >240 mg/dL High Risk Eosinophils/100 WBC (Bld) 1.2 % 0-5 [facility] Glucose [Mass/Vol] 107 mg/dL 74-106 [facility] Comment on above: Fasting Glucose resu lt from 100 to 125 mg/dL suggests IMPAIRED HOMEOSTASIS per A.D.A. criteria. Neutrophils (Bld) [#/Vol] 3.4 10*3/uL 2.0-7.7 [facility] Neutrophils/100 WBC (Bld) 49.9 % 47-70 [facility] Potassium [Moles/Vol] 3.6 mmol/L 3.5-5.1 [facility] Protein [Mass/Vol] 6.9 g/dL 6.4-8.2 [facility] Sodium [Moles/Vol] 140 mmol/L 136-145 [facility] Triglyceride [Mass/Vol] 172 mg/dL <199 [facility] Comment on above: The drugs N-Acetylcy steine and Metamizole may falsely depress this assay.Serum Triglycerides Reference Interval Normal <150 mg/dL Borderline high 150 - 199 mg/dL High 200 - 499 mg/dL Very High > or = 500 mg/dL WBC (Bld) [#/Vol] 6.8 10*3/uL 4.4-11.0 [facility] Bilirubin Test strip Ql (U)O rdered By: Shereen Soria on 11-08-2023 Bilirubin Ql (U) Negative Negative [facility] Blood erythrocytes count (nu mber/volume)Ordered By: Shereen Soria on 11-08-2023 RBC (Bld) [#/Vol] 4.55 10*6/uL 4.2-5.4 [facility] Blood hemoglobin measurement (mass/volume)Ordered By: Shereen Soria on 11-08-2023 Hemoglobin (Bld) [Mass/Vol] 13.7 g/dL 12.0-15.0 [facility] Blood lymphocytes/100 leukoc ytesOrdered By: Shereen Soria on 11-08-2023 Lymphocytes/100 WBC (Bld) 41.3 % 19-41 [facility] Blood monocytes/100 leukocyt esOrdered By: Shereen Soria on 11-08-2023 Monocytes/100 WBC (Bld) 6.7 % 0-10 [facility] Blood platelet mean volumeOr dered By: Shereen Soria on 11-08-2023 Platelet mean volume (Bld) [Entitic vol] 11.0 fL 6.2-12.0 [facility] Determination of erythrocyte mean corpuscular volume (MCV)Ordered By: Shereen Soria on 11-08-2023 MCV (RBC) [Entitic vol] 91.0 fL 81-99 [facility] Hematocrit Auto (Bld) [Volum e fraction]Ordered By: Shereen Soria on 11-08-2023 Hematocrit (Bld) [Volume fraction] 41.4 % 37-47 [facility] Ketones Test strip Ql (U)Ord ered By: Shereen Soria on 11-08-2023 Ketones Ql (U) Negative Negative [facility] Laboratory - Chemistry and C hemistry - challengeOrdered By: Shereen Soria on 11-08-2023 ALP [Catalytic activity/Vol] 71 U/L 45-117 [facility] ALT [Catalytic activity/Vol] 27 U/L 13-56 [facility] CO2 [Moles/Vol] 27.0 mmol/L 21.0-32.0 [facility] Cobalamin (Vitamin B12) [Mass/Vol] 882 pg/mL 211-911 [facility] Free T4 [Mass/Vol] 1.12 ng/dL 0.76-1.46 [facility] Globulin (S) [Mass/Vol] 3.2 g/dL 2.2-4.2 [facility] Urea nitrogen/Creatinine [Mass ratio] 37.1 mg/mg 10-20 [facility] Laboratory - Hematology and Cell countsOrdered By: Shereen Soria on 11-08-2023 Erythrocyte distribution width (RBC) [Entitic vol] 44.7 fL 35.1-43.9 [facility] [facility] Erythrocyte distribution width (RBC) [Ratio] 13.3 % 11.6-14.6 [facility] Immature granulocytes/100 WBC (Bld) 0.300 % 0.0-0.9 [facility] Comment on above: IG% - Immature Granu locytes (promyelocytes, myelocytes and metamyelocytes) > 1% indicates that a LEFT SHIFT is Present. MCH (RBC) [Entitic mass] 30.1 pg 27.0-32.0 [facility] Nucleated RBC/100 WBC (Bld) [Ratio] 0 % 0-5 [facility] MCHC Auto (RBC) [Mass/Vol]Or dered By: Shereen Soria on 11-08-2023 MCHC (RBC) [Mass/Vol] 33.1 g/dL 32-36 [facility] Mucus LM Ql (Urine sed)Order ed By: Shereen Soria on 11-08-2023 Mucus Ql (Urine sed) RARE /hpf [facility] Nitrite Test strip Ql (U)Ord ered By: Shereen Soria on 11-08-2023 Nitrite Ql (U) Negative Negative [facility] No Panel InformationOrdered By: Shereen Soria on 11-08-2023 Estimated GFR (MDRD) Amer 123 mL/min >60 [facility] Comment on above: GFR Calc Estimated GFR (MDRD) Non-Af Amer 101 mL/min >60 [facility] Comment on above: Non- GFR Calc Thyroid Stimulating Hormone (TSH) 0.65 uIU/mL 0.358-3.74 [facility] Vitamin D 25-Hydroxy 45.4 ng/mL [facility] Comment on above: Vitamin D 25(OH) Sta tus Range Deficiency <20 ng/mL (50nmol/L) Insufficiency 20 - 30 ng/mL (50 - 75 nmol/L) Sufficiency 30 - 100 ng/mL (75 - 250 nmol/L) Toxicity >100 ng/mL (>250 nmol/L) Platelets bldOrdered By: Michael Soria on 11-08-2023 Platelets (Bld) [#/Vol] 281 10*3/uL 150-450 [facility] Protein Test strip Ql (U)Ord ered By: Shereen Soria on 11-08-2023 Protein Ql (U) Negative Negative [facility] Serum or plasma albumin dorian urement (mass/volume)Ordered By: Shereen Soria on 11-08-2023 Albumin [Mass/Vol] 3.7 g/dL 3.2-5.0 [facility] Serum or plasma albumin/glob ulin mass ratioOrdered By: Shereen Soria on 11-08-2023 Albumin/Globulin [Mass ratio] 1.2 {ratio} 0.9-2.4 [facility] Serum or plasma calcium dorian urement (mass/volume)Ordered By: Shereen Soria on 11-08-2023 Calcium [Mass/Vol] 10.6 mg/dL 8.5-10.1 [facility] Serum or plasma cholesterol in HDL measurement (mass/volume)Ordered By: Shereen Soria on 11-08-2023 Cholesterol in HDL [Mass/Vol] 50 mg/dL >40 [facility] Comment on above: The drugs N-Acetylcy steine and Metamizole may falsely depress this assay. Reference Range HDL <40 mg/dL Low HDL Cholesterol HDL >or= 60 mg/dL High HDL Cholesterol Serum or plasma cholesterol in VLDL measurement (mass/volume)Ordered By: Shereen Soria on 11-08-2023 Cholesterol in VLDL [Mass/Vol] 34 mg/dL 5-40 [facility] Serum or plasma creatinine m easurement (mass/volume)Ordered By: Shereen Soria on 11-08-2023 Creatinine [Mass/Vol] 0.62 mg/dL 0.55-1.02 [facility] Comment on above: The validity of the calculated GFR & GFRAA in patients over 70 years has not been determined. Clinical correlation is essential. Serum or plasma low density lipoprotein (LDL) cholesterol measurement (mass/volume)Ordered By: Shereen Soria on 11-08-2023 Cholesterol in LDL [Mass/Vol] 123 mg/dL 0-130 [facility] Serum or plasma urea nitroge n measurement (mass/volume)Ordered By: Shereen Soria on 11-08-2023 Urea nitrogen [Mass/Vol] 23 mg/dL 7-18 [facility] Squamous epithelial cells de tection in urine sediment by light microscopyOrdered By: Shereen Soria on 11-08-2023 Epithelial cells.squamous LM Ql (Urine sed) 5-10 SEEN /hpf 5-10 [facility] Thin prep Papanicolaou smear with manual screeningOrdered By: Shereen Soria on 11-08-2023 Thin prep Papanicolaou smear with manual screening 17 U/L 15-37 [facility] Thin prep Papanicolaou smear with manual screening 5 5-15 [facility] Urine blood detectionOrdered By: Shereen Soria on 11-08-2023 RBC Ql (U) Negative Negative [facility] RBC Ql (U) 0-5 SEEN /hpf 0-5 [facility] Urine clarityOrdered By: Michael Soria on 11-08-2023 Clarity (U) Sl. Cloudy Clear [facility] Urine color determinationOrd ered By: Shereen Soria on 11-08-2023 Color (U) Yellow Yellow [facility] Urine glucose detectionOrder ed By: Shereen Soria on 11-08-2023 Glucose Ql (U) Normal mg/dl Normal [facility] Urine leukocyte esterase det ection by dipstickOrdered By: Shereen Soria on 11-08-2023 Leukocyte esterase Test strip Ql (U) Negative Negative [facility] Urine pHOrdered By: Shereen boothe on 11-08-2023 pH (U) 6.0 [pH] 5.0 - 8.0 [facility] Urine sediment bacteria coun t by microscopy (number/high power field)Ordered By: Shereen Soria on 11-08-2023 Bacteria LM.HPF (Urine sed) [#/Area] 1 /[HPF] None Seen [facility] Urine specific gravity measu rementOrdered By: Shereen Soria on 11-08-2023 Specific gravity (U) [Rel density] 1.020 1.002-1.030 [facility] Urobilinogen Auto test strip Ql (U)Ordered By: Shereen Soria on 11-08-2023 Urobilinogen Ql (U) Normal mg/dl Normal [facility] Whole blood hemoglobin A1c/t otal hemoglobin ratio (mass fraction)Ordered By: Shereen Soria on 11-08-2023 HbA1c (Bld) [Mass fraction] 6.0 % 3.8-5.6 [facility] Comment on above: Normal < 5.7 % Predi abetic 5.7 - 6.4 % Diabetic >or= 6.5 % Please note range changes. Absolute lymphocyte countOrd ered By: Shereen Soria on 06-10-2023 Lymphocytes Auto (Unsp spec) [#/Vol] 2.30 10*3/uL 0.83-4.51 [facility] Basophil percentageOrdered B y: Shereen Soria on 06-10-2023 Basophil percentage 0-5 SEEN /hpf 0-5 [facility] Basophil percentage 2.6 mg/dL 2.5-4.9 [facility] Basophils/100 WBC (Bld) 0.7 % 0-1 [facility] Bilirubin [Mass/Vol] 0.40 mg/dL 0.20-1.00 [facility] Comment on above: For patients on eltr ombopag therapy, use of Dimension [place] TBIL is not recommended. Chloride [Moles/Vol] 111 mmol/L 98-107 [facility] Cholesterol [Mass/Vol] 183 mg/dL <200 [facility] Comment on above: <200 mg/dL Desirable 200-240 mg/dL Borderline >240 mg/dL High Risk Eosinophils/100 WBC (Bld) 1.7 % 0-5 [facility] Glucose [Mass/Vol] 104 mg/dL 74-106 [facility] Comment on above: Fasting Glucose resu lt from 100 to 125 mg/dL suggests IMPAIRED HOMEOSTASIS per A.D.A. criteria. Neutrophils (Bld) [#/Vol] 3.0 10*3/uL 2.0-7.7 [facility] Neutrophils/100 WBC (Bld) 50.1 % 47-70 [facility] Potassium [Moles/Vol] 3.6 mmol/L 3.5-5.1 [facility] Protein [Mass/Vol] 6.8 g/dL 6.4-8.2 [facility] Sodium [Moles/Vol] 141 mmol/L 136-145 [facility] Triglyceride [Mass/Vol] 123 mg/dL <199 [facility] Comment on above: The drugs N-Acetylcy steine and Metamizole may falsely depress this assay.Serum Triglycerides Reference Interval Normal <150 mg/dL Borderline high 150 - 199 mg/dL High 200 - 499 mg/dL Very High > or = 500 mg/dL WBC (Bld) [#/Vol] 6.0 10*3/uL 4.4-11.0 [facility] Bilirubin Test strip Ql (U)O rdered By: Shereen Soria on 06-10-2023 Bilirubin Ql (U) Negative Negative [facility] Blood erythrocytes count (nu mber/volume)Ordered By: Shereen Soria on 06-10-2023 RBC (Bld) [#/Vol] 4.52 10*6/uL 4.2-5.4 [facility] Blood hemoglobin measurement (mass/volume)Ordered By: Shereen Soria on 06-10-2023 Hemoglobin (Bld) [Mass/Vol] 13.9 g/dL 12.0-15.0 [facility] Blood lymphocytes/100 leukoc ytesOrdered By: Shereen Soria on 06-10-2023 Lymphocytes/100 WBC (Bld) 38.7 % 19-41 [facility] Blood monocytes/100 leukocyt esOrdered By: Shereen Soria on 06-10-2023 Monocytes/100 WBC (Bld) 8.6 % 0-10 [facility] Blood platelet mean volumeOr dered By: Shereen Soria on 06-10-2023 Platelet mean volume (Bld) [Entitic vol] 10.8 fL 6.2-12.0 [facility] Determination of erythrocyte mean corpuscular volume (MCV)Ordered By: Shereen Soria on 06-10-2023 MCV (RBC) [Entitic vol] 89.6 fL 81-99 [facility] Hematocrit Auto (Bld) [Volum e fraction]Ordered By: Shereen Soria on 06-10-2023 Hematocrit (Bld) [Volume fraction] 40.5 % 37-47 [facility] Ketones Test strip Ql (U)Ord ered By: Shereen Soria on 06-10-2023 Ketones Ql (U) 5 mg/dl Negative [facility] Laboratory - Chemistry and C hemistry - challengeOrdered By: Shereen Soria on 06-10-2023 ALP [Catalytic activity/Vol] 65 U/L 45-117 [facility] ALT [Catalytic activity/Vol] 17 U/L 13-56 [facility] CO2 [Moles/Vol] 25.0 mmol/L 21.0-32.0 [facility] Cobalamin (Vitamin B12) [Mass/Vol] 1049 pg/mL 211-911 [facility] Free T4 [Mass/Vol] 1.02 ng/dL 0.76-1.46 [facility] Globulin (S) [Mass/Vol] 3.3 g/dL 2.2-4.2 [facility] Urea nitrogen/Creatinine [Mass ratio] 32.3 mg/mg 10-20 [facility] Laboratory - Hematology and Cell countsOrdered By: Shereen Soria on 06-10-2023 Erythrocyte distribution width (RBC) [Entitic vol] 43.6 fL 35.1-43.9 [facility] Erythrocyte distribution width (RBC) [Ratio] 13.2 % 11.6-14.6 [facility] Immature granulocytes/100 WBC (Bld) 0.200 % 0.0-0.9 [facility] Comment on above: IG% - Immature Granu locytes (promyelocytes, myelocytes and metamyelocytes) > 1% indicates that a LEFT SHIFT is Present. MCH (RBC) [Entitic mass] 30.8 pg 27.0-32.0 [facility] Nucleated RBC/100 WBC (Bld) [Ratio] 0 % 0-5 [facility] MCHC Auto (RBC) [Mass/Vol]Or dered By: Shereen Soria on 06-10-2023 MCHC (RBC) [Mass/Vol] 34.3 g/dL 32-36 [facility] Mucus LM Ql (Urine sed)Order ed By: Shereen Soria on 06-10-2023 Mucus Ql (Urine sed) 0 SEEN /hpf [facility] Nitrite Test strip Ql (U)Ord ered By: Shereen Soria on 06-10-2023 Nitrite Ql (U) Negative Negative [facility] No Panel InformationOrdered By: Shereen Soria on 06-10-2023 Estimated GFR (MDRD) Amer 139 mL/min >60 [facility] Comment on above: GFR Calc Estimated GFR (MDRD) Non-Af Amer 115 mL/min >60 [facility] Comment on above: Non- GFR Calc Thyroglobulin Antibody See comment [facility] Comment on above: TEST RESULTS LIMITST Hung+Thyroglobulin,SUSAN or RIAThyroglobulin Antibody <1.0 IU/mL 0.0-0.9Thyroglobulin Antibody measured by Jolanta Kp MethodologyThyroglobulin by SUSAN <0.1 Low ng/mL 1.5-38.5Comment: According to the National Academy of Clinical Biochemistry, the reference interval for Thyroglobulin (TG) should be related to euthyroid patients and not for patients who underwent thyroidectomy.TG reference intervals for these patients depend on the residual mass of the thyroid tissue left after surgery. Establishing a post-operative baseline is recommended.The assay limit of quantitation is 0.1 ng/mLThyroglobulin measured by Jolanta Kp Immunometric Assay TESTING PERFORMED AT [facility]. ORIGINAL REPORT ON FILE IN LAB CONTAINS ADDITIONAL TEST SITE INFORMATION. Thyroid Stimulating Hormone (TSH) 2.33 uIU/mL 0.358-3.74 [facility] Vitamin D 25-Hydroxy 42.8 ng/mL [facility] Comment on above: Vitamin D 25(OH) Sta tus Range Deficiency <20 ng/mL (50nmol/L) Insufficiency 20 - 30 ng/mL (50 - 75 nmol/L) Sufficiency 30 - 100 ng/mL (75 - 250 nmol/L) Toxicity >100 ng/mL (>250 nmol/L) Platelets bldOrdered By: Michael Soria on 06-10-2023 Platelets (Bld) [#/Vol] 233 10*3/uL 150-450 [facility] Protein Test strip Ql (U)Ord ered By: Shereen Soria on 06-10-2023 Protein Ql (U) 15 mg/dl Negative [facility] Serum or plasma albumin dorian urement (mass/volume)Ordered By: Shereen Soria on 06-10-2023 Albumin [Mass/Vol] 3.5 g/dL 3.2-5.0 [facility] Serum or plasma albumin/glob ulin mass ratioOrdered By: Shereen Soria on 06-10-2023 Albumin/Globulin [Mass ratio] 1.1 {ratio} 0.9-2.4 [facility] Serum or plasma calcium dorian urement (mass/volume)Ordered By: Shereen Soria on 06-10-2023 Calcium [Mass/Vol] 9.3 mg/dL 8.5-10.1 [facility] Serum or plasma cholesterol in HDL measurement (mass/volume)Ordered By: Shereen Soria on 06-10-2023 Cholesterol in HDL [Mass/Vol] 43 mg/dL >40 [facility] Comment on above: The drugs N-Acetylcy steine and Metamizole may falsely depress this assay. Reference Range HDL <40 mg/dL Low HDL Cholesterol HDL >or= 60 mg/dL High HDL Cholesterol Serum or plasma cholesterol in VLDL measurement (mass/volume)Ordered By: Shereen Soria on 06-10-2023 Cholesterol in VLDL [Mass/Vol] 25 mg/dL 5-40 [facility] Serum or plasma creatinine m easurement (mass/volume)Ordered By: Shereen Soria on 06-10-2023 Creatinine [Mass/Vol] 0.56 mg/dL 0.55-1.02 [facility] Comment on above: The validity of the calculated GFR & GFRAA in patients over 70 years has not been determined. Clinical correlation is essential. Serum or plasma low density lipoprotein (LDL) cholesterol measurement (mass/volume)Ordered By: Shereen Soria on 06-10-2023 Cholesterol in LDL [Mass/Vol] 115 mg/dL 0-130 [facility] Serum or plasma urea nitroge n measurement (mass/volume)Ordered By: Shereen Soria on 06-10-2023 Urea nitrogen [Mass/Vol] 18 mg/dL 7-18 [facility] Squamous epithelial cells de tection in urine sediment by light microscopyOrdered By: Shereen Soria on 06-10-2023 Epithelial cells.squamous LM Ql (Urine sed) 5-10 SEEN /hpf 5-10 [facility] Thin prep Papanicolaou smear with manual screeningOrdered By: Shereen Soria on 06-10-2023 Thin prep Papanicolaou smear with manual screening 15 U/L 15-37 [facility] Thin prep Papanicolaou smear with manual screening 5 5-15 [facility] Urine blood detectionOrdered By: Shereen Soria on 06-10-2023 RBC Ql (U) 10 /ul Negative [facility] RBC Ql (U) 0 SEEN /hpf 0-5 [facility] Urine clarityOrdered By: Michael Soria on 06-10-2023 Clarity (U) Sl. Cloudy Clear [facility] Urine color determinationOrd ered By: Shereen Soria on 06-10-2023 Color (U) Yellow Yellow [facility] Urine glucose detectionOrder ed By: Shereen Soria on 06-10-2023 Glucose Ql (U) Normal mg/dl Normal [facility] Urine leukocyte esterase det ection by dipstickOrdered By: Shereen Soria on 06-10-2023 Leukocyte esterase Test strip Ql (U) 25 /ul Negative [facility] Urine pHOrdered By: Shereen boothe on 06-10-2023 pH (U) 5.0 [pH] 5.0 - 8.0 [facility] Urine sediment bacteria coun t by microscopy (number/high power field)Ordered By: Shereen Soria on 06-10-2023 Bacteria LM.HPF (Urine sed) [#/Area] 0 /[HPF] None Seen [facility] Urine specific gravity measu rementOrdered By: Shereen Soria on 06-10-2023 Specific gravity (U) [Rel density] 1.025 1.002-1.030 [facility] Urobilinogen Auto test strip Ql (U)Ordered By: Shereen Soria on 06-10-2023 Urobilinogen Ql (U) 1 mg/dl [facility] - AEROBIC AND VERONIQUE EROBICon 09-13-2021 CULT/STAIN - AEROBIC AND ANAEROBIC STAIN GRAM --> Status: F Rare polymorphonuclear cells/lpf. No organisms seen. No organisms seen. CULTURE ANAEROBE --> Status: F No growth of anaerobes at 5 days. 1 Organism Serratia marcescens Rare For serious infections outside of the urinary tract, third generation cephalosporins may not be effective, even if test results indicate the organism is sensitive. ---- 1 Organism ---- Antibiotic Result Intrp ---- Amoxicillin/Clavulanic Acid(ALEXIS) R Cefazolin(ALEXIS) R Ceftriaxone(ALEXIS) <= 1 S Cefepime(ALEXIS) <= 1 S Aztreonam(ALEXIS) <= 1 S Meropenem(ALEXIS) <= 0.25 S Amikacin(ALEXIS) <= 2 S Gentamicin(ALEXIS) <= 1 S Ciprofloxacin(ALEXIS) <= 0.25 S Trimeth/Sulfa(ALEXIS) <= 20 S Pip/Tazobactam(BP) 2 S Normal [facility] Comment on above: Performed By: #### C ELIO #### [employer] [address] [phone] [facility] [address] [id number] OPERATIVE REPORTOrdered By: 3m Scanning on 09-10-2021 [employer] Work Phone: Basic Metabolic Panelon 09-3 Calcium [Mass/Vol] 9.3 mg/dL Normal 8.4-10.4 [facility] Comment on above: Performed By: #### V ANCT #### [facility] [address] [place], [place] Glucose [Mass/Vol] 104 mg/dL High 70-100 [facility] Comment on above: Performed By: #### V ANCT #### [facility] [address] [place], [place] Anion gap [Moles/Vol] 4 mmol/L Normal 3-13 [facility] Comment on above: Performed By: #### V ANCT #### [facility] [address] [place], [place] CO2 [Moles/Vol] 30 mmol/L Normal 22-30 [facility] Comment on above: Performed By: #### V ANCT #### [facility] [address] [place], [place] Creatinine [Mass/Vol] 0.46 mg/dL Low 0.52-1.25 [facility] Comment on above: Performed By: #### V ANCT #### [facility] [address] [place], [place] eGFR OTHER > 90.0 Normal >60 [facility] Comment on above: Result Comment: KDIG O guidelines provide the following GFR categories: Stage GFR(ml/min/1.73 m2) Terms G1 >=90 Normal or high G2 60-89 Mildly decreased* G3a 45-59 Mildly to moderately decreased G3b 30-44 Moderately to severely decreased G4 15-29 Severely decreased G5 <15 Kidney failure *Relative to young adult level. In the absence of evidence of kidney damage, neither GFR category G1 nor G2 fulfill the criteria for CKD. The CKD-EPI equation is validated in individuals 18 years of age and older. Currently the best equation for estimating glomerular filtration rate (GFR) from serum creatinine in children is the Bedside Hicks equation. It is less accurate in patients with extremes of muscle mass, restriction of dietary protein, ingestion of creatine, extra-renal metabolism of creatinine, or treatment with medications that affect renal tubular creatinine secretion. Performed By: #### V ANCT #### [facility] [address] [place], [place] GFR/1.73 sq M.predicted among blacks MDRD (S/P/Bld) [Vol rate/Area] mL/min/{1.73_m2} Normal >60 [facility] Comment on above: Performed By: #### V ANCT #### [facility] [address] [place], [place] Urea nitrogen [Mass/Vol] 11 mg/dL Normal 9-20 [facility] Comment on above: Performed By: #### V ANCT #### [facility] [address] [place], [place] Chloride [Moles/Vol] 103 mmol/L Normal 98-107 [facility] Comment on above: Performed By: #### V ANCT #### [place] [address] [place], [place] Potassium [Moles/Vol] 3.5 mmol/L Normal 3.5-5.1 [facility] Comment on above: Performed By: #### V ANCT #### [facility] [address] [place], [place] Sodium [Moles/Vol] 137 mmol/L Normal 135-145 [facility] Comment on above: Performed By: #### V ANCT #### [place] [address] [place], [place] Basic Metabolic PanelOrdered By: Tomas Pederson on 08-12-2021 Anion gap [Moles/Vol] 4 mmol/L 3 - 13 mmol/L [facility] Work Phone: Calcium [Mass/Vol] 9.3 mg/dL 8.4 - 10. 4 mg/dL [facility] Work Phone: Chloride [Moles/Vol] 103 mmol/L 98 - 10 7 mmol/L [facility] Work Phone: [phone] CO2 [Moles/Vol] 30 mmol/L 22 - 30 mmol/L [facility] Work Phone: Creatinine [Mass/Vol] 0.46 mg/dL Low 0.52 - 1.25 mg/dL [facility] Work Phone: EGFR IF NonAfrican Cypriot >90.0 >60 mL/min [facility] Work Phone: Comment on above: KDIGO guidelines pro vide the following GFR categories: Stage GFR(ml/min/1.73 m2) Terms G1 >=90 Normal or high G2 60-89 Mildly decreased* G3a 45-59 Mildly to moderately decreased G3b 30-44 Moderately to severely decreased G4 15-29 Severely decreased G5 <15 Kidney failure *Relative to young adult level. In the absence of evidence of kidney damage, neither GFR category G1 nor G2 fulfill the criteria for CKD. The CKD-EPI equation is validated in individuals 18 years of age and older. Currently the best equation for estimating glomerular filtration rate (GFR) from serum creatinine in children is the Bedside Hicks equation. It is less accurate in patients with extremes of muscle mass, restriction of dietary protein, ingestion of creatine, extra-renal metabolism of creatinine, or treatment with medications that affect renal tubular creatinine secretion. GFR/1.73 sq M.predicted among blacks MDRD (S/P/Bld) [Vol rate/Area] mL/min/{1.73_m2} >60 mL/min [facility] Work Phone: Glucose [Mass/Vol] 104 mg/dL High 70 - 100 mg/dL [employer] Work Phone: Interpretation and review of laboratory results Abnormal [facility] Work Phone: Potassium [Moles/Vol] 3.5 mmol/L 3.5 - 5.1 mmol/L [facility] Work Phone: Sodium [Moles/Vol] 137 mmol/L 135 - 145 mmol/L [facility] Work Phone: Urea nitrogen (BldV) [Mass/Vol] 11 mg/dL 9 - 20 mg/dL [facility] Work Phone: Test Performed by [facility], [address] [place] [id number] [facility] Work Phone: [facility] Work Phone: CBC Auto DifferentialOrdered By: Tomas Pederson on 08-12-2021 Absolute Baso # 0.0 10*3/uL 0.0 - 0.2 10*3/uL [employer] Work Phone: [phone] Absolute Neut # 3.1 10*3/uL 1.8 - 7.0 10*3/uL [facility] Work Phone: [phone] Basophils/100 WBC (Bld) 0.6 % 0.0 - 2.0 % [facility] Work Phone: [phone] Eosinophils (Bld) [#/Vol] 0.2 10*3/uL 0.0 - 0.5 10*3/uL [facility] Work Phone: [phone] Eosinophils/100 WBC (Bld) 3.5 % 1.0 - 6.0 % [facility] Work Phone: [phone] Granulocytes/100 WBC (Bld) 51.0 % 40.0 - 80.0 % [facility] Work Phone: () Hematocrit (Bld) [Volume fraction] 35.3 % 35.0 - 47.0 % [facility] Work Phone: [phone] Hemoglobin.gastrointes tinal spec 1 Ql (Stl) 12.0 g/dL 11.7 - 16.0 g/dL [facility] Work Phone: [phone] Interpretation and review of laboratory results Abnormal [facility] Work Phone: [phone] Lymphocytes (Bld) [#/Vol] 2.1 10*3/uL 1.0 - 4.3 10*3/uL [facility] Work Phone: [phone] Lymphocytes/100 WBC (Bld) 34.0 % 20.0 - 40.0 % [facility] Work Phone: () 222 MCH (RBC) [Entitic mass] 30.9 pg 26.0 - 34.0 pg [facility] Work Phone: [phone] MCHC (RBC) [Mass/Vol] 34.1 % 32.0 - 36.0 % [facility] Work Phone: [phone] MCV (RBC) [Entitic vol] 90.9 fL 79.0 - 98.0 fL [facility] Work Phone: [phone] Monocytes (Bld) [#/Vol] 0.7 10*3/uL 0.0 - 0.8 10*3/uL [facility] Work Phone: [phone] Monocytes/100 WBC (Bld) 10.9 % High 2.0 - 10.0 % [facility] Work Phone: [phone] Platelet distribution width (Bld) [Ratio] 13.5 % 11.5 - 14.5 % [facility] Work Phone: [phone] Platelet mean volume (Bld) [Entitic vol] 8.4 fL 7.4 - 10.4 fL [facility] Work Phone: [phone] Platelets (Bld) [#/Vol] 271 10*3/uL 140 - 440 10*3/uL [facility] Work Phone: [phone] RBC (Bld) [#/Vol] 3.88 10*6/uL 3.80 - 5.2 0 10*6/uL [facility] Work Phone: [phone] WBC (Bld) [#/Vol] 6.1 10*3/uL 3.6 - 10.7 10*3/uL [facility] Work Phone: [phone] Test Performed by [facility], [address] [place] [id number] [facility] Work Phone: [phone] [employer] Work Phone: [phone] Hemogram w/ Autodiffon 08-12 Abs Baso Cnt 0.0 10*3/uL Normal 0.0-0.2 [facility] Comment on above: Performed By: #### V ANCT #### [facility] [place] [address] [place] [address] Abs Neutrophile Cnt 3.1 10*3/uL Normal 1.8-7.0 [facility] Comment on above: Performed By: #### V ANCT #### [facility] [address] [phone] Basophils/100 WBC (Bld) 0.6 % Normal 0.0-2.0 [facility] Comment on above: Performed By: #### V ANCT #### [facility] [address] [phone] Eosinophils (Bld) [#/Vol] 0.2 10*3/uL Normal 0.0-0.5 [facility] Comment on above: Performed By: #### V ANCT #### [facility] [address] [place] [address] Eosinophils/100 WBC (Bld) 3.5 % Normal 1.0-6.0 [facility] Comment on above: Performed By: #### V ANCT #### [facility] [address] [place] [address] Erythrocyte distribution width (RBC) [Ratio] 13.5 % Normal 11.5-14.5 [facility] Comment on above: Performed By: #### V ANCT #### [facility] [address] [place] [address] Granulocytes/100 WBC (Bld) 51.0 % Normal 40.0-80.0 [facility] Comment on above: Performed By: #### V ANCT #### [facility] [address] [place] [address] Hematocrit (Bld) [Volume fraction] 35.3 % Normal 35.0-47.0 [facility] Comment on above: Performed By: #### V ANCT #### [facility] [address] [place] [address] Hemoglobin (Bld) [Mass/Vol] 12.0 g/dL Normal 11.7-16.0 [facility] Comment on above: Performed By: #### V ANCT #### [facility] [address] [place] [address] Lymphocytes (Bld) [#/Vol] 2.1 10*3/uL Normal 1.0-4.3 [facility] Comment on above: Performed By: #### V ANCT #### [facility] [address] [place] [address] Lymphocytes/100 WBC (Bld) 34.0 % Normal 20.0-40.0 [facility] Comment on above: Performed By: #### V ANCT #### [facility] [address] [place] [address] MCH (RBC) [Entitic mass] 30.9 pg Normal 26.0-34.0 [facility] Comment on above: Performed By: #### V ANCT #### [place] [address] [place] [address] MCHC 34.1 % Normal 32.0-36.0 [facility] Comment on above: Performed By: #### V ANCT #### [place] [address] [place], [place] MCV (RBC) [Entitic vol] 90.9 fL Normal 79.0-98.0 [facility] Comment on above: Performed By: #### V ANCT #### [place] [address] [place], [place] Monocytes (Bld) [#/Vol] 0.7 10*3/uL Normal 0.0-0.8 [facility] Comment on above: Performed By: #### V ANCT #### [place] [address] [place], [place] Monocytes/100 WBC (Bld) 10.9 % High 2.0-10.0 [facility] Comment on above: Performed By: #### V ANCT #### [place] [address] [place], [place] Platelet mean volume (Bld) [Entitic vol] 8.4 fL Normal 7.4-10.4 [facility] Comment on above: Performed By: #### V ANCT #### [place] [address] [place], [place] Platelets (Bld) [#/Vol] 271 10*3/uL Normal 140-440 [facility] Comment on above: Performed By: #### V ANCT #### [place] [address] [place], [place] RBC (Bld) [#/Vol] 3.88 10*6/uL Normal 3.80-5.20 [facility] Comment on above: Performed By: #### V ANCT #### [place] [address], [place] WBC (Bld) [#/Vol] 6.1 10*3/uL Normal 3.6-10.7 [facility] Comment on above: Performed By: #### V ANCT #### [facility] [address] [place] [address] Basic Metabolic Panelon 09-2 Calcium [Mass/Vol] 9.4 mg/dL Normal 8.4-10.4 [facility] Comment on above: Performed By: #### H EMDF, BMP3 #### [facility] [address] [place], [place] Glucose [Mass/Vol] 119 mg/dL High 70-100 [facility] Comment on above: Performed By: #### H EMDF, BMP3 #### [facility] [address] [place], [place] Anion gap [Moles/Vol] 4 mmol/L Normal 3-13 [facility] Comment on above: Performed By: #### H EMDF, BMP3 #### [facility] [address] [place], [place] CO2 [Moles/Vol] 26 mmol/L Normal 22-30 [facility] Comment on above: Performed By: #### H EMDF, BMP3 #### [facility] [address] [place], [place] Creatinine [Mass/Vol] 0.44 mg/dL Low 0.52-1.25 [facility] Comment on above: Performed By: #### H EMDF, BMP3 #### [facility] [address] [place], [place] eGFR OTHER > 90.0 Normal >60 [facility] Comment on above: Result Comment: KDIG O guidelines provide the following GFR categories: Stage GFR(ml/min/1.73 m2) Terms G1 >=90 Normal or high G2 60-89 Mildly decreased* G3a 45-59 Mildly to moderately decreased G3b 30-44 Moderately to severely decreased G4 15-29 Severely decreased G5 <15 Kidney failure *Relative to young adult level. In the absence of evidence of kidney damage, neither GFR category G1 nor G2 fulfill the criteria for CKD. The CKD-EPI equation is validated in individuals 18 years of age and older. Currently the best equation for estimating glomerular filtration rate (GFR) from serum creatinine in children is the Bedside Hicks equation. It is less accurate in patients with extremes of muscle mass, restriction of dietary protein, ingestion of creatine, extra-renal metabolism of creatinine, or treatment with medications that affect renal tubular creatinine secretion. Performed By: #### H DOMINGO BMP3 #### [place] [address] [place] [address] GFR/1.73 sq M.predicted among blacks MDRD (S/P/Bld) [Vol rate/Area] mL/min/{1.73_m2} Normal >60 [facility] Comment on above: Performed By: #### H DOMINGO BMP3 #### [place] [address] [place] [address] Urea nitrogen [Mass/Vol] 16 mg/dL Normal 9-20 [facility] Comment on above: Performed By: #### H DOMINGO BMP3 #### [place] [address] [place] Chloride [Moles/Vol] 109 mmol/L High 98-107 [facility] Comment on above: Performed By: #### H DOMINGO BMP3 #### [place] [address] [place] [address] Potassium [Moles/Vol] 3.8 mmol/L Normal 3.5-5.1 [facility] Comment on above: Performed By: #### H DOMINGO BMP3 #### [place] [address], [place] Sodium [Moles/Vol] 139 mmol/L Normal 135-145 [facility] Comment on above: Performed By: #### H DMOINGO BMP3 #### [place] [address] [place] [address] Basic Metabolic PanelOrdered By: Tomas Pederson on 08-11-2021 Anion gap [Moles/Vol] 4 mmol/L 3 - 13 mmol/L [facility] Work Phone: Calcium [Mass/Vol] 9.4 mg/dL 8.4 - 10. 4 mg/dL [facility] Work Phone: Chloride [Moles/Vol] 109 mmol/L High 98 - 10 7 mmol/L [facility] Work Phone: CO2 [Moles/Vol] 26 mmol/L 22 - 30 mmol/L [facility] Work Phone: Creatinine [Mass/Vol] 0.44 mg/dL Low 0.52 - 1.25 mg/dL [facility] Work Phone: EGFR IF NonAfrican Cypriot >90.0 >60 mL/min [facility] Work Phone: Comment on above: KDIGO guidelines pro vide the following GFR categories: Stage GFR(ml/min/1.73 m2) Terms G1 >=90 Normal or high G2 60-89 Mildly decreased* G3a 45-59 Mildly to moderately decreased G3b 30-44 Moderately to severely decreased G4 15-29 Severely decreased G5 <15 Kidney failure *Relative to young adult level. In the absence of evidence of kidney damage, neither GFR category G1 nor G2 fulfill the criteria for CKD. The CKD-EPI equation is validated in individuals 18 years of age and older. Currently the best equation for estimating glomerular filtration rate (GFR) from serum creatinine in children is the Bedside Hicks equation. It is less accurate in patients with extremes of muscle mass, restriction of dietary protein, ingestion of creatine, extra-renal metabolism of creatinine, or treatment with medications that affect renal tubular creatinine secretion. GFR/1.73 sq M.predicted among blacks MDRD (S/P/Bld) [Vol rate/Area] mL/min/{1.73_m2} >60 mL/min [facility] Work Phone: Glucose [Mass/Vol] 119 mg/dL High 70 - 100 mg/dL [facility] Work Phone: Interpretation and review of laboratory results Abnormal [facility] Work Phone: Potassium [Moles/Vol] 3.8 mmol/L 3.5 - 5.1 mmol/L [facility] Work Phone: Sodium [Moles/Vol] 139 mmol/L 135 - 145 mmol/L [facility] Work Phone: Urea nitrogen (BldV) [Mass/Vol] 16 mg/dL 9 - 20 mg/dL [facility] Work Phone: Test Performed by [facility], [address] [place] [id number] [facility] Work Phone: [phone] [facility] Work Phone: [phone] CBC Auto DifferentialOrdered By: Tomas Pederson on 08-11-2021 Absolute Baso # 0.1 10*3/uL 0.0 - 0.2 10*3/uL [facility] Work Phone: [phone] Absolute Neut # 3.6 10*3/uL 1.8 - 7.0 10*3/uL [facility] Work Phone: ) 222 Basophils/100 WBC (Bld) 0.8 % 0.0 - 2.0 % [facility] Work Phone: [phone] Eosinophils (Bld) [#/Vol] 0.1 10*3/uL 0.0 - 0.5 10*3/uL [facility] Work Phone: ) 222 Eosinophils/100 WBC (Bld) 1.4 % 1.0 - 6.0 % [facility] Work Phone: ) 222 Granulocytes/100 WBC (Bld) 49.9 % 40.0 - 80.0 % [facility] Work Phone: Hematocrit (Bld) [Volume fraction] 34.1 % Low 35.0 - 47.0 % [facility] Work Phone: 222 Hemoglobin.gastrointes tinal spec 1 Ql (Stl) 11.2 g/dL Low 11.7 - 16.0 g/dL [facility] Work Phone: ) 222 Interpretation and review of laboratory results Abnormal [facility] Work Phone: ) 222 Lymphocytes (Bld) [#/Vol] 2.8 10*3/uL 1.0 - 4.3 10*3/uL [facility] Work Phone: ) 222 Lymphocytes/100 WBC (Bld) 39.6 % 20.0 - 40.0 % [facility] Work Phone: ) 222 MCH (RBC) [Entitic mass] 30.8 pg 26.0 - 34.0 pg [facility] Work Phone: ) 222 MCHC (RBC) [Mass/Vol] 33.0 % 32.0 - 36.0 % [facility] Work Phone: [phone] MCV (RBC) [Entitic vol] 93.2 fL 79.0 - 98.0 fL [facility] Work Phone: [phone] Monocytes (Bld) [#/Vol] 0.6 10*3/uL 0.0 - 0.8 10*3/uL [facility] Work Phone: [phone] Monocytes/100 WBC (Bld) 8.3 % 2.0 - 10.0 % [facility] Work Phone: [phone] Platelet distribution width (Bld) [Ratio] 13.7 % 11.5 - 14.5 % [facility] Work Phone: [phone] Platelet mean volume (Bld) [Entitic vol] 9.1 fL 7.4 - 10.4 fL [facility] Work Phone: [phone] Platelets (Bld) [#/Vol] 245 10*3/uL 140 - 440 10*3/uL [facility] Work Phone: [phone] RBC (Bld) [#/Vol] 3.66 10*6/uL Low 3.80 - 5.2 0 10*6/uL [facility] Work Phone: [phone] WBC (Bld) [#/Vol] 7.2 10*3/uL 3.6 - 10.7 10*3/uL [facility] Work Phone: [phone] Test Performed by [facility], [address] [place] [address] [facility] Work Phone: [phone] [facility] Work Phone: [phone] CR Chest Portableon 08-11-20 21 CR Chest Portable Patient Name: XIAO AMAYA Diagnostic Radiology ACCESSION EXAM DATE/TIME PROCEDURE ORDERING PROVIDER [id number] 08/11/2021 17:20 EDT CR Chest Portable MARI BASHIR CPT code 23438 Reason For Exam (CR Chest Portable) PICC PLACEMENT Report PORTABLE CHEST: INDICATION: PICC placement COMPARISON: 2021 Obtained at 1645 hours. A single portable AP radiograph of the chest was obtained. The heart is normal in size. The mediastinal silhouette is normal. The lungs are clear. There are no effusions or infiltrates. There is no pleural thickening. The osseous structures are unremarkable. . A PICC is present on the left with the tip of the catheter overlying the superior vena cava. IMPRESSION: No acute process. Status post left-sided PICC placement Report Dictated on Final Dictated: 08/11/2021 7:27 pm Dictating Physician: DO CHAPMAN ALFRED Signed Date and Time: 08/11/2021 7:27 pm Signed by: DO CHAPMAN ALFRED Transcribed Date and Time: 08/11/2021 7:27 Normal [facility] Hemogram w/ Autodiffon 08-11 Abs Baso Cnt 0.1 10*3/uL Normal 0.0-0.2 [facility] Comment on above: Performed By: #### H EMDF, BMP3 #### [facility] [address] [place] [address] Abs Neutrophile Cnt 3.6 10*3/uL Normal 1.8-7.0 [facility] Comment on above: Performed By: #### H EMDF, BMP3 #### [facility] [address] [place] [address] Basophils/100 WBC (Bld) 0.8 % Normal 0.0-2.0 [facility] Comment on above: Performed By: #### H EMDF, BMP3 #### [facility] [address] [place] [address] Eosinophils (Bld) [#/Vol] 0.1 10*3/uL Normal 0.0-0.5 [facility] Comment on above: Performed By: #### H EMDF, BMP3 #### [facility] [address] [place] [address] Eosinophils/100 WBC (Bld) 1.4 % Normal 1.0-6.0 [facility] Comment on above: Performed By: #### H EMDF, BMP3 #### [facility] [address] [place] [address] Erythrocyte distribution width (RBC) [Ratio] 13.7 % Normal 11.5-14.5 [facility] Comment on above: Performed By: #### H EMDF, BMP3 #### [place] [address] [place], [place] Granulocytes/100 WBC (Bld) 49.9 % Normal 40.0-80.0 [facility] Comment on above: Performed By: #### H EMDF, BMP3 #### [place] [address] [place], [place] Hematocrit (Bld) [Volume fraction] 34.1 % Low 35.0-47.0 [facility] Comment on above: Performed By: #### H EMDF BMP3 #### [place] [address] [place], [place] Hemoglobin (Bld) [Mass/Vol] 11.2 g/dL Low 11.7-16.0 [facility] Comment on above: Performed By: #### H DOMINGO BMP3 #### [place] [address] [place], [place] Lymphocytes (Bld) [#/Vol] 2.8 10*3/uL Normal 1.0-4.3 [facility] Comment on above: Performed By: #### H EMDWili BMP3 #### [place] [address] [place], [place] Lymphocytes/100 WBC (Bld) 39.6 % Normal 20.0-40.0 [facility] Comment on above: Performed By: #### H EMDF BMP3 #### [place] [address] [place] MCH (RBC) [Entitic mass] 30.8 pg Normal 26.0-34.0 [facility] Comment on above: Performed By: #### H EMDF BMP3 #### [address] MCHC 33.0 % Normal 32.0-36.0 [facility] Comment on above: Performed By: #### H EMDF, BMP3 #### [address] MCV (RBC) [Entitic vol] 93.2 fL Normal 79.0-98.0 [facility] Comment on above: Performed By: #### H DOMINGO BMP3 #### [address] Monocytes (Bld) [#/Vol] 0.6 10*3/uL Normal 0.0-0.8 [facility] Comment on above: Performed By: #### H DOMINGO BMP3 #### [address] Monocytes/100 WBC (Bld) 8.3 % Normal 2.0-10.0 [facility] Comment on above: Performed By: #### H DOMINGO BMP3 #### [address] Platelet mean volume (Bld) [Entitic vol] 9.1 fL Normal 7.4-10.4 [facility] Comment on above: Performed By: #### H DOMINGO BMP3 #### [address] Platelets (Bld) [#/Vol] 245 10*3/uL Normal 140-440 [facility] Comment on above: Performed By: #### H DOMINGO BMP3 #### [address] RBC (Bld) [#/Vol] 3.66 10*6/uL Low 3.80-5.20 [facility] Comment on above: Performed By: #### H DOMINGO BMP3 #### [address] WBC (Bld) [#/Vol] 7.2 10*3/uL Normal 3.6-10.7 [facility] Comment on above: Performed By: #### H DOMINGO BMP3 #### [address] Vancomycin Troughon 08-11-20 21 Vancomycin Trough 5.8 ug/mL Low 15.0-20.0 [facility] Comment on above: Result Comment: . Performed By: #### V ANCT #### [address] [address] Vancomycin, TroughOrdered By : Mag Candelaria on 08-11-2021 Interpretation and review of laboratory results Abnormal [facility] Work Phone: Vancomycin Tr 5.8 ug/mL Low 15.0 - 20.0 ug/mL [facility] Work Phone: Comment on above: . Test Performed by [facility], [address] [place] [address] [facility] Work Phone: [facility] Work Phone: XR CHEST PORTABLEOrdered By: Mari Bashir on 08-11-2021 Patient Name: XIAO AMAYA Diagnostic Radiology ACCESSION EXAM DATE/TIME PROCEDURE ORDERING PROVIDER [id number] 08/11/2021 17:20 EDT CR Chest Portable MARI BASHIR CPT code 44046 Reason For Exam (CR Chest Portable) PICC PLACEMENT Report PORTABLE CHEST: INDICATION: PICC placement COMPARISON: 2021 Obtained at 1645 hours. A single portable AP radiograph of the chest was obtained. The heart is normal in size. The mediastinal silhouette is normal. The lungs are clear. There are no effusions or infiltrates. There is no pleural thickening. The osseous structures are unremarkable. . A PICC is present on the left with the tip of the catheter overlying the superior vena cava. IMPRESSION: No acute process. Status post left-sided PICC placement Report Dictated on --- Final --- Dictated: 08/11/2021 7:27 pm Dictating Physician: DO CHAPMAN ALFRED Signed Date and Time: 08/11/2021 7:27 pm Signed by: DO CHAPMAN ALFRED Transcribed Date and Time: 08/11/2021 7:27 [facility] Work Phone: [facility] Incoming Radiology Results From [facility] - 08/11/2021 7:28 PM EDT Patient [facility]: [id number] Radiology ACCESSION EXAM DATE/TIME PROCEDURE ORDERING PROVIDER [id number] 08/11/2021 17:20 EDT CR Chest Portable MARI BASHIR CPT code 80880 Reason For Exam (CR Chest Portable) PICC PLACEMENT Report PORTABLE CHEST: INDICATION: PICC placement COMPARISON: 2021 Obtained at 1645 hours. A single portable AP radiograph of the chest was obtained. The heart is normal in size. The mediastinal silhouette is normal. The lungs are clear. There are no effusions or infiltrates. There is no pleural thickening. The osseous structures are unremarkable. . A PICC is present on the left with the tip of the catheter overlying the superior vena cava. IMPRESSION: No acute process. Status post left-sided PICC placement Report Dictated on --- Final --- Dictated: 08/11/2021 7:27 pm Dictating Physician: DO CHAPMAN ALFRED Signed Date and Time: 08/11/2021 7:27 pm Signed by: DO CHAPMAN ALFRED Transcribed Date and Time: 08/11/2021 7:27 [facility] Work Phone: [facility] Work Phone: Basic Metabolic Panelon 07-15 Calcium [Mass/Vol] 9.7 mg/dL Normal 8.4-10.4 [facility] Comment on above: Performed By: #### V ANCT #### [place] [address] [place], [place] Glucose [Mass/Vol] 109 mg/dL High 70-100 [facility] Comment on above: Performed By: #### V ANCT #### [facility] [address], [place] Anion gap [Moles/Vol] 5 mmol/L Normal 3-13 [facility] Comment on above: Performed By: #### V ANCT #### [facility] [address] [place], [place] CO2 [Moles/Vol] 23 mmol/L Normal 22-30 [facility] Comment on above: Performed By: #### V ANCT #### [place] [address] [place], [place] Creatinine [Mass/Vol] 0.40 mg/dL Low 0.52-1.25 [facility] Comment on above: Performed By: #### V ANCT #### [place] [address] [place], [place] eGFR OTHER > 90.0 Normal >60 [facility] Comment on above: Result Comment: KDIG O guidelines provide the following GFR categories: Stage GFR(ml/min/1.73 m2) Terms G1 >=90 Normal or high G2 60-89 Mildly decreased* G3a 45-59 Mildly to moderately decreased G3b 30-44 Moderately to severely decreased G4 15-29 Severely decreased G5 <15 Kidney failure *Relative to young adult level. In the absence of evidence of kidney damage, neither GFR category G1 nor G2 fulfill the criteria for CKD. The CKD-EPI equation is validated in individuals 18 years of age and older. Currently the best equation for estimating glomerular filtration rate (GFR) from serum creatinine in children is the Bedside Hicks equation. It is less accurate in patients with extremes of muscle mass, restriction of dietary protein, ingestion of creatine, extra-renal metabolism of creatinine, or treatment with medications that affect renal tubular creatinine secretion. Performed By: #### V ANCT #### [place] [address] [place], [place] GFR/1.73 sq M.predicted among blacks MDRD (S/P/Bld) [Vol rate/Area] mL/min/{1.73_m2} Normal >60 [facility] Comment on above: Performed By: #### V ANCT #### [place] [address] Urea nitrogen [Mass/Vol] 13 mg/dL Normal 9-20 [facility] Comment on above: Performed By: #### V ANCT #### [address] Chloride [Moles/Vol] 107 mmol/L Normal 98-107 [facility] Comment on above: Performed By: #### V ANCT #### [address] Potassium [Moles/Vol] 3.9 mmol/L Normal 3.5-5.1 [facility] Comment on above: Performed By: #### V ANCT #### [facility] [address], [place] Sodium [Moles/Vol] 135 mmol/L Normal 135-145 [facility] Comment on above: Performed By: #### V ANCT #### [facility] [address], [place] Basic Metabolic PanelOrdered By: oTmas Pederson on 08-10-2021 Anion gap [Moles/Vol] 5 mmol/L 3 - 13 mmol/L [facility] Work Phone: Calcium [Mass/Vol] 9.7 mg/dL 8.4 - 10. 4 mg/dL [facility] Work Phone: Chloride [Moles/Vol] 107 mmol/L 98 - 10 7 mmol/L [facility] Work Phone: CO2 [Moles/Vol] 23 mmol/L 22 - 30 mmol/L [facility] Work Phone: Creatinine [Mass/Vol] 0.4 mg/dL Low 0.52 - 1.25 mg/dL [facility] Work Phone: EGFR IF NonAfrican Cypriot >90.0 >60 mL/min [facility] Work Phone: Comment on above: KDIGO guidelines pro vide the following GFR categories: Stage GFR(ml/min/1.73 m2) Terms G1 >=90 Normal or high G2 60-89 Mildly decreased* G3a 45-59 Mildly to moderately decreased G3b 30-44 Moderately to severely decreased G4 15-29 Severely decreased G5 <15 Kidney failure *Relative to young adult level. In the absence of evidence of kidney damage, neither GFR category G1 nor G2 fulfill the criteria for CKD. The CKD-EPI equation is validated in individuals 18 years of age and older. Currently the best equation for estimating glomerular filtration rate (GFR) from serum creatinine in children is the Bedside Hicks equation. It is less accurate in patients with extremes of muscle mass, restriction of dietary protein, ingestion of creatine, extra-renal metabolism of creatinine, or treatment with medications that affect renal tubular creatinine secretion. GFR/1.73 sq M.predicted among blacks MDRD (S/P/Bld) [Vol rate/Area] mL/min/{1.73_m2} >60 mL/min [facility] Work Phone: Glucose [Mass/Vol] 109 mg/dL High 70 - 100 mg/dL [facility] Work Phone: Interpretation and review of laboratory results Abnormal [facility] Work Phone: Potassium [Moles/Vol] 3.9 mmol/L 3.5 - 5.1 mmol/L [facility] Work Phone: Sodium [Moles/Vol] 135 mmol/L 135 - 145 mmol/L [facility] Work Phone: Urea nitrogen (BldV) [Mass/Vol] 13 mg/dL 9 - 20 mg/dL [facility] Work Phone: Test Performed by [address] [address] [facility] Work Phone: [facility] Work Phone: CBC Auto DifferentialOrdered By: Tomas Pederson on 08-10-2021 Absolute Baso # 0.1 10*3/uL 0.0 - 0.2 10*3/uL [facility] Work Phone: Absolute Neut # 8.8 10*3/uL High 1.8 - 7.0 10*3/uL [facility] Work Phone: 222 Basophils/100 WBC (Bld) 0.9 % 0.0 - 2.0 % [facility] Work Phone: 222 Eosinophils (Bld) [#/Vol] 0.0 10*3/uL 0.0 - 0.5 10*3/uL [facility] Work Phone: 222 Eosinophils/100 WBC (Bld) 0.1 % Low 1.0 - 6.0 % [facility] Work Phone: 222 Granulocytes/100 WBC (Bld) 73.4 % 40.0 - 80.0 % [facility] Work Phone: Hematocrit (Bld) [Volume fraction] 36.7 % 35.0 - 47.0 % [facility] Work Phone: [phone] Hemoglobin.gastrointes tinal spec 1 Ql (Stl) 12.2 g/dL 11.7 - 16.0 g/dL [facility] Work Phone: [phone] Interpretation and review of laboratory results Abnormal [facility] Work Phone: [phone] Lymphocytes (Bld) [#/Vol] 2.0 10*3/uL 1.0 - 4.3 10*3/uL [facility] Work Phone: [phone] Lymphocytes/100 WBC (Bld) 16.3 % Low 20.0 - 40.0 % [facility] Work Phone: ) 222 MCH (RBC) [Entitic mass] 30.2 pg 26.0 - 34.0 pg [facility] Work Phone: [phone] MCHC (RBC) [Mass/Vol] 33.3 % 32.0 - 36.0 % [facility] Work Phone: [phone] MCV (RBC) [Entitic vol] 90.7 fL 79.0 - 98.0 fL [facility] Work Phone: () 222 Monocytes (Bld) [#/Vol] 1.1 10*3/uL High 0.0 - 0.8 10*3/uL [facility] Work Phone: [phone] Monocytes/100 WBC (Bld) 9.3 % 2.0 - 10.0 % [facility] Work Phone: [phone] Platelet distribution width (Bld) [Ratio] 13.5 % 11.5 - 14.5 % [facility] Work Phone: [phone] Platelet mean volume (Bld) [Entitic vol] 9.0 fL 7.4 - 10.4 fL [facility] Work Phone: () 222 Platelets (Bld) [#/Vol] 268 10*3/uL 140 - 440 10*3/uL [facility] Work Phone: [phone] RBC (Bld) [#/Vol] 4.04 10*6/uL 3.80 - 5.2 0 10*6/uL [facility] Work Phone: WBC (Bld) [#/Vol] 12.1 10*3/uL High 3.6 - 10.7 10*3/uL [facility] Work Phone: Test Performed by [facility], [address] [place] [address] [facility] Work Phone[facility] Work Phone: Hemogram w/ Autodiffon 08-10 Abs Baso Cnt 0.1 10*3/uL Normal 0.0-0.2 [facility] Comment on above: Performed By: #### V ANCT #### [address] [address] Abs Neutrophile Cnt 8.8 10*3/uL High 1.8-7.0 [facility] Comment on above: Performed By: #### V ANCT #### [address] [address] Basophils/100 WBC (Bld) 0.9 % Normal 0.0-2.0 [facility] Comment on above: Performed By: #### V ANCT #### [address] [address] Eosinophils (Bld) [#/Vol] 0.0 10*3/uL Normal 0.0-0.5 [facility] Comment on above: Performed By: #### V ANCT #### [place] [place] [address] Eosinophils/100 WBC (Bld) 0.1 % Low 1.0-6.0 [facility] Comment on above: Performed By: #### V ANCT #### [address] [address] Erythrocyte distribution width (RBC) [Ratio] 13.5 % Normal 11.5-14.5 [facility] Comment on above: Performed By: #### V ANCT #### [address] [address] Granulocytes/100 WBC (Bld) 73.4 % Normal 40.0-80.0 [facility] Comment on above: Performed By: #### V ANCT #### [facility] [facility] [address] [place], [place] Hematocrit (Bld) [Volume fraction] 36.7 % Normal 35.0-47.0 [facility] Comment on above: Performed By: #### V ANCT #### [facility] [address] [place], [place] Hemoglobin (Bld) [Mass/Vol] 12.2 g/dL Normal 11.7-16.0 [facility] Comment on above: Performed By: #### V ANCT #### [place] [address] [place], [place] Lymphocytes (Bld) [#/Vol] 2.0 10*3/uL Normal 1.0-4.3 [facility] Comment on above: Performed By: #### V ANCT #### [place] [address] [place], [place] Lymphocytes/100 WBC (Bld) 16.3 % Low 20.0-40.0 [facility] Comment on above: Performed By: #### V ANCT #### [place] [address] [place], [place] MCH (RBC) [Entitic mass] 30.2 pg Normal 26.0-34.0 [facility] Comment on above: Performed By: #### V ANCT #### [place] [address] [place], [place] MCHC 33.3 % Normal 32.0-36.0 [facility] Comment on above: Performed By: #### V ANCT #### [place] [address] [place], [place] MCV (RBC) [Entitic vol] 90.7 fL Normal 79.0-98.0 [facility] Comment on above: Performed By: #### V ANCT #### [place] [address] [place], [place] Monocytes (Bld) [#/Vol] 1.1 10*3/uL High 0.0-0.8 [facility] Comment on above: Performed By: #### V ANCT #### [place] [address] [place] [address] Monocytes/100 WBC (Bld) 9.3 % Normal 2.0-10.0 [facility] Comment on above: Performed By: #### V ANCT #### [place] [address] [place] [address] Platelet mean volume (Bld) [Entitic vol] 9.0 fL Normal 7.4-10.4 [facility] Comment on above: Performed By: #### V ANCT #### [place] [address] [place] [address] Platelets (Bld) [#/Vol] 268 10*3/uL Normal 140-440 [facility] Comment on above: Performed By: #### V ANCT #### [address] [address] RBC (Bld) [#/Vol] 4.04 10*6/uL Normal 3.80-5.20 [facility] Comment on above: Performed By: #### V ANCT #### [place] [address] [place] [address] WBC (Bld) [#/Vol] 12.1 10*3/uL High 3.6-10.7 [facility] Comment on above: Performed By: #### V ANCT #### [address] [address] Vancomycin Troughon 08-10-20 21 Vancomycin Trough 5.8 ug/mL Low 15.0-20.0 [facility] Comment on above: Result Comment: . Performed By: #### V ANCT #### [place] [address] [place] [address] Vancomycin, TroughOrdered By : Jacques Storm on 08-10-2021 Interpretation and review of laboratory results Abnormal [facility] Work Phone: Vancomycin Tr 5.8 ug/mL Low 15.0 - 20.0 ug/mL [facility] Work Phone: Comment on above: . Test Performed by [place] [address] [place] [address] [facility] Work Phone: [facility] Work Phone: Basic Metabolic Panelon -2 Calcium [Mass/Vol] 9.1 mg/dL Normal 8.4-10.4 [facility] Comment on above: Performed By: #### V ANCT #### [place] [address] [place] [address] Glucose [Mass/Vol] 98 mg/dL Normal 70-100 [facility] Comment on above: Performed By: #### V ANCT #### [place] [address] [place] [address] Anion gap [Moles/Vol] 3 mmol/L Normal 3-13 [facility] Comment on above: Performed By: #### V ANCT #### [place] [address] [place] [address] CO2 [Moles/Vol] 29 mmol/L Normal 22-30 [facility] Comment on above: Performed By: #### V ANCT #### [place] [address] [place] [address] Creatinine [Mass/Vol] 0.43 mg/dL Low 0.52-1.25 [facility] Comment on above: Performed By: #### V ANCT #### [place] [address] [place] [address] eGFR OTHER > 90.0 Normal >60 [facility] Comment on above: Result Comment: KDIG O guidelines provide the following GFR categories: Stage GFR(ml/min/1.73 m2) Terms G1 >=90 Normal or high G2 60-89 Mildly decreased* G3a 45-59 Mildly to moderately decreased G3b 30-44 Moderately to severely decreased G4 15-29 Severely decreased G5 <15 Kidney failure *Relative to young adult level. In the absence of evidence of kidney damage, neither GFR category G1 nor G2 fulfill the criteria for CKD. The CKD-EPI equation is validated in individuals 18 years of age and older. Currently the best equation for estimating glomerular filtration rate (GFR) from serum creatinine in children is the Bedside Hicks equation. It is less accurate in patients with extremes of muscle mass, restriction of dietary protein, ingestion of creatine, extra-renal metabolism of creatinine, or treatment with medications that affect renal tubular creatinine secretion. Performed By: #### V ANCT #### [place] [address] [place], [place] GFR/1.73 sq M.predicted among blacks MDRD (S/P/Bld) [Vol rate/Area] mL/min/{1.73_m2} Normal >60 [facility] Comment on above: Performed By: #### V ANCT #### [place] [address] [place], [place] Urea nitrogen [Mass/Vol] 13 mg/dL Normal 9-20 [facility] Comment on above: Performed By: #### V ANCT #### [place] [address] [place], [place] Chloride [Moles/Vol] 104 mmol/L Normal 98-107 [facility] Comment on above: Performed By: #### V ANCT #### [place] [address] [place], [place] Potassium [Moles/Vol] 3.5 mmol/L Normal 3.5-5.1 [facility] Comment on above: Performed By: #### V ANCT #### [place] [address] [place], [place] Sodium [Moles/Vol] 136 mmol/L Normal 135-145 [facility] Comment on above: Performed By: #### V ANCT #### [place] [address] [place], [place] Basic Metabolic Panel w/ Ref rosa to MGOrdered By: Jerman Duggan on 08-09-2021 Anion gap [Moles/Vol] 3 mmol/L 3 - 13 mmol/L [facility] Work Phone: Calcium [Mass/Vol] 9.1 mg/dL 8.4 - 10. 4 mg/dL [facility] Work Phone: Chloride [Moles/Vol] 104 mmol/L 98 - 10 7 mmol/L [facility] Work Phone: CO2 [Moles/Vol] 29 mmol/L 22 - 30 mmol/L [facility] Work Phone: Creatinine [Mass/Vol] 0.43 mg/dL Low 0.52 - 1.25 mg/dL [facility] Work Phone: EGFR IF NonAfrican Cypriot >90.0 >60 mL/min [facility] Work Phone: Comment on above: KDIGO guidelines pro vide the following GFR categories: Stage GFR(ml/min/1.73 m2) Terms G1 >=90 Normal or high G2 60-89 Mildly decreased* G3a 45-59 Mildly to moderately decreased G3b 30-44 Moderately to severely decreased G4 15-29 Severely decreased G5 <15 Kidney failure *Relative to young adult level. In the absence of evidence of kidney damage, neither GFR category G1 nor G2 fulfill the criteria for CKD. The CKD-EPI equation is validated in individuals 18 years of age and older. Currently the best equation for estimating glomerular filtration rate (GFR) from serum creatinine in children is the Bedside Hicks equation. It is less accurate in patients with extremes of muscle mass, restriction of dietary protein, ingestion of creatine, extra-renal metabolism of creatinine, or treatment with medications that affect renal tubular creatinine secretion. GFR/1.73 sq M.predicted among blacks MDRD (S/P/Bld) [Vol rate/Area] mL/min/{1.73_m2} >60 mL/min [facility] Work Phone: Glucose [Mass/Vol] 98 mg/dL 70 - 100 mg/dL [facility] Work Phone: Interpretation and review of laboratory results Abnormal [facility] Work Phone: Potassium [Moles/Vol] 3.5 mmol/L 3.5 - 5.1 mmol/L [facility] Work Phone: Sodium [Moles/Vol] 136 mmol/L 135 - 145 mmol/L [facility] Work Phone: Urea nitrogen (BldV) [Mass/Vol] 13 mg/dL 9 - 20 mg/dL [facility] Work Phone: Test Performed by [facility], [address] [place] [id number] [facility] Work Phone: [facility] Work Phone: CBCOrdered By: Jerman Duggan on 08-09-2021 Hematocrit (Bld) [Volume fraction] 36.1 % 35.0 - 47.0 % [facility] Work Phone: [phone] Hemoglobin.gastrointes tinal spec 1 Ql (Stl) 12.2 g/dL 11.7 - 16.0 g/dL [facility] Work Phone: MCH (RBC) [Entitic mass] 30.6 pg 26.0 - 34.0 pg [facility] Work Phone: MCHC (RBC) [Mass/Vol] 33.8 % 32.0 - 36.0 % [facility] Work Phone: MCV (RBC) [Entitic vol] 90.4 fL 79.0 - 98.0 fL [facility] Work Phone: Platelet distribution width (Bld) [Ratio] 13.7 % 11.5 - 14.5 % [facility] Work Phone: Platelet mean volume (Bld) [Entitic vol] 9.1 fL 7.4 - 10.4 fL [facility] Work Phone: ) 222 Platelets (Bld) [#/Vol] 236 10*3/uL 140 - 440 10*3/uL [facility] Work Phone: ) 222 RBC (Bld) [#/Vol] 3.99 10*6/uL 3.80 - 5.2 0 10*6/uL [facility] Work Phone: ) 222 WBC (Bld) [#/Vol] 9.0 10*3/uL 3.6 - 10.7 10*3/uL [facility] Work Phone: 1) 222 Test Performed by [facility], [address] [place] [address] [facility] Work Phone: [facility] Work Phone: EKG 12 LeadOrdered By: Ray Mazariegos on 08-09-[address] [facility]: 2021 Pat Name: XIAOIQRA SHEARER Department: 1AER Room: [facility] Gender: F Supervisor Rice Milling: MARC RUEDA : 1955 Requested By: RAY MAZARIEGOS Order Number: [id number] Reading MD: Winsome Langley Measurements Intervals [place] Rate: 66 P: 48 DE: 201 QRS: 0 QRSD: 104 T: 13 QT: 432 QTc: 454 Interpretive Statements Sinus rhythm Electronically Signed On 08-09-2021 7:49:03 EDT by Winsome VARGAS Work Phone: [place], [facility] Incoming Cardiology Results From [employer] - 08/09/2021 7:50 AM EDT [facility] Test Date: 2021 Pat Name: XIAO SHEARER Department: [facility] Room: 6127 Gender: F Supervisor Rice Milling: MARC RUEDA : 1955 Requested By: RAY MAZARIEGOS Order Number: [id number] Reading MD: Winsome Langley Measurements Intervals [place] Rate: 66 P: 48 DE: 201 QRS: 0 QRSD: 104 T: 13 QT: 432 QTc: 454 Interpretive Statements Sinus rhythm Electronically Signed On 08-09-2021 7:49:03 EDT by Winsome VARGAS Work Phone: [employer] Work Phone: Hemogramon 08-09-2021 Erythrocyte distribution width (RBC) [Ratio] 13.7 % Normal 11.5-14.5 [facility] Comment on above: Performed By: #### V ANCT #### [facility] [address] [place], [place] Hematocrit (Bld) [Volume fraction] 36.1 % Normal 35.0-47.0 [facility] Comment on above: Performed By: #### V ANCT #### [facility] [place], [place] Hemoglobin (Bld) [Mass/Vol] 12.2 g/dL Normal 11.7-16.0 [facility] Comment on above: Performed By: #### V ANCT #### [facility] [employer] [facility] [place], [place] MCH (RBC) [Entitic mass] 30.6 pg Normal 26.0-34.0 [facility] Comment on above: Performed By: #### V ANCT #### [place] [address] [place], [place] MCHC 33.8 % Normal 32.0-36.0 [facility] Comment on above: Performed By: #### V ANCT #### [place] [address] [place] MCV (RBC) [Entitic vol] 90.4 fL Normal 79.0-98.0 [facility] Comment on above: Performed By: #### V ANCT #### [place] [address] [place], [place] Platelet mean volume (Bld) [Entitic vol] 9.1 fL Normal 7.4-10.4 [facility] Comment on above: Performed By: #### V ANCT #### [place] [address] [place], [place] Platelets (Bld) [#/Vol] 236 10*3/uL Normal 140-440 [facility] Comment on above: Performed By: #### V ANCT #### [place] [address] [place], [place] RBC (Bld) [#/Vol] 3.99 10*6/uL Normal 3.80-5.20 [facility] Comment on above: Performed By: #### V ANCT #### [place] [address] [place], [place] WBC (Bld) [#/Vol] 9.0 10*3/uL Normal 3.6-10.7 [facility] Comment on above: Performed By: #### V ANCT #### [place] [address] [place], [place] Magnesiumon 08-09-2021 Magnesium [Mass/Vol] 1.8 mg/dL Normal 1.6-2.3 [facility] Comment on above: Performed By: #### V ANCT #### [place] [address] [place], [place] MagnesiumOrdered By: Rosaura Duggan on 08-09-2021 Magnesium [Mass/Vol] 1.8 mg/dL 1.6 - 2 .3 mg/dL [facility] Work Phone: Test Performed by [facility], [address] [place] [id number] [facility] Work Phone: [facility] Work Phone: OPERATIVE REPORTOrdered By: 3m Scanning on 08-09-2021 [facility] Work Phone: Op Noteon 08-09-2021 Op Note [facility] SUR[facility]ERY [address] [facility] [address] Dept: [phone] Loc: [phone] Operative Report Patient Name: Xiao Shearer Date of : 1955 Date of Surgery: 08/09/21 Pre-operative diagnosis: Right gluteal surgical site infection status post failed irrigation and debridement Post-operative diagnosis: Same Procedure(s): Excisional debridement down to fascia 5x4cm wound Surgeon: Jayro Lea M.D. Hair Assistant(s): Jacques Storm M.D. Anesthesia: General EBL: Minimal IVF: Crystalloid Medications: On scheduled Zosyn and Vancomycin Clinical History/Indication for Surgery The patient is a 66 y.o. year old female s/p open biopsy in marginal excision of right posterior thigh mass on 06/25/2021. 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 After surgery she was wound to have a wound infection and was placed on antibiotics and eventually went for an I&D earlier this month. She now presents with continued purulent drainage, fevers, and pain at her incision site. Examination was consistent with a surgical site infection. At this point in them, an I&D with placement of packing was recommended with the goal to have her wound heal by secondary intent. Risks of surgery in general were reviewed including, but not limited to, continued infection, need for additional procedures, damage to normal structures as well as medical complications such as [place], stroke, PE, DVT, and even . Pt was given opportunity to ask questions and consider her options. She ultimately elected to proceed with surgery. No guarantees were given or implied. ? Operative Narration The patient was identified in the pre-operative holding area. The surgical site was identified and marked. Informed consent was obtained. The patient was then brought to the operating room. Anesthesia was administered and care of the head, neck, and airway was maintained by the anesthesia staff throughout the entire procedure. The patient was turned prone onto well-padded chest rolls. All bony prominences were identified and padded. The leg was prepped and draped in the usual sterile fashion. A surgical timeout was performed. Antibiotics were confirmed to have been given. ? Her previous incision site was marked and the skin surrounding the incision was ellipsed out during the incision. A larger area was noted beneath the skin and blunt dissection was used to break up any septations. Minimal purulence was encountered. Hemostasis was achieved and we proceeded with debridement with curettes and pulse lavage. The area debrided was about 20 square centimeters. After copiously irrigating the wound with 6L of normal saline and ensuring there was no residual infection the wound was packed with one long strip of 2 inch iodoform packing. The wound was left open and a sterile dressing was applied. ? Once the patient was awakened from anesthesia, they were transported to the PACU in stable condition, having tolerated surgery well with no obvious complications. ? Postoperative Plan WBAT Pull packing tomorrow 08/10 and begin BID sitz baths Discussed with my plastic surgery partner, Dr. Barnard, and the patient will follow up with him in one week Antibiotics per ID This operative report was prepared and signed by Jacques Storm MD at 08/09/21, 9:28 AM Normal [facility] Basic Metabolic Panelon 07-15 Anion gap [Moles/Vol] 9 mmol/L Normal 3-13 [facility] Comment on above: Performed By: #### H GHCT BMP3 #### [facility] [address] [place] [address] Calcium [Mass/Vol] 9.8 mg/dL Normal 8.4-10.4 [facility] Comment on above: Performed By: #### H GHCT, BMP3 #### [facility] [address] [place] [address] CO2 [Moles/Vol] 23 mmol/L Normal 22-30 [facility] Comment on above: Performed By: #### H GHCT BMP3 #### [facility] [address] [place], [place] Glucose [Mass/Vol] 115 mg/dL High 70-100 [facility] Comment on above: Performed By: #### H MALATHICT, BMP3 #### [facility] [address] [place], [place] Urea nitrogen [Mass/Vol] 15 mg/dL Normal 9-20 [facility] Comment on above: Performed By: #### H GHCT, BMP3 #### [facility] [address] [place], [place] Creatinine [Mass/Vol] 0.42 mg/dL Low 0.52-1.25 [facility] Comment on above: Performed By: #### H MALATHICT BMP3 #### [facility] [address] [place], [place] eGFR OTHER > 90.0 Normal >60 [facility] Comment on above: Result Comment: KDIG O guidelines provide the following GFR categories: Stage GFR(ml/min/1.73 m2) Terms G1 >=90 Normal or high G2 60-89 Mildly decreased* G3a 45-59 Mildly to moderately decreased G3b 30-44 Moderately to severely decreased G4 15-29 Severely decreased G5 <15 Kidney failure *Relative to young adult level. In the absence of evidence of kidney damage, neither GFR category G1 nor G2 fulfill the criteria for CKD. The CKD-EPI equation is validated in individuals 18 years of age and older. Currently the best equation for estimating glomerular filtration rate (GFR) from serum creatinine in children is the Bedside Hicks equation. It is less accurate in patients with extremes of muscle mass, restriction of dietary protein, ingestion of creatine, extra-renal metabolism of creatinine, or treatment with medications that affect renal tubular creatinine secretion. Performed By: #### H GHCT BMP3 #### [facility] [address] [place], [place] GFR/1.73 sq M.predicted among blacks MDRD (S/P/Bld) [Vol rate/Area] mL/min/{1.73_m2} Normal >60 [facility] Comment on above: Performed By: #### H AWILDA BMP3 #### [facility] [address] [place] [address] Potassium [Moles/Vol] 3.6 mmol/L Normal 3.5-5.1 [facility] Comment on above: Performed By: #### H GHCT, BMP3 #### [facility] [address] [place] [address] Sodium [Moles/Vol] 136 mmol/L Normal 135-145 [facility] Comment on above: Performed By: #### H GHCT, BMP3 #### [facility] [address] [place] [address] Chloride [Moles/Vol] 105 mmol/L Normal 98-107 [facility] Comment on above: Performed By: #### H GHCT, BMP3 #### [facility] [address] [place] [address] Basic Metabolic PanelOrdered By: Julio César Chaparro on 2021 Anion gap [Moles/Vol] 9 mmol/L 3 - 13 mmol/L [facility] Work Phone: Calcium [Mass/Vol] 9.8 mg/dL 8.4 - 10. 4 mg/dL [facility] Work Phone: Chloride [Moles/Vol] 105 mmol/L 98 - 10 7 mmol/L [facility] Work Phone: CO2 [Moles/Vol] 23 mmol/L 22 - 30 mmol/L [facility] Work Phone: Creatinine [Mass/Vol] 0.42 mg/dL Low 0.52 - 1.25 mg/dL [facility] Work Phone: EGFR IF NonAfrican Cypriot >90.0 >60 mL/min [facility] Work Phone: Comment on above: KDIGO guidelines pro vide the following GFR categories: Stage GFR(ml/min/1.73 m2) Terms G1 >=90 Normal or high G2 60-89 Mildly decreased* G3a 45-59 Mildly to moderately decreased G3b 30-44 Moderately to severely decreased G4 15-29 Severely decreased G5 <15 Kidney failure *Relative to young adult level. In the absence of evidence of kidney damage, neither GFR category G1 nor G2 fulfill the criteria for CKD. The CKD-EPI equation is validated in individuals 18 years of age and older. Currently the best equation for estimating glomerular filtration rate (GFR) from serum creatinine in children is the Bedside Hicsk equation. It is less accurate in patients with extremes of muscle mass, restriction of dietary protein, ingestion of creatine, extra-renal metabolism of creatinine, or treatment with medications that affect renal tubular creatinine secretion. GFR/1.73 sq M.predicted among blacks MDRD (S/P/Bld) [Vol rate/Area] mL/min/{1.73_m2} >60 mL/min [employer] Work Phone: Glucose [Mass/Vol] 115 mg/dL High 70 - 100 mg/dL [employer] Work Phone: Potassium [Moles/Vol] 3.6 mmol/L 3.5 - 5.1 mmol/L [employer] Work Phone: Sodium [Moles/Vol] 136 mmol/L 135 - 145 mmol/L [facility] Work Phone: Urea nitrogen (BldV) [Mass/Vol] 15 mg/dL 9 - 20 mg/dL [employer] Work Phone: C-REACTIVE PROTEINOrdered By : Julio César Chaparro on 2021 CRP [Mass/Vol] 78.4 mg/L High 0.0 - 9.9 mg/L [employer] Phone: Comment on above: . C-Reactive Proteinon 021 CRP [Mass/Vol] 78.4 mg/L High 0.0-9.9 [facility] Comment on above: Result Comment: . Performed By: #### H GHCT, BMP3 #### [facility] [address] [place] [address] CR Chest 1 View Frontalon CR Chest 1 View Frontal Patient Name: XIAO SHEARER Diagnostic Radiology ACCESSION EXAM DATE/TIME PROCEDURE ORDERING PROVIDER [id number] 2021 11:23 EDT CR Chest 1 View Frontal [id number] RAY BIRD CPT code 06612 Reason For Exam (CR Chest 1 View Frontal) pre-op Report PORTABLE CHEST CLINICAL INDICATION: Preoperative evaluation TECHNIQUE: Portable AP COMPARISON: None FINDINGS: No focal consolidation or pulmonary edema. No pleural effusions or pneumothorax. Top normal heart size. The osseous structures are unremarkable. IMPRESSION: No focal consolidation or pulmonary edema. Report Dictated on Final Dictated: 2021 11:31 am Dictating Physician: MD SENA KEVIN Signed Date and Time: 2021 11:31 am Signed by: MD SENA KEVIN Transcribed Date and Time: 2021 11:31 Normal [facility] CR Hip w/ Pelvis 2 or 3 View s Righton 2021 CR Hip w/ Pelvis 2 or 3 Views Right Patient Name: XIAO SHEARER Diagnostic Radiology ACCESSION EXAM DATE/TIME PROCEDURE ORDERING PROVIDER [id number] 2021 11:23 EDT CR Hip w/ Pelvis 2 or 3 [id number] RAY BIRD Views Right n CPT code 32364 Reason For Exam (CR Hip w/ Pelvis [...] No radiopaque foreign body. Report Dictated on Final Dictated: 2021 11:32 am Dictating Physician: MD SENA KEVIN Signed Date and Time: 2021 11:32 am Signed by: MD SENA KEVIN Transcribed Date and Time: 2021 11:32 Normal [facility] ED Provider Noteon ED Provider Note [facility] H6 TELEMETRY EMERGENCY DEPARTMENT ENCOUNTER Pt Name: Xiao Shearer Birthdate 1955 Date of evaluation: 2021 Provider: Monica Reza MD CHIEF COMPLAINT Chief Complaint Patient presents with ? Abscess pt arrived by car. pt had a tumor removed on the back of her R leg about a month ago. incision ended up getting infected. pt is now here for pain. HISTORY OF PRESENT ILLNESS (Location/Symptom, Timing/Onset, Context/Setting, Quality, Duration, Modifying Factors, Severity) Note limiting factors. Xiao Shearer is a 66 y.o. female with medical history significant for past breast cancer, thyroid cancer, now hypothyroid, hyperlipidemia presents to the emergency department with concerns of postop infection. Patient had an excisional biopsy of right thigh/gluteal mass which are now being benign, that had become infected and 18 days ago she had an I&D with right gluteal surgical wound with excision of sinus tracts by Dr. Jayro Lea due to a reaccumulation of an abscess. She was discharged with 5 days of p.o. antibiotics after the procedure. Patient is reporting that ever since the surgery, the fluid keeps reaccumulating, and pain progressively gets worse. Last night she had a fever over 101, this morning she presented to the emergency department.Patient initially went to [facility], got a CAT scan significant for 40 mL of fluid collection and transferred her here. Nursing Notes were reviewed. REVIEW OF SYSTEMS (2+ for level 4; 10+ for level 5) Review of Systems Constitutional: Positive for fever. Negative for chills and diaphoresis. HENT: Negative for congestion and rhinorrhea. Eyes: Negative for visual disturbance. Respiratory: Negative for cough, shortness of breath and wheezing. Cardiovascular: Negative for chest pain. Gastrointestinal: Negative for abdominal pain, constipation, diarrhea, nausea and vomiting. Genitourinary: Negative for dysuria and flank pain. Musculoskeletal: Positive for myalgias. Negative for arthralgias. Skin: Positive for wound. Negative for rash. Neurological: Negative for dizziness, light-headedness and headaches. Psychiatric/Behavioral: Negative for sleep disturbance. PAST MEDICAL HISTORY Past Medical History: Diagnosis Date ? Acid reflux ? Cancer (HCC) thyroid, breast tissue ? COVID-19 10/2020 ? Heart murmur ? Heartburn ? History of hormone therapy ? Hypercholesterolemia ? Hypertension ? Thyroid disease SURGICAL HISTORY Past Surgical History: Procedure Laterality Date ? BREAST LUMPECTOMY Right ? HYSTERECTOMY, TOTAL ABDOMINAL ? LEG MASS EXCISION 06/07/2021 Open biopsy right thigh mass, Marginal excision of right posterior thigh mass ? OTHER SURGICAL HISTORY 07/21/2021 washout and closure ? THYROIDECTOMY 2014 cancer ? VARICOSE VEIN SURGERY CURRENT MEDICATIONS Current Discharge Medication List CONTINUE these medications which have NOT CHANGED Details COLLAGEN PO Take by mouth daily Indications: collagen peptides atenolol (TENORMIN) 50 MG tablet Take 50 mg by mouth daily Howard-3 Fatty Acids (FISH OIL) 1000 MG CPDR Take 1,000 mg by mouth daily Biotin 10 MG CAPS Take by mouth daily Turmeric 500 MG CAPS Take by mouth daily hydroCHLOROthiazide (HYDRODIURIL) 25 MG tablet Take 25 mg by mouth daily levothyroxine (SYNTHROID) 125 MCG tablet Take 125 mcg by mouth Daily esomeprazole (NEXIUM) 40 MG delayed release capsule Take 40 mg by mouth every morning (before breakfast) estradiol (ESTRACE) 0.5 MG tablet Take 0.5 mg by mouth every evening Cholecalciferol (VITAMIN D3) 125 MCG (5000 UT) TABS Take by mouth daily aspirin 81 MG EC tablet Take 81 mg by mouth daily meloxicam (MOBIC) 7.5 MG tablet Take 7.5 mg by mouth daily ALLERGIES Patient has no known allergies. FAMILY HISTORY Family History Problem Relation Age of Onset ? Hypertension Mother ? Cancer Mother lung ? Hypertension Father ? Heart Disease Father ? Cancer Brother lung ? No Known Problems Daughter SOCIAL HISTORY Social History Socioeconomic History ? Marital status: Single Spouse name: Not on file ? Number of children: Not on file ? Years of education: Not on file ? Highest education level: Not on file Occupational History ? Not on file Tobacco Use ? Smoking status: Former Smoker Packs/day: 0.50 Years: 10.00 Pack years: 5.00 Types: Cigarettes Quit date: 2000 Years since quittin.7 ? Smokeless tobacco: Never Used ? Tobacco comment: quit 20 years ago Vaping Use ? Vaping Use: Never used Substance and Sexual Activity ? Alcohol use: Yes Comment: approx once / week ? Drug use: Never ? Sexual activity: Not on file Other Topics Concern ? Not on file Social History Narrative ? Not on file Social Determinants of Health Financial Resource Strain: ? Difficulty of Paying Living Expenses: Food Insecurity: ? Worried About Running Out of Food in (more content not included)... Normal [facility] ED Provider Note Emergency Department Encounter [facility] EMERGENCY DEPT Patient: Xiao Shearer : 1955 Date of Evaluation: 2021 ED Supervising Physician: Julio César Chaparro DO I independently examined and evaluated Xiao Shearer. I saw and evaluated the patient. The case was discussed with the CORNEL/resident. I personally reviewed the HPI, PH, FH, SH, ROS and medications. I repeated pertinent portions of the examination reviewed the relevant imaging and laboratory data. I agree with the findings, assessment and plan as documented. 66 F here with concern for abscess. History of GERD, hyperlipidemia, hypertension, hypothyroidism Old chart reviewed: Recent encounter of right buttock on 2021-07-21 wound dehiscence status post tumor excision, right gluteal surgical site infection. Procedure(s): I&D right gluteal surgical wound with excision of sinus tracts and primary closure 3x2 cm skin and subcutaneous tissue removed Exam: BP 133/73 Pulse 72 Temp 98.8 ?F (37.1 ?C) (Oral) Resp 18 Ht 5' 4" (1.626 m) Wt 86.2 kg (190 lb) SpO2 99% BMI 32.61 kg/m? Had left gluteal fold abscess that was erythematous with purulent discharge and noted induration the area was exquisitely tender by patient has no bullae there is no crepitus compartments were soft. She had symmetric pulses in bilateral lower extremities. ED Course as of Aug 12 1429 Sun 2021 0935 Paged ortho [AD] 0952 CT from outside hospital shows 4.8 cm abscess [TA] 0952 Dr. Benz (ortho resident evaluated the patient) [TA] 1100 Ortho requests medical admission. Paged IMS [AD] 1101 Basic Metabolic Panel(!): Sodium 136 Potassium 3.6 Chloride 105 CO2 23 Anion Gap 9 Glucose 115(!) BUN 15 Creatinine 0.42(!) eGFR >90.0 EGFR IF NonAfrican Cypriot >90.0 Calcium 9.8 [AD] 1102 C-REACTIVE PROTEIN(!): CRP 78.4(!) [AD] 1102 Hemogram (CBC)(!): WBC 11.9(!) RBC 4.29 Hemoglobin Quant 13.0 Hematocrit 39.5 MCV 92.2 MCH 30.3 MCHC 32.9 RDW 14.1 Platelet Count 249 MPV 9.1 [AD] ED Course User Index [AD] Monica Reza MD [TA] Julio César Chaparro DO MDM/Plan: We will obtain inflammatory markers, CBC we will give the patient vancomycin to cover MRSA she will receive Zosyn from outside hospital we will consult surgical clinical reviewer for definitive care. Total critical care time today provided was at least 0 minutes. This excludes seperately billable procedure. 1. Abscess All diagnostic, treatment, and disposition decisions were made by myself in conjunction with the CORNEL. For all further details of the patient's emergency department visit, please see their documentation. (Please note that portions of this note may have been completed with a voice recognition program. Efforts were made to edit the dictations but occasionally words are mis-transcribed.) Julio César Chaparro DO [employer] Julio César Chaparro DO 08/08/21 1018 Julio César Chaparro DO 08/12/21 1429 Normal [facility] Hemogramon 2021 Erythrocyte distribution width (RBC) [Ratio] 14.1 % Normal 11.5-14.5 [facility] Comment on above: Performed By: #### H NADINE KAISER3 #### [address] Hematocrit (Bld) [Volume fraction] 39.5 % Normal 35.0-47.0 [facility] Comment on above: Performed By: #### H AWILDA BMP3 #### [address] Hemoglobin (Bld) [Mass/Vol] 13.0 g/dL Normal 11.7-16.0 [facility] Comment on above: Performed By: #### H NADINE KAISER3 #### [address] MCH (RBC) [Entitic mass] 30.3 pg Normal 26.0-34.0 [facility] Comment on above: Performed By: #### H AWILDA BMP3 #### [address] MCHC 32.9 % Normal 32.0-36.0 [facility] Comment on above: Performed By: #### H AWILDA BMP3 #### [place] [address] [place], [place] MCV (RBC) [Entitic vol] 92.2 fL Normal 79.0-98.0 [facility] Comment on above: Performed By: #### H MALATHICT BMP3 #### [place] [address] [place], [place] Platelet mean volume (Bld) [Entitic vol] 9.1 fL Normal 7.4-10.4 [facility] Comment on above: Performed By: #### H AWILDA BMP3 #### [place] [address] [place], [place] Platelets (Bld) [#/Vol] 249 10*3/uL Normal 140-440 [facility] Comment on above: Performed By: #### H MALATHICT BMP3 #### [address] [address] [place], [place] RBC (Bld) [#/Vol] 4.29 10*6/uL Normal 3.80-5.20 [facility] Comment on above: Performed By: #### H GHCT BMP3 #### [address] [address] [place], [place] WBC (Bld) [#/Vol] 11.9 10*3/uL High 3.6-10.7 [facility] Comment on above: Performed By: #### H GHCT BMP3 #### [address] [address] [place], [place] Hemogram (CBC)Ordered By: Josiah Chaparro on 2021 Hematocrit (Bld) [Volume fraction] 39.5 % 35.0 - 47.0 % [facility] Work Phone: Hemoglobin.gastrointes tinal spec 1 Ql (Stl) 13.0 g/dL 11.7 - 16.0 g/dL [facility] Work Phone: Interpretation and review of laboratory results Abnormal [facility] Work Phone: [phone] MCH (RBC) [Entitic mass] 30.3 pg 26.0 - 34.0 pg [facility] Work Phone: [phone] MCHC (RBC) [Mass/Vol] 32.9 % 32.0 - 36.0 % [facility] Work Phone: [phone] MCV (RBC) [Entitic vol] 92.2 fL 79.0 - 98.0 fL [facility] Work Phone: [phone] Platelet distribution width (Bld) [Ratio] 14.1 % 11.5 - 14.5 % [facility] Work Phone: [phone] Platelet mean volume (Bld) [Entitic vol] 9.1 fL 7.4 - 10.4 fL [facility] Work Phone: [phone] Platelets (Bld) [#/Vol] 249 10*3/uL 140 - 440 10*3/uL [facility] Work Phone: [phone] RBC (Bld) [#/Vol] 4.29 10*6/uL 3.80 - 5.2 0 10*6/uL [facility] Work Phone: [phone] WBC (Bld) [#/Vol] 11.9 10*3/uL High 3.6 - 10.7 10*3/uL [facility] Work Phone: [phone] Test Performed by [facility], [facility] [place] [address] [facility] Work Phone: 1()- [facility] Work Phone: [phone] Panel InformationOrdered By: Julio César Chaparro on 2021 Interpretation and review of laboratory results Abnormal [facility] Work Phone: [phone] Test Performed by [employer] [facility], [facility] [place] [address] [facility] Work Phone: [phone] [facility] Work Phone: [phone] Protime AND APTTon 1 aPTT Coag (Bld) [Time] 29.5 s Normal 20.0-30.5 [facility] Comment on above: Result Comment: NOTE : The therapeutic time for Heparin anticoagulation, based on Xa activity inhibition, is an APTT of 46-80 seconds. Performed By: #### V ANCT #### [address] [place] [place] [address] INR 1.0 Normal 0.9-1.1 [facility] Comment on above: Result Comment: Maximo mmended Anticoagulant Therapy: SEE BELOW ----- INR of 2.0 - 3.0 : - Prophylaxis of Venous Thrombosis (high-risk surgery) - Treatment of Venous Thrombosis - Treatment of Pulmonary Embolism (Includes tissue heart valves, Acute Myocardial Infarction to prevent systemic embolism, Valvular Heart Disease, and Atrial Fibrillation) ----- INR of 2.5 - 3.5 : - Mechanical Prosthetic Valves (high risk) - If oral anticoagulant therapy is used to prevent Myocardial Infarction Performed By: #### V ANCT #### [address] [place] [address] PT Coag (PPP) [Time] 11.0 s Normal 9.0-12.0 [facility] Comment on above: Result Comment: . Performed By: #### V ANCT #### [place] [place] [address] Protime/INR & PTTOrdered By: Julio César Chaparro on 2021 aPTT Coag (Bld) [Time] 29.5 s 20.0 - 30.5 s [facility] Work Phone: Comment on above: NOTE: The therapeuti c time for Heparin anticoagulation, based on Xa activity inhibition, is an APTT of 46-80 seconds. INR Coag (Bld) [Relative time] 1.0 {INR} [facility] Work Phone: Comment on above: Recommended Anticoag ulant Therapy: SEE BELOW ----- INR of 2.0 - 3.0 : - Prophylaxis of Venous Thrombosis (high-risk surgery) - Treatment of Venous Thrombosis - Treatment of Pulmonary Embolism (Includes tissue heart valves, Acute Myocardial Infarction to prevent systemic embolism, Valvular Heart Disease, and Atrial Fibrillation) ----- INR of 2.5 - 3.5 : - Mechanical Prosthetic Valves (high risk) - If oral anticoagulant therapy is used to prevent Myocardial Infarction PT Coag (PPP) [Time] 11 s 9.0 - 1 2.0 s [facility] Work Phone: Comment on above: . Test Performed by [employer], [address] [place] [address] [facility] Work Phone: [facility] Work Phone: Sed Rateon 2021 Sed Rate 22 mm/h High 0-20 [facility] Comment on above: Performed By: #### V ANCT #### [facility] [address] [place] [phone] Sedimentation RateOrdered By : Julio César Chaparro on 2021 Interpretation and review of laboratory results Abnormal [facility] Work Phone: Sed Rate 22 mm/h High 0 - 20 mm/h [facility] Work Phone: Test Performed by [employer], [address] [place] [address] [facility] Work Phone: [facility] Work Phone: TS GELon 2021 TS GEL ABO Group: A Rh, Gel: POS Antibody Screen Gel: NEG Normal [facility] Comment on above: Performed By: #### T SGL #### [facility] TYPE AND SCREENOrdered By: Chai Mazariegos on 2021 ABO Grouping A [facility] Work Phone: Rh Type Positive [facility] Work Phone: Test Performed by [employer], [address] [place] [address] [facility] Work Phone: [facility] Work Phone: XR CHEST 1 VWOrdered By: Amador Mazariegos on 2021 Patient Name: XIAO AMAYA Diagnostic Radiology ACCESSION EXAM DATE/TIME PROCEDURE ORDERING PROVIDER [id number] 2021 11:23 EDT CR Chest 1 View Frontal [id number] RAY BIRD CPT code 13644 Reason For Exam (CR Chest 1 View [...] KEVIN Transcribed Date and Time: 2021 11:31 [facility] Work Phone: [facility], [facility] Incoming [facility] Results From [facility] - 2021 11:32 AM EDT Patient Name: XIAO SHEARER Diagnostic Radiology ACCESSION EXAM DATE/TIME PROCEDURE ORDERING PROVIDER [id number] 2021 11:23 EDT CR Chest 1 View Frontal [id number] RAY BIRD CPT code 70050 Reason For Exam (CR Chest 1 View [...] KEVIN Transcribed Date and Time: 2021 11:31 [facility] Work Phone: [facility] Work Phone: XR HIP RIGHT (2-3 VIEWS)Orde red By: Ray Mazariegos on 2021 Patient Name: XIAO AMAYA Diagnostic Radiology ACCESSION EXAM DATE/TIME PROCEDURE ORDERING PROVIDER [id number] 2021 11:23 EDT CR Hip w/ Pelvis 2 or 3 [id number] -PONTASCH, RAY Views Right n CPT code 20224 Reason For Exam (CR Hip w/ Pelvis [...] KEVIN Transcribed Date and Time: 2021 11:32 [facility] Work Phone: [facility], [facility] Results From [facility] - 2021 11:33 AM EDT Patient Name: XIAO SHEARER Diagnostic Radiology ACCESSION EXAM DATE/TIME PROCEDURE ORDERING PROVIDER [id number] 2021 11:23 EDT CR Hip w/ Pelvis 2 or 3 [id number] -PONTASCH, RAY Views Right n CPT code 13686 Reason For Exam (CR Hip w/ Pelvis [...] KEVIN Transcribed Date and Time: 2021 11:32 [facility] Work Phone: [facility] Work Phone: OPERATIVE REPORTOrdered By: 3m Scanning on 07-21-2021 [facility] Work Phone: Op Noteon 07-21-2021 Op Note [facility] GENER[facility] [address] [facility] [address] Dept: [phone] Loc: [phone] Operative Report Patient Name: Xiao Shearer Date of : 1955 Date of Surgery: 07/21/21 Pre-operative diagnosis: Right gluteal surgical site infection Post-operative diagnosis: Same Procedure(s): I&D right gluteal surgical wound with excision of sinus tracts and primary closure 3x2 cm skin and subcutaneous tissue removed Surgeon: Jayro Lea M.D. Hair Assistant(s): Jacques Storm M.D. Anesthesia: General EBL: Minimal IVF: Crystalloid Medications: Two grams of Cefazolin were given. Clinical History/Indication for Surgery The patient is a 65 y.o. year old female s/p open biopsy in marginal excision of right posterior thigh mass on 06/25/2021. 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 Since her surgery she has noted drainage from her wound and has been placed on Augmentin but it continued to drain. At this point in time ,typical indications for surgery were reviewed and surgical I&D was recommended. Risks of surgery in general were reviewed including, but not limited to, continued infection, need for additional procedures, damage to normal structures as well as medical complications such as [place], stroke, PE, DVT, and even . Pt was given opportunity to ask questions and consider her options. She ultimately elected to proceed with surgery. No guarantees were given or implied. Operative Narration The patient was identified in the pre-operative holding area. The surgical site was identified and marked. Informed consent was obtained. The patient was then brought to the operating room. Anesthesia was administered and care of the head, neck, and airway was maintained by the anesthesia staff throughout the entire procedure. The patient was turned prone onto well-padded chest rolls. All bony prominences were identified and padded. No tourniquet was applied. The leg was prepped and draped in the usual sterile fashion. A surgical timeout was performed. Antibiotics were confirmed to have been given. Her skin was marked at the previous incision site and an incision was made ellipsing two sinus tracts in the process. This was debrided to a depth of 5 square centimeters. No purulence was encountered. Hemostasis was achieved and we proceeded with debridement with curettes and pulse lavage. After copiously irrigating the wound with 6L of normal saline and ensuring there was no residual infection the decision was made to close the wound primarily. 2-0 PDS was used for deep sutures and the skin was closed in a layered fashion with 3-0 Monocryl and 2-0 nylon. A sterile dressing was applied. Once the patient was awakened from anesthesia, they were transported to the PACU in stable condition, having tolerated surgery well with no obvious complications. Postoperative Plan Weightbearing as tolerated P.O. antibiotics Rx x5 days Maintain Silverlon dressing for 10 days Follow-up 3wks This operative report was prepared and signed by Jacques Storm MD at 07/21/21, 10:[address] [facility] Op Noteon 06-07-2021 Op Note [facility] GENERAL SURGERY [address] [place] [address] Dept: [phone] Loc: [phone] Operative Report Patient Name: Xiao Shearer Date of : 1955 Date of Surgery: 06/07/21 Pre-operative diagnosis: Right posterior thigh mass Post-operative diagnosis: Same Procedure(s): 1. Open biopsy right thigh mass 2. Marginal excision of right posterior thigh mass Surgeon: Jayro Lea M.D. Hair Assistant(s): Bart Cali M.D. and Adi Ackerman M.D. Anesthesia: General EBL: Minimal IVF: Crystalloid Medications: Two grams of Cefazolin were given. Clinical History/Indication for Surgery The patient is a 65 y.o. year old female who was presents for open biopsy and possible resection of right posterior thigh mass. She was seen in office and after review of imaging physical exam we had a discussion of the plan. We ultimately elected to proceed with open biopsy of the lesion. We discussed that based on the results of the biopsy we would either perform a wide resection if it was malignant or a marginal resection if it was benign. Typical indications for surgery were reviewed and surgery was recommended. Risks of surgery in general were reviewed including, but not limited to, infection, need for additional procedures,damage to normal structures as well as medical complications such as [place], stroke, PE, DVT, and even . Specific indications and/or risks of this procedure were discussed as well including, but not limited to: Recurrence. Pt was given opportunity to ask questions and consider her options. She ultimately elected to proceed with surgery. No guarantees were given or implied. Operative Narration The patient was identified in the pre-operative holding area. The surgical site was identified and marked. Informed consent was obtained. The patient was then brought to the operating room. Anesthesia was administered and care of the head, neck, and airway was maintained by the anesthesia staff throughout the entire procedure. The patient was then intubated. She was flipped into the prone position on the operating room table. All bony prominences were identified and padded. The operative extremity which was then prepped and draped in the usual sterile fashion. A surgical timeout was performed. Antibiotics were confirmed to have been given. The mass was easily palpated. A longitudinal expansile incision was marked out in case need for wide resection. Using a small portion of that marked incision dissection was carried down to the pseudocapsule of the lesion. This was easily identified and were careful not to cause any unnecessary contamination. A small wedge was taken from the lesion and sent for frozen section. Results of frozen section showed a benign lesion which had the appearance of a granular cell tumor. After results of the frozen section a marginal excision was performed. The entirety of the mass was removed with a layer of subcutaneous tissue surrounding it. The mass was approximately 5 cm in diameter and was completely located within the subcutaneous tissues and was superficial to the fascia. Hemostasis was obtained with Bovie cautery. The wound was copiously irrigated. Wound was then closed in a layered fashion with Vicryl and a running Monocryl. Steri-Strips were applied. A Silverlon dressing was applied over the wound. She was transferred from the bed back into the supine position on the cot. Once the patient was awakened from anesthesia, they were transported to the PACU in stable condition, having tolerated surgery well with no immediate complications. Postoperative Plan Okay for discharge from PACU Silverlon until follow-up Pain control Continue aspirin 81 Follow-up in 2 to 3 weeks This operative report was prepared and signed by Bart Cali MD at 06/07/21, 10:[address] [facility] Surgical Pathologyon 021 Surgical Pathology [id number] [facility] PATHOLOGY AND LABORATORY MEDICINE [address] [place] [id number] FINAL SURGICAL PATHOLOGY REPORT NAME: XIAO SHEARER : 1955 65 [facility] [id number] LOCATION: [address] PROCEDURE 06/07/2021 DATE: SURGEON: JAYRO LEA M.D. RECEIVED 06/07/2021 DATE: ATTENDING: JAYRO LEA M.D. REPORT DATE: 06/11/2021 COPIES TO: DIAGNOSIS: A. 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 RIGHT THIGH TUMOR, EXCISION - GRANULAR CELL TUMOR Comment: Immunohistochemical stains were performed. The lesion is positive for CD68 and S100, and negative for pancytokeratin and MART1. These findings support the histologic diagnosis. Tumor is focally present at the cauterized edge of the lesion. SMT/SMT Signature> S DAISHA RAMOS, M.D. CLINICAL INFORMATION: Right thigh tumor SPECIMEN: (A) TUMOR (B) TUMOR INTRAOPERATIVE CONSULTATION/FROZEN SECTION DIAGNOSIS: FROZEN SECTION: FSA1 - Malignancy not identified, favor granular cell tumor. Grayson Ramos M.D., Becky Jay M.D. GROSS DESCRIPTION: A. Received for intraoperative consultation labeled right thigh tumor is a portion of red-murdock, soft tissue which measures 1 x 0.6 x 0.2 cm. Specimen is entirely utilized for frozen section and submitted into a single cassette. B. Received in formalin labeled "right thigh tumor" is a segment of fibrofatty, soft tissue. The specimen was previously partially bisected. Attempts are made to paint the cut surface with black ink. The specimen measures 6 x 4 x 3.8 cm. Sectioning reveals an area of dense, rubbery, ackerman tissue which measures approximately 3 cm in greatest dimension. Button Cutting Machine Operator sections are submitted into six cassettes. [facility]/RAD[facility] Disclaimer: The following statement applies to all immunohistochemistry, in situ hybridization, molecular studies, and immunofluorescence testing. The use of one or more reagents in the above tests is regulated as an analyte specific reagent (ASR). These tests were developed and their performance characteristics determined by the clinical laboratories of [facility]. They have not been cleared by the US Food and Drug Administration (FDA). The FDA has determined that such clearance or approval is not necessary. All the above immunostains were performed on paraffin embedded tissue. Appropriate positive and negative controls (where applicable) were run in parallel with the patient's specimen; these controls showed expected staining pattern, with acceptable intensity of staining. Immunohistochemical assays have not been validated on decalcified tissues. Results should be interpreted with caution given the raised possibility of false negativity on decalcified specimens. Professional Performing Location: [facility] [address] [place] [address]. DEPARTMENT OF PATHOLOGY AND LABORATORY MEDICINE [place], [place] [email or web address] Normal [facility] Basic Metabolic Panelon 07-2 Anion gap [Moles/Vol] 8 mmol/L Normal 3-13 [facility] Comment on above: Performed By: #### H GHCT, BMP3 #### [address] Calcium [Mass/Vol] 10.0 mg/dL Normal 8.4-10.4 [facility] Comment on above: Performed By: #### H GHCT, BMP3 #### [address] [address] [place], [place] CO2 [Moles/Vol] 24 mmol/L Normal 22-30 [facility] Comment on above: Performed By: #### H GHCT, BMP3 #### [address] Glucose [Mass/Vol] 103 mg/dL High 70-100 [facility] Comment on above: Performed By: #### H GHCT, BMP3 #### [address] [address] [place], [place] Urea nitrogen [Mass/Vol] 19 mg/dL Normal 7-20 [facility] Comment on above: Performed By: #### H GHCT, BMP3 #### [address] Creatinine [Mass/Vol] 0.51 mg/dL Low 0.52-1.25 [facility] Comment on above: Performed By: #### H GHCT, BMP3 #### [address] [address] [place], [place] eGFR OTHER > 90.0 Normal >60 [facility] Comment on above: Result Comment: KDIG O guidelines provide the following GFR categories: Stage GFR(ml/min/1.73 m2) Terms G1 >=90 Normal or high G2 60-89 Mildly decreased* G3a 45-59 Mildly to moderately decreased G3b 30-44 Moderately to severely decreased G4 15-29 Severely decreased G5 <15 Kidney failure *Relative to young adult level. In the absence of evidence of kidney damage, neither GFR category G1 nor G2 fulfill the criteria for CKD. The CKD-EPI equation is validated in individuals 18 years of age and older. Currently the best equation for estimating glomerular filtration rate (GFR) from serum creatinine in children is the Bedside Hicks equation. It is less accurate in patients with extremes of muscle mass, restriction of dietary protein, ingestion of creatine, extra-renal metabolism of creatinine, or treatment with medications that affect renal tubular creatinine secretion. Performed By: #### H GHCT, BMP3 #### [facility] [address] [place], [place] GFR/1.73 sq M.predicted among blacks MDRD (S/P/Bld) [Vol rate/Area] mL/min/{1.73_m2} Normal >60 [facility] Comment on above: Performed By: #### H GHCT, BMP3 #### [address] [address] [place] [place], [place] Potassium [Moles/Vol] 3.6 mmol/L Normal 3.5-5.1 [facility] Comment on above: Performed By: #### H GHCT, BMP3 #### [address] [address] [address] [place], [place] Sodium [Moles/Vol] 137 mmol/L Normal 135-145 [facility] Comment on above: Performed By: #### H GHCT, BMP3 #### [facility] [address] [place], [place] Chloride [Moles/Vol] 105 mmol/L Normal 98-107 [facility] Comment on above: Performed By: #### H GHCT, BMP3 #### [facility] [address] [place], [place] Basic Metabolic PanelOrdered By: Alyssa Jason on 06-03-2021 Anion gap [Moles/Vol] 8 mmol/L 3 - 13 mmol/L [facility] Work Phone: [phone] Calcium [Mass/Vol] 10.0 mg/dL 8.4 - 10. 4 mg/dL [facility] Work Phone: [phone] Chloride [Moles/Vol] 105 mmol/L 98 - 10 7 mmol/L [facility] Work Phone: [phone] CO2 [Moles/Vol] 24 mmol/L 22 - 30 mmol/L [facility] Work Phone: [phone] Creatinine [Mass/Vol] 0.51 mg/dL Low 0.52 - 1.25 mg/dL [facility] Work Phone: [phone] EGFR IF NonAfrican Cypriot >90.0 >60 mL/min [facility] Work Phone: [phone] Comment on above: KDIGO guidelines pro vide the following GFR categories: Stage GFR(ml/min/1.73 m2) Terms G1 >=90 Normal or high G2 60-89 Mildly decreased* G3a 45-59 Mildly to moderately decreased G3b 30-44 Moderately to severely decreased G4 15-29 Severely decreased G5 <15 Kidney failure *Relative to young adult level. In the absence of evidence of kidney damage, neither GFR category G1 nor G2 fulfill the criteria for CKD. The CKD-EPI equation is validated in individuals 18 years of age and older. Currently the best equation for estimating glomerular filtration rate (GFR) from serum creatinine in children is the Bedside Hicks equation. It is less accurate in patients with extremes of muscle mass, restriction of dietary protein, ingestion of creatine, extra-renal metabolism of creatinine, or treatment with medications that affect renal tubular creatinine secretion. GFR/1.73 sq M.predicted among blacks MDRD (S/P/Bld) [Vol rate/Area] mL/min/{1.73_m2} >60 mL/min [facility] Work Phone: [phone] Glucose [Mass/Vol] 103 mg/dL High 70 - 100 mg/dL [facility] Work Phone: [phone] Interpretation and review of laboratory results Abnormal [facility] Work Phone: [phone] Potassium [Moles/Vol] 3.6 mmol/L 3.5 - 5.1 mmol/L [facility] Work Phone: [phone] Sodium [Moles/Vol] 137 mmol/L 135 - 145 mmol/L [facility] Work Phone: Urea nitrogen (BldV) [Mass/Vol] 19 mg/dL 7 - 20 mg/dL [facility] Work Phone: [phone] Test Performed by [facility], [address] [place] [id number] [facility] Work Phone: [phone] [facility] Work Phone: [phone] Hemoglobin AND Hematocriton 06-03-2021 Hematocrit (Bld) [Volume fraction] 43.4 % Normal 35.0-47.0 [facility] Comment on above: Performed By: #### H GHCT, BMP3 #### [facility] [place] [address] Hemoglobin (Bld) [Mass/Vol] 14.5 g/dL Normal 11.7-16.0 [facility] Comment on above: Performed By: #### H GHCT, BMP3 #### [facility] [place] [address] Hemoglobin and Hematocrit, B loodOrdered By: Alyssa Jason on 06-03-2021 Hematocrit (Bld) [Volume fraction] 43.4 % 35.0 - 47.0 % [facility] Work Phone: [phone] Hemoglobin.gastrointes tinal spec 1 Ql (Stl) 14.5 g/dL 11.7 - 16.0 g/dL [facility] Work Phone: Test Performed by [facility], [address] [place] [id number] [facility] Work Phone: [phone] [facility] Work Phone: [phone] Vital Signs Date Time Vital Sign Value Performing Clinician Facility 09-19-2024 09:21-0500 Diastolic blood pressure 68 mm[Hg] Terrence Junior MD Work Phone: [facility] 09-19-2024 09:21-0500 Heart rate 54 /min Terrence Junior MD Work Phone: [facility] 09-19-2024 09:21-0500 Respiratory rate 16 /min Terrence Junior MD Work Phone: [facility] 09-19-2024 09:21-0500 SaO2% (BldA) [Mass fraction] 94 % Terrence Junior MD Work Phone: [facility] 09-19-2024 09:21-0500 Systolic blood pressure 130 mm[Hg] Terrence Junior MD Work Phone: [facility] 09-19-2024 08:11-0500 Body mass index (BMI) [Ratio] 33.79 kg/m2 Terrence Junior MD Work Phone: [facility] 09-19-2024 08:11-0500 Body temperature 97 [degF] Terrence Junior MD Work Phone: [facility] 09-19-2024 08:11-0500 Body weight 89.3 kg Terrence Junior MD Work Phone: [facility] 08-29-2024 15:15-0400 Body height 162.6 cm Susana Adan BOND CLERK.PUBLISHING EDITOR Work Phone: [facility] 08-29-2024 15:15-0400 Body mass index (BMI) [Ratio] 33.78 kg/m2 Susana Adan BOND CLERK.PUBLISHING EDITOR Work Phone: [facility] 08-29-2024 15:15-0400 Body temperature 97.5 [degF] Susana Adan BOND CLERK.PUBLISHING EDITOR Work Phone: [facility] 08-29-2024 15:15-0400 Body weight 89.27 kg Susana Adan BOND CLERK.PUBLISHING EDITOR Work Phone: [facility] 08-29-2024 15:15-0400 Diastolic blood pressure 77 mm[Hg] Susana Adan BOND CLERK.PUBLISHING EDITOR Work Phone: [facility] 08-29-2024 15:15-0400 Heart rate 76 /min Susana Adan BOND CLERK.PUBLISHING EDITOR Work Phone: [facility] 08-29-2024 15:15-0400 SaO2% (BldA) [Mass fraction] 98 % Susanakashmir Smith APRN.PUBLISHING EDITOR Work Phone: [facility] 08-29-2024 15:15-0400 Systolic blood pressure 117 mm[Hg] Susana Smith APRN.PUBLISHING EDITOR Work Phone: [facility] 10-10-2023 16:58-0500 Body temperature 97.5 [degF] Dr. Shereen Soria Work Phone: [facility] 10-10-2023 16:58-0500 Diastolic blood pressure 84 mm[Hg] Dr. Shereen Soria Work Phone: [facility] 10-10-2023 16:58-0500 Heart rate 69 /min Dr. Shereen Soria Work Phone: [facility] 10-10-2023 16:58-0500 Respiratory rate 12 /min Dr. Shereen Soria Work Phone: [facility] 10-10-2023 16:58-0500 SaO2% (BldA) [Mass fraction] 94 % Dr. Shereen Soria Work Phone: [facility] 10-10-2023 16:58-0500 Systolic blood pressure 136 mm[Hg] Dr. Shereen Soria Work Phone: [facility] 10-06-2023 12:05-0500 Body height 162.[address] Shereen Soria Work Phone: [facility] 10-06-2023 12:05-0500 Body mass index (BMI) [Ratio] 33.6 kg/m2 Dr. Shereen Soria Work Phone: [facility] 10-06-2023 12:05-0500 Body temperature 97.8 [degF] Dr. Shereen Soria Work Phone: [facility] 10-06-2023 12:05-0500 Body weight 88.[address] Shereen Soria Work Phone: [facility] 10-06-2023 12:05-0500 Diastolic blood pressure 88 mm[Hg] Dr. Shereen Soria Work Phone: [facility] 10-06-2023 12:05-0500 Heart rate 70 /min Dr. Shereen Soria Work Phone: [facility] 10-06-2023 12:05-0500 Respiratory rate 18 /min Dr. Shereen Soria Work Phone: [facility] 10-06-2023 12:05-0500 SaO2% (BldA) [Mass fraction] 98 % Dr. Shereen Soria Work Phone: [facility] 10-06-2023 12:05-0500 Systolic blood pressure 168 mm[Hg] Dr. Shereen Soria Work Phone: [facility] 05-01-2023 10:16-0400 Body height 162.[address] Brandy Corado Work Phone: [facility] 02-24-2022 10:58-0400 Diastolic blood pressure 83 mm[Hg] Beatriz Hickman MD Work Phone: [facility] 02-24-2022 10:58-0400 Systolic blood pressure 134 mm[Hg] Beatriz Hickman MD Work Phone: [facility] 02-24-2022 10:30-0400 Body weight 89.36 kg Beatriz Hickman MD Work Phone: [facility] 02-24-2022 10:30-0400 Heart rate 62 /min Beatriz Hickman MD Work Phone: [facility] 02-24-2022 10:30-0400 Respiratory rate 18 /min Beatriz Hickman MD Work Phone: [facility] 02-24-2022 10:30-0400 SaO2% (BldA) [Mass fraction] 98 % Beatriz Hickman MD Work Phone: [facility] 09-10-2021 13:15-0400 Body temperature [...] % Luis Felipe Barnard MD Work Phone[facility] Work Phone: 09-10-2021 13:15-0400 Systolic blood pressure 112 mm[Hg] Luis Felipe Barnard MD Work Phone: [facility] Work Phone: 09-10-2021 07:43-0400 Body height 162.6 cm Luis Felipe Barnard MD [facility] Phone: [facility] Work Phone: 09-10-2021 07:43-0400 Body mass index (BMI) [Ratio] 32.61 kg/m2 Luis Felipe Barnard MD Work Phone: [facility] Work Phone: 09-10-2021 07:43-0400 Body weight 86.18 kg Luis Felipe Barnard MD Work Phone: [facility] Work Phone: 08-31-2021 08:16-0400 Diastolic blood pressure 96 mm[Hg] Luis Felipe Barnard MD Work Phone: [facility] Work Phone: 08-31-2021 08:16-0400 Heart rate 73 /min Luis Felipe Barnard MD Work Phone: [facility] Work Phone: 08-31-2021 08:16-0400 Systolic blood pressure 163 mm[Hg] Luis Felipe Barnard MD Work Phone: [facility] Work Phone: 08-31-2021 08:13-0400 SaO2% (BldA) [Mass fraction] 96 % Luis Felipe Barnard MD Work Phone: [facility] Work Phone: 08-31-2021 08:01-0400 Body temperature 98.1 [degF] Luis Felipe Barnard MD Work Phone: [facility] Work Phone: 08-31-2021 07:53-0400 Body height 162.6 cm Luis Felipe Barnard MD Work Phone: [facility] Work Phone: 08-31-2021 07:53-0400 Body mass index (BMI) [Ratio] 33.13 kg/m2 Luis Felipe Barnard MD Work Phone: [facility] Work Phone: 08-31-2021 07:53-0400 Body weight 87.54 kg Luis Felipe Barnard MD Work Phone: [facility] Work Phone: 08-31-2021 07:53-0400 Respiratory rate 16 /min Luis Felipe Barnard MD Work Phone: [facility] Work Phone: 08-12-2021 05:24-0400 Body temperature 98.01 [...] 09:45-0400 Diastolic blood pressure 78 mm[Hg] Jayro Lea MD Work Phone: [facility] Work Phone: 07-21-2021 09:45-0400 Heart rate 60 /min Jayro Lea MD Work Phone: [facility] Work Phone: 07-21-2021 09:45-0400 Respiratory rate 16 /min Jayro Lea MD Work Phone: [facility] Work Phone: 07-21-2021 09:45-0400 SaO2% (BldA) [Mass fraction] 96 % Jayro Lea MD Work Phone: [facility] Work Phone: 07-21-2021 09:45-0400 Systolic blood pressure 138 mm[Hg] Jayro Lea MD Work Phone: [facility] Work Phone: 07-21-2021 09:16-0400 Body temperature 97 [degF] Jayro Lea MD Work Phone: [facility] Work Phone: 07-21-2021 06:16-0400 Body height 162.6 cm Jayro Lea MD Work Phone: [facility] Work Phone: 07-21-2021 06:16-0400 Body mass index (BMI) [Ratio] 32.61 kg/m2 Jayro Lea MD Work Phone: [facility] Work Phone: 07-21-2021 06:16-0400 Body weight 86.18 kg Jayro Lea MD Work Phone: [facility] Work Phone: 06-03-2021 13:09-0400 Body height 162.6 cm Jayro Lea MD Work Phone: [facility] Work Phone: 06-03-2021 13:09-0400 Body mass index (BMI) [Ratio] 32.61 kg/m2 Jayro Lea MD Work Phone: [facility] Work Phone: 06-03-2021 13:09-0400 Body temperature 97 [degF] Jayro Lea MD Work Phone: [facility] Work Phone: 06-03-2021 13:09-0400 Body weight 86.18 kg Jayro Lea MD Work Phone: [facility] Work Phone: 06-03-2021 13:09-0400 Diastolic blood pressure 88 mm[Hg] Jayro eLa MD Work Phone: [facility] Work Phone: 06-03-2021 13:09-0400 Heart rate 66 /min Jayro Lea MD Work Phone: [facility] Work Phone: 06-03-2021 13:09-0400 Respiratory rate 16 /min Jayro Lea MD Work Phone: [facility] Work Phone: 06-03-2021 13:09-0400 SaO2% (BldA) [Mass fraction] 97 % Jayro Lea MD Work Phone: [facility] Work Phone: 06-03-2021 13:09-0400 Systolic blood pressure 162 mm[Hg] Jay[facility] Le[facility] MD [facility] Phone[facility] Work Phone: Encounters Encounter Date Encounter Type Care Provider Facility Start: 09-02-2025 ambulatory Shereen Soria Facilit y:[facility] Start: 06-26-2025 Encounter for other preprocedural examination [facility] Start: 06-17-2025 Non-patient / Non-visit Dr. Evangelina ROME -[facility] Work Phone: Start: 06-17-2025 End: 06-17-[address] Shereen Soria MD Work Phone: -Pulmonary Services/Neurology Start: 06-17-2025 End: 06-17-[address] Jakob Gill DO -Pulmonary Services/Neurology Work Phone: Start: 06-17-2025 End: 06-17-2025 ambulatory Shereen Soria Facility:[facility] Start: 06-16-2025 Encounter for other preprocedural examination [facility] Start: 06-16-2025 ambulatory Shereen Soria Facilit y:[facility] Start: 06-06-2025 End: 06-06-[address] Shereen Soria MD Work Phone: [facility] Start: 06-06-2025 End: 06-06-[address] Shereen Soria MD -[facility] Work Phone: Start: 06-06-2025 End: 06-06-2025 ambulatory Shereen Soria Facility:[facility] Start: 03-22-2025 End: 03-22-[address] Shereen Soria MD Work Phone: [facility] Work Phone: Start: 03-22-2025 End: 03-22-[address] Shereen Soria MD -Laboratory Work Phone: Start: 03-22-2025 End: 03-22-2025 ambulatory Shereen Soria Facility:[facility] Start: 03-17-2025 End: 03-17-[address] Shereen Soria MD Work Phone: [facility] Work Phone: Start: 03-17-2025 End: 03-17-[address] [facility] Work Phone: Start: 03-17-2025 End: 03-17-2025 ambulatory Shereen Soria Facility:[facility] Start: 01-02-2025 End: 01-02-[address] [facility] Start: 01-02-2025 End: 01-02-2025 ambulatory Shereen Soria Facility:[facility] Start: 12-16-2024 End: 12-16-[address] Shereen Soria MD -Nuclear Medicine, [facility] Work Phone: Start: 12-16-2024 End: 12-16-2024 ambulatory Shereen Soria Facility:[facility] Start: 11-19-2024 End: 11-19-2024 ambulatory Shereen Soria Facility:[facility] Start: 11-08-2024 End: 11-08-2024 ambulatory Shereen Soria Facility:[facility] Start: 09-24-2024 End: 09-24-2024 ambulatory Shereen Soria Facility:[facility] Start: 09-19-2024 End: 09-19-2024 ambulatory TERRENCE JUNIOR Facility:[facility] Start: 09-19-2024 End: 09-19-2024 Subsequent hospital visit by physician Terrence Junior MD Work Phone: Ambulatory Surgery Comment on above: Screen for colon can cer [Z12.11] Start: 09-02-2024 End: 09-02-2024 E-mail encounter from caregiver Nurse Simba [facility] Work Phone: General Surgery Start: 09-02-2024 End: 09-02-2024 Follow-up encounter Nurse Simba [facility] Work Phone: General Surgery Comment on above: Colonoscopy follow-u p Start: 08-29-2024 End: 08-29-2024 ambulatory SHEREEN ALANIZ Facility:[facility] Start: 08-29-2024 End: 08-29-2024 Patient encounter procedure Susana Duartemartin MORRELLPUBLISHING EDITOR Work Phone: General Surgery Comment on above: Screen for colon can cer (Primary Dx) Start: 12-21-2023 End: 12-21-[address] Shereen Soria Work Phone: [facility] Work Phone: Start: 12-21-2023 End: 12-21-[address] Shereen Soria Work Phone: [facility] Work Phone: Start: 11-08-2023 End: 11-08-[address] Shereen Soria Work Phone: [facility] Work Phone: Start: 11-08-2023 End: 11-08-[address] Shereen Soria Work Phone: [facility] Start: 10-10-2023 End: 10-10-[address] Shereen Soria Work Phone: [facility] Work Phone: Start: 10-06-2023 End: 10-06-2023 Emergency department patient [facility] Start: 06-15-2023 Non-patient / Non-visit Dr. Dwain Corado Work Phone: [facility] Start: 06-15-2023 End: 06-15-[address] Brandy Corado Work Phone: [facility] Work Phone: Start: 06-15-2023 End: 06-15-[address] Br[facility]ado [facility]: Start: 06-10-2023 End: 06-10-[address] Brandy Corado Work Phone: [facility] Work Phone: Start: 06-10-2023 End: 06-10-[address] [facility] Start: 06-09-2023 End: 06-09-[address] Brandy Corado Work Phone: [facility] Work Phone: Start: 06-09-2023 End: 06-09-[address] Brandy Corado Work Phone: [facility] Start: 05-03-2023 End: 05-03-[address] Brandy Corado Work Phone: [facility] Work Phone: Start: 05-01-2023 End: 05-01-[address] Brandy Corado Work Phone: [facility] Work Phone: Start: 04-17-2023 End: 04-17-[address] Brandy Corado Work Phone: [facility] Work Phone: Start: 04-02-2022 Refill Beatriz Hickman MD Work Phone: Endocrinology Comment on above: Refill Request Start: 02-28-2022 ambulatory Beatriz Hickman MD Work Phone: Endocrinology Comment on above: Very tired Start: 02-24-2022 End: 02-24-2022 Patient encounter procedure Beatriz Hickman MD Work Phone: Endocrinology Comment on above: Follicular thyroid c ancer (HCC) (Primary Dx); Post-surgical hypothyroidism; Fatigue, unspecified type; Cold intolerance Start: 09-10-2021 End: 09-10-2021 Subsequent hospital visit by physician Luis Felipe Barnard MD Work Phone: [facility] Surgery Comment on above: Wound dehiscence (Pr imary Dx) Start: 08-31-2021 End: 08-31-2021 Subsequent hospital visit by physician Luis Felipe Barnard MD Work Phone: [facility] Pre-Admit Testing Comment on above: Arrived Start: 2021 End: 08-12-2021 Evaluation and management of inpatient Julio César Shankar DO Work Phone: [facility] Comment on above: Abscess (Primary Dx) Start: 07-21-2021 End: 07-21-2021 Subsequent hospital visit by physician Jayro Lea MD Work Phone: [facility] General Surgery Comment on above: Wound dehiscence (Pr imary Dx) Start: 06-03-2021 End: 06-03-2021 Subsequent hospital visit by physician Jayro Lea MD Work Phone: [facility] Pre-Admit Testing Comment on above: Arrived Procedures Date Procedure Procedure Detail Performing Clinician Start: 06-06-2025 MRI of joint of lowe r extremity Dr. Shereen Soria MD Work Phone: Start: 03-22-[address] Shereen Soria MD Work Phone: Start: 03-22-2025 Urnls dip stick/tabl et reagent auto microscopy Dr. Shereen Soria MD Work Phone: Start: 03-22-2025 Vitamin D, 25-hydrox y measurement Dr. Shereen Soria MD Work Phone: Comment on above: Vitamin D StatusDefi ciency: <20 ng/mL (50nmol/L)Insufficiency: 20-30 ng/mL (50-75 nmol/L)Sufficiency: 30-100 ng/mL (75-250 nmol/L)Toxicity: >100 ng/mL (>250 nmol/L) Start: 03-17-2025 X-ray of knee, four or more views Dr. Shereen Soria MD Work Phone: Start: 01-02-2025 [address]ium diff[address] e detection Dr. Shereen Soria MD Work Phone: Start: 12-16-2024 Radioisotope scan of parathyroid Dr. Shereen Soria MD Work Phone: Start: 09-19-2024 Colonoscopy flx dx w /collj spec when pfrmd Susana Smith BOND CLERK.PUBLISHING EDITOR Work Phone: Start: 09-19-2024 Colonoscopy Terrence ibarra MD Work Phone: Start: 12-21-2023 Plain x-ray of pelvi s and lower extremity Dr. Shereen Soria Work Phone: Start: 10-06-2023 Radiologic examinati on of knee Dr. Shereen Soria Work Phone: Start: 09-10-2021 OPERATIVE REPORT 3m Sca nning [...] 08-10-2021 Drug screen quantita tive vancomycin Jacques Storm MD Work Phone: Start: 08-09-2021 OPERATIVE REPORT 3m Sca nning Start: 08-09-2021 Assay of magnesium Milan Duggan MD Work Phone: Start: 08-09-2021 BASIC METABOLIC PANE L W/ REFLEX TO MG FOR LOW K Jerman Duggan MD Work Phone: Start: 2021 Antibody screen Julio César Shankar DO Work Phone: Start: 2021 Chest x-ray 1 view frontal Ray Mazariegos MD Work Phone: Start: 2021 Radex hip unilateral with pelvis 2-3 views Ray Mazariegos MD Work Phone: Start: 2021 Ecg routine ecg w/le ast 12 lds w/i&r Ray Mazariegos MD Work Phone: Start: 2021 Basic metabolic pane l calcium total Julio César Shankar DO Work Phone: Start: 2021 End: 2021 C-reactive protein Julio César Shankar DO Work Phone: Start: 2021 PROTIME/INR & PTT Thero n Shankar DO Work Phone: Start: 07-21-2021 OPERATIVE REPORT 3m Sca nning Start: 06-03-2021 Basic metabolic pane l calcium total Alyssa Jason BOND CLERK - PUBLISHING EDITOR Work Phone: Start: 06-03-2021 Ecg routine ecg w/le ast 12 lds w/i&r Alyssa Jason BOND CLERK - PUBLISHING EDITOR Work Phone: Start: 04-13-2015 Colonoscopy Beatriz Hickman MD Work Phone: Start: 06-01-2012 Mammography Beatriz Hickman MD Work Phone: Start: 05-13-2011 Lipid 1996 panel - S penny or Plasma Susana Duarteir BOND CLERK.PUBLISHING EDITOR Work Phone: Plan of Treatment Date Care Activity Detail Author Start: 09-19-2034 Screening for malign ant neoplasm of colon [facility] Start: 2029 RSV Vaccine (1 - 1-d ose 75+ series) RSV Vaccine (1 - 1-dose 75+ series) [facility] Start: 08-29-2025 BP Controlled (<130/80) BP Controlle d (<130/80) [facility] Start: 04-13-2025 Colonoscopy COLONOSCOPY [facility] Start: 04-13-2025 COLORECTAL CANCER SCREENING COLORECTAL CANCER SCREENING [facility] Start: 04-13-2025 Screening for malign ant neoplasm of colon [facility] Start: 09-19-2024 End: 09-19-2024 Patient encounter procedure 09/19/2024 12:00 PM EST Appointment Ambulatory Surgery [address] [place] [address] Terrence Junior MD [address] [place] [address] Ambulatory Surgery Start: 08-12-2024 Diabetes Screening Diabetes Screenin g [facility] Start: 07-14-2024 Covid-19 Vaccine ( season) Covid-19 Vaccine ( season) [facility] Start: 07-14-2024 Influenza vaccination Influenza Vacc ine (#1) [facility] Start: 11-13-2023 Advance Directive Discussion Advance Directive Discussion [facility] Start: [facility] Start: 08-12-2022 Creatinine measurement Creatinine mo [place] [facility] Work Phone: Start: 08-12-2022 Potassium monitoring Potassium monit oring [facility] Work Phone: Start: 07-14-2022 Influenza vaccination INFLUENZ A (Season Ended) [facility] Start: 06-03-2022 Creatinine measurement Creatinine mo nitoring [facility] Work Phone: Start: 06-03-2022 Potassium monitoring Potassium monit oring [facility] Work Phone: Start: 02-24-2022 End: 04-26-2022 IRON + TIBC [facility] Work Phone: Comment on above: Expected: 02/24/2022 , Expires: 04/26/2022 Start: 02-24-2022 End: 04-26-2022 T4 FREE/FREE THYROX [facility] Work Phone: Comment on above: Expected: 02/24/2022 , Expires: 04/26/2022 Start: 02-24-2022 End: 04-26-2022 Thyrotropin [Units/volume] in Serum or Plasma [facility] Work Phone: Comment on above: Expected: 02/24/2022 , Expires: 04/26/2022 Start: 11-13-2021 ADVANCE DIRECTIVE DISCUSSION ADVANCE DIRECTIVE DISCUSSION [facility] Start: 11-10-2021 DIABETES SCREEN DIABETES SCREEN [facility] Start: 09-16-2021 End: 09-16-2021 Patient encounter procedure 09/16/2021 Office Visit Orthopedic Surgery Aviva Hogan PA-C [address] [employer] [address] [place] [address] [phone] [facility] [place] Start: 09-07-2021 End: 09-07-2021 Patient encounter procedure 09/07/2021 Office Visit Orthopedic Surgery Aviva Hogan PA-C [address] [place], [place] [id number] [facility] Girish Start: 09-01-2021 End: 09-01-2021 Patient encounter procedure 09/01/2021 Appointment General Surgery Luis Felipe Barnard MD [address] [facility] [address] [place], [place] [id number] [facility] Start: 08-31-2021 Annual Wellness Visi t (AWV) Annual Wellness Visit (AWV) [facility] Work Phone: Start: 08-25-2021 End: 08-25-2021 Patient encounter procedure 08/25/2021 Office Visit Infectious Diseases Mag Candelaria MD [address] [place] [address] [facility] [place] Start: 08-17-2021 End: 08-17-2021 Evaluation and management of inpatient 08/17/2021 Office Visit Orthopedic Surgery Luis Felipe Barnard MD [address] [facility] [address] [place], [place] [id number] [facility] [place] Start: 07-14-2021 Influenza vaccination Flu vaccine (# 1) [facility] Work Phone: Start: 06-07-2021 End: 06-07-2021 Patient encounter procedure 06/07/2021 Appointment General Surgery Jayro Lea MD [address] [facility] [address] [place], [place] [id number] [facility] General Surgery Start: 03-23-2021 Shingles Vaccine (2 of 2) Shingles Vaccine (2 of 2) [facility] Work Phone: Start: 2019 BONE DENSITY BONE DENSITY [facility] Start: 2019 PNEUMOVAX AGE 65 AND OVER WITH 5YR LOOKBACK (#1) PNEUMOVAX AGE 65 AND OVER WITH 5YR LOOKBACK (#1) [facility] Start: 2019 Screening for osteoporosis Bone Density Screening [facility] Start: 05-13-2016 Lipid panel Lipid Screening [facility] Start: 05-13-2016 LIPID SCREEN LIPID SCREEN [facility] Start: 06-01-2013 Mammography MAMMOGRAM [facility] Start: 06-01-2013 Screening for malign ant neoplasm of breast Mammogram Screening [facility] Start: 2009 Screening for osteoporosis DEXA (modify frequency per FRAX score) [facility] Work Phone: Start: 2004 Screening for malign ant neoplasm of breast Breast cancer screen [facility] Work Phone: Start: 2004 SHINGRIX VACCINE (1 of 2) SHINGRIX VACCINE (1 of 2) [facility] Start: 1999 COLOGUARD (FIT-DNA) COLOGUARD (FIT-D NA) [facility] Start: [address] COLONOGRAPHY [facility] Start: 1999 FECAL OCCULT BLOOD FECAL OCCULT BLOO D [facility] Start: 1999 Screening for malign ant neoplasm of colon [facility] Start: 1999 SIGMOIDOSCOPY SIGMOIDOSCOPY [facility] Start: 1994 Diabetes screen Diabetes screen [facility] Work Phone: Start: 1994 Lipid panel Lipid screen [facility] Work Phone: Start: 1973 DTaP/Tdap/Td vaccine (1 - Tdap) DTaP/Tdap/Td vaccine (1 - Tdap) [facility] Work Phone: Start: 1973 Urine microalbumin profile [facility] Start: 1972 ANNUAL PCP TEAM FUNERAL PRE ARRANGEMENT SPECIALIST FAMILIA DISEASE VISIT ANNUAL PCP TEAM CHRONIC DISEASE VISIT [facility] Start: 1972 Anxiety Screening Anxiety Screening [facility] Start: 1972 BP CONTROLLED (<130/80) BP CONTROLLE D (<130/80) [facility] Start: 1972 Depression Screening Depression Scre ening [facility] Start: 1972 HEPATITIS C SCREENING HEPATITIS C [facility] Start: 1972 Hepatitis C screening Hepatitis C [facility] Start: 1966 Adult depression screening assessment DEPRESSION SCREENING [facility] Start: 1966 COVID-19 Vaccine (1) COVID-19 Vaccin e (1) [facility] Work Phone: Start: 1954 Hepatitis C screening Hepatitis C tomer teran [facility] Work Phone: Basic metabolic 2000 panel - Serum or Plasma Basic Metabolic Panel Lab Routine Daily until discontinued starting 08/10/2021, 3 completed [facility] Work Phone: Comment on above: Daily until disconti nued starting 08/10/2021, 3 completed Blood glucose - POCT [facility] Work Phone: Comment on above: As Needed until disc ontinued starting 07/21/2021 As Needed until disc ontinued starting 09/10/2021 CBC W Auto Different ial panel - Blood CBC Auto Differential Lab Routine Daily until discontinued starting 08/10/2021, 3 completed [facility] Work Phone: Comment on above: Daily until disconti nued starting 08/10/2021, 3 completed End: 07-21-2021 Creatinine [Mass/volume] in Serum or Plasma Creatinine, serum Lab STAT One Time for 1 Occurrences starting 07/21/2021 until 07/21/2021 [facility] Work Phone: Comment on above: One Time for 1 Occur rences starting 07/21/2021 until 07/21/2021 End: 09-10-2021 Culture, Anaerobic and Aerobic Culture, Anaerobic and Aerobic Microbiology Routine Once for 1 Occurrences starting 09/10/2021 until 09/10/2021 [facility] Work Phone: Comment on above: Once for 1 Occurrenc es starting 09/10/2021 until 09/10/2021 Culture, Anaerobic a nd Aerobic Culture, Anaerobic and Aerobic Microbiology Routine 09/10/2021 10:02 AM EDT [facility] Work Phone: EKG 12 Lead EKG 12 Lead ECG Routine 06/03/2021 1:48 PM EDT [facility] Work Phone: End: 07-21-2021 Intermittent pulse oximetry Pulse Oximetry Spot Check Respiratory Care Routine One Time for 1 Occurrences starting 07/21/2021 until 07/21/2021 [facility] Work Phone: Comment on above: One Time for 1 Occur rences starting 07/21/2021 until 07/21/2021 End: 09-10-2021 Intermittent pulse oximetry Pulse Oximetry Spot Check Respiratory Care Routine One Time for 1 Occurrences starting 09/10/2021 until 09/10/2021 [facility] Work Phone: Comment on above: One Time for 1 Occur rences starting 09/10/2021 until 09/10/2021 Nasal Cannula Oxygen [facility] Work Phone: Comment on above: As Needed until disc ontinued starting 07/21/2021 As Needed until disc ontinued starting 09/10/2021 Nonrebreather mask oxygen [facility] Work Phone: Comment on above: As Needed until disc ontinued starting 07/21/2021 As Needed until disc ontinued starting 09/10/2021 Oxygen therapy [[facility] Data Set] [facility] Work Phone: Comment on above: As Needed until disc ontinued starting 07/21/2021 Daily until disconti nued starting 07/21/2021 Daily until disconti nued starting 2021 As Needed until disc ontinued starting 09/10/2021 Daily until disconti nued starting 09/10/2021 Patient Education ED Contusion, Lower Extremity [facility] Work Phone: Patient referral [facility] Work Phone: End: 07-21-2021 Potassium w/ Reflex to Magnesium Potassium w/ Reflex to Magnesium Lab Routine One Time for 1 Occurrences starting 07/21/2021 until 07/21/2021 [facility] Work Phone: Comment on above: One Time for 1 Occur rences starting 07/21/2021 until 07/21/2021 End: 07-21-2021 , urine LAB , urine LAB Lab STAT One Time for 1 Occurrences starting 07/21/2021 until 07/21/2021 [facility] Work Phone: Comment on above: One Time for 1 Occur rences starting 07/21/2021 until 07/21/2021 End: 07-21-2021 Protime-INR Protime-INR Lab STAT One Time for 1 Occurrences starting 07/21/2021 until 07/21/2021 [facility] Work Phone: Comment on above: One Time for 1 Occur rences starting 07/21/2021 until 07/21/2021 End: 08-29-2025 Screening colonoscopy COLONOSCOPY SCREENING Endoscopy Routine Screen for colon cancer 1 Occurrences starting 08/29/2024 until 08/29/2025 [facility] Work Phone: Comment on above: 1 Occurrences starti ng 08/29/2024 until 08/29/2025 Spirometry panel [facility] Work Phone: Comment on above: Q1H PRN until discon tinued starting 07/21/2021 Q1H PRN until discon tinued starting 09/10/2021 [facility] Immunizations Immunization Date Immunization Notes Care Provider Fa cristobal 08-31-2020 influenza virus vacc ine, unspecified formulation Susana Smith BOND CLERK.PUBLISHING EDITOR Work Phone: [facility] Payers Date Payer Category Payer Self-pay [id number] 2022 Medicare MMO MEDICARE MMO MEDADVANTAGE O [id number] 2022-Present [phone] [address] [place] [id number] [facility] [id number] 2022 Medicare MMO MEDICARE MMO MEDADVANTAGE O [id number] 2022-Present [phone] [address] [place] [address] [facility] [id number] 2022 Unknown [id number] 2010 Private Health Insurance [id number] Medicare [id number] Unknown [id number] Unknown [id number] Unknown [id number] Unknown [id number] Unknown [id number] Unknown [id number] Unknown [id number] Unknown [id number] Unknown [id number] Unknown [id number] Unknown [id number] Unknown [id number] .[id number] Unknown [id number] .[id number] Unknown [id number] Unknown [id number] Social History Date Type Detail Facility Start: 06-03-2021 End: 10-10-2023 Tobacco smoking status LAIS Former smoker [facility] End: 11-13-2000 History of tobacco use Current smoker [facility] End: 11-13-2000 History of tobacco use Cigarette Smoker [facility] Start: 06-03-2021 End: 08-29-2024 Cigarettes smoked current (pack per day) - Reported [facility] Work Phone: Start: 06-03-2021 End: 08-29-2024 Tobacco use and exposure Never used [facility] Start: 06-03-2021 End: 09-19-2024 Alcohol intake Current drinker of alcohol (finding) [facility] Work Phone: Start: 06-01-2021 Tobacco Comment quit 20 years ago [facility] Work Phone: Start: 06-03-2021 Alcohol Comment approx once / week S [facility] Work Phone: Start: 1955 Sex Assigned At Female S [facility] Work Phone: Exposure to SARS-CoV -2 (event) Not sure [facility] Start: 06-24-2010 History SDOH Alcohol Comment socially [facility] Start: 1955 Sex Assigned At Not on file [facility] Start: 05-01-2023 End: 10-10-2023 Tobacco smoking status NHIS Unknown if ever smoked [facility] Start: 11-15-2020 Occasional [facility] Start: 11-14-2020 None [facility] Start: 11-15-2020 Alone [facility] Start: 11-15-2020 Non-smoker [facility] Start: 08-29-2024 End: 09-19-2024 Tobacco use panel [facility] National Score (1-10 0), lower number is lower risk 35 [facility] Start: 09-18-2024 Sexual orientation Heterosexual (alma lai) [facility] Clinical Notes 04-08-2010 to 03-18-2025 Discharge Instr - [place] - Chel Decker RN - 09/19/2024 9:32 AM ESTDischarge Instr - [place] - Chel Decker RN - 09/19/2024 9:32 AM ESTChel Decker RN - 09/19/2024 9:30 AM ESTInstructions Note Date & Type Note Facility 03-18-2025 Radiology Diagnostic study note [facility] Imaging Services [address] [place] [address] Knee 4 or More Views MR#: [id number] Acct: [id number] Name: XIAO SHEARER Rep #: [id number] : 1955 F 69 From: Sumeet [place] MD PCP: Dr. Shereen Soria MD Status: RE G CLI Study:Knee 4 or More Views Date of Exam: 03/17/25 Exam# [id number] Ordering Dr: Brionna Phan MD PROCEDURE: KNEE 4 OR MORE VIEWS 03/17/2025 REASON FOR EXAM: LEFT KNEE PAIN TECHNIQUE: Four views left knee COMPARISON: 10/06/2023 FINDINGS: No fracture, dislocation or joint effusion. The joint spaces appear within limits. RAD/Knee 4 or More Views IMPRESSION: No fracture, dislocation or joint effusion. Reading Location: [id number] CC: Dr. Elier Phan MD; Dr. Shereen Soria MD ~ Configuration Engineer: Signed [facility] 09-19-2024 Note Formatting of this n ote might be different from the original. The patient received a copy of Colonoscopy discharge instructions that contain information for how to contact the physician who performed the procedure and when to seek medical care. [facility] 09-19-2024 Miscellaneous Notes The patient received a copy of Colonoscopy discharge instructions that contain information for how to contact the physician who performed the procedure and when to seek medical care. documented in this encounter [facility] 09-19-2024 Nurse Note Starting to complain of some abdomen pain. Ambulated to the restroom where she released some air via rectum. Patient states pain has disappeared. Will continue to monitor. [facility] 09-19-2024 Nurse Note Starting to complain of some abdomen pain. Ambulated to the restroom where she released some air via rectum. Patient states pain has disappeared. Will continue to monitor. Abdomen soft non-distended. Will continue to monitor. documented in this encounter [facility] 09-19-2024 Note HNO ID: [id number] Author: CHEL DECKER RN Service: ? Author Type: Registered Nurse Type: Nursing Progress Note Filed: 09/19/2024 09:22 Note Text: Abdomen soft non-distended. Will continue to monitor. [facility] 09-19-2024 Nurse Note Abdomen soft non-distended. Will continue to monitor. [facility] 09-19-2024 History and physical note HISTORY AND PHYSICAL Xiao Shearer : 1955 REFERRING PHYSICIAN: No referring provider defined for this encounter. CHIEF COMPLAINT: Patient presents with: Consult: Colonoscopy consultation. HPI: Xiao is a 69 year old female referred for endoscopy. Xiao notes due for screening colonoscopy. Xiao denies abdominal pain.. Xiao denies diarrhea. [place] denies constipation. [place] denies a change in bowel habits. Xiao denies melena. Xiao denies bright red blood per rectum. Xiao denies hemorrhoids. Xiao notes a distant history of heartburn. Xiao denies dysphagia. Xiao denies a history of ulcers/ peptic ulcer disease. Xiao denies family history of colon issues. Medical history is significant for HTN, hypothyroidism, and osteopenia. Xiao has undergone prior endoscopy. Last colonoscopy was 04/[address] Junior at [facility]. Sedation:Midazolam 3 mg IV, Meperidine 100 mg IV Impression: - The distal rectum and anal verge are normal on retroflexion view. - No specimens collected. CURRENT MEDICATIONS Current Outpatient Medications Medication Sig amLODIPine (NORVASC) 5 mg tablet Take 5 mg by mouth once daily. levothyroxine (SYNTHROID) 125 mcg tablet Take 1 tablet by mouth six times a week. hydroCHLOROthiazide (HYDRODIURIL, ESIDRIX) 25 mg tablet Take 1 tablet by mouth once daily. TURMERIC ORAL Take 1 tablet by mouth once daily. cholecalciferol (VITAMIN D-3) 2,000 unit tablet Take 2,000 Units by mouth once daily. simvastatin (ZOCOR) 40 mg tablet Take 40 mg by mouth daily at bedtime. aspirin, enteric coated (ECOTRIN LOW STRENGTH) 81 mg EC tablet Take 1 tablet by mouth once daily. atenolol 50 mg ORAL Tab Take one(1) tablet daily. peg 3350-Electrolytes (GOLYTELY) 236-22.74-6.74 -5.86 gram suspension Take 4,000 mL by mouth one time only for 1 dose. Refer to printed prep instructions from your provider. No current facility-administered medications for this visit. 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) PAST SURGICAL HISTORY PAST SURGICAL HISTORY Procedure Laterality Date COLONOSCOPY FLX DX W/COLLJ SPEC WHEN PFRMD 11/25/2004 Colonoscopy CORRECT BUNION,SIMPLE EGD TRANSORAL BIOPSY SINGLE/MULTIPLE 04/16/2008 EXC BREAST LES PREOP PLMT RAD MARKER OPEN 1 LES 06/10/2011 LEFT EXC CYST/ABERRANT BREAST TISSUE OPEN 1/> LESION 10/01/2014 left LAPS ABD PRTM&OMENTUM DX W/WO SPEC BR/WA SPX Laparoscopy LASER VEIN TREATMENT 05/13/2014 Lt leg PARATHYROID AUTOTRANSPLANTATION ADD-ON 06/03/2010 LEFT PAST SURGICAL HISTORY OF 05/13/2014 left leg - veins taken out PAST SURGICAL HISTORY OF tumor removed from posterior right leg SALPINGO-OOPHORECTOMY COMPL/PRTL UNI/BI SPX 11/13/1989 Salpingo-oophorectomy THYROIDECTOMY TOTAL/SUBTOTAL LMTD NECK DISSECT 06/03/2010 TOTAL TOTAL ABDOMINAL HYSTERECT W/WO RMVL TUBE OVARY 11/13/1989 Hysterectomy, [place] FAMILY HISTORY FAMILY HISTORY Problem Relation Age of Onset Cervical Cancer Mother Cancer Mother lung, passed from this. Diabetes Mother unsure Hypertension Mother Prostate Cancer Father Heart Father Cancer Brother lung Cancer Paternal Grandfather SOCIAL HISTORY Social History Tobacco Use Smoking status: Former Current packs/day: 0.00 Types: Cigarettes Quit date: 09/09/1989 Years since quittin.9 Smokeless tobacco: Never Vaping Use Vaping status: Never Used Substance Use Topics Alcohol use: Yes Comment: socially Drug use: No REVIEW OF SYMPTOMS: REVIEW OF SYSTEMS: General: The patient denies fatigue, denies weight loss, denies weight gain, denies feeling hot, and feelings of cold. Eyes: The patient denies glaucoma, denies eye injury/surgery, + glasses or contacts. Ear/Nose/Throat: The patient denies allergies, denies hayfever, denies ear infections, and denies bloody noses. Cardiovascular: The patient denies chest pain, denies heart disease, + high blood pressure, + high cholesterol, +murmur and denies poor circulation. Respiratory: The patient denies tuberculosis, denies pneumonia, denies frequent cough, denies shortness of breath, and denies coughing up blood. Gastrointestinal: The patient denies difficulty swallowing, denies acid reflux, denies ulcers, denies jaundice/hepatitis, denies gallbladder problems, denies vomiting, denies black or tarry stools, + hemorrhoids, denies bleeding from rectum, denies diverticulitis, denies constipation, denies diarrhea, denies loss of stool control, and denies hernias. Kidney/Bladder: The patient denies kidney stones, denies urine infections, and denies bloody urine. Skin: The patient denies a history of skin cancer, denies bleeding/changing moles, and denies a history of skin rash. Neurologic: The patient denies a history of epilepsy/convulsions, denies headaches, denies head/spinal injuries, and denies stroke/TIA. Psychiatric: The patient denies psychiatric medications, denies depression, and denies voices. Endocrine: The patient denies thyroid disorders, denies diabetes, and denies hormonal problems. Hematologic: The patient denies a history of bruising, denies bleeding, and denies anemia. Infections: The patient denies a history of measles and mumps, denies rheumatic fever, and denies sexually transmitted diseases. Musculoskeletal: The patient denies back pain/injury, + back problems, + sciatica, denies knee/foot trouble, denies arthritis, or denies gout. PHYSICAL EXAMINATION: General: The patient is 69 year old, female well nourished, well hydrated in no acute distress. The patient is oriented to time, place, and person. VITALS: Blood pressure 117/77, pulse 76, temperature 36.4 C (97.5 F), height 162.6 cm (5' 4"), weight 89.3 kg (196 lb 12.8 oz), SpO2 98%. Body mass index is 33.78 kg/m . HEENT: Normal cephalic, ataumatic, pupils are equally round, sclera are anicteric, mucous membranes are moist, oropharynx is clear. Neck has no masses, asymmetry or lymphadenopathy. Respiratory: Clear to auscultation and percussion. Normal respiratory excursion and pattern. Cardiac: Examination is regular rate and rhythm. 2/6 murmur Abdominal exam: Soft, nontender, with no palpable masses. No hepatosplenomegaly. No palpable hernias. Extremities: no clubbing, cyanosis or edema. No adenopathy. LABORATORY VALUES: As Noted RADIOLOGIC STUDIES: As Noted Assessment IMPRESSION: screen for colon cancer PLAN: I have reviewed my findings with the surgeon. Will plan for lower endoscopy. We discussed the risks and benefits of the planned endoscopy. I have informed the patient that complications can occur including failure to complete the endoscopy and perforation. Xiao had the opportunity to ask questions concerning the planned endoscopy. My staff has also explained the procedure to the patient in understandable terms and has given the patient printed material concerning the procedure. Xiao freely consents to surgery. I plan to use Golytely bowel preparation I have explained to the patient the difference between IV conscious sedation and MAC anesthesia - and I have offered either, according to the patient's wishes. I have explained that with IV conscious sedation there is no anesthesia provider available and therefore there is a limitation of the amount of IV medications that can be given and that the patient may wake up in the middle of the procedure and/or experience pain/discomfort during the procedure. Further discussion was done and the patient was given the opportunity to ask questions and all questions were answered. Xiao chooses IV conscious sedation. Xiao was counseled that if there are changes in his/her medical condition, to let the office know if surgery should proceed. If there are changes in patient's medical condition from time of this encounter to the day of the procedure that preclude anesthesia, patient may have procedure cancelled for patient's safety. Diagnoses: (Z12.11) Screen for colon cancer (primary encounter diagnosis) Portions of this documentation were copied and pasted from previous office visit notes in order to provide a cohesive continuity of the history. The note has been reviewed and edited and updated as necessary. Susana Smith APRN.PUBLISHING EDITOR UPDATED HISTORY AND PHYSICAL EXAMINATION SERVICE DATE: 09/19/2024 SERVICE TIME: 8:19 AM SENSITIVE EXAMINATION CONSENT: The sensitive examination was discussed with the Patient or Patient's Authorized Button Cutting Machine Operator. As applicable, any other physician, advance practice provider, medical student, or other health professional student that will be observing or involved in the sensitive examination for educational or training purposes was discussed with the Patient or Authorized Button Cutting Machine Operator. The Patient or Authorized Button Cutting Machine Operator has agreed to proceed with the sensitive examination. (Sensitive examination includes inspection and/or palpation of the breasts, pelvis, prostate and anorectal regions) PHYSICAL EXAM MUST BE COMPLETED ON ADMISSION The History and Physical (completed in the past 30 days) has been reviewed and the patient has been examined. The contents accurately reflect the patient's condition with the following additions or revisions since the H&P was completed. Examination indicates no changes. This H&P can be found in the attached. SIGNATURE: Terrence Junior III, MD PATIENT NAME: Xiao Shearer DATE: September 19, 2024 TIME: 8:19 AM [facility] 09-19-2024 History and physical note HISTORY AND PHYSICAL Xiao Shearer : 1955 REFERRING PHYSICIAN: No referring provider defined for this encounter. CHIEF COMPLAINT: Patient presents with: Consult: Colonoscopy consultation. HPI: Xiao is a 69 year old female referred for endoscopy. Xiao notes due for screening colonoscopy. Xiao denies abdominal pain.. Xiao denies diarrhea. Xiao denies constipation. Xiao denies a change in bowel habits. Xiao denies melena. Xiao denies bright red blood per rectum. Xiao denies hemorrhoids. Xiao notes a distant history of heartburn. Xiao denies dysphagia. Xiao denies a history of ulcers/ peptic ulcer disease. Xiao denies family history of colon issues. Medical history is significant for HTN, hypothyroidism, and osteopenia. Xiao has undergone prior endoscopy. Last colonoscopy was 04/[address] Junior at [facility]. Sedation:Midazolam 3 mg IV, Meperidine 100 mg IV Impression: - The distal rectum and anal verge are normal on retroflexion view. - No specimens collected. CURRENT MEDICATIONS Current Outpatient Medications Medication Sig amLODIPine (NORVASC) 5 mg tablet Take 5 mg by mouth once daily. levothyroxine (SYNTHROID) 125 mcg tablet Take 1 tablet by mouth six times a week. hydroCHLOROthiazide (HYDRODIURIL, ESIDRIX) 25 mg tablet Take 1 tablet by mouth once daily. TURMERIC ORAL Take 1 tablet by mouth once daily. cholecalciferol (VITAMIN D-3) 2,000 unit tablet Take 2,000 Units by mouth once daily. simvastatin (ZOCOR) 40 mg tablet Take 40 mg by mouth daily at bedtime. aspirin, enteric coated (ECOTRIN LOW STRENGTH) 81 mg EC tablet Take 1 tablet by mouth once daily. atenolol 50 mg ORAL Tab Take one(1) tablet daily. peg 3350-Electrolytes (GOLYTELY) 236-22.74-6.74 -5.86 gram suspension Take 4,000 mL by mouth one time only for 1 dose. Refer to printed prep instructions from your provider. No current facility-administered medications for this visit. 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) PAST SURGICAL HISTORY PAST SURGICAL HISTORY Procedure Laterality Date COLONOSCOPY FLX DX W/COLLJ SPEC WHEN PFRMD 11/25/2004 Colonoscopy CORRECT BUNION,SIMPLE EGD TRANSORAL BIOPSY SINGLE/MULTIPLE 04/16/2008 EXC BREAST LES PREOP PLMT RAD MARKER OPEN 1 LES 06/10/2011 LEFT EXC CYST/ABERRANT BREAST TISSUE OPEN 1/> LESION 10/01/2014 left LAPS ABD PRTM&OMENTUM DX W/WO SPEC BR/WA SPX Laparoscopy LASER VEIN TREATMENT 05/13/2014 Lt leg PARATHYROID AUTOTRANSPLANTATION ADD-ON 06/03/2010 LEFT PAST SURGICAL HISTORY OF 05/13/2014 left leg - veins taken out PAST SURGICAL HISTORY OF tumor removed from posterior right leg SALPINGO-OOPHORECTOMY COMPL/PRTL UNI/BI SPX 11/13/1989 Salpingo-oophorectomy THYROIDECTOMY TOTAL/SUBTOTAL LMTD NECK DISSECT 06/03/2010 TOTAL TOTAL ABDOMINAL HYSTERECT W/WO RMVL TUBE OVARY 11/13/1989 Hysterectomy, [facility] FAMILY HISTORY FAMILY HISTORY Problem Relation Age of Onset Cervical Cancer Mother Cancer Mother lung, passed from this. Diabetes Mother unsure Hypertension Mother Prostate Cancer Father Heart Father Cancer Brother lung Cancer Paternal Grandfather SOCIAL HISTORY Social History Tobacco Use Smoking status: Former Current packs/day: 0.00 Types: Cigarettes Quit date: 09/09/1989 Years since quittin.9 Smokeless tobacco: Never Vaping Use Vaping status: Never Used Substance Use Topics Alcohol use: Yes Comment: socially Drug use: No REVIEW OF SYMPTOMS: REVIEW OF SYSTEMS: General: The patient denies fatigue, denies weight loss, denies weight gain, denies feeling hot, and feelings of cold. Eyes: The patient denies glaucoma, denies eye injury/surgery, + glasses or contacts. Ear/Nose/Throat: The patient denies allergies, denies hayfever, denies ear infections, and denies bloody noses. Cardiovascular: The patient denies chest pain, denies heart disease, + high blood pressure, + high cholesterol, +murmur and denies poor circulation. Respiratory: The patient denies tuberculosis, denies pneumonia, denies frequent cough, denies shortness of breath, and denies coughing up blood. Gastrointestinal: The patient denies difficulty swallowing, denies acid reflux, denies ulcers, denies jaundice/hepatitis, denies gallbladder problems, denies vomiting, denies black or tarry stools, + hemorrhoids, denies bleeding from rectum, denies diverticulitis, denies constipation, denies diarrhea, denies loss of stool control, and denies hernias. Kidney/Bladder: The patient denies kidney stones, denies urine infections, and denies bloody urine. Skin: The patient denies a history of skin cancer, denies bleeding/changing moles, and denies a history of skin rash. Neurologic: The patient denies a history of epilepsy/convulsions, denies headaches, denies head/spinal injuries, and denies stroke/TIA. Psychiatric: The patient denies psychiatric medications, denies depression, and denies voices. Endocrine: The patient denies thyroid disorders, denies diabetes, and denies hormonal problems. Hematologic: The patient denies a history of bruising, denies bleeding, and denies anemia. Infections: The patient denies a history of measles and mumps, denies rheumatic fever, and denies sexually transmitted diseases. Musculoskeletal: The patient denies back pain/injury, + back problems, + sciatica, denies knee/foot trouble, denies arthritis, or denies gout. PHYSICAL EXAMINATION: General: The patient is 69 year old, female well nourished, well hydrated in no acute distress. The patient is oriented to time, place, and person. VITALS: Blood pressure 117/77, pulse 76, temperature 36.4 C (97.5 F), height 162.6 cm (5' 4"), weight 89.3 kg (196 lb 12.8 oz), SpO2 98%. Body mass index is 33.78 kg/m . HEENT: Normal cephalic, ataumatic, pupils are equally round, sclera are anicteric, mucous membranes are moist, oropharynx is clear. Neck has no masses, asymmetry or lymphadenopathy. Respiratory: Clear to auscultation and percussion. Normal respiratory excursion and pattern. Cardiac: Examination is regular rate and rhythm. 2/6 murmur Abdominal exam: Soft, nontender, with no palpable masses. No hepatosplenomegaly. No palpable hernias. Extremities: no clubbing, cyanosis or edema. No adenopathy. LABORATORY VALUES: As Noted RADIOLOGIC STUDIES: As Noted Assessment IMPRESSION: screen for colon cancer PLAN: I have reviewed my findings with the surgeon. Will plan for lower endoscopy. We discussed the risks and benefits of the planned endoscopy. I have informed the patient that complications can occur including failure to complete the endoscopy and perforation. Xiao had the opportunity to ask questions concerning the planned endoscopy. My staff has also explained the procedure to the patient in understandable terms and has given the patient printed material concerning the procedure. Xiao freely consents to surgery. I plan to use Golytely bowel preparation I have explained to the patient the difference between IV conscious sedation and MAC anesthesia - and I have offered either, according to the patient's wishes. I have explained that with IV conscious sedation there is no anesthesia provider available and therefore there is a limitation of the amount of IV medications that can be given and that the patient may wake up in the middle of the procedure and/or experience pain/discomfort during the procedure. Further discussion was done and the patient was given the opportunity to ask questions and all questions were answered. Xiao chooses IV conscious sedation. Xiao was counseled that if there are changes in his/her medical condition, to let the office know if surgery should proceed. If there are changes in patient's medical condition from time of this encounter to the day of the procedure that preclude anesthesia, patient may have procedure cancelled for patient's safety. Diagnoses: (Z12.11) Screen for colon cancer (primary encounter diagnosis) Portions of this documentation were copied and pasted from previous office visit notes in order to provide a cohesive continuity of the history. The note has been reviewed and edited and updated as necessary. Susana Smith APRN.PUBLISHING EDITOR UPDATED HISTORY AND PHYSICAL EXAMINATION SERVICE DATE: 09/19/2024 SERVICE TIME: 8:19 AM SENSITIVE EXAMINATION CONSENT: The sensitive examination was discussed with the Patient or Patient's Authorized Button Cutting Machine Operator. As applicable, any other physician, advance practice provider, medical student, or other health professional student that will be observing or involved in the sensitive examination for educational or training purposes was discussed with the Patient or Authorized Button Cutting Machine Operator. The Patient or Authorized Button Cutting Machine Operator has agreed to proceed with the sensitive examination. (Sensitive examination includes inspection and/or palpation of the breasts, pelvis, prostate and anorectal regions) PHYSICAL EXAM MUST BE COMPLETED ON ADMISSION The History and Physical (completed in the past 30 days) has been reviewed and the patient has been examined. The contents accurately reflect the patient's condition with the following additions or revisions since the H&P was completed. Examination indicates no changes. This H&P can be found in the attached. SIGNATURE: Terrence Junior III, MD PATIENT NAME: Xiao Shearer DATE: September 19, 2024 TIME: 8:19 AM documented in this encounter [facility] 09-02-2024 Telephone encounter Note My Chart message sent to patient regarding missed colonoscopy education. Maria Antonia Rasheed RN [facility] 09-02-2024 Miscellaneous Notes My Chart message sent to patient regarding missed colonoscopy education. Maria Antonia Rasheed RN documented in this encounter [facility] 08-29-2024 History of Present illness Narrative HISTORY AND PHYSICAL Xiao Shearer : 1955 REFERRING PHYSICIAN: No referring provider defined for this encounter. CHIEF COMPLAINT: Patient presents with: Consult: Colonoscopy consultation. HPI: Xiao is a 69 year old female referred for endoscopy. Xiao notes due for screening colonoscopy. Xiao denies abdominal pain.. Xiao denies diarrhea. Xiao denies constipation. Xiao denies a change in bowel habits. Xiao denies melena. Xiao denies bright red blood per rectum. Xiao denies hemorrhoids. Xiao notes a distant history of heartburn. Xiao denies dysphagia. Xiao denies a history of ulcers/ peptic ulcer disease. Xiao denies family history of colon issues. Medical history is significant for HTN, hypothyroidism, and osteopenia. Xiao has undergone prior endoscopy. Last colonoscopy was 04/[address] Junior at [facility]. Sedation:Midazolam 3 mg IV, Meperidine 100 mg IV Impression: - The distal rectum and anal verge are normal on retroflexion view. - No specimens collected. Current Outpatient Medications Medication Sig amLODIPine (NORVASC) 5 mg tablet Take 5 mg by mouth once daily. levothyroxine (SYNTHROID) 125 mcg tablet Take 1 tablet by mouth six times a week. hydroCHLOROthiazide (HYDRODIURIL, ESIDRIX) 25 mg tablet Take 1 tablet by mouth once daily. TURMERIC ORAL Take 1 tablet by mouth once daily. cholecalciferol (VITAMIN D-3) 2,000 unit tablet Take 2,000 Units by mouth once daily. simvastatin (ZOCOR) 40 mg tablet Take 40 mg by mouth daily at bedtime. aspirin, enteric coated (ECOTRIN LOW STRENGTH) 81 mg EC tablet Take 1 tablet by mouth once daily. atenolol 50 mg ORAL Tab Take one(1) tablet daily. peg 3350-Electrolytes (GOLYTELY) 236-22.74-6.74 -5.86 gram suspension Take 4,000 mL by mouth one time only for 1 dose. Refer to printed prep instructions from your provider. No current facility-administered medications for this visit. 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) PAST SURGICAL HISTORY Procedure Laterality Date COLONOSCOPY FLX DX W/COLLJ SPEC WHEN PFRMD 11/25/2004 Colonoscopy CORRECT BUNION,SIMPLE EGD TRANSORAL BIOPSY SINGLE/MULTIPLE 04/16/2008 EXC BREAST LES PREOP PLMT RAD MARKER OPEN 1 LES 06/10/2011 LEFT EXC CYST/ABERRANT BREAST TISSUE OPEN 1/> LESION 10/01/2014 left LAPS ABD PRTM&OMENTUM DX W/WO SPEC BR/WA SPX Laparoscopy LASER VEIN TREATMENT 05/13/2014 Lt leg PARATHYROID AUTOTRANSPLANTATION ADD-ON 06/03/2010 LEFT PAST SURGICAL HISTORY OF 05/13/2014 left leg - veins taken out PAST SURGICAL HISTORY OF tumor removed from posterior right leg SALPINGO-OOPHORECTOMY COMPL/PRTL UNI/BI SPX 11/13/1989 Salpingo-oophorectomy THYROIDECTOMY TOTAL/SUBTOTAL LMTD NECK DISSECT 06/03/2010 TOTAL TOTAL ABDOMINAL HYSTERECT W/WO RMVL TUBE OVARY 11/13/1989 Hysterectomy, [facility] FAMILY HISTORY Problem Relation Age of Onset Cervical Cancer Mother Cancer Mother lung, passed from this. Diabetes Mother unsure Hypertension Mother Prostate Cancer Father Heart Father Cancer Brother lung Cancer Paternal Grandfather Social History Tobacco Use Smoking status: Former Current packs/day: 0.00 Types: Cigarettes Quit date: 09/09/1989 Years since quittin.9 Smokeless tobacco: Never Vaping Use Vaping status: Never Used Substance Use Topics Alcohol use: Yes Comment: socially Drug use: No REVIEW OF SYMPTOMS: REVIEW OF SYSTEMS: General: The patient denies fatigue, denies weight loss, denies weight gain, denies feeling hot, and feelings of cold. Eyes: The patient denies glaucoma, denies eye injury/surgery, + glasses or contacts. Ear/Nose/Throat: The patient denies allergies, denies hayfever, denies ear infections, and denies bloody noses. Cardiovascular: The patient denies chest pain, denies heart disease, + high blood pressure, + high cholesterol, +murmur and denies poor circulation. Respiratory: The patient denies tuberculosis, denies pneumonia, denies frequent cough, denies shortness of breath, and denies coughing up blood. Gastrointestinal: The patient denies difficulty swallowing, denies acid reflux, denies ulcers, denies jaundice/hepatitis, denies gallbladder problems, denies vomiting, denies black or tarry stools, + hemorrhoids, denies bleeding from rectum, denies diverticulitis, denies constipation, denies diarrhea, denies loss of stool control, and denies hernias. Kidney/Bladder: The patient denies kidney stones, denies urine infections, and denies bloody urine. Skin: The patient denies a history of skin cancer, denies bleeding/changing moles, and denies a history of skin rash. Neurologic: The patient denies a history of epilepsy/convulsions, denies headaches, denies head/spinal injuries, and denies stroke/TIA. Psychiatric: The patient denies psychiatric medications, denies depression, and denies voices. Endocrine: The patient denies thyroid disorders, denies diabetes, and denies hormonal problems. Hematologic: The patient denies a history of bruising, denies bleeding, and denies anemia. Infections: The patient denies a history of measles and mumps, denies rheumatic fever, and denies sexually transmitted diseases. Musculoskeletal: The patient denies back pain/injury, + back problems, + sciatica, denies knee/foot trouble, denies arthritis, or denies gout. PHYSICAL EXAMINATION: General: The patient is 69 year old, female well nourished, well hydrated in no acute distress. The patient is oriented to time, place, and person. VITALS: Blood pressure 117/77, pulse 76, temperature 36.4 C (97.5 F), height 162.6 cm (5' 4"), weight 89.3 kg (196 lb 12.8 oz), SpO2 98%. Body mass index is 33.78 kg/m . HEENT: Normal cephalic, ataumatic, pupils are equally round, sclera are anicteric, mucous membranes are moist, oropharynx is clear. Neck has no masses, asymmetry or lymphadenopathy. Respiratory: Clear to auscultation and percussion. Normal respiratory excursion and pattern. Cardiac: Examination is regular rate and rhythm. 2/6 murmur Abdominal exam: Soft, nontender, with no palpable masses. No hepatosplenomegaly. No palpable hernias. Extremities: no clubbing, cyanosis or edema. No adenopathy. LABORATORY VALUES: As Noted RADIOLOGIC STUDIES: As Noted Assessment IMPRESSION: screen for colon cancer PLAN: I have reviewed my findings with the surgeon. Will plan for lower endoscopy. We discussed the risks and benefits of the planned endoscopy. I have informed the patient that complications can occur including failure to complete the endoscopy and perforation. Xiao had the opportunity to ask questions concerning the planned endoscopy. My staff has also explained the procedure to the patient in understandable terms and has given the patient printed material concerning the procedure. Xiao freely consents to surgery. I plan to use Golytely bowel preparation I have explained to the patient the difference between IV conscious sedation and MAC anesthesia - and I have offered either, according to the patient's wishes. I have explained that with IV conscious sedation there is no anesthesia provider available and therefore there is a limitation of the amount of IV medications that can be given and that the patient may wake up in the middle of the procedure and/or experience pain/discomfort during the procedure. Further discussion was done and the patient was given the opportunity to ask questions and all questions were answered. Xiao chooses IV conscious sedation. Xiao was counseled that if there are changes in his/her medical condition, to let the office know if surgery should proceed. If there are changes in patient's medical condition from time of this encounter to the day of the procedure that preclude anesthesia, patient may have procedure cancelled for patient's safety. Diagnoses: (Z12.11) Screen for colon cancer (primary encounter diagnosis) Portions of this documentation were copied and pasted from previous office visit notes in order to provide a cohesive continuity of the history. The note has been reviewed and edited and updated as necessary. Susana Smith APRN.PUBLISHING EDITOR documented in this encounter [facility] 08-29-2024 Note HNO ID: [id number] Author: SUSANA SMITH APRN.SUSANNA Service: ? Author Type: Nurse Practitioner Type: Progress Notes Filed: 08/29/2024 15:37 Note Text: HISTORY AND PHYSICAL Xiao Shearer : 1955 REFERRING PHYSICIAN: No referring provider defined for this encounter. CHIEF COMPLAINT: Patient presents with: Consult: Colonoscopy consultation. HPI: Xiao is a 69 year old female referred for endoscopy. Xiao notes due for screening colonoscopy. Xiao denies abdominal pain.. Xiao denies diarrhea. Xiao denies constipation. Xiao denies a change in bowel habits. Xiao denies melena. Xiao denies bright red blood per rectum. Xiao denies hemorrhoids. Xiao notes a distant history of heartburn. Xiao denies dysphagia. Xiao denies a history of ulcers/ peptic ulcer disease. Xiao denies family history of colon issues. Medical history is significant for HTN, hypothyroidism, and osteopenia. Xiao has undergone prior endoscopy. Last colonoscopy was 04/[address] Junior at [facility]. Sedation:Midazolam 3 mg IV, Meperidine 100 mg IV Impression: - The distal rectum and anal verge are normal on retroflexion view. - No specimens collected. Current Outpatient Medications Medication Sig amLODIPine (NORVASC) 5 mg tablet Take 5 mg by mouth once daily. levothyroxine (SYNTHROID) 125 mcg tablet Take 1 tablet by mouth six times a week. hydroCHLOROthiazide (HYDRODIURIL, ESIDRIX) 25 mg tablet Take 1 tablet by mouth once daily. TURMERIC ORAL Take 1 tablet by mouth once daily. cholecalciferol (VITAMIN D-3) 2,000 unit tablet Take 2,000 Units by mouth once daily. simvastatin (ZOCOR) 40 mg tablet Take 40 mg by mouth daily at bedtime. aspirin, enteric coated (ECOTRIN LOW STRENGTH) 81 mg EC tablet Take 1 tablet by mouth once daily. atenolol 50 mg ORAL Tab Take one(1) tablet daily. peg 3350-Electrolytes (GOLYTELY) 236-22.74-6.74 -5.86 gram suspension Take 4,000 mL by mouth one time only for 1 dose. Refer to printed prep instructions from your provider. No current facility-administered medications for this visit. 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) PAST SURGICAL HISTORY Procedure Laterality Date COLONOSCOPY FLX DX W/COLLJ SPEC WHEN PFRMD 11/25/2004 Colonoscopy CORRECT BUNION,SIMPLE EGD TRANSORAL BIOPSY SINGLE/MULTIPLE 04/16/2008 EXC BREAST LES PREOP PLMT RAD MARKER OPEN 1 LES 06/10/2011 LEFT EXC CYST/ABERRANT BREAST TISSUE OPEN 1/> LESION 10/01/2014 left LAPS ABD PRTMANDOMENTUM DX W/WO SPEC BR/WA SPX Laparoscopy LASER VEIN TREATMENT 05/13/2014 Lt leg PARATHYROID AUTOTRANSPLANTATION ADD-ON 06/03/2010 LEFT PAST SURGICAL HISTORY OF 05/13/2014 left leg - veins taken out PAST SURGICAL HISTORY OF tumor removed from posterior right leg SALPINGO-OOPHORECTOMY COMPL/PRTL UNI/BI SPX 11/13/1989 Salpingo-oophorectomy THYROIDECTOMY TOTAL/SUBTOTAL LMTD NECK DISSECT 06/03/2010 TOTAL TOTAL ABDOMINAL HYSTERECT W/WO RMVL TUBE OVARY 11/13/1989 Hysterectomy, [facility] FAMILY HISTORY Problem Relation Age of Onset Cervical Cancer Mother Cancer Mother lung, passed from this. Diabetes Mother unsure Hypertension Mother Prostate Cancer Father Heart Father Cancer Brother lung Cancer Paternal Grandfather Social History Tobacco Use Smoking status: Former Current packs/day: 0.00 Types: Cigarettes Quit date: 09/09/1989 Years since quittin.9 Smokeless tobacco: Never Vaping Use Vaping status: Never Used Substance Use Topics Alcohol use: Yes Comment: socially Drug use: No REVIEW OF SYMPTOMS: REVIEW OF SYSTEMS: General: The patient denies fatigue, denies weight loss, denies weight gain, denies feeling hot, and feelings of cold. Eyes: The patient denies glaucoma, denies eye injury/surgery, + glasses or contacts. Ear/Nose/Throat: The patient denies allergies, denies hayfever, denies ear infections, and denies bloody noses. Cardiovascular: The patient denies chest pain, denies heart disease, + high blood pressure, + high cholesterol, +murmur and denies poor circulation. Respiratory: The patient denies tuberculosis, denies pneumonia, denies frequent cough, denies shortness of breath, and denies coughing up blood. Gastrointestinal: The patient denies difficulty swallowing, denies acid reflux, denies ulcers, denies jaundice/hepatitis, denies gallbladder problems, denies vomiting, denies black or tarry stools, + hemorrhoids, denies bleeding from rectum, denies diverticulitis, denies c (more content not included)... [facility] 04-04-2022 Miscellaneous Notes Requester: Patient Last Visit [...] [facility]: No Please review and advise. Thelma Laclede, CHANNEL DIRECTOR documented in this encounter [facility] 03-01-2022 Miscellaneous Notes Please review. Patient will need to contact her insurance to discuss the possible providers that she can see in that area. documented in this encounter [facility] 02-24-2022 Instructions Beatriz Hickman MD - 02/24/2022 10:53 AM EDT Get labs drawn I will send you a message in my chart once the lab results become available documented in this encounter [facility] 02-24-2022 History of Present illness Narrative SUBJECTIVE: Xiao Shearer is a 66 year old female who [...] thyroidectomy. Surgery was done by Dr. Omega Junior at [facility] * Path (06/03/10): follicular CA, 2.5cm [...] results become available. She is moving to [place] in April 2022, I suggested her to get established with endocrinology there. Beatriz Hickman MD 02/24/22 documented in this encounter [facility] 09-10-2021 Hospital Discharge instructions Luis Felipe Barnard MD - 09/10/[address] and monitor daily outputs Ok to take down gauze in 24 hours for hygiene but need to replace and keep compression Encourage ambulation Take pain meds as prescribed Take Anitbiotics as prescribed F/u on Call with any questions or concerns [facility] 09-10-2021 History of Present illness Narrative Phase II indicated, pt awake and talking, VS stable, pt dressed and ambulated to wheelchair without difficulty, home going instructions reviewed with patient, verbal understanding demonstrated and opportunity given for questions [facility]: 08-31-2021 Hospital Discharge instructions Nereida [...] surgeon, anesthesiologist, Etc. documented in this encounter [facility] Phone: 08-12-2021 History of Present illness Narrative Discharge instructions reviewed with the patient, picc line educations done. medications delivered to the bedside and also patient to diamond picker the ATB po from her pharmacy at discharge. [facility] to do home infusion of IV ATB Images from the original note were not included. . [facility] - Infectious Diseases Attending Progress [...] can be discharged home. Tomas Pederson DO [facility] IMS Comprehensive Nutrition Assessment Type [...] tracts and primary closure 07/[address] Lea. She was treated with PO augmentin and [...] assess Fluid Accumulation: No significant fluid accumulation Coding Technician Strength: Not Performed Estimated Daily Nutrient Needs: Energy (kcal): 8687-9560 (27-32 kcal/kg IBW); Weight Used for Energy Requirements: [place] (54.45 kg) Protein (g): 65-82 (1.2-1.5 g protein/kg IBW); Weight Used for Protein Requirements: [place] (54.45 kg) Fluid (ml/day): per MD; Method Used for Fluid Requirements: Other (Comment) Nutrition Related Findings: + surgical I+D on right gluteal area. jose score=20. +I/O balance. Medications reviewed: +zosyn and vancocin, and synthroid. Elevated CRP on admit (78.4), low creatinine (0.44) Wounds: Surgical Incision Current Nutrition Therapies: ADULT DIET; Regular Anthropometric Measures: Height: 5' 4.02" (162.6 cm) Current Body Weight: 190 lb (86.2 kg) (08/08/21) Admission Body Weight: 190 lb (86.2 kg) (stated 08/08/21) Usual Body Weight: 190 lb 0.6 oz (86.2 kg) (06/01/21 office visit) [place] Body Weight: 120 lbs; % [place] Body Weight 158.3 % BMI: 32.6 BMI [...] No discharge needs at this time Contact: *[phone] [facility] hospitalist Physician Progress Note 08/11/2021 1:45 PM Name: Xiao Shearer IP Day: 3 Admit Date: 2021 9:25 AM PCP: Shereen Alaniz DO Code Status: Full Code Assessment [...] After 7 PM, please contact [place] hospitalist polymerization helper if needed Subjective: No new symptoms. Pain is controlled. Physical Examination: Vitals: BP (!) 141/78 Pulse 55 Temp 97.4 F (36.3 C) (Temporal) Resp 19 Ht 5' 4.02" (1.626 m) Wt 190 lb (86.2 kg) [...] 10 mg 10 mg Rectal Daily PRN Yazid R Bg, DO 10 mg at 08/11/21 [...] the original note were not included. . [facility] - Infectious Diseases Attending Progress Note Patient seen and examined Chart reviewed Following for right buttock abscess s/p I and D Patient overall doing ok No cultures were sent Vitals: Patient Vitals for the past 24 hrs: BP Temp Temp src Pulse Resp SpO2 Height 08/11/21 1022 (!) 141/78 97.4 F (36.3 C) Temporal 55 19 96 % 08/11/21 0916 5' 4.02" (1.626 m) 08/11/21 0555 138/85 97.4 F [...] 7.2 08/11/2021 0144 HGB 11.2 (L) 08/11/2021 014 HCT 34.1 (L) 08/11/2021 0144 PLT 245 [...] in media tab D/w TcC D/w Dr. Lea More that 51% total time 25 Minutes counseling (or coordinating care) and providing discussion regarding plan of care. [facility] hospitalist Physician Progress Note 08/10/2021 2:08 PM Name: Xiao Shearer IP Day: 2 Admit Date: 2021 9:25 AM PCP: Shereen Alaniz, Code Status: Full Code Assessment and [...] After 7 PM, please contact [place] hospitalist polymerization helper if needed Subjective: No new symptoms. Pain is controlled. Physical Examination: Vitals: BP 128/86 Pulse 73 Temp 97.5 F (36.4 C) (Temporal) Resp 16 Ht 5' 4" (1.626 m) Wt 190 lb (86.2 kg) [...] capsule 100 mg 100 mg Oral Daily Anniemigel Rm Pederson, DO 100 mg at 08/10/21 0849 vancomycin [...] g 17 g Oral Daily PRN Jacques Stomr JD, MD acetaminophen (TYLENOL) tablet 650 mg [...] referred to the Dietitian. 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 Jacquie Childress PT N-95, goggles, and gloves worn Images [...] (36.4 C) (Temporal) Resp 16 Ht 5' 4" (1.626 m) Wt 190 lb (86.2 kg) [...] standpoint Ortho to sign off, please page polymerization helper resident with questions/concerns Kisha Garza MD PGY-2, Orthopaedic Surgery [phone] 08/10/2021 .6:18 AM [facility] hospitalist Physician Progress Note 08/09/2021 11:52 AM Name: Xiao Shearer IP Day: 1 Admit Date: 2021 9:25 AM PCP: Shereen Alaniz, Code Status: Full Code Assessment and [...] After 7 PM, please contact [place] hospitalist polymerization helper if needed Subjective: No new symptoms. Pain is controlled. Physical Examination: Vitals: BP 118/77 Pulse 70 Temp 97.8 F (36.6 C) (Temporal) Resp 14 Ht 5' 4" (1.626 m) Wt 190 lb (86.2 kg) [...] Storm JD, MD 125 mcg at 08/09/21 045 sodium chloride flush 0.9 % injection 5-40 mL 5-40 mL IntraVENous 2 times per day Jacques Storm JD, MD 5 mL at 08/08/212043 sodium chloride flush 0.9 % injection 5-40 [...] from the original note were not included. [place] [address] [facility] [address] [place] [address] Dept: [phone] Loc: [phone] Orthopedic Progress Note Name: Xiao Shearer Date:08/09/2021 Attending:Jerman Duggan MD Subjective No events [...] HCG in the last 72 hours. Assessment Xiao is a 66 y.o.female with right gluteal [...] this encounter [facility] Work Phone: 08-12-2021 Note [facility] Summary Xiao Shearer : 1955 Admit date: 2021 Discharge date: 08/11/2021 Admitting Physician: Jerman Duggan MD Primary Care Physician: Shereen Alaniz, Discharge Diagnoses: Recurrent right gluteal surgical wound [...] (36.3 ?C) (Temporal) Resp 19 Ht 5' 4.02" (1.626 m) Wt 190 lb (86.2 kg) [...] VIEWS) Result Date: 2021 Patient Name: XIAO SHEARER Diagnostic Radiology ACCESSION EXAM DATE/TIME PROCEDURE ORDERING PROVIDER [id number] 2021 11:23 EDT CR Hip w/ Pelvis 2 or 3 [id number] -ALEXANDRO RAY Views Right n CPT code 17081 Reason For Exam (CR Hip w/ Pelvis [...] VW Result Date: 2021 Patient Name: XIAO SHEARER Diagnostic Radiology ACCESSION EXAM DATE/TIME PROCEDURE ORDERING PROVIDER [id number] 2021 11:23 EDT CR Chest 1 View Frontal [id number] PELON RAY CPT code 11250 Reason For Exam (CR Chest 1 View [...] and Time: 2021 11:31 Discharge Medications: Xiao Shearer Home Medication Instructions BINTA:[id number] Printed on:08/11/21 1641 Medication Information aspirin 81 MG EC tablet Take 81 mg by mouth daily atenolol (TENORMIN) 50 MG tablet Take 50 mg by (more content not included)... [facility] 08-12-2021 Hospital Discharge instructions Sanjuana Pardo RN - 08/12/2021 10:59 AM EDT Your physician has ordered skilled home care services for you. Your home care will be provided by: [facility] [phone] [facility] [phone] Merline Myers RN - 08/09/2021 General Orthopedic Discharge Instructions [...] daily and PRN. documented in this encounter [employer] Phone: 06-03-2021 Hospital Discharge instructions Makayla Sheppard RN - 06/03/2021 Please bring your [employer] Surgical Information folder on the day of [...] call your surgeon. documented in this encounter [facility] Work Phone: 04-08-2010 History of Past i llness Narrative Problem Noted Date Resolved Date Nontoxic multinodular goiter 04/08/2010 documented as of this encounter (statuses as of 02/24/2022) [facility] History of Past illness Narrative* Problem Noted Date Resolved Date Nontoxic multinodular goiter 04/08/2010 documented as of this encounter (statuses as of 03/02/2022) [facility] History of Past illness Narrative* Problem Noted Date Resolved Date Nontoxic multinodular goiter 04/08/2010 documented as of this encounter (statuses as of 04/04/2022) [facility] Karl Mccann [facility] October 06, 2023 1:37pm Note Date/Time October 06, 2023 12:37pm [facility] Medical Records Department [address] [place] [address] Emergency Department Summary 10/06/23 MR#: [id number] Acct: [id number] Name: XIAO SHEARER Rep #:[id number] : 1955 68 From: Karl Mccann MD PCP: Dr. 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 Able to walk afterwards without difficulty, she states the pain is not severe but it is swollen a little and her employer wanted her to have it reevaluated. She states she also fell onto her left outstretched hand, she states her palm is a little sore at the base of it, but she has no pain in her wrist, elbow, shoulder. [facility] Medical History Breast cancer Former smoker Hyperlipidemia Hypothyroidism Physical exam, pre-employment Thyroid cancer Home Medications aspirin 81 mg chewable tablet 81 mg PO DAILY 04/17/17 [History Last Taken Unknown] atenolol 50 mg tablet 50 mg PO DAILY 04/17/17 [History Last Taken Unknown] esomeprazole magnesium 40 mg capsule,delayed release (Nexium) 40 mg PO DAILY 04/17/17 [History Last Taken Unknown] estradiol 1 mg tablet 0.5 mg PO QHS SWEATS 04/17/17 [History Last Taken Unknown] hydrochlorothiazide 25 mg tablet 25 mg PO DAILY 04/17/17 [History Last Taken Unknown] levothyroxine 137 mcg tablet 125 mcg PO DAILY 04/17/17 [History Last Taken Unknown] simvastatin 40 mg tablet 40 mg PO DAILY 04/17/17 [History Last Taken Unknown] meloxicam 15 mg tablet 15 mg PO DAILY 08/08/21 [History Last Taken Unknown] Allergy/AdvReac Type Severity Reaction Status Date / Time No Known Allergies Allergy Verified 10/06/23 12:06 Surgical History History of appendectomy History of hysterectomy Social History Smoking Status: Former smoker substance use type: does not use ROS ROS ED Constitutional Constitutional ED: Denies chills or fever(s) Musculoskeletal Musculoskeletal: Reports extremity pain; Denies neck pain Integumentary Denies Abrasions, rash or wounds Neurologic Neurologic: Denies paresthesias or weakness EXAM Physical Exam Const Vital Signs: 10/06/23 12:05 10/06/23 12:13 Temperature 97.8 F Temperature Source Temporal Pulse Rate 70 Respiratory Rate 18 Respiratory Effort Normal Respiratory Depth Normal Respiratory Pattern Normal Blood Pressure 168/88 H Blood Pressure Mean 114 Pulse Ox 98 Oxygen Delivery Method Room Air Room Air Positive well nourished and well developed General Appearance ED: well developed and NAD Neck full ROM and supple Back/Spine normal ROM and normal to inspection Extremity normal to inspection and full ROM Extremity Narrative: Abrasion with some localized swelling and tenderness left anterior patella, no other bony prominence tenderness with regards to the left knee. All ligaments stable without pain on stressing, short endpoints including negative anterior and posterior drawer signs. Extensor mechanism intact. With regards to the left upper extremity there is no bony tenderness about the hand, wrist, elbow, shoulder and her range of motion is equal. The area where she is having pain isin the thenar and hyperthenar eminences without any swelling or purpura/ecchymosis. Neuro oriented x3, no focal motor deficits and no sensory deficits noted Sensorium / Orientation: alert Psych mental status grossly normal and thought process normal Skin no wounds Rashes: no rashes MDM MDM MDM Narrative Medical decision making narrative: 4 view x-ray series of the left knee were obtained and are negative for fractureor dislocation on my interpretation. Patient is reassured. She likely has a prepatellar traumatic bursitis/contusion. Given an Ishmael wrap, ibuprofen, instructions for supportive care, she agrees that she does not require any work restrictions for this injury at this time. Follow-up as needed. Radiography Diagnostic Testing: Clinical Impression(s) from Imaging Studies Knee X-Ray 10/06/23 12:32 IMPRESSION: Small joint effusion with diffuse soft tissue swelling. No acute osseous abnormality. Electronically Signed: Ronal Mcclain MD at 13:03 EST , Discharge Plan Triage Chief Complaint: Fall ED Provider: Karl Mccann Dx/Rx/DC Orders Clinical Impression: Contusion of knee, left Instructions: ED Contusion, Lower Extremity Prescriptions: No Action atenolol 50 MG tablet 50 mg PO DAILY simvastatin 40 MG tablet 40 mg PO DAILY esomeprazole magnesium [Nexium] 40 MG capsule 40 mg PO DAILY levothyroxine 137 MCG tablet 125 mcg PO DAILY estradiol 1 MG tablet 0.5 mg PO QHS aspirin 81 MG tablet,chewable 81 mg PO DAILY hydrochlorothiazide 25 MG tablet 25 mg PO DAILY meloxicam 15 mg Tablet 15 mg PO DAILY Stand Alone Forms: Work Status Form Primary Care Provider: Shereen Soria Referrals: [facility] [Group of Physicians] - As Needed Shereen Soria MD [Primary Care Provider] - Disposition Disposition: Home, Self Care What to do if you have Problems For any increased pain, shortness of breath, bleeding, nausea or vomiting, chestpain, or any unexpected problems, contact your Primary Care Provider. Call [facility] ([phone]) or report to the closest Emergency Room. Call 911 if necessary. 10/06/23 1337 <Electronically signed by Karl Mccann MD> Cosigner Signature (if applicable): CC: Dr. Shereen Soria MD ~ Signed [facility] Work Phone: Evaluation note* Diagnosis Wound dehiscence- Primary Disruption of external operation (surgical) wound documented in this encounter [facility] Work Phone: Evaluation note* Diagnosis Abscess- Primary Cellulitis and abscess of unspecified site care home (current) use of antibiotics documented in this encounter [facility] Work Phone: Evaluation note* Diagnosis Wound dehiscence- Primary Disruption of external operation (surgical) wound documented in this encounter [facility] [employer] Phone: Evaluation note* Diagnosis Follicular thyroid cancer (HCC)- Primary Malignant neoplasm of thyroid gland Post-surgical hypothyroidism Postsurgical hypothyroidism Fatigue, unspecified type Cold intolerance Other general symptoms documented in this encounter [facility] note* Diagnosis Malignant neoplasm of thyroid gland (HCC) Malignant neoplasm of thyroid gland Postablative hypothyroidism Other postablative hypothyroidism Essential hypertension Unspecified essential hypertension [facility] noteNo assessment information availableWOhio[facility] Work Phone: Evaluation note* Diagnosis Onset Date Resolution Status Physical exam, pre-employment acute [facility] Work Phone: Evaluation note* Diagnosis Screen for colon cancer- Primary Special screening for malignant neoplasms, colon documented in this encounter [facility] note* Diagnosis Encounter for screening for malignant neoplasm of colon- Primary Special screening for malignant neoplasms, colon Screen for colon cancer Special screening for malignant neoplasms, colon documented in this encounter [facility] Discharge instructions* Instructions* Jacques Storm JD, MD [...] diet. Additional Instructions: Follow up with Dr. Lea in 3 weeks. Call to schedule your appointment as soon as possible. [facility] Phone: Reason for referral (narrative)* Outpatient Procedure (Routine) - Authorized Specialty Diagnoses / Procedures Referred By Martha mishra Referred To Contact [facility] Diagnoses Screen for colon cancer Procedures COLONOSCOPY SCREENING COLONOSCOPY FLX DX W/COLLJ SPEC WHEN Susana Gan APRN.CNP [address] [place] [address] [facility] [address] [place] [address] Referral ID Status Reason Start Date Expiration Date Visits Requested Visits Authorized [id number] Authorized Auto-Generat ed Referral 4 08/29/2025 1 1 [facility] for referral (narrative)* Outpatient Procedure (Routine) - Closed Specialty Diagnoses / Procedures Referred By Martha mishra Referred To Contact [facility] Diagnoses Screen for colon cancer Procedures COLONOSCOPY SCREENING COLONOSCOPY FLX DX W/COLLJ SPEC WHEN Susana Gan APRN.CNP [address] [place] [address] [facility] Disease [address] [address] Referral ID Status Reason Start Date Expiration Date V isits Requested Visits Authorized [id number] Closed Auto-Generate d Referral 08/29/2024 08/29/2025 1 1 [facility]No reason for referral information availableWOhioHealth [facility] Work Phone: Rehwxy for visit Narrative* Outpatient Procedure (Routine) - Closed Specialty Diagnoses / Procedures Referred By Contac t Referred To Contact [facility] Diagnoses Screen for colon cancer Procedures COLONOSCOPY SCREENING COLONOSCOPY FLX DX W/COLLJ SPEC WHEN Susana Gan APRN.PUBLISHING EDITOR [address] [place] [address] [address] Referral ID Status Reason Start Date Expiration Date V isits Requested Visits Authorized [id number] Closed Auto-Generate d Referral 08/29/2024 08/29/2025 1 1 [facility] Advance Directives No Advanced Directives Records FoundDocuments on File Type Date Recorded 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 ACP-Advance Directive 06/03/2021 12:00 AM [...] Code 2021 1:26 PM 08/12/2021 7:02 PM Advance Directive Response Recorded Date/ Time Living Will Yes May 01, 2023 10:16am Power of Edger Saw Operator Yes May 01 10:16am Advance Directive Response Recorded Date/ Time Living Will No October 06, 2 023 12:11pm Power of Edger Saw Operator No October 06, 2023 12:11pm Summary Purpose Family History No Family History Records Found Relationship Condition Age at Onset Recorded Date/T guanakito Unknown Family History?COPD, Diabetes, Hypertension Unknown November 15, 2020 1:01am Family History?Cance r, Diabetes, Hypertension Unknown November 15, 2020 1:01am Family History?Cance r, Diabetes, Hypertension Unknown May 01, 2023 10:16am Relationship Condition Age at Onset Recorded Date/T guanakito Unknown Family History?COPD, Diabetes, Hypertension Unknown November 15, 2020 12:01am Family History?Cance r, Diabetes, Hypertension Unknown November 15, 2020 12:01am Family History?Cance r, Diabetes, Hypertension Unknown May 01, 2023 9:16am Chief Complaint and Reason for Visit Chief Complaint PRE EMPLOY/INST [employer] D [employer] S[employer]EN/[employer] PRE EMPLOY/PHYSICAL/[employer] TB TEST TB READ E-ORDER Reason for Visit Physical exam, pre-e mployment Chief Complaint PRE EMPLOY/INST 10 D [employer]UG SCREEN/[employer] PRE EMPLOY/PHYSICAL/[employer] TB TEST TB READ E-ORDER Cardiac murmur, unspecified Reason for Visit Physical exam, pre-e mployment Chief Complaint E-ORDER Cardiac murmur, unspecified FALL Chief Complaint FALL LT KNEE/ONE EIGHTY Chief Complaint FALL LT KNEE/ONE EIGHTY EORDER- BOTH HIPS- pain Chief Complaint Admit Date ELEVATED PTH December 16, 2024 9 :32am LEFT KNEE March 17, 2025 1:52pm Chief Complaint Admit Date ELEVATED PTH December 16, 2024 9 :32am LEFT KNEE March 17, 2025 1:52pm E-ORDER March 22, 2025 6:55a m Chief Complaint Admit Date LEFT KNEE March 17, 2025 1:52pm E-ORDER March 22, 2025 6:55a m LEFT KNEE INJURY June 06, 2025 1:50 pm Chief Complaint Admit Date LEFT KNEE March 17, 2025 1:52pm E-ORDER March 22, 2025 6:55a m LEFT KNEE INJURY June 06, 2025 1:50 pm PREOP June 17, 2025 7:4 5am PREOP June 17, 2025 8:1 4am Additional Source Comments Ordered Prescriptions (unrec ognized section and content) Prescription Sig Dispensed Refills Start Date End Da te amoxicillin-clavulanate (AUGMENTIN) 875-125 MG per tablet Take 1 tablet by mouth 2 times daily for 5 days 20 tablet 0 07/21/2021 07/26/2021 HYDROcodone-acetaminophe n (NORCO) 5-325 MG per tabletIndications:Wound dehiscence Take 1 tablet by mouth every 6 hours as needed for Pain for up to 3 days. Intended supply: 3 days. Take lowest dose possible to manage pain 12 tablet 0 07/21/2021 07/24/2021 Prescription Sig Dispensed Refills Start Date End [...] Administ ered Medications (unrecognized section and content) Medication Order 07/19/2021 07/20/2021 07/21/2021 acetaminophen (TYLENOL) tablet 1,000 mg (COMPLETED) 1,000 mg, Oral, ONCE, On Mon07/21/21 at 0645, For 1 dose, Maximum dose of acetaminophen is 4000 mg from all sources in 24 hours. Do not administer if patient has taken tylenol <4 hours earlier. Do not give if contraindicated ie. patient has active liver disease or cirrhosis., Pre-op (day of surgery) 0633 (Given - Provid er: Sandra Ross RN) ceFAZolin (ANCEF) 2000 mg in dextrose 4 % 100 mL IVPB (premix) (COMPLETED) 2,000 mg, IntraVENous, LINEN SUPERVISOR TO O.R., 1 dose, On Mon07/21/21 at 0645, HOLD ABX FOR INTRA-OPERATIVE CULTURES, Pre-op (day of surgery) 0804 (Given by Other Clinician - Provider: Elier Jimenez RN) famotidine (PEPCID) tablet 20 mg (COMPLETED) 20 mg, Oral, ONCE, On Mon07/21/21 at 0645, For 1 dose, Pre-op (day of surgery) 0633 (Given - Provid er: Sandra Ross RN) gabapentin (NEURONTIN) capsule 100 mg (COMPLETED) 100 mg, Oral, ONCE, On Mon07/21/21 at 0645, For 1 dose, For Age >69, or Low GFR, Pre-op (day of surgery) 0632 (Given - Provid er: Sandra Ross RN) sodium chloride flush 0.9 % injection 5-40 mL 5-40 mL, IntraVENous, EVERY 12 HOURS SCHEDULED (2 times per day), First dose on Mon07/21/21 at 0900, For Line Patency: Peripheral IV = 5 [...] = 20 mL/lumen, Pre-op (day of surgery) 0900 (Due)2100 (Due) Continuous Medication Order 07/19/2021 07/20/2021 07/21/2021 lactated [...] ONCE PRN, Itching, Starting on Mon07/21/21 at 0722, For 1 dose, for use Sameday and, [...] to initial therapy medications.Sameday and, PACU only 09 (Given - Provid er: Elier Jimenez RN) hydrALAZINE (APRESOLINE) injection 5 mg 5 [...] continuous infusion. 2302 (Given - Provider: Ellen Day RN) 0837 (Given - Provider: Merline Myers RN)2100 (Due) heparin flush 100 UNIT/ML injection 250 Units 250 Units, IntraCATHeter, EVERY 12 HOURS, First dose on Mon08/11/21 at 1715, Each lumen. Do NOT administer to lumens with continuous fluids currently infusing. Line Care. Use 10 mL or larger syringe. 1724 (Given - Provider: Noemy Martinez, MAU) 0514 (Given - Provider: Ellen Day, RN)1715 (Due) hydroCHLOROthiazide (HYDRODIURIL) tablet 25 mg [...] Purdy RN) 0513 (Given - Provider: Ellen Day, MAU) lidocaine 1 % injection 5 mL 5 [...] Day RN) 0836 (Given - Provider: Merline Myers, MAU)2100 (Due) magnesium citrate solution 296 mL (COMPLETED) [...] Purdy RN) 0513 (Given - Provider: Ellen Day, MAU) piperacillin-tazobactam (ZOSYN) 3375 mg in dextrose 50 [...] Day RN) 0332 (Stopped - Provider: Ellen Day, MAU)0514 (New Bag - Provider: Ellen Day RN)0955 [...] RN) 0838 (Not Given - Provider: Merline Myers, RN - Reason: Other - Comment: iv infusing in this port)2100 (Due) sodium chloride flush 0.9 % injection 10 mL 10 mL, IntraVENous, EVERY 12 HOURS SCHEDULED (2 times per day), First dose on Mon08/11/21 at 2100, Flush each lumen of PICC not connected to a continuous infusion. 2254 (Given - Provider: Ellen Day RN) 0837 (Given - Provider: Melrine Myers RN)2100 (Due) sodium chloride flush 0.9 % injection 10 mL 10 mL, IntraCATHeter, EVERY 12 HOURS, First dose on Mon08/11/21 at 1715, Administer to each lumen, regardless of whether or not fluids are infusing. Line Care. Use 10 mL or larger syringe. 1724 (Given - Provider: Noemy Martinez RN) 0514 (Given - Provider: Ellen Day, MAU)1715 (Due) sodium chloride flush 0.9 % injection [...] Noemy Martinez RN)2302 (Given - Provider: Ellen Day RN) 0838 (Not Given - Provider: Merline Myers RN - Reason: Other - Comment: only x2 port iv infusiing in one)2099 (Due - Provider: Noemy Martinez RN) sodium [...] MAU) 0155 (New Bag - Provider: Venessa Purdy RN)0400 (Stopped - Provider: Venessa Purdy RN) vancomycin [...] with frequent/long duration piggyback infusions, Starting on 08/08/21 at 1326, Administer at the same rate as the piggyback being infused. acetaminophen (TYLENOL) suppository 650 mg(Linked Group 1) 650 mg, Rectal, EVERY 6 HOURS PRN, Pain Mild (1-3), Fever, For temp greater than 100.4 F (38 C), Starting on 08/08/21 at 1326, Administer if [...] at 1209 1215 (Given - Provider: Noemy Martinez, MAU) heparin flush 100 UNIT/ML injection 250 Units [...] HOURS PRN, Pain Severe (7-10), Starting on Mon08/08/21 at 1326, If oral and IV narcotics ordered, use oral first and only use IV if oral is ineffective or cannot take oral. Do Not give oral and IV within 1 hour of each other unless specifically ordered. 0608 (Given - Provider: Venessa Purdy RN) 0137 (Given - Provider: Venessa Purdy RN)1724 (Given - Provider: Noemy Martinez RN)2254 (Given - Provider: Ellen Day RN) ondansetron (ZOFRAN) injection 4 mg(Linked Group 2) 4 mg, IntraVENous, EVERY 6 HOURS PRN, Nausea, Vomiting, Starting on Mon08/08/21 at 1326, Administer if oral route cannot be used. ondansetron (ZOFRAN-ODT) disintegrating tablet 4 mg(Linked Group 2) 4 mg, Oral, EVERY 8 HOURS PRN, Nausea, Vomiting, Starting on Mon08/08/21 at 1326 oxyCODONE (ROXICODONE) immediate release tablet 5 mg 5 mg, Oral, EVERY 4 HOURS PRN, Pain Moderate (4-6), Starting on Mon08/08/21 at 1326 0031 (Given - Provider: Venessa Purdy RN) 0543 (Given - Provider: Venessa Purdy RN)0953 (Given - Provider: Noemy Martinez, RN)1631 (Given - Provider: Noemy Martinez, RN) 0604 (Given - Provider: Ellen Day, RN) polyethylene glycol (GLYCOLAX) packet 17 g 17 g, Oral, DAILY PRN, Constipation, Starting on Mon08/08/21 at 1326, First line therapy for constipation 2143 (Given - Provider: Venessa Purdy RN) 0751 (Given - Provider: Noemy Martinez, MAU) 0605 (Given - Provider: Ellen Day, RN) sodium chloride flush 0.9 % injection [...] (38 C), Starting on Mon08/08/21 at 1326
Maximum dose of acetaminophen is 4000 mg from all sources in 24 hours.
Or acetaminophen (TYLENOL) suppository 650 mgJump to med 650 mg, Rectal, EVERY 6 HOURS PRN, Pain Mild (1-3), Fever, For temp greater than 100.4 F (38 C), Starting on 08/08/21 at 1326
Administer if oral route cannot be used.
Group 2: ondansetron (ZOFRAN-ODT) disintegrating tablet 4 mgJump to med 4 mg, Oral, EVERY 8 HOURS PRN, Nausea, Vomiting, Starting on 08/08/21 at 1326 Or ondansetron (ZOFRAN) injection 4 mgJump to med 4 mg, IntraVENous, EVERY 6 HOURS PRN, Nausea, Vomiting, Starting on 08/08/21 at 1326
Administer if oral route cannot [...] % 50 mL IVPB 600 mg, IntraVENous, LINEN SUPERVISOR TO O.R., 1 dose, On Mon09/10/21 at [...] only 1107 (Given - Provid er: Jyoti Chow RN)1131 (Given - Provider: Jyoti Chow RN) labetalol [...] (unrecogniz ed section and content) Reason Comments Abscess pt arrived by car. 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 incision ended up getting infected. pt is now here for pain. Reason Comments Thyroid Problem Reason Onset Date Comments Refill Request 04/02/2022 Reason Comments Consult Colonoscopy consulta tion. INFORMATION SOURCE (unrecogn ized section and content) DATE CREATED AUTHOR [facility]/24/[address] [facility] DATE CREATED AUTHOR AUTHOR'S ORGANIZ ATION 09/16/2021 [facility] [employer] DATE CREATED AUTHOR AUTHOR'S ORGANIZ ATION 09/21/2024 [facility] DATE CREATED AUTHOR AUTHOR'S ORGANIZ ATION 09/03/2025 [facility] Comments (unrecognize d section and content) In the event this informatio n is protected by the Federal Confidentiality of Alcohol and Drug Abuse Patient Records regulations: The Federal rules restrict any use of the information to criminally investigate or prosecute any alcohol or drug abuse patient.[facility] the event this information is protected by the Federal Confidentiality of Alcohol and Drug Abuse Patient Records regulations: The Federal rules restrict any use of the information to criminally investigate or prosecute any alcohol or drug abuse patient.[facility] Center[facility] the event this information is protected by the Federal Confidentiality of Alcohol and Drug Abuse Patient Records regulations: The Federal rules restrict any use of the information to criminally investigate or prosecute any alcohol or drug abuse patient.[facility] CenterIn the event this information is protected by the Federal Confidentiality of Alcohol and Drug Abuse Patient Records regulations: The Federal rules restrict any use of the information to criminally investigate or prosecute any alcohol or drug abuse patient.[facility] CenterIn the event this information is protected by the Federal Confidentiality of Alcohol and Drug Abuse Patient Records regulations: The Federal rules restrict any use of the information to criminally investigate or prosecute any alcohol or drug abuse patient.[facility] CenterIn the event this information is protected by the Federal Confidentiality of Alcohol and Drug Abuse Patient Records regulations: The Federal rules restrict any use of the information to criminally investigate or prosecute any alcohol or drug abuse patient.[facility] Care Teams (unrecognized sec tion and content) Aerodynamics Engineer Relationship Specialty Start Date End Date Shereen Alaniz DO [address] [facility] [address] [place] [address] PCP - General Family Practice 06/11/20 Aerodynamics Engineer Relationship Specialty Start Date End Date Shereen Alaniz DO [address] [facility] [address] [place] [address] PCP - General Family Practice 06/11/20 Aerodynamics Engineer Relationship Specialty Start Date End Date Shereen Alaniz DO [address] [facility] [address] [place] [address] PCP - General Family Practice 06/11/20 Team Status: Active Member Role Status Dates Dr. Shereen Alaniz MD Family Provider Active Dr. Shereen Soria MD Primary Care Provider Active Team Status: Inactive Member Role Status Dates Dr. Brandy Corado MD Primary Care Provider, Referrin g Provider Active Donaldo DAWN, PA Attending Provider Active Team Status: Inactive Member Role Status Dates Dr. Brandy Corado MD Primary Care Provider, Referrin g Provider Active Darien DAWN, PA Attending Provider Active Team Status: Inactive Member Role Status Dates Dr. Shereen Soria MD Primary Care Pr ovider, Attending Provider, Referring Provider Active Team Status: Active Member Role Status Dates Dr. Brandy Corado MD Primary Care Provider Active Dr. Shereen Soria MD Attending Provider Active Team Status: Inactive Member Role Status Dates Dr. Brandy Corado MD Primary Care Provider Active Dr. Shereen Soria MD Attending Provider Active Team Status: Active Member Role Status Dates Dr. Shereen Soria MD Primary Care Provider Active Dr. Jan Tobias MD Attending Provider Active Team Status: Inactive Member Role Status Dates Dr. Shereen Soria MD Primary Care Provider Active Dr. Karl Mccann MD Emergency Provider Active Team Status: Inactive Member Role Status Dates Dr. Shereen Soria MD Primary Care Provider, Referr ing Provider Active Donaldo Petersen PA, PA Attending Provider Active Team Status: Inactive Member Role Status Dates Dr. Shereen Soria MD Primary Care Provider Active Dr. Karl Mccann MD Attending Provider, Emergency Provider Active Team Status: Inactive Member Role Status Dates Dr. Shereen Soria MD Primary Care Provider, Attend ing Provider Active Aerodynamics Engineer Relationship Specialty Start Date End Date Shereen Soria MD [address] [facility] [address] [place] [address] PCP - General Family Medicine 08/29/24 Aerodynamics Engineer Relationship Specialty Start Date End Date Shereen Soria MD [address] [facility] [address] [place] [address] PCP - General Family Medicine 08/29/24 Aerodynamics Engineer Relationship Specialty Start Date End Date Shereen Soria MD [address] [facility] [address] [place] [address] PCP - General Family Medicine 08/29/24 Team Status: Active Member Role Status Dates Dr. Shereen Soria MD Primary Care Provider Active Team Status: Inactive Member Role Status Dates Dr. Shereen Soria MD Primary Care Provider Active Start: December 16, 2024 End: December 16, 2024 Dr. Shereen Soria MD Attending Provider Active Start: December 16, 2024 End: December 16, 2024 Dr. Shereen Soria MD Referring Provider Active Start: December 16, 2024 End: December 16, 2024 Team Status: Inactive Member Role Status Dates Dr. Shereen Soria MD Primary Care Provider Active Start: January 02, 2025 End: January 02, 2025 Dr. Shereen Soria MD Attending Provider Active Start: January 02, 2025 End: January 02, 2025 Dr. Shereen Soria MD Referring Provider Active Start: January 02, 2025 End: January 02, 2025 Team Status: Inactive Member Role Status Dates Dr. Shereen Soria MD Primary Care Provider Active Start: March 17, 2025 End: March 17, 2025 Dr. Elier Phan MD Attending Provider Active Start: March 17, 2025 End: March 17, 2025 Dr. Elier Phan MD Referring Provider Active Start: March 17, 2025 End: March 17, 2025 Team Status: Inactive Member Role Status Dates Dr. Shereen Soria MD Primary Care Provider Active Start: March 22, 2025 End: March 22, 2025 Dr. Shereen Soria MD Attending Provider Active Start: March 22, 2025 End: March 22, 2025 Dr. Shereen Soria MD Referring Provider Active Start: March 22, 2025 End: March 22, 2025 Team Status: Active Member Role/Relationship Status Dates Dr. Shereen Soria MD Primary Care Provider Active Team Status: Inactive Member Role/Relationship Status Dates Dr. Shereen Soria MD Primary Care Provider Active Start: March 17, 2025 End: March 17, 2025 Dr. Elier Phan MD Attending Provider Active Start: March 17, 2025 End: March 17, 2025 Dr. Elier Phan MD Referring Provider Active Start: March 17, 2025 End: March 17, 2025 Team Status: Inactive Member Role/Relationship Status Dates Dr. Shereen Soria MD Primary Care Provider Active Start: March 22, 2025 End: March 22, 2025 Dr. Shereen Soria MD Attending Provider Active Start: March 22, 2025 End: March 22, 2025 Dr. Shereen Soria MD Referring Provider Active Start: March 22, 2025 End: March 22, 2025 Team Status: Inactive Member Role/Relationship Status Dates Dr. Shereen Soria MD Primary Care Provider Active Start: June 06, 2025 End: June 06, 2025 Dr. Shereen Soria MD Attending Provider Active Start: June 06, 2025 End: June 06, 2025 Dr. Shereen Soria MD Referring Provider Active Start: June 06, 2025 End: June 06, 2025 Team Status: Inactive Member Role/Relationship Status Dates Dr. Shereen Soria MD Primary Care Provider Active Start: June 17, 2025 End: June 17, 2025 Dr. Jakob Gill DO Attending Provider Active Start: June 17, 2025 End: June 17, 2025 Dr. Jakob Gill DO Referring Provider Active Start: June 17, 2025 End: June 17, 2025 Team Status: Active Member Role/Relationship Status Dates Dr. Shereen Soria MD Primary Care Provider Active Start: June 17, 2025 Dr. Jan Tobias MD Attending Provider Active S tart: June 17, 2025 Dr. Jakob Gill DO Referring Provider Active Start: June 17, 2025 Goals (unrecognized section and content) Goals may be documented in a n alternate sectionGoals may be documented in an alternate sectionGoals may be documented in an alternate sectionGoals may be documented in an alternate sectionGoals may be documented in an alternate sectionGoals may be documented in an alternate sectionGoals may be documented in an alternate sectionGoals may be documented in an alternate sectionGoals may be documented in an alternate sectionGoals may be documented in an alternate sectionGoals may be documented in an alternate section FOR RECORDS PERTAINING TO PATIENTS WHO ARE [...] BE BASED ON THE PRIMARY CLINICAL RECORDS. [employer] [facility]. provides no warranty or guarantee of the accuracy or completeness of information in this document.
[2025-09-05 12:19] LABS: Hematocrit 43.0 % (37-47); Hemoglobin 14.7 g/dL (12.0-15.0); Immature Granulocytes Count 0.030 X10^3/uL (0.0-0.0); Mean Corp Hgb Conc 34.2 g/dL (32-36); Mean Corpuscular Volume 87.0 fL (81-99); Mean Platelet Vol. 13.1 fl (6.2-12.0); NRBC Flagged by Analyzer 0 % (0-5); POSITIVE COUNT YES; RBC Distribution Width CV 12.8 % (11.6-14.6); RBC Distribution Width SD 40.5 fl (35.1-43.9); Red Blood Count 4.94 M/mm3 (4.2-5.4); White Blood Count 6.5 K/mm3 (4.4-11.0)
[2025-09-05 12:31] LABS: Color, Urine Yellow (Yellow); Glucose, Dipstick Normal (Normal); Ketone-Dipstick Negative (Negative); Leukocyte Esterase-Dipstick 25 /ul (Negative); Nitrite-Dipstick Negative (Negative); Occult Blood-Urine Negative /ul (Negative); Protein-Dipstick Negative (Negative); Specific Gravity, Urine 1.010 (1.002-1.030); Urine Bilirubin Dipstick Negative (Negative)
[2025-09-05 12:36] LABS: PTHIN 59 pg/mL (11-61)
[2025-09-05 12:43] LABS: Squamous Epithelial Cells - UA 0-5 SEEN /hpf (5-10)
[2025-09-05 12:45] LABS: AST(SGOT) 20 U/L (<=31); Alanine Aminotransfer ALT/SGPT 17 U/L (<=34); Albumin, Serum 4.6 g/dL (3.4-4.8); Alkaline Phosphatase 106 U/L (35-104); Anion Gap 13 (5-15); BUN 13 mg/dL (4-19); BUN/Creat Ratio 28.1 RATIO (10-20); Calcium,Total 10.6 mg/dL (7.6-11.0); Carbon Dioxide 23.4 mmol/L (21.0-32.0); Chloride 104 mmol/L (98-108); Cholesterol 208 mg/dL (<=200); Globulin 2.6 g/dL (2.2-4.2); Glucose 109 mg/dL (70-99); Low Density Lipoprotein Calc. 131 mg/dL; Magnesium 2.0 mg/dL (1.5-2.2); Potassium 3.6 mmol/L (3.3-5.1); Triglycerides 200 mg/dL; Very Low Density Lipoprotein 40 mg/dL (5-40); Vitamin B12 366 pg/mL (180-914); Vitamin D,25 Hydroxy 67.9 ng/mL (30-100); cholesterol:hdl ratio screen 5.01
[2025-09-05 13:44] LABS: Differential Indicated SCAN CRITERIA MET; Platelet Count 41 K/mm3 (150-450)
[2025-09-12 16:09] LABS: VITAMIN B6 9.0 ug/L (3.4-65.2); Vitamin B1, Thiamine 136.5 nmol/L (66.5-200.0)
== END | disposition home or self-care (01) ==
LOC: MFPLAB 09:31
PROVIDERS: PCP Family Medicine; Visit Provider Family Medicine
DX: I10 Essential (primary) hypertension (principal); E03.9 Hypothyroidism, unspecified; E21.3 Hyperparathyroidism, unspecified; R73.02 Impaired glucose tolerance (oral); E55.9 Vitamin D deficiency, unspecified
CPT/HCPCS: 80053; 80061; 81001; 82306; 82607; 83036; 83735; 83970; 84207; 84425; 84439; 84443; 85025

== ENCOUNTER → 2025-09-09 | Outpatient (CLI) | payer MEDICARE, SELFPAY ==
[2025-09-09 18:00] LABS: Hematocrit 39.9 % (37-47); Hemoglobin 13.7 g/dL (12.0-15.0); Immature Granulocytes Count 0.020 X10^3/uL (0.0-0.0); Mean Corp Hgb Conc 34.3 g/dL (32-36); Mean Corpuscular Volume 86.7 fL (81-99); Mean Platelet Vol. 12.4 fl (6.2-12.0); NRBC Flagged by Analyzer 0 % (0-5); POSITIVE COUNT YES; RBC Distribution Width CV 12.8 % (11.6-14.6); RBC Distribution Width SD 40.2 fl (35.1-43.9); Red Blood Count 4.60 M/mm3 (4.2-5.4); White Blood Count 7.0 K/mm3 (4.4-11.0)
[2025-09-09 19:07] LABS: Differential Indicated SCAN CRITERIA MET; Platelet Count 44 K/mm3 (150-450)
[2025-09-09 19:11] LABS: Differential Comment SCANNED
== END | disposition home or self-care (01) ==
LOC: LAB.FUTURE 15:03 → MFPLAB 15:04
PROVIDERS: PCP Family Medicine; Referring Provider Family Medicine; Visit Provider Family Medicine
DX: D69.6 Thrombocytopenia, unspecified (principal)
CPT/HCPCS: 36415; 85025

== ENCOUNTER 2025-09-19 15:00 | Outpatient (RCR) | payer MEDICARE, SELFPAY ==
--- NOTE | 2025-07-09 12:37 | HP.PTEVAL_ITS ---
Patient's Visit Information Visit Information Visit Information: AILEEN NAVA is a 69 year old F referred to Physical Therapy by Dr. Jakob Gill, DO with a diagnosis of Tear of lateral meniscus and tear medial meniscus ,Chondromalacia. Date of Evaluation: 07/09/25 Physical Therapist: Bart Herring, PT, Cert MDT, OCS Visit Plan Frequency: 2x /Week Duration: 12 weeks Plan: -S/P arthroscopic left knee meniscus root repair 06/25/25 -Brace locked in extension 6 weeks with gait - NWB 6 WEEKS LLE -No isolated hamstring strengthening 8 weeks( root repair precautions) -ROM knee flexion limited by 90 degrees 6 weeks - See guidelines for complex meniscus repair PT INTERVENTIONS START MAT EX'S ,ROM /STRENGTHENING WITH ROM LIMITATIONS 6 WEEKS, VASO /ICE NEEDED THEN PROGRESS WITH STRENGTHENING QUADS/HAMS/HIP CLOSED /OPEN CHAIN ,WB ACTIVITIES ,GAIT/BALANCE TRAINING AND FUNCTIONAL STRENGTEHNING Subjective Subjective: This 69 y/o female presents to physical therapy with s/p arthroscopic left knee meniscus root repair 06/25/25 done at [facility] by Dr Gill . Patient was d/c DOS with walker brace locked in extension with NWB LLE for [address]. [address] yesterday removed sutures looked good some edema. RTD in 4 weeks Aug 07. Patient injury knee twisted knee left February 2025. Did MRI There is a horizontal tear in the body of the lateral meniscus which extends to the femoral surface, with extrusion of the anterior body.There is a degenerative signal at the root of the medial meniscus. There is a small horizontal tear in the posterior horn of the medial meniscus which extends to the tibial surface, and mild chondromalacia There is a moderate joint effusion. Patient has polar care mo medication. Denies pare sthesia/tingling-. Patient pain affects sleeping . Apartment no step .Tub shower with assist from granddaughters. Assist with shoes ,cooking /cleaning. Currently 24 care per grand daughters. Patient has difficulty with gait and function and RTW. Tentative RTW 60 days . Patient is not working. Patient goals to RTW and ADLS normal SOCAIL: single VOCATION : 180 Pain Left Knee: Pain Intensity (Out of 10): 2 Objective Objective: POSTURE: mild forward posture knee brace locked in extension NEURO: denies paresthesia/tingling SKIN: intact suture well approximate GAIT: ambulates with NWB LLE with knee brace locked in extension ~ 20 ft with supervision AAROM: 5-60 supine knee flexion MMT: ( peak force) 0 EDEMA: joint line 39.0 cm Balance/Special Test Scores Lower Extremity Functional Score: 13 Goals Goal 1:: Patient to be I with HEP for meniscus repair Goal Time Frame: 8-12 Weeks Goal 2:: Patient to improve AROM supine knee flexion 0-125 degrees to improve stairs Goal Time Frame: 8-12 Weeks Goal 3:: Patient to improve peak force quads/hams hip by 15-20 # to improve function. Goal Time Frame: 8-12 Weeks Goal 4:: Patient to normalize gait Goal Time Frame: 8-12 Weeks Goal 5:: Patient to improve LFES score by 10-15 points to improve function and QOL Goal Time Frame: 8-12 Weeks Rehabilitation Potential Physical Therapy Diagnosis: This patient underwent s/p arthroscopic left knee meniscus root repair 06/25/25 with NWB LLE brace locked in extension with fww with impairments decrease ROM ,weakness quads/hams /hip decrease gait and stairs impairs ADLS and RTW thus benefit from skilled PT Rehabilitation Potential: Good Anticipated Interventions Patient/Client Instruction: Educate patient on: Condition and Plan of Care For the Purpose of:: To decrease pain, To increase ROM, To improve muscle pe rformance and motor function, To improve ability to perform ADL's, To increase tolerance to activity/condition/position, To improve ability of physical actions for home/community/work/leisure, To improve gait and locomotor functions, To improve health of tissue, To decrease soft tissue restriction, To increase flexibility/ROM, To improve balance, To improve safety with gait and To improve tolerance to ADL's Therapeutic Exercise to Include: Strength training, Endurance training, Balance training, Postural training, Flexibilty training, Passive ROM and Active ROM Comment: SEE GUIDELINES For the Purpose of:: To decrease pain, To increase ROM, To improve nutrient delivery to tissue, To increase oxygenation perfusion, To improve muscle performance and motor function, To improve ability to perform ADL's, To increase tolerance to activity/condition/position, To improve ability of physical actions for home/community/work/leisure, To improve health of tissue, To decrease soft tissue restriction, To increase flexibility/ROM, To improve endurance, To improve balance and To improve tolerance to ADL's TENS: Yes Cryotherapy (ice pack, ice massage): Yes Vasopneumatic device: Yes For the Purpose of:: To decrease pain and To decrease swelling/inflammation Text: Thank you for the opportunity to evaluate your patient. For Medicare and Medicare HMO plans, please review the plan of care and approve it. It will need to be FAXED BACK to us at [phone] for Medicare purposes. For Medicare only, by signing this I certify the plan of care. Please let me know if there are questions or concerns regarding this plan of care. Physician Signature: Date:
--- NOTE | 2025-08-07 09:34 | HP.PTREVAL_ITS ---
Re-Evaluation Intro: Dr. Jakob Gill, DO, It has been my pleasure to treat AILEEN NAVA over the last 8 visits for Tear of lateral meniscus and tear medial meniscus ,Chondromalacia. Please see the progress note below for an update on the physical therapy plan of care! Subjective Subjective: Min pian ,swelling in ankle Uses FWW NWB LLE Sees DR boyce Objective Objective/Function: POSTURE: mild forward posture knee brace locked in extension NEURO: denies paresthesia/tingling SKIN: intact suture well approximate GAIT: ambulates with NWB LLE with knee brace locked in extension ~ 20 ft with supervision AAROM: 5-95 supine knee flexion MMT: ( peak force) quads 26.1 ,18.1 hamstrings ,hip flexion 17.2,14. 2 EDEMA: joint line 39.0 cm Plan Plan Plan: -S/P arthroscopic left knee meniscus root repair 06/25/25 -Brace locked in extension 6 weeks with gait -NWB 6 WEEKS LLE -No isolated hamstring strengthening 8 weeks( root repair precautions) -ROM knee flexion 90 Degrees open pack position -See guidelines for complex meniscus repair PT INTERVENTIONS START MAT EX'S ,ROM /STRENGTHENING WITH ROM LIMITATIONS 6 WEE [place], VASO /ICE NEEDED THEN PROGRESS WITH STRENGTHENING QUADS/HAMS/HIP CLOSED /OPEN CHAIN ,WB ACTIVITIES ,GAIT/BALANCE TRAINING AND FUNCTIONAL STRENGTEHNING Balance/Gait/Functional tests Balance/Special Test Scores Lower Extremity Functional Score: 13 Goals Goals Goal 1:: Patient to be I with HEP for meniscus repair Goal Time Frame: 8-12 Weeks Goal Progress: Progressing Goal 2:: Patient to improve AROM supine knee flexion 0-125 degrees to improve stairs Goal Time Frame: 8-12 Weeks Goal Progress: Progressing Goal 3:: Patient to improve peak force quads/hams hip by 10-15 # to improve function.( new goal Goal Time Frame: 8-12 Weeks Goal Progress: Progressing Goal 4:: Patient to normalize gait Goal Time Frame: 8-12 Weeks Goal Progress: Progressing Goal 5:: Patient to improve LFES score by 10-15 points to improve function and QOL Goal Time Frame: 8-12 Weeks Goal Progress: Progressing Anticipated Interventions Anticipated Interventions Patient/Client Instruction: Educate patient on: Condition and Plan of Care For the Purpose of:: To decrease pain, To increase ROM, To improve muscle performance and motor function, To improve ability to perform ADL's, To increase tolerance to activity/condition/position, To improve ability of physical actions for home/community/work/leisure, To improve gait and locomotor functions, To improve health of tissue, To decrease soft tissue restriction, To increase flex ibility/ROM, To improve balance, To improve safety with gait and To improve tolerance to ADL's Therapeutic Exercise to Include: Strength training, Endurance training, Balance training, Postural training, Flexibilty training, Passive ROM and Active ROM Comment: SEE GUIDELINES For the Purpose of:: To decrease pain, To increase ROM, To improve nutrient delivery to tissue, To increase oxygenation perfusion, To improve muscle performance and motor function, To improve ability to perform ADL's, To increase tolerance to activity/condition/position, To improve ability of physical actions for home/community/work/leisure, To improve health of tissue, To decrease soft tissue restriction, To increase flexibility/ROM, To improve endurance, To improve balance and To improve tolerance to ADL's TENS: Yes Cryotherapy (ice pack, ice massage): Yes Vasopneumatic device: Yes For the Purpose of:: To decrease pain and To decrease swelling/inflammation Re-Evaluation Ending Re-evaluation ending: Please do not hesitate to contact me at [phone] by phone or if you have questions or concerns regarding this new plan of care! Sincerely, Bart Herring, PT, Cert MDT, OCS
--- NOTE | 2025-09-04 11:05 | HP.PTREVAL ---
Re-Evaluation Intro: Dr. Jakob Gill, DO, It has been my pleasure to treat AILEEN NAVA over the last 16 visits for Tear of lateral meniscus and tear medial meniscus ,Chondromalacia. Please see the progress note below for an update on the physical therapy plan of care! Subjective Subjective: Doing alot better .. Walking no device -See in Oct Objective Objective/Function: Patient making nice progress with ROM and strength will benefit from skilled PT with goal's adjusted and appropriate. GAIT: ambulates reciprocal pattern STAIRS: alternating with steps AROM: 0-115 DEGREES MMT: ( peak force) quads 44.1 , 18.9 hamstrings ,hip flexion 37.2,2 HIP ABD4. 2 EDEMA: joint line 39.0 cm Plan Plan Plan: -S/P arthroscopic left knee meniscus root repair 06/25/25 -No isolated hamstring strengthening 8 weeks (root repair precautions) -ROM knee flexion 90 DEGREES CLOSED CHAIN -See guidelines for complex meniscus repair PT INTERVENTIONS START MAT EX'S ,ROM /STRENGTHENING WITH ROM LIMITATIONS 6 WEEKS, VASO /ICE NEEDED THEN PROGRESS WITH STRENGTHENING QUADS/HAMS/HIP CLOSED /OPEN CHAIN ,WB ACTIVITIES ,GAIT/BALANCE TRAINING AND FUNCTIONAL STRENGTEHNING Balance/Gait/Functional tests Balance/Special Test Scores Lower Extremity Functional Score: 47 Goals Goals Goal 1:: Patient to be I with HEP for meniscus repair Goal Time Frame: 8-12 Weeks Goal Progress: Progressing Goal 2:: Patient to improve AROM supine knee flexion 0-125 degrees to improve stairs Goal Time Frame: 8-12 Weeks Goal Progress: Progressing Goal 3:: Patient to improve peak force quads/hams hip by 10-15 # to improve function.( new goal Goal Time Frame: 8-12 Weeks Goal Progress: Progressing Goal 4:: Patient to normalize gait Goal Time Frame: 8-12 Weeks Goal Progress: Goal Met Goal 5:: Patient to improve LFES score by 10-15 points to improve function and QOL( NEW GOAL: Goal Time Frame: 8-12 Weeks Goal Progress: Progressing Anticipated Interventions Anticipated Interventions Patient/Client Instruction: Educate patient on: Condition and Plan of Care For the Purpose of:: To decrease pain, To increase ROM, To improve muscle performance and motor function, To improve ability to perform ADL's, To increase tolerance to activity/condition/position, To improve ability of physical actions for home/community/work/leisure, To improve gait and locomotor functions, To improve health of tissue, To decrease soft tissue restriction, To increase flexibility/ROM, To improve balance, To improve safety with gait and To improve tolerance to ADL's Therapeutic Exercise to Include: Strength training, Endurance training, Balance training, Postural training, Flexibilty training, Passive ROM and Active ROM Comment: SEE GUIDELINES For the Purpose of:: To decrease pain, To increase ROM, To improve nutrient delivery to tissue, To increase oxygenation perfusion, To improve muscle performance and motor function, To improve ability to perform ADL's, To increase tolerance to activity/condition/position, To improve ability of physical actions for home/community/work/leisure, To improve health of tissue, To decrease soft tissue restriction, To increase flexibility/ROM, To improve endurance, To improve balance and To improve tolerance to ADL's TENS: Yes Cryotherapy (ice pack, ice massage): Yes Vasopneumatic device: Yes For the Purpose of:: To decrease pain and To decrease swelling/inflammation Re-Evaluation Ending Re-evaluation ending: Please do not hesitate to contact me at [phone] by phone or if you have questions or concerns regarding this new plan of care! Sincerely, Bart Herring, PT, Cert MDT, OCS
--- NOTE | 2025-09-19 15:28 | HP.PTDCSUM ---
Discharge Summary D/C summary: It has been my pleasure to treat AILEEN NAVA referred by Dr. Jakob Gill DO, with the diagnosis of Tear of lateral meniscus and tear medial meniscus ,Chondromalacia for a total of 20 visit(s). Discharge Date: 09/19/25 Please see the following information for a summary of their discharge status. Subjective Subjective: Seen DR Gill will refer to pain management due to pain lower leg Happy with progress =increase edema -New mediaction with celebrex Pain Left Knee: Pain Intensity (Out of 10): 2 Overall Improvement % Improvement: 75 Objective Objective/Function: GAIT: ambulates reciprocal pattern STAIRS: alternating with steps AROM: 0-122 DEGREES MMT: ( peak force) quads 51.8 , 22.9 hamstrings ,hip flexion 37.2, HIP ABD 24. 2 EDEMA: joint line 39.5cm Goals Goal 1:: Patient to be I with HEP for meniscus repair Goal Progress: Goal Met Goal 2:: Patient to improve AROM supine knee flexion 0-125 degrees to improve stairs Goal Progress: Goal Met Goal 3:: Patient to improve peak force quads/hams hip by 10-15 # to improve function.( new goal Goal Progress: Goal Met Goal 4:: Patient to normalize gait Goal Progress: Goal Met Goal 5:: Patient to improve LFES score by 10-15 points to improve function and QOL( NEW GOAL: Goal Progress: Goal Met Plan Plan: D/C D/C Information Discharge Comments: HEP d/c sentence: If there are questions or concerns regarding this patient's physical therapy, please feel free to call me at [phone]. Thank you for the referral of this patient. Sincerely, Bart Herring, PT, Cert MDT, OCS Balance/Gait/Functional tests Balance/Special Test Scores Lower Extremity Functional Score: 47 Improvement % Improvement: 75
== END 2025-09-19 19:00 | disposition home or self-care (01) ==
LOC: PT 15:00
PROVIDERS: PCP Family Medicine; Referring Provider Student in an Organized Health Care Education/Training Program; Visit Provider Student in an Organized Health Care Education/Training Program
DX: S83.282D Other tear of lateral meniscus, current injury, left knee, subsequent encounter (principal); S83.242D Other tear of medial meniscus, current injury, left knee, subsequent encounter; M22.42 Chondromalacia patellae, left knee
CPT/HCPCS: 97016; 97110; 97140; 97162; 97530